=== PATIENT | male | born 1960 | race Caucasian/White ===

== ENCOUNTER 2021-05-01 11:36 | Inpatient (IN) ==
[2021-05-01] MEDS ORDERED: SODIUM CHLORIDE 0.9% 1000ML 1,000 ML IV ONE (12:00)
[2021-05-01] MEDS ORDERED: ALBUTEROL 0.083% NEBU SOLN 3 ML VIAL NEB STA (12:00)
[2021-05-01] MEDS ORDERED: methylPREDNISolone 125 MG/2 ML VIAL IV STA (12:00)
--- NOTE | 2021-05-01 12:04 | Emergency Department Note ---
Impression & Plan RSV (acute bronchiolitis due to respiratory syncytial virus), HUSSEIN (acute kidney injury), Hypoxia ED Provider Note NAME: DEBBIE ALEJANDRA AGE: 61 SEX: M : 1960 ARRIVES VIA: Ambulance INFORMANT: Patient ED PROVIDER(S): Darren Johnson DO CHIEF COMPLAINT: Cough and shortness of breath HPI: Patient is a 61-year-old who is a renal transplant recipient on tacrolimus and Eliquis who presents to the ER for cough and congestion which has been present for the past 2 weeks. He notes that the shortness of breath has been getting gradually worse. He denies any chest pain or belly pain. No nausea and vomiting. No dysuria, urgency, or frequency. He saw his PCP today was found to be hypoxic at 87% was referred over to the ER. He was brought in by EMS. ROS: See above HPI for pertinent positives & negatives. A total of 10 systems r eviewed and were otherwise negative. PAST MEDICAL HISTORY:See Below PAST SURGICAL HISTORY:See Below FAMILY HISTORY:See Below SOCIAL HISTORY:See Below HOME MEDICATIONS:See Below ALLERGIES:See Below VITALS:See Below PHYSICAL EXAMINATION: GENERAL: Sitting up in bed, alert, Chronically ill-appearing, disheveled,Persistent cough EYE EXAM: normal conjunctiva. OROPHARYNX: no exudate, no erythema, lips, buccal mucosa, and tongue normal and mucous membranes are moist NECK: supple, no nuchal rigidity, no adenopathy, non-tender LUNGS: Clear to auscultation. Normal chest wall mechanics HEART: no murmurs, S1 normal and S2 normal ABDOMEN: abdomen soft, non-tender, normo-active bowel sounds, no masses, no rebound or guarding. UPPER EXTREMITIES: upper extremities are grossly normal. LOWER EXTREMITIES: No pitting edema. NEURO EXAM: Normal sensorium, cranial nerves II-XII grossly intact, normal speech, no gross weakness of arms, no gross weakness of legs. MEDICAL DECISION MAKING: Patient is a 61-year-old male that presents the ER for upper respiratory symptoms with a known renal transplant. IV was established blood work was obtained. Labs show no significant leukocytosis or anemia. BMP with a creatinine of 2.8 up from a baseline of 1.5. LFTs bilirubin were unremarkable. Troponin was negative. RSV was positive likely cause of his hypoxia. Chest x- ray with mild infiltrates. Patient was given IV fluids. Patient was updated bedside. He was discussed with the hospitalist admitted for further work-up of his HUSSEIN in combination with his RSV likely causing the hypoxia on nasal cannula. Triage Nursing notes reviewed. Limited review of prior medical records performed Vital Signs: reviewed and remarkable for hypotension Differential diagnosis: Differential diagnoses includes but is not limited to pneumonia, bronchitis, COPD/Asthma exacerbation, pneumothorax, pulmonary embolism, congestive heart failure, acute coronary syndrome ER treatment provided: See below Diagnostics interpreted by me: ECG: A. fib rate of 75 Left axis No PVCs QTC 386 Cardiac Monitoring: An order was placed for continuous cardiac monitoring. The monitor shows a rate of 80 with sinus rhythm. Laboratory studies: As stated above and show below. Imaging studies: Chest x-ray with bilateral subtle infiltrates Consultation(s): Discussed the hospitalist for further evaluation Procedures: none Critical Care: I have personally spent 35 minutes of critical care time in the direct management of this patient. This includes bedside care, interpretation of diagnostic studies, and testing, discussion with consultants, patient, and family members, and other required patient management activities. This 35 minutes is in excess of all separately billable procedures. Past Med/Surg History Medical History Afib Cardiac defibrillator in place Surgical History History of appendectomy History of cholecystectomy Social History Smoking Status: Never smoker Preferred Language: Indonesian Feels Safe at Home: Yes Allergies Allergies Allergy/AdvReac Type Severity Reaction Status Date / Time Penicillins Allergy Intermediate Hives Verified 05/01/21 13:25 Home Meds Home Medications Medication Instructions Recorded Confirmed amlodipine 5 mg tablet (Norvasc) 5 mg PO QAM 12/15/20 05/01/21 apixaban 5 mg tablet (Eliquis) 5 mg PO BID 12/15/20 05/01/21 atorvastatin 10 mg tablet 10 mg PO HS 12/15/20 05/01/21 carvedilol 6.25 mg tablet 6.25 mg PO BID 12/15/20 05/01/21 clonidine 0.2 mg/24 hr weekly 0.2 mg TRANSDERMAL WK 12/15/20 05/01/21 transdermal patch duloxetine 60 mg capsule,delayed 60 mg PO QAM 12/15/20 05/01/21 release fluticasone furoate 100 1 inh INHALATION DAILY 12/15/20 05/01/21 mcg/actuation blister powder for inhalation (Arnuity Ellipta) furosemide 40 mg tablet 40 mg PO DAILY 12/15/20 05/01/21 hydroxyzine HCl 25 mg tablet 25 mg PO TID PRN 12/15/20 05/01/21 [id number]-[id number]-[id number] 2 cap PO BID 12/15/20 05/01/21 24,000-76,000-120,000 unit capsule,delayed rel (Creon) lorazepam 0.5 mg tablet 0.5 mg PO BID PRN 12/15/20 05/01/21 montelukast 10 mg tablet 10 mg PO HS 12/15/20 05/01/21 potassium chloride 20 mEq 20 meq PO BID 12/15/20 05/01/21 tablet,extended release(part/cryst) sacubitril 24 mg-valsartan 26 mg 1 tab PO BID 12/15/20 05/01/21 tablet (Entresto) tacrolimus 1 mg capsule, See Rx Instructions .ROUTE .COMPLEX 12/15/20 05/01/21 immediate-release terazosin 10 mg capsule 10 mg PO HS 12/15/20 05/01/21 pantoprazole 40 mg tablet,delayed 40 mg PO DAILY 05/01/21 05/01/21 release trazodone 50 mg tablet 50 mg PO DAILY 05/01/21 05/01/21 Results & Data (ED) Vital Signs Vital Signs - 24 hr 05/01/21 11:54 05/01/21 13:22 05/01/21 13:24 Temperature 36.5 C Temperature Source Temporal Artery Scan Pulse Rate 75 71 66 Pulse Rate [Apical] 68 Pulse Rate from SpO2 Sensor 68 Pulse Rhythm Irregular Pulse Rhythm [Apical] Irregular Pulse Strength [Apical] Normal Respiratory Rate 20 19 33 H Respiratory Effort / Characteristics Non-Labored Spontaneous Non-Labored Spontaneous Respiratory Depth Normal Normal Respiratory Pattern Regular Regular Blood Pressure 88/45 L Blood Pressure [Right Arm] 102/64 Blood Pressure Mean 59 Blood Pressure Mean [Right Arm] 76 Blood Pressure Position Sitting Blood Pressure Position [Right Arm] Semi-fowlers Pulse Oximetry 94 93 93 Oxygen Delivery Method Room Air Room Air Oxygen Flow Rate 2 Sepsis Recent Fever Within 48 Hours No Sepsis New/Unexplained Change in Mental Status N/A Sepsis Action Taken by Nursing No Action Required 05/01/21 13:30 Temperature Temperature Source Pulse Rate 83 Pulse Rate [Apical] Pulse Rate from SpO2 Sensor 81 Pulse Rhythm Pulse Rhythm [Apical] Pulse Strength [Apical] Respiratory Rate 20 Respiratory Effort / Characteristics Respiratory Depth Respiratory Pattern Blood Pressure 102/68 Blood Pressure [Right Arm] Blood Pressure Mean 79 Blood Pressure Mean [Right Arm] Blood Pressure Position Blood Pressure Position [Right Arm] Pulse Oximetry 98 Oxygen Delivery Method Oxygen Flow Rate Sepsis Recent Fever Within 48 Hours Sepsis New/Unexplained Change in Mental Status Sepsis Action Taken by Nursing Laboratory Data Result diagrams: 05/01/21 Unknown 05/01/21 Unknown Administered Medications Discontinued Medications Albuterol (Albuterol 0.083% Nebu Soln 3 Ml Vial) 2.5 mg NEB NOW STA Stop: 05/01/21 12:01 Last Admin: 05/01/21 12:10 Dose: 2.5 mg Documented by: [id number] Sodium Chloride (Nss 1000ml) 1,000 mls @ 999 mls/hr IV .Q1H1M ONE Stop: 05/01/21 13:00 Last Infusion: 05/01/21 17:08 Dose: 0 mls/hr Documented by: [id number] Admin: 05/01/21 14:11 Dose: 999 mls/hr Documented by: [id number] Methylprednisolone (Methylprednisolone 125 Mg/2 Ml Vial) 60 mg IV NOW STA Stop: 05/01/21 12:01 Last Admin: 05/01/21 12:10 Dose: 60 mg Documented by: [id number] Imaging Data Radiologist's Impression: Chest X-Ray 05/01/21 11:59 XR chest 1V portable CLINICAL HISTORY: Atypical chest pain. COMPARISON STUDY: Chest CT December 15, 2020. FINDINGS: Lung volumes are normal. Left subclavian pacer/AICD is in place. There is moderate cardiomegaly without evidence for pulmonary edema. There is no pneumothorax or pleural effusion. Old bilateral rib deformities are incidentally noted. There is mild nonspecific reticulonodular interstitial thickening. There is minimal right basilar opacity. IMPRESSION: 1. Minimal right basilar opacity and mild reticulonodular interstitial thickening. An infectious process cannot be excluded. 2. Cardiomegaly. No evidence for pulmonary edema. ACT 112: Negative or not required by law. Electronically signed by: Hussein Garvin M.D. 05/01/2021 12:33 PM Discharge Plan Visit Data Chief Complaint: Shortness of Breath/Dyspnea Stated Complaint: COUGH, CONGESTION, WEAKNESS, FITGUE ED Provider: Darren Johnson Discharge Problem: RSV (acute bronchiolitis due to respiratory syncytial virus), HUSSEIN (acute kidney injury), Hypoxia
[2021-05-01 12:28] LABS: Hematocrit (blood only) 41.4 % (42-52); Hemoglobin 13.8 g/dL (14.0-18.0); Immature Granulocytes # (auto) 0.03 K/uL (0.00-0.02); Immature Granulocytes % (auto) 0.3 %; Lymphocytes # (auto) 0.74 K/uL (1.2-3.4); Lymphocytes % (auto) 7.4 %; Mean Corpuscular Hemoglobin 30.1 pg (25-34); Mean Corpuscular Hgb Conc 33.3 g/dL (32-36); Mean Corpuscular Volume 90.2 fL (80-100); Monocytes # (auto) 0.61 K/uL (0.11-0.59); Monocytes % (auto) 6.1 %; Neutrophils # (auto) 8.61 K/uL (1.4-6.5); Neutrophils % (auto) 86.2 %; Platelet Count 164 K/uL (130-400); RDW Coefficient of Variation 14.2 % (11.5-14.5); RDW Standard Deviation 47.3 fL (36.4-46.3); Red Blood Count 4.59 M/uL (4.7-6.1); White Blood Count 9.99 K/uL (4.8-10.8)
--- NOTE | 2021-05-01 12:35 | XRay Report ---
XR chest 1V portable CLINICAL HISTORY: Atypical chest pain. COMPARISON STUDY: Chest CT December 15, 2020. FINDINGS: Lung volumes are normal. Left subclavian pacer/AICD is in place. There is moderate cardiome kathy without evidence for pulmonary edema. There is no pneumothorax or pleural effusion. Old bilatera l rib deformities are incidentally noted. There is mild nonspecific reticulonodular interstitial thic kening. There is minimal right basilar opacity. IMPRESSION: 1. Minimal right basilar opacity and mild reticulonodular interstitial thickening. An infectious proc ess cannot be excluded. 2. Cardiomegaly. No evidence for pulmonary edema. ACT 112: Negative or not required by law. Electronically signed by: Hussein Garvin M.D. 05/01/2021 12:33 PM
[2021-05-01 12:45] LABS: Alanine Aminotransferase 47 (12-78); Albumin Level 2.6 gm/dl (3.4-5.0); Aspartate Aminotransferase 35 U/L (15-37); BUN Creatinine Ratio 15.9 (10-20); Blood Urea Nitrogen 45 mg/dl (7-18); Calcium 9.9 mg/dl (8.5-10.1); Carbon Dioxide 22 mmol/L (21-32); Chloride 108 mmol/L (98-107); Est GFR (African American) 26.8 ml/min; Est GFR (Non-African American) 23.1 ml/min; Glucose 109 mg/dl (70-99); Lipase 59 U/L (73-393); Potassium 4.8 mmol/L (3.5-5.1); Sodium 137 mmol/L (136-145)
[2021-05-01 12:50] LABS: Albumin Globulin Ratio 0.7 (0.9-2); Alkaline Phosphatase 193 U/L (45-117); Bilirubin,Total 0.7 mg/dl (0.2-1); Globulin 3.7 gm/dl (2.5-4.0); Total Protein 6.3 gm/dl (6.4-8.2); Troponin I < 0.015 ng/ml (0-0.045)
[2021-05-01 13:14] LABS: Influenza A virus by PCR Negative (Neg); Influenza B virus by PCR Negative (Neg); SARS CoV2 RNA(COVID-19) InHosp NEGATIVE (Negative)
[2021-05-01 13:18] LABS: RSV by PCR Positive (Neg)
--- NOTE | 2021-05-01 14:04 | History & Physical Report ---
Date of Service May 01, 2021 Assessment & Plan (1) Acute asthma exacerbation: Plan: 60mg IV Solu-medrol given in the ER. Continue 40mg IV BID Duonebs Q4H Continue his usual maintenance inhaler Arnuity Ellipta or hospital formulary equivalent (2) RSV (acute bronchiolitis due to respiratory syncytial virus): Plan: Patient will be placed in the hospital under observation proceeding as follows: Provide the patient with nebulizers in Mucinex which will hopefully help him expel mucus and improve his respiratory status Supplemental oxygen will be provided and weaned as able We will place the patient on Solu-Medrol 40 mg IV every 12 hours as the patient has a concomitant history of asthma (3) Acute kidney injury: Plan: I suspect the patient's acute kidney injury is a combination of relative hypotension along with poor oral intake. We will proceed as follows concerning this condition: Due to his history of renal transplant we will request a nephrology consultation We will hold the patient's hypertensive medications with the exception of Coreg in hopes that this will improve his blood pressure We will hydrate him gently with IV fluids We will avoid any additional nephrotoxins We will repeat labs in the morning (4) History of renal transplant: Plan: We will request a nephrology consultation as noted previously We will maintain the patient on his home dose of tacrolimus We will follow serial labs as noted previously History of Present Illness Chief Complaint: Shortness of breath Primary Care Provider: Rene Masterson This is 61-year-old male who presented to [facility] emergency department secondary to 2.5 weeks of shortness of breath. Patient says he did not seek medical attention prior to today as he felt that he would improve but has not. He notes his shortness of breath is worse with activity such as walking up steps and inclines but he says he is not short of breath with routine conversation. He specifically denies any chest pain. He denies any abdominal pain. He denies any nausea or vomiting but notes intermittent diarrhea. He notes he is generally more fatigued and because of this he says he is sleeping more than usual. Secondary to his fatigue and increased sleeping his oral intake has decreased and he also notes a decreased appetite. He denies any fevers, shakes, chills. He denies any close contact with any patients infected with COVID-19. Patient does note that he has received 2 Covid vaccination shots as well as a Covid booster. He says he routinely does not wear a mask when he is out in public. He further adds a he has a history of a renal transplant performed in [place] in 2003. He does follow with the transplant team Dr. Zhang at [facility] in [facility]. He also follows with a link assembler Dr. Heredia in [facility]. Patient further adds that his kidney transplant was in 2003 as stated previously and he was taken off dialysis shortly thereafter and has not been on dialysis since. Today in the emergency department the patient had labs and imaging which I independently reviewed. A chest x-ray showed minimal right basilar opacity with some interstitial thickening. CBC revealed white blood cell count and platelet count were within normal range. His hemoglobin and hematocrit were 13.8 and 41.4 respectively. Chemistry profile showed sodium and potassium were both normal. His BUN and creatinine were both elevated at 45 and 2.8. Patient is unsure of what his baseline creatinine is but he was at [facility] in November of this year where his creatinine was noted to be 1.5. Patient has had testing done for influenza a and B which were both negative. In ad di he had a Covid test performed that was negative. He was tested for RSV which was noted to be positive. An EKG did show atrial fibrillation with a well-controlled heart rate in the 70s. There is no evidence of acute ischemia on the study. Since arrival to the emergency department the patient has been given intravenous Solu-Medrol and IV fluids. He does note with these modalities he feels somewhat improved. At the time of my interview the patient was resting comfortably in bed he was in no distress. Allergies Allergy/AdvReac Type Severity Reaction Status Date / Time Penicillins Allergy Intermediate Hives Verified 05/01/21 13:25 Home Medications Medication Instructions Recorded Confirmed Type amlodipine 5 mg tablet (Norvasc) 5 mg PO QAM 12/15/20 05/01/21 History apixaban 5 mg tablet (Eliquis) 5 mg PO BID 12/15/20 05/01/21 History atorvastatin 10 mg tablet 10 mg PO HS 12/15/20 05/01/21 History carvedilol 6.25 mg tablet 6.25 mg PO BID 12/15/20 05/01/21 History clonidine 0.2 mg/24 hr weekly 0.2 mg TRANSDERMAL WK 12/15/20 05/01/21 History transdermal patch duloxetine 60 mg capsule,delayed 60 mg PO QAM 12/15/20 05/01/21 History release fluticasone furoate 100 1 inh INHALATION DAILY 12/15/20 05/01/21 History mcg/actuation blister powder for inhalation (Arnuity Ellipta) furosemide 40 mg tablet 40 mg PO DAILY 12/15/20 05/01/21 History hydroxyzine HCl 25 mg tablet 25 mg PO TID PRN 12/15/20 05/01/21 History [id number]-zcysyuip-qyqlbwm 2 cap PO BID 12/15/20 05/01/21 History 24,000-76,000-120,000 unit capsule,delayed rel (Creon) lorazepam 0.5 mg tablet 0.5 mg PO BID PRN 12/15/20 05/01/21 History montelukast 10 mg tablet 10 mg PO HS 12/15/20 05/01/21 History potassium chloride 20 mEq 20 meq PO BID 12/15/20 05/01/21 History tablet,extended release(part/cryst) sacubitril 24 mg-valsartan 26 mg 1 tab PO BID 12/15/20 05/01/21 History tablet (Entresto) tacrolimus 1 mg capsule, See Rx Instructions .ROUTE .COMPLEX 12/15/20 05/01/21 History immediate-release terazosin 10 mg capsule 10 mg PO HS 12/15/20 05/01/21 History pantoprazole 40 mg tablet,delayed 40 mg PO DAILY 05/01/21 05/01/21 History release trazodone 50 mg tablet 50 mg PO DAILY 05/01/21 05/01/21 History Past Med/Surg History Medical History Afib Cardiac defibrillator in place Surgical History History of appendectomy History of cholecystectomy Social History Smoking Status: Never smoker Preferred Language: Lithuanian Feels Safe at Home: Yes Review of Systems Constitutional: + fatigue and + anorexia; no fever and no chills Eyes: no diplopia Ear, Nose, Mouth, Throat: no ear pain and no sore throat Respiratory: + dyspnea on exertion; no cough Cardiovascular: no chest pain Gastrointestinal: + diarrhea/loose stools; no abdominal pain, no nausea and no vomiting Genitourinary: no dysuria Musculoskeletal: no back pain Integumentary: no rash Neurologic: no localized weakness Physical Exam Constitutional: well developed and well nourished; no acute distress Eyes: no conjunctival abnormality ENMT: Ears: no hearing impairment Neck: trachea midline Respiratory: Patient was not using accessory muscles to aid in respiration. Patient did have coarse rhonchi noted bilaterally with an occasional expiratory wheeze. The rhonchi did appear to improve somewhat with forceful cough. Cardiovascular: Rate/Rhythm: + irregularly irregular Gastrointestinal (Abdomen): Abdomen is soft, nontender, nondistended. Palpation did not elicit pain. Musculoskeletal: No calf tenderness. Trace to 1+ lower extremity edema noted bilaterally in the lower extremities. Patient had evidence of a AV fistula in the left anterior forearm. There is no palpable thrill or audible thrill noted at his fistula site. Skin: no rashes, warm and dry Neurologic: moves all extremities Psychiatric: A+Ox3, euthymic affect Results & Data Results & Data ([facility]) Vital Signs (Past 12 Hours) Vital Signs Temp Pulse Pulse Resp BP BP Pulse Ox 05/01/21 13:22 71 68 19 102/64 93 05/01/21 11:54 36.5 C 75 20 88/45 L 94 Code Status & VTE Plan VTE Prophylaxis Plan VTE Prophylaxis will be ordered: Yes Supervising Physician Co-Signing Physician Notes I personally saw and examined the patient. I verified all suresh points and agree with Addison Alvarez PA-C with the following exceptions and/or additions: 61 year old renal transplant patient, sick for last 2 weeks with cold symptoms. Diagnosed with RSV in the ER. Suspect prolonged illness due to his asthma. Of note he stopped taking his medications on Thursday O/E No respiratory distress, Bibasal expiratory wheezing, abdomen SNT, no pedal edema, dry mucus membranes A/P Asthma exacerbation - duonebs, methylprednisone 40mg IV BID, continue routine maintenance inhalers RSV - droplet precautions VTE Prophylaxis - Eliquis PG Care Time/CCT Total # of Minutes Spent Total Time Spent with Patient: Total time spent is greater than 50% in coordination of care (as documented) at patient's floor/unit and/or counseling patient: Coding Level of Care Code INT OBSERVATION CARE 70M LVL 3 Diagnoses RSV (acute bronchiolitis due to respiratory syncytial virus) J21.0 Acute kidney injury N17.9 History of renal transplant Z94.0 Acute asthma exacerbation J45.901
[2021-05-01] MEDS ORDERED: LORazepam 0.5 MG TAB PO PRN (19:47)
[2021-05-01] MEDS ORDERED: SODIUM CHLORIDE 0.9% 1000ML 1,000 ML IV SCH (19:47)
[2021-05-01] MEDS ORDERED: carvediloL 6.25 MG TAB PO SCH (21:00)
[2021-05-01] MEDS: ALBUT/IPRATROP 3MG/0.5MG NEB 3 ML VIAL NEB SCH ×2 (21:11→23:00)
[2021-05-01] MEDS: methylPREDNISolone 40 MG in SYRINGE 0 ML IV SCH (21:20)
[2021-05-01] MEDS: TERAZOSIN HCL 5 MG CAP PO SCH (21:20)
[2021-05-01] MEDS: PANCREAZE (LIPASE 16,800U) CAP PO SCH (21:20)
[2021-05-01] MEDS: MONTELUKAST SODIUM 10 MG TABLET PO SCH (21:21)
[2021-05-01] MEDS: guaiFENesin 600 MG TABCR PO SCH (21:22)
[2021-05-01] MEDS: traZODone HCL 50 MG TAB PO SCH (21:22)
[2021-05-01] MEDS: ATORVASTATIN 10 MG TAB PO SCH (21:22)
[2021-05-01] MEDS: carvediloL 6.25 MG TAB PO SCH (21:22)
[2021-05-01] MEDS: APIXABAN 5 MG TABLET PO SCH (21:23)
[2021-05-02] MEDS: ALBUT/IPRATROP 3MG/0.5MG NEB 3 ML VIAL NEB SCH ×6 (03:22→22:38)
[2021-05-02 05:51] LABS: Hematocrit (blood only) 36.9 % (42-52); Hemoglobin 12.5 g/dL (14.0-18.0); Mean Corpuscular Hemoglobin 30.1 pg (25-34); Mean Corpuscular Hgb Conc 33.9 g/dL (32-36); Mean Corpuscular Volume 88.9 fL (80-100); Mean Platelet Volume 10.9 fL (7.4-10.4); Platelet Count 164 K/uL (130-400); RDW Coefficient of Variation 14.1 % (11.5-14.5); RDW Standard Deviation 46.2 fL (36.4-46.3); Red Blood Count 4.15 M/uL (4.7-6.1); White Blood Count 7.78 K/uL (4.8-10.8)
[2021-05-02 06:38] LABS: BUN Creatinine Ratio 19.1 (10-20); Calcium 9.1 mg/dl (8.5-10.1); Creatinine Clr Calc Pharmacy 37.4 ml/min; Est GFR (African American) 34.9 ml/min; Est GFR (Non-African American) 30.1 ml/min; Potassium 5.1 mmol/L (3.5-5.1)
[2021-05-02 06:44] LABS: Echinocytes 1+; Immature Granulocytes # (auto) 0.04 K/uL (0.00-0.02); Immature Granulocytes % (auto) 0.5 %; Lymphocytes # (auto) 0.45 K/uL (1.2-3.4); Lymphocytes % (auto) 5.8 %; Monocytes # (auto) 0.08 K/uL (0.11-0.59); Neutrophils # (auto) 7.21 K/uL (1.4-6.5); Neutrophils % (auto) 92.7 %
[2021-05-02] MEDS ORDERED: NORMOSOL-R 1,000 ML IV SCH (08:00)
[2021-05-02] MEDS: APIXABAN 5 MG TABLET PO SCH ×2 (08:02→20:58)
[2021-05-02] MEDS: DULoxetine HCL 60 MG CAP PO SCH (08:03)
[2021-05-02] MEDS: carvediloL 6.25 MG TAB PO SCH ×2 (08:03→20:56)
[2021-05-02] MEDS: PANCREAZE (LIPASE 16,800U) CAP PO SCH ×2 (08:04→20:55)
[2021-05-02] MEDS: guaiFENesin 600 MG TABCR PO SCH ×2 (08:04→20:57)
[2021-05-02] MEDS: PANTOprazole 40 MG TAB PO SCH (08:05)
[2021-05-02] MEDS: TACROLIMUS 1 MG CAP PO SCH ×2 (08:06→20:53)
[2021-05-02] MEDS ORDERED: ACETAMINOPHEN 325 MG TAB PO PRN (08:28)
[2021-05-02] MEDS ORDERED: ACETAMINOPHEN 325 MG TAB ONE (08:44)
[2021-05-02] MEDS ORDERED: FLUTICASONE FUROATE 100MCG 14 PUFFS/INHALER INH SCH (09:00)
[2021-05-02] MEDS ORDERED: SODIUM BICARBONATE 650 MG TAB PO SCH (09:00)
[2021-05-02] MEDS ORDERED: traZODone HCL 50 MG TAB PO SCH (09:00)
--- NOTE | 2021-05-02 10:30 | Hospitalist Progress Note ---
Date of Service May 02, 2021 Assessment & Plan (1) Acute asthma exacerbation: Plan: 60mg IV Solu-medrol given in the ER. Continue 40mg IV BID Duonebs Q4H Continue his usual maintenance inhaler Arnuity Ellipta or hospital formulary equivalent (2) RSV (acute bronchiolitis due to respiratory syncytial virus): Plan: Patient will be placed in the hospital under observation proceeding as follows: Provide the patient with nebulizers in Mucinex which will hopefully help him expel mucus and improve his respiratory status Supplemental oxygen will be provided and weaned as able We will place the patient on Solu-Medrol 40 mg IV every 12 hours as the patient has a concomitant history of asthma (3) Acute kidney injury: Plan: I suspect the patient's acute kidney injury is a combination of relative hypotension along with poor oral intake. We will proceed as follows concerning this condition: Due to his history of renal transplant we will request a nephrology consultation We will hold the patient's hypertensive medications with the exception of Coreg in hopes that this will improve his blood pressure We will hydrate him gently with IV fluids We will avoid any additional nephrotoxins We will repeat labs in the morning (4) History of renal transplant: Plan: We will request a nephrology consultation as noted previously We will maintain the patient on his home dose of tacrolimus We will follow serial labs as noted previously Admission and Anticipated Discharge Date Admission Date: May 01, 2021 Results & Data Results & Data ([facility]) Vital Signs (Past 12 Hours) Vital Signs Pulse Pulse Resp BP BP Pulse Ox 05/02/21 08:08 72 22 109/76 93 05/02/21 05:55 62 20 95 05/02/21 03:30 79 20 114/61 95 05/02/21 03:23 72 25 H 95 05/02/21 02:00 67 26 H 100/62 05/02/21 01:00 64 29 H 112/63 05/02/21 00:00 78 14 99/64 L 91 05/01/21 23:47 94 05/01/21 23:00 74 35 H 117/65 94 Laboratory Results Laboratory Results - last 24 hr 05/01/21 05/01/21 05/01/21 Unknown Unknown Unknown WBC 9.99 RBC 4.59 L Hgb 13.8 L Hct 41.4 L MCV 90.2 MCH 30.1 MCHC 33.3 RDW Std Deviation 47.3 H RDW Coeff of Poonam 14.2 Plt Count 164 MPV 11.0 H Immature Gran % (Auto) 0.3 Neut % (Auto) 86.2 Lymph % (Auto) 7.4 Giles % (Auto) 6.1 Eos % (Auto) 0.0 Baso % (Auto) 0.0 Neut # (Auto) 8.61 H Lymph # (Auto) 0.74 L [place] # (Auto) 0.61 H Eos # (Auto) 0.00 Baso # (Auto) 0.00 Immature Gran # (Auto) 0.03 H Echinocytes Sodium 137 Potassium 4.8 Chloride 108 H Carbon Dioxide 22 Anion Gap 7.0 BUN 45 H Creatinine 2.80 H Est Cr Clr Drug Dosing 30.0 Est GFR ( Amer) 26.8 Est GFR (Non-Af Amer) 23.1 BUN/Creatinine Ratio 15.9 Glucose 109 H Calcium 9.9 Total Bilirubin 0.7 AST 35 ALT 47 Alkaline Phosphatase 193 H D Troponin I < 0.015 Total Protein 6.3 L Albumin 2.6 L Globulin 3.7 Albumin/Globulin Ratio 0.7 L Lipase 59 L SARS-CoV-2 (PCR) NEGATIVE Influenza Type A (PCR) Negative Influenza Type B (PCR) Negative RSV (RT-PCR) Positive A* 05/02/21 05/02/21 05:27 05:27 WBC 7.78 RBC 4.15 L Hgb 12.5 L Hct 36.9 L MCV 88.9 MCH 30.1 MCHC 33.9 RDW Std Deviation 46.2 RDW Coeff of Poonam 14.1 Plt Count 164 MPV 10.9 H Immature Gran % (Auto) 0.5 Neut % (Auto) 92.7 Lymph % (Auto) 5.8 Giles % (Auto) 1.0 Eos % (Auto) 0.0 Baso % (Auto) 0.0 Neut # (Auto) 7.21 H Lymph # (Auto) 0.45 L Giles # (Auto) 0.08 L Eos # (Auto) 0.00 Baso # (Auto) 0.00 Immature Gran # (Auto) 0.04 H Echinocytes 1+ Sodium 137 Potassium 5.1 Chloride 110 H Carbon Dioxide 18 L Anion Gap 9.0 BUN 43 H Creatinine 2.25 H D Est Cr Clr Drug Dosing 37.4 Est GFR ( Amer) 34.9 Est GFR (Non-Af Amer) 30.1 BUN/Creatinine Ratio 19.1 Glucose 133 H Calcium 9.1 Total Bilirubin AST ALT Alkaline Phosphatase Troponin I Total Protein Albumin Globulin Albumin/Globulin Ratio Lipase SARS-CoV-2 (PCR) Influenza Type A (PCR) Influenza Type B (PCR) RSV (RT-PCR) Medications Administered Current Inpatient Medications Acetaminophen (Acetaminophen 325 Mg Tab) 650 mg PO Q4H PRN PRN Reason: schroeder/fever/pain Stop: 06/01/21 08:27 Albuterol (Albut/Ipratrop 3mg/0.5mg Neb 3 Ml Vial) 3 ml NEB Q4R KYREE Stop: 05/31/21 19:46 Last Admin: 05/02/21 05:55 Dose: 3 ml Documented by: Lipase/Protease/Amylase (Pancreaze (Lipase 16,800u) Cap) 3 cap PO BID KYREE Stop: 05/31/21 20:59 Last Admin: 05/02/21 08:04 Dose: 3 cap Documented by: Apixaban (Apixaban 5 Mg Tablet) 5 mg PO BID KYREE Stop: 05/31/21 20:59 Last Admin: 05/02/21 08:02 Dose: 5 mg Documented by: Atorvastatin Calcium (Atorvastatin 10 Mg Tab) 10 mg PO HS KYREE Stop: 05/31/21 20:59 Last Admin: 05/01/21 21:22 Dose: 10 mg Documented by: Budesonide (Budesonide 0.5 Mg/2 Ml Vial (Pulmicort)) 0.5 mg NEB BIDR KYREE Stop: 06/01/21 08:59 Carvedilol (Carvedilol 6.25 Mg Tab) 6.25 mg PO BID KYREE Stop: 05/31/21 20:59 Last Admin: 05/02/21 08:03 Dose: 6.25 mg Documented by: Duloxetine HCl (Duloxetine Hcl 60 Mg Cap) 60 mg PO QAM KYREE Stop: 06/01/21 08:59 Last Admin: 05/02/21 08:03 Dose: 60 mg Documented by: Formoterol Fumarate (Formoterol 20 Mcg/2 Ml Vial) 20 mcg NEB Q12R KYREE Stop: 06/01/21 08:59 Guaifenesin (Guaifenesin 600 Mg Tabcr) 1,200 mg PO Q12 [facility] Stop: 05/31/21 20:59 Last Admin: 12/09/21 08:04 Dose: 1,200 mg Documented by: Methylprednisolone 40 mg/ (Syringe) 0.64 mls @ 1.5 mls/min IV Q12H KYREE Stop: 05/31/21 21:59 Last Admin: 05/01/21 21:20 Dose: 1.5 mls/min Documented by: Parenteral Electrolytes (Normosol-R) 1,000 mls @ 100 mls/hr IV .Q10H KYREE Stop: 05/02/21 17:59 Last Admin: 05/02/21 08:49 Dose: 100 mls/hr Documented by: Lorazepam (Lorazepam 0.5 Mg Tab) 0.5 mg PO BID PRN PRN Reason: NEEDED Stop: 05/31/21 19:46 Montelukast Sodium (Montelukast Sodium 10 Mg Tablet) 10 mg PO [facility] Stop: 05/31/21 20:59 Last Admin: 05/01/21 21:21 Dose: 10 mg Documented by: Pantoprazole Sodium (Pantoprazole 40 Mg Tab) 40 mg PO DAILY KY[facility] Stop: 06/01/21 08:59 Last Admin: 05/02/21 08:05 Dose: 40 mg Documented by: Sodium Bicarbonate (Sodium Bicarbonate 650 Mg Tab) 650 mg PO BID [facility] Stop: 06/01/21 08:59 Tacrolimus (Tacrolimus 1 Mg Cap) 3 mg PO MoTh@0900,2100 [facility] Stop: 06/01/21 08:59 Last Admin: 05/02/21 08:06 Dose: 3 mg Documented by: Terazosin HCl (Terazosin Hcl 5 Mg Cap) 10 mg PO HS [facility] Stop: 05/31/21 20:59 Last Admin: 05/01/21 21:20 Dose: 10 mg Documented by: Trazodone HCl (Trazodone Hcl 50 Mg Tab) 50 mg PO HS [facility] Stop: 05/31/21 20:59 Last Admin: 05/01/21 21:22 Dose: 50 mg Documented by: PG Care Time/CCT Total # of Minutes Spent Total Time Spent with Patient: Total time spent is greater than 50% in coordination of care (as documented) at patient's floor/unit and/or counseling patient: Coding Diagnoses Acute asthma exacerbation J45.901 RSV (acute bronchiolitis due to respiratory syncytial virus) J21.0 Acute kidney injury N17.9 History of renal transplant Z94.0
[2021-05-02] MEDS: methylPREDNISolone 40 MG in SYRINGE 0 ML IV SCH ×2 (10:45→21:58)
[2021-05-02] MEDS: FORMOTEROL 20 MCG/2 ML VIAL NEB SCH ×2 (10:49→18:58)
[2021-05-02] MEDS: BUDESONIDE 0.5 MG/2 ML VIAL (PULMICORT) NEB SCH ×2 (10:49→18:59)
--- NOTE | 2021-05-02 12:21 | Nephrology Consultation ---
Date of Consultation May 02, 2021 Assessment & Plan (1) HUSSEIN (acute kidney injury): Non-oliguric. Electrolytes acceptable. Volume status reasonable. No indiction for [employer] at this time. Check UA/microscopy. US of the allograft with duplex has been requested. Clinical presentation suggestive of prerenal physiology from decreased PO intake and possible ATN. Entresto and diuretics held. IV NSS switched to normosol this AM. Will provided an additional 1 L today and repeat evaluation. Metabolic profile to be repeated this afternoon. (2) Kidney transplant recipient: Records from [facility] transplant requested. I have placed a call to the coordinator. Continue tacrolimus 3 mg q Thu + . AVF appears to be chronically thrombosed. (3) Hypertension: BP acceptable. Diuretic and Entresto held. Continue amlodipine and carvedilol per home Rx. (4) Cardiomyopathy: Records from Dr. Gonzalez requested. Not currently decompensated. Entresto held due to HUSSEIN. Afib rate controlled. History of Present Illness Reason for Consultation: HUSSEIN, kidney transplant Requesting Physician: Gaurav Irwin DO Attending Physician: Gaurav Irwin DO History of Present Illness Mr. Jairon Ann is a 61-year-old male with his is 61-year-old male with ESRD and a functioning kidney allograft. He underwent a donor transplant at [facility], [place] in 2003. He does not know the cause of his kidney failure but notes that it was rapidly progressive. He denies ever having a [place] kidney biopsy. Jairon was on hemodialysis via a left upper extremity AVF prior to undergoing donor transplant. His fieldwork coordinator is Jennyfer ([phone]). I attempted to contact Jennyfer and am waiting a return call. Jairon follows in the nephrology clinic with Dr. Allan Cuevas, [facility]. I was able to obtain and review records from Dr. Cuevas including a clinic note from January and blood work from January and March. Serum creatinine in January was 1.25 mg/dL. Creatinine on April 03 was 1.7 mg/dL. Metabolic profile has otherwise been normal. Urine studies from March did not demonstrate any proteinuria. Servando has never had any rejection. He is maintained on an unconventional regimen of tacrolimus 3 mg twice a week. He has a history of multiple colon polyps followed closely with yearly colonoscopy and a low risk profile for rejection. Servando follows in the cardiology clinic with Dr. Gonzalez. He has a documented history of atrial fibrillation as well as presumed cardiomyopathy for which he is maintained on Entresto and does have a defibrillator. He takes 40 mg of furosemide daily for fluid retention but denies any notable history of CHF. He follows with Dr. Calix regarding a history of seizure disorder. Mr. Ann was seen and evaluated in the ED inpatient this morning. He was resting comfortably in bed and talking to his on the phone when I entered the room. He states that he feels well and has noted significant improvement in his breathing. Mr. Ann presented to [facility] ER yesterday with progressive dyspnea and weakness. Symptoms present for approximately 2 weeks. His appetite has been poor and he feels that he has been dehydrated. Routine laboratory studies obtained for transplant 2 weeks ago, per his report demonstrated an elevated creatinine but I do not have these results for review. At that time, he notes that his fieldwork coordinator asked him to drink more fluids and repeat blood work this week. CXR demonstrates minimal right basilar opacity with some interstitial thickening. Creatinine elevated at 2.8 mg/dL on admission has improved to 2.5 mg/dL overnight with IV saline. The patient is non-oliguric. COVID testing and testing for influenza A and B were both negative. RSV testing was positive. An EKG did show atrial fibrillation with a well-controlled heart rate in the 70s. In addition to IVF, treatment has included IV steroids and breathing treatments. Allergies Allergy/AdvReac Type Severity Reaction Status Date / Time Penicillins Allergy Intermediate Hives Verified 05/01/21 13:25 Home Medications Medication Instructions Recorded Confirmed Type amlodipine 5 mg tablet (Norvasc) 5 mg PO QAM 12/15/20 05/01/21 History apixaban 5 mg tablet (Eliquis) 5 mg PO BID 12/15/20 05/01/21 History atorvastatin 10 mg tablet 10 mg PO HS 12/15/20 05/01/21 History carvedilol 6.25 mg tablet 6.25 mg PO BID 12/15/20 05/01/21 History clonidine 0.2 mg/24 hr weekly 0.2 mg TRANSDERMAL WK 12/15/20 05/01/21 History transdermal patch duloxetine 60 mg capsule,delayed 60 mg PO QAM 12/15/20 05/01/21 History release fluticasone furoate 100 1 inh INHALATION DAILY 12/15/20 05/01/21 History mcg/actuation blister powder for inhalation (Arnuity Ellipta) furosemide 40 mg tablet 40 mg PO DAILY 12/15/20 05/01/21 History hydroxyzine HCl 25 mg tablet 25 mg PO TID PRN 12/15/20 05/01/21 History zcworm-[id number] 2 cap PO BID 12/15/20 05/01/21 History 24,000-76,000-120,000 unit capsule,delayed rel (Creon) lorazepam 0.5 mg tablet 0.5 mg PO BID PRN 12/15/20 05/01/21 History montelukast 10 mg tablet 10 mg PO HS 12/15/20 05/01/21 History potassium chloride 20 mEq 20 meq PO BID 12/15/20 05/01/21 History tablet,extended release(part/cryst) sacubitril 24 mg-valsartan 26 mg 1 tab PO BID 12/15/20 05/01/21 History tablet (Entresto) tacrolimus 1 mg capsule, See Rx Instructions .ROUTE .COMPLEX 12/15/20 05/01/21 History immediate-release terazosin 10 mg capsule 10 mg PO HS 12/15/20 05/01/21 History pantoprazole 40 mg tablet,delayed 40 mg PO DAILY 05/01/21 05/01/21 History release trazodone 50 mg tablet 50 mg PO DAILY 05/01/21 05/01/21 History Patient History Medical History Afib Cardiac defibrillator in place Surgical History History of appendectomy History of cholecystectomy Social History Smoking Status: Never smoker Preferred Language: Rw[place] Feels Safe at Home: Yes Assistive Devices: Glasses Review of Systems Constitutional: + weight loss; no fever and no chills Eyes: no problem reported Ear, Nose, Mouth, Throat: + dry mouth; no dysphagia Respiratory: + cough, + dyspnea and + dyspnea on exertion Cardiovascular: no chest pain, no orthopnea, no palpitations, no lightheadedness, no syncope and no edema Gastrointestinal: + diarrhea/loose stools; no abdominal pain Genitourinary: no difficulty urinating, no decreased urination or no hematuria Musculoskeletal: no problem reported Integumentary: + dry skin; no problem reported Neurologic: no problem reported Psychiatric: no problem reported Endocrine: no problem reported Physical Exam Constitutional: well developed and + thin; no acute distress Eyes: + anicteric sclerae and + anisocoria; no conjunctival abnormality ENMT: Mouth: no oral mucosal abnormality and oral mucous membranes not dry Neck: normal visual inspection and trachea midline Respiratory: normal respiratory effort Auscultation: lungs clear to auscultation bilaterally Cardiovascular: Rate/Rhythm: regular rate Heart Sounds: normal S1 and normal S2 Extremities: no edema Gastrointestinal (Abdomen): Inspection/Auscultation: normal bowel sounds Percussion/Palpation: abdomen soft; abdomen nontender right lower quadrant allograft Musculoskeletal: Extremities: no cyanosis and no clubbing LUE BC AVF palpable cord Skin: normal turgor; no lesions Neurologic: Motor/Sensory: no tremor and no asterixis Psychiatric: Orientation: alert and oriented x 3 Results & Data ([facility]) Vital Signs (Past 12 Hours) Vital Signs Pulse Pulse Resp BP BP Pulse Ox 05/02/21 10:53 61 20 92 05/02/21 10:48 63 114/68 92 05/02/21 08:08 72 22 109/76 93 05/02/21 05:55 62 20 95 05/02/21 03:30 79 20 114/61 95 05/02/21 03:23 72 25 H 95 05/02/21 02:00 67 26 H 100/62 05/02/21 01:00 64 29 H 112/63 Laboratory Results Laboratory Results - last 24 hr 05/01/21 05/01/21 05/02/21 Unknown Unknown 05:27 WBC 7.78 RBC 4.15 L Hgb 12.5 L Hct 36.9 L MCV 88.9 MCH 30.1 MCHC 33.9 RDW Std Deviation 46.2 RDW Coeff of Poonam 14.1 Plt Count 164 MPV 10.9 H Immature Gran % (Auto) 0.5 Neut % (Auto) 92.7 Lymph % (Auto) 5.8 [place] % (Auto) 1.0 Eos % (Auto) 0.0 Baso % (Auto) 0.0 Neut # (Auto) 7.21 H Lymph # (Auto) 0.45 L [place] # (Auto) 0.08 L Eos # (Auto) 0.00 Baso # (Auto) 0.00 Immature Gran # (Auto) 0.04 H Echinocytes 1+ Sodium 137 Potassium 4.8 Chloride 108 H Carbon Dioxide 22 Anion Gap 7.0 BUN 45 H Creatinine 2.80 H Est Cr Clr Drug Dosing 30.0 Est GFR ( Amer) 26.8 Est GFR (Non-Af Amer) 23.1 BUN/Creatinine Ratio 15.9 Glucose 109 H Calcium 9.9 Total Bilirubin 0.7 AST 35 ALT 47 Alkaline Phosphatase 193 H D Troponin I < 0.015 Total Protein 6.3 L Albumin 2.6 L Globulin 3.7 Albumin/Globulin Ratio 0.7 L Lipase 59 L SARS-CoV-2 (PCR) NEGATIVE Influenza Type A (PCR) Negative Influenza Type B (PCR) Negative RSV (RT-PCR) Positive A* 05/02/21 05:27 WBC RBC Hgb Hct MCV MCH MCHC RDW Std Deviation RDW Coeff of Poonam Plt Count MPV Immature Gran % (Auto) Neut % (Auto) Lymph % (Auto) [place] % (Auto) Eos % (Auto) Baso % (Auto) Neut # (Auto) Lymph # (Auto) [place] # (Auto) Eos # (Auto) Baso # (Auto) Immature Gran # (Auto) Echinocytes Sodium 137 Potassium 5.1 Chloride 110 H Carbon Dioxide 18 L Anion Gap 9.0 BUN 43 H Creatinine 2.25 H D Est Cr Clr Drug Dosing 37.4 Est GFR ( Amer) 34.9 Est GFR (Non-Af Amer) 30.1 BUN/Creatinine Ratio 19.1 Glucose 133 H Calcium 9.1 Total Bilirubin AST ALT Alkaline Phosphatase Troponin I Total Protein Albumin Globulin Albumin/Globulin Ratio Lipase SARS-CoV-2 (PCR) Influenza Type A (PCR) Influenza Type B (PCR) RSV (RT-PCR) PG Care Time/CCT Total # of Minutes Spent Total Time Spent with Patient: Total time spent is greater than 50% in coordination of care (as documented) at patient's floor/unit and/or counseling patient: Coding Level of Care Code 34701 Inpt Consult Level 5 Diagnoses Kidney transplant recipient Z94.0 Hypertension I10 Cardiomyopathy I42.9 HUSSEIN (acute kidney injury) N17.9
--- NOTE | 2021-05-02 15:12 | Ultrasound Report ---
US renal transplant w dop HISTORY: 61 years-old Male HUSSEIN acute kidney injury COMPARISON: Acute abdomen and pelvis 12/15/2020 TECHNIQUE: Multiple real-time sonographic images of the kidneys and urinary bladder were obtained ass essing grayscale appearance, color and spectral flow FINDINGS: Markedly atrophic and echogenic bilateral [place] kidneys are suboptimally visualized by ultrasound. Right lower quadrant transplant kidney measures 11 cm in length and demonstrates no hydronephrosis or suspicious mass lesion. No shadowing renal calculi identified. Patent transplanted right renal vein. Triphasic waveforms are noted within the right renal artery with peak systolic velocities measuring up to 137 cm/s. Resistive index measures up to 0.87. There is transient diastolic reversal of flow. N o focal area of high-grade stenosis or occlusion identified within the renal artery. Unremarkable uri nary bladder. Right ureteral jet not identified. IMPRESSION: 1. Marked atrophy of the [place] renal kidneys redemonstrated. 2. Unremarkable appearance of the transplanted kidney within the abdominal right lower quadrant witho ut hydronephrosis. 3. High resistance waveforms within the transplanted right renal artery with transient diastolic reve rsal of flow. This is a nonspecific finding. No arterial or venous occlusion or high-grade stenosis i dentified. ACT 112: Negative or not required by law. The above report was generated using voice recognition software. It may contain grammatical, syntax o r spelling errors. Electronically signed by: Bladimir Mason M.D. 05/02/2021 3:10 PM
[2021-05-02 16:56] LABS: BUN Creatinine Ratio 20.4 (10-20); Calcium 9.6 mg/dl (8.5-10.1); Creatinine Clr Calc Pharmacy 42.6 ml/min; Est GFR (African American) 35.9 ml/min; Potassium 4.5 mmol/L (3.5-5.1)
[2021-05-02 17:53] LABS: Appearance Urine Clear (Clear); Bilirubin Urine Negative (Negative); Blood Urine Negative (Negative); Color Urine Yellow; Glucose Urine UA Negative (Negative); Ketones Urine Negative (Negative); Leukocyte Esterase Urine Negative (Negative); Nitrite Urine Negative (Negative); Protein Urine Negative (Negative); Specific Gravity Urine 1.017 (1.000-1.030); Urobilinogen Urine Negative (Negative)
[2021-05-02] MEDS: SODIUM BICARBONATE 650 MG TAB PO SCH ×2 (18:03→21:00)
[2021-05-02] MEDS: traZODone HCL 50 MG TAB PO SCH (20:52)
[2021-05-02] MEDS: ATORVASTATIN 10 MG TAB PO SCH (20:53)
[2021-05-02] MEDS: TERAZOSIN HCL 5 MG CAP PO SCH (20:57)
[2021-05-02] MEDS: MONTELUKAST SODIUM 10 MG TABLET PO SCH (20:58)
--- NOTE | 2021-05-02 21:15 | Electrocardiogram Report ---
Test Reason : Blood Pressure : / mmHG Vent. Rate : 075 BPM Atrial Rate : 090 BPM P-R Int : 000 ms QRS Dur : 102 ms QT Int : 346 ms P-R-T Axes : 000 -70 135 degrees QTc Int : 386 ms Atrial fibrillation Left axis deviation Low voltage QRS Poor R wave progression, consider anterior CO vs. lead placement vs. LVH Nonspecific T wave abnormality Abnormal ECG No previous ECGs available Confirmed by Bharathi Mclaughlin ([id number]) on 05/02/2021 9:14:41 PM Referred By: REFERRED SELF Confirmed By:Bharathi Mclaughlin
[2021-05-03] MEDS: ALBUT/IPRATROP 3MG/0.5MG NEB 3 ML VIAL NEB SCH ×6 (03:24→22:10)
[2021-05-03 04:59] LABS: Hematocrit (blood only) 36.2 % (42-52); Hemoglobin 12.3 g/dL (14.0-18.0); Mean Corpuscular Hemoglobin 29.4 pg (25-34); Mean Corpuscular Volume 86.6 fL (80-100); Mean Platelet Volume 10.5 fL (7.4-10.4); Platelet Count 172 K/uL (130-400); RDW Coefficient of Variation 13.8 % (11.5-14.5); RDW Standard Deviation 43.7 fL (36.4-46.3); Red Blood Count 4.18 M/uL (4.7-6.1); White Blood Count 9.39 K/uL (4.8-10.8)
[2021-05-03 05:28] LABS: Albumin Level 2.1 gm/dl (3.4-5.0); BUN Creatinine Ratio 21.2 (10-20); Calcium 9.5 mg/dl (8.5-10.1); Creatinine Clr Calc Pharmacy 40.2 ml/min; Est GFR (African American) 33.5 ml/min; Est GFR (Non-African American) 28.9 ml/min; Potassium 4.4 mmol/L (3.5-5.1)
[2021-05-03 05:55] LABS: Albumin Globulin Ratio 0.7 (0.9-2); Bilirubin,Total 0.7 mg/dl (0.2-1); Globulin 2.9 gm/dl (2.5-4.0); Magnesium 2.3 mg/dl (1.8-2.4)
[2021-05-03 06:33] LABS: Basophils # (auto) 0.01 K/uL (0-0.2); Basophils % (auto) 0.1 %; Echinocytes 1+; Immature Granulocytes # (auto) 0.07 K/uL (0.00-0.02); Immature Granulocytes % (auto) 0.7 %; Lymphocytes # (auto) 0.51 K/uL (1.2-3.4); Lymphocytes % (auto) 5.4 %; Monocytes # (auto) 0.21 K/uL (0.11-0.59); Monocytes % (auto) 2.2 %; Neutrophils # (auto) 8.59 K/uL (1.4-6.5); Neutrophils % (auto) 91.6 %
--- NOTE | 2021-05-03 07:13 | Hospitalist Progress Note ---
Date of Service May 02, 2021 Assessment & Plan (1) Acute asthma exacerbation: Plan: - seconday to RSV - continue with IV steroids - change inhalers to pulmicort/perforomist Q12h with scheduled duoneb treatments between - continue mucolytic agents - continue supplemental O2 to keep pulse ox >/=90% (2) RSV (acute bronchiolitis due to respiratory syncytial virus): Plan: - see above (3) Acute kidney injury: Plan: I suspect the patient's acute kidney injury is a combination of relative hypotension along with poor oral intake. We will proceed as follows concerning this condition: Due to his history of renal transplant, nephrology has been consulted-- appreciate recommendations his hypotension has resolved (may in part had been from Entresto in addition to his antihypertensive agents) continue to hydrate with IVF but watch closely for volume overload. No Echo in the computer but suspect poor EF since he is on Entresto. Update Echo We will avoid any additional nephrotoxins We will repeat labs in the morning (4) History of renal transplant: Plan: We will request a nephrology consultation as noted previously-- appreciate recommendations will maintain the patient on his home dose of tacrolimus We will follow serial labs as noted previously Plan: plan of care D/W Dr. Irwin Admission and Anticipated Discharge Date Admission Date: May 01, 2021 Subjective Patient seen on daily rounds today. Presented to the ED with cough and chest congestion x2 weeks. Has h/o Asthma. ED W/U consistent with RSV. Covid test neg. In addition, found to have hypotension (88/45) and HUSSEIN (cr. 2.25 with baseline at 1.5 7/21). CXR showing reticulonodular thickening concerning for infectious process. On Solumedrol. In addition- seen by Nephro (d/t the HUSSEIN in the setting of renal transplant in the past). HUSSEIN thought to b in the setting of hypotension and poor renal perfusion. Receiving Normosol. Review of Systems Review of Systems: All systems reviewed and are unremarkable except as noted in HPI and below Denies fevers, chills, headache, nasal congestion, sore throat, cough, chest pain, palpitations, orthopnea, PND, abdominal pain, nausea, vomiting, diarrhea, constipation, dysuria, hematuria, frequency, back pain, joint pain or swelling, easy bruising or bleeding, skin lesions or rashes. Physical Exam Physical Exam: General: Resting comfortably in his hospital bed. Does not appear ill or toxic NAD. HEENT: Head is AT/NC buccal mucosa is moist and pink Neck: No JVD. Negative hepatojugular reflex Cardiac: RRR with 1/6 RELL Lungs: Speaking full sentences on supplemental oxygen. No conversational dyspnea or accessory muscle use. End expiratory wheezes predominantly at the bases bilaterally but scattered throughout. Coarse rhonchi that mobilizes with coughing Abdomen: Normoactive X4. Soft and nontender in all quadrants. Extremities: No peripheral clubbing cyanosis or edema Neuro: A&O X4 cranial nerves II through XII are grossly intact no focal neuro deficits Skin: No obvious skin lesions or rashes Psych: Appropriate affect pleasant and cooperative Results & Data Results & Data ([facility]) Vital Signs (Past 12 Hours) Vital Signs Pulse Pulse Resp BP BP Pulse Ox 05/02/21 14:25 67 18 92 05/02/21 12:00 68 22 94 05/02/21 11:00 61 29 H 109/73 97 05/02/21 10:53 61 20 92 05/02/21 10:48 63 114/68 92 05/02/21 10:00 67 21 113/71 98 05/02/21 09:00 69 28 H 109/70 94 05/02/21 08:08 72 22 109/76 93 05/02/21 08:00 84 23 109/76 92 05/02/21 07:00 70 24 98/59 L 05/02/21 06:00 68 28 H 120/65 97 05/02/21 05:55 62 20 95 05/02/21 05:00 65 25 H 94 05/02/21 04:00 66 25 H PG Care Time/CCT Total # of Minutes Spent Total Time Spent with Patient: Total time spent is greater than 50% in coordination of care (as documented) at patient's floor/unit and/or counseling patient: Coding Level of Care Code 69846 Subseq Obs Care Lvl 2 Diagnoses Acute asthma exacerbation J45.901 RSV (acute bronchiolitis due to respiratory syncytial virus) J21.0 Acute kidney injury N17.9 History of renal transplant Z94.0
[2021-05-03] MEDS: BUDESONIDE 0.5 MG/2 ML VIAL (PULMICORT) NEB SCH ×2 (07:15→19:53)
[2021-05-03] MEDS: FORMOTEROL 20 MCG/2 ML VIAL NEB SCH ×2 (07:19→19:53)
--- NOTE | 2021-05-03 07:52 | XRay Report ---
XR chest 1V portable HISTORY: Shortness of breath. Congestive heart failure. COMPARISON: Chest 05/01/2021. FINDINGS: No pneumothorax. No pleural fusions. The cardiac silhouette remains mildly enlarged. There is a left-sided single lead pacemaker. Mild central pulmonary vascular congestion without overt edema . Hazy appearance to the left lung base, unchanged. This may be due to the overlying soft tissues. Ot herwise, no focal lung consolidations identified. Interstitial thickening at the lung bases persists. This may be chronic. IMPRESSION: 1. No change in the bibasilar interstitial thickening. This may be chronic. 2. Stable mild cardiomegaly. No evidence for pulmonary edema. ACT 112: Negative or not required by law. Electronically signed by: Reece Mejia M.D. 05/03/2021 7:50 AM
[2021-05-03] MEDS: carvediloL 6.25 MG TAB PO SCH ×2 (08:38→21:50)
[2021-05-03] MEDS: APIXABAN 5 MG TABLET PO SCH ×2 (09:22→21:49)
[2021-05-03] MEDS: guaiFENesin 600 MG TABCR PO SCH ×2 (09:23→21:50)
[2021-05-03] MEDS: DULoxetine HCL 60 MG CAP PO SCH (09:23)
[2021-05-03] MEDS: SODIUM BICARBONATE 650 MG TAB PO SCH ×3 (09:24→21:51)
[2021-05-03] MEDS: PANTOprazole 40 MG TAB PO SCH (09:24)
[2021-05-03] MEDS: PANCREAZE (LIPASE 16,800U) CAP PO SCH ×2 (09:24→21:49)
[2021-05-03] MEDS: FUROSEMIDE 40 MG/4 ML VIAL IV SCH ×2 (10:22→21:51)
--- NOTE | 2021-05-03 10:25 | Nephrology Progress Note ---
Date of Service May 03, 2021 Assessment & Plan (1) HUSSEIN (acute kidney injury): Plan: Non-oliguric. Electrolytes acceptable. Volume status reasonable. No indiction for BUSINESS ARCHITECT at this time. Baseline creatinine in January ~1.3 mg/dL. Creatinine was elevated at 1.7 in March. Cannot exclude a more subacute process within the kidney. Creatinine relatively stable at 2.3 mg/dL. Oral NaHOC3 provided for NAGMA. UA bland. Microscopy pending. US demonstrating unobstructed allograft and atrophic [place] kidneys. RI elevated consistent with some intrinsic HUSSEIN. Artery and vein patent. Initial clinical presentation suggestive of prerenal physiology from decreased PO intake and possible ATN. Entresto and diuretics held. This AM, Servando is demonstrating evidence of decompensated CHF. Furosemide provided to encouraged slightly negative fluid balance. Renal diet. Medications appropriate for kidney dysfunction. (2) Kidney transplant recipient: Plan: Records from [facility] transplant requested. I have placed a call to the coordinator. Continue tacrolimus 3 mg q e + Th. AVF thrombosed and not appropriate for BUSINESS ARCHITECT. (3) Hypertension: Plan: BP acceptable. Diuretic and Entresto held. Continue carvedilol per home Rx. Restart amlodipine PRN. (4) Cardiomyopathy: Plan: Records from Dr. Gonzalez requested. Not currently decompensated. Entresto held due to HUSSEIN. Afib rate controlled. Restart diuretics to encourage slightly negative fluid balance. Admission and Anticipated Discharge Date Admission Date: May 01, 2021 Subjective No acute events overnight. Slightly more dyspneic this AM. No fevers or chills. Non-oliguric. I discussed the plan of care with Mel Elias PA-C this AM. Review of Systems Review of Systems: All systems reviewed & are unremarkable except as noted in HPI & below Physical Exam Constitutional: well developed and + thin; no acute distress Eyes: + anicteric sclerae and + anisocoria; no conjunctival abnormality ENMT: Mouth: no oral mucosal abnormality and oral mucous membranes not dry Neck: normal visual inspection and trachea midline Respiratory: normal respiratory effort Auscultation: + rales Cardiovascular: Rate/Rhythm: regular rate Heart Sounds: normal S1 and normal S2 Vessels: + JVD Extremities: no edema Gastrointestinal (Abdomen): Inspection/Auscultation: normal bowel sounds Percussion/Palpation: abdomen soft; abdomen nontender Musculoskeletal: Extremities: no cyanosis and no clubbing Skin: normal turgor; no lesions Neurologic: Motor/Sensory: no tremor and no asterixis Psychiatric: Orientation: alert and oriented x 3 Results & Data ([facility]) Vital Signs (Past 12 Hours) Vital Signs Temp Pulse Resp BP Pulse Ox 05/03/21 10:17 58 L 20 97 05/03/21 08:21 36.4 C L 57 L 24 115/78 93 05/03/21 07:18 53 L 20 97 05/03/21 04:00 52 L 16 122/73 94 05/03/21 03:24 61 18 92 05/03/21 00:55 36.6 C 56 L 20 113/73 88 L 05/02/21 22:38 67 16 90 Laboratory Results Laboratory Results - last 24 hr 05/02/21 05/02/21 05/03/21 16:19 17:41 04:48 WBC 9.39 RBC 4.18 L Hgb 12.3 L Hct 36.2 L MCV 86.6 MCH 29.4 MCHC 34.0 RDW Std Deviation 43.7 RDW Coeff of Poon[place] 13.8 Plt Count 172 MPV 10.5 H Immature Gran % (Auto) 0.7 Neut % (Auto) 91.6 Lymph % (Auto) 5.4 Sullivan % (Auto) 2.2 Eos % (Auto) 0.0 Baso % (Auto) 0.1 Neut # (Auto) 8.59 H Lymph # (Auto) 0.51 L Sullivan # (Auto) 0.21 Eos # (Auto) 0.00 Baso # (Auto) 0.01 Immature Gran # (Auto) 0.07 H Echinocytes 1+ Sodium 135 L Potassium 4.5 Chloride 109 H Carbon Dioxide 16 L Anion Gap 10.0 BUN 45 H Creatinine 2.20 H Est Cr Clr Drug Dosing 42.6 Est GFR ( Amer) 35.9 Est GFR (Non-Af Amer) 31.0 BUN/Creatinine Ratio 20.4 H Glucose 185 H Calcium 9.6 Magnesium Total Bilirubin AST ALT Alkaline Phosphatase NT-Pro-B Natriuret Pep Total Protein Albumin Globulin Albumin/Globulin Ratio Procalcitonin Urine Color Yellow Urine Appearance Clear Urine pH 5.0 Ur Specific [place] 1.017 Urine Protein Negative Urine Glucose (UA) Negative Urine Ketones Negative Urine Blood Negative Urine Nitrite Negative Urine Bilirubin Negative Urine Urobilinogen Negative Ur Leukocyte Esterase Negative 05/03/21 05/03/21 05/03/21 04:48 07:22 07:22 WBC RBC Hgb Hct MCV MCH MCHC RDW Std Deviation RDW Coeff of [place] Plt Count MPV Immature Gran % (Auto) Neut % (Auto) Lymph % (Auto) Sullivan % (Auto) Eos % (Auto) Baso % (Auto) Neut # (Auto) Lymph # (Auto) Sullivan # (Auto) Eos # (Auto) Baso # (Auto) Immature Gran # (Auto) Echinocytes Sodium 134 L Potassium 4.4 Chloride 107 Carbon Dioxide 20 L Anion Gap 7.0 BUN 50 H Creatinine 2.33 H Est Cr Clr Drug Dosing 40.2 Est GFR ( Amer) 33.5 Est GFR (Non-Af Amer) 28.9 BUN/Creatinine Ratio 21.2 H Glucose 166 H Calcium 9.5 Magnesium 2.3 Total Bilirubin 0.7 AST 34 ALT 48 Alkaline Phosphatase 167 H NT-Pro-B Natriuret Pep 5830 H Total Protein 5.0 L D Albumin 2.1 L Globulin 2.9 Albumin/Globulin Ratio 0.7 L Procalcitonin 1.09 H Urine Color Urine Appearance Urine pH Ur Specific [place] Urine Protein Urine Glucose (UA) Urine Ketones Urine Blood Urine Nitrite Urine Bilirubin Urine Urobilinogen Ur Leukocyte Esterase PG Care Time/CCT Total # of Minutes Spent Total Time Spent with Patient: Total time spent is greater than 50% in coordination of care (as documented) at patient's floor/unit and/or counseling patient: Coding Level of Care Code 44810 Subseq Hosp Care Lvl 3 Diagnoses HUSSEIN (acute kidney injury) N17.9 Kidney transplant recipient Z94.0 Hypertension I10 Cardiomyopathy I42.9
[2021-05-03] MEDS: methylPREDNISolone 40 MG in SYRINGE 0 ML IV SCH ×2 (10:30→21:51)
--- NOTE | 2021-05-03 14:00 | XCELERA ---
[id number]
[2021-05-03 14:50] LABS: Calcium 9.9 mg/dl (8.5-10.1); Creatinine Clr Calc Pharmacy 37.2 ml/min; Est GFR (African American) 30.4 ml/min; Est GFR (Non-African American) 26.3 ml/min; Potassium 4.2 mmol/L (3.5-5.1)
--- NOTE | 2021-05-03 18:24 | Hospitalist Progress Note ---
Date of Service May 03, 2021 Assessment & Plan (1) Acute asthma exacerbation: Plan: - seconday to RSV - continue with IV steroids - continue pulmonary toilet with pulmicort/perforomist Q12h with scheduled duoneb treatments between - continue mucolytic agents - continue supplemental O2 to keep pulse ox >/=90% (2) CHF (congestive heart failure): Plan: Uncertain degree of underlying cardiac dysfunction but I suspect he has systolic CHF. There is no echocardiogram in the computer but he does have a defibrillator in place and is on Entresto so I suspect his EF is less than 30% consistent with LV dysfunction and systolic CHF He has been hydrated up until this point due to his hypotension and HUSSEIN He has crackles bilaterally and edema of the lower extremities and seems more volume overloaded I have ordered a chest x-ray that does not show significant volume overload His BNP is >[address] of the chest to help differentiate Did reach out to nephrology who agrees that diuresis makes sense at this time We will watch I's and O's closely We will update echocardiogram\ (3) RSV (acute bronchiolitis due to respiratory syncytial virus): Plan: - see above (4) Acute kidney injury: Plan: Initially thought to be due to hypotension but patient seems to be volume overloaded today I suspect there to be a component of cardiorenal syndrome Creatinine uptrending with IV hydration Did reach out to nephrology who has since evaluated the patient and agrees that the patient appears to be volume overloaded Will initiate diuresis and watch renal function closely Avoid other nephrotoxic agents (5) History of renal transplant: Plan: We will request a nephrology consultation as noted previously-- appreciate recommendations will maintain the patient on his home dose of tacrolimus We will follow serial labs as noted previously Plan: Plan of care discussed with Dr. Castro Admission and Anticipated Discharge Date Admission Date: May 03, 2021 Subjective Patient seen on daily rounds today. Vocalizes no significant complaints or concerns. Admits to feeling slightly short of breath when laying supine. Denies paroxysmal nocturnal dyspnea. Still has a cough and audible wheezes intermittently. Otherwise, denies fevers, chills, chest pain, palpitations, abdominal pain, nausea or vomiting. Review of Systems Review of Systems: All systems reviewed and are unremarkable except as noted in HPI and below Denies fevers, chills, headache, nasal congestion, sore throat, cough, chest pain, palpitations, orthopnea, PND, abdominal pain, nausea, vomiting, diarrhea, constipation, dysuria, hematuria, frequency, back pain, joint pain, easy bruising or bleeding, skin lesions or rashes. Physical Exam Physical Exam: General: Resting comfortably in his bedside chair. NAD. HEENT: Head is AT/NC buccal mucosa is moist and pink Neck: No JVD. Negative hepatojugular reflex Cardiac: RRR without M/G/R Lungs: speaking full sentences on supplemental O2. End expiratory wheezes throughout Abdomen: Normoactive X4. Soft and nontender in all quadrants. Extremities: Trace to +1 pitting edema in the bilateral lower extremities Neuro: A&O X4 cranial nerves II through XII are grossly intact no focal neuro deficits Skin: No obvious skin lesions or rashes Psych: Appropriate affect pleasant and cooperative Results & Data Results & Data ([facility]) Vital Signs (Past 12 Hours) Vital Signs Temp Pulse Resp BP Pulse Ox Pulse Ox Pulse Ox 05/03/21 17:12 58 L 20 115/79 94 05/03/21 15:16 71 20 94 05/03/21 14:57 92 05/03/21 14:03 98 91 05/03/21 12:58 90 18 92/57 L 92 05/03/21 11:53 82 18 101/62 92 05/03/21 11:03 36.5 C 73 20 101/60 95 05/03/21 10:17 58 L 20 97 05/03/21 08:21 36.4 C L 57 L 24 115/78 93 05/03/21 07:18 53 L 20 97 Laboratory Results 05/03/21 04:48 05/03/21 14:03 PG Care Time/CCT Total # of Minutes Spent Total Time Spent with Patient: Total time spent is greater than 50% in coordination of care (as documented) at patient's floor/unit and/or counseling patient: Coding Level of Care Code 35581 Subseq Hosp Care Lvl 3 Diagnoses Acute asthma exacerbation J45.901 RSV (acute bronchiolitis due to respiratory syncytial virus) J21.0 Acute kidney injury N17.9 History of renal transplant Z94.0 CHF (congestive heart failure) I50.9
[2021-05-03] MEDS: MONTELUKAST SODIUM 10 MG TABLET PO SCH (21:49)
[2021-05-03] MEDS: ATORVASTATIN 10 MG TAB PO SCH (21:49)
[2021-05-03] MEDS: TERAZOSIN HCL 5 MG CAP PO SCH (21:50)
[2021-05-03] MEDS: traZODone HCL 50 MG TAB PO SCH (21:51)
[2021-05-04] MEDS: ALBUT/IPRATROP 3MG/0.5MG NEB 3 ML VIAL NEB SCH ×5 (02:41→19:39)
[2021-05-04 07:48] LABS: Hematocrit (blood only) 39.6 % (42-52); Hemoglobin 13.2 g/dL (14.0-18.0); Mean Corpuscular Hemoglobin 29.4 pg (25-34); Mean Corpuscular Hgb Conc 33.3 g/dL (32-36); Mean Corpuscular Volume 88.2 fL (80-100); Mean Platelet Volume 11.3 fL (7.4-10.4); Platelet Count 192 K/uL (130-400); RDW Standard Deviation 45.5 fL (36.4-46.3); Red Blood Count 4.49 M/uL (4.7-6.1); White Blood Count 8.52 K/uL (4.8-10.8)
[2021-05-04] MEDS: FORMOTEROL 20 MCG/2 ML VIAL NEB SCH ×3 (07:49→19:25)
[2021-05-04] MEDS: BUDESONIDE 0.5 MG/2 ML VIAL (PULMICORT) NEB SCH ×2 (07:49→19:25)
[2021-05-04 08:31] LABS: BUN Creatinine Ratio 23.3 (10-20); Calcium 9.1 mg/dl (8.5-10.1); Creatinine Clr Calc Pharmacy 38.3 ml/min; Est GFR (African American) 31.5 ml/min; Est GFR (Non-African American) 27.2 ml/min; Magnesium 2.1 mg/dl (1.8-2.4); Potassium 4.4 mmol/L (3.5-5.1)
[2021-05-04] MEDS ORDERED: ALBUTEROL 0.083% NEBU SOLN 3 ML VIAL NEB PRN (09:07)
[2021-05-04] MEDS: APIXABAN 5 MG TABLET PO SCH ×2 (09:08→21:53)
[2021-05-04] MEDS: carvediloL 6.25 MG TAB PO SCH ×2 (09:08→21:55)
[2021-05-04] MEDS: guaiFENesin 600 MG TABCR PO SCH ×2 (09:09→21:56)
[2021-05-04] MEDS: DULoxetine HCL 60 MG CAP PO SCH (09:09)
[2021-05-04] MEDS: PANTOprazole 40 MG TAB PO SCH (09:10)
[2021-05-04] MEDS: PANCREAZE (LIPASE 16,800U) CAP PO SCH ×2 (09:13→21:56)
[2021-05-04] MEDS: SODIUM BICARBONATE 650 MG TAB PO SCH ×3 (09:13→21:58)
[2021-05-04] MEDS ORDERED: CEFEPIME 2,000 MG/20 ML VIAL ONE (09:49)
[2021-05-04] MEDS: CEFEPIME 2,000 MG in SYRINGE 0 ML IV SCH ×2 (09:52→22:31)
[2021-05-04] MEDS: AZITHROMYCIN 500 MG in DEXTROSE 5% 250 ML IV SCH (09:56)
[2021-05-04] MEDS: FUROSEMIDE 40 MG/4 ML VIAL IV SCH ×2 (10:37→22:35)
[2021-05-04] MEDS: methylPREDNISolone 40 MG in SYRINGE 0 ML IV SCH ×2 (10:40→18:48)
--- NOTE | 2021-05-04 11:24 | CT Scan Report ---
CT chest diagnostic wo con CLINICAL HISTORY: adventitious breath sounds-- ? mucous plugging TECHNIQUE: Multidetector row helical CT of the chest was performed. Coronal and sagittal reformations were obtained. Automated dose lowering techniques and/or adjustment according to patient size were u tilized for this exam. Comparison: None available at the time of this dictation. FINDINGS: Lungs and pleura: Multifocal ground glass/consolidative opacities are seen. Atelectasis is seen at th e bilateral lung bases. Heart and pericardium: There is cardiomegaly and a small pericardial effusion is seen, comparable to prior exam. Vessels: The pulmonary trunk is enlarged measuring 33 mm. Mediastinum and oc: Unremarkable. Chest wall and lower neck: Unremarkable. Abdomen: A hiatal hernia is seen. Patient is status post cholecystectomy. Incidentally noted, the kid neys are atrophic. Bones: Unremarkable. IMPRESSION: 1. Multifocal groundglass/consolidative opacities are compatible with infectious/processes. There is bilateral atelectasis at the lung bases. 2. Cardiomegaly and small pericardial effusion. These findings are unchanged from prior exam. 3. Pulmonary hypertension. ACT 112: Negative or not required by law. Electronically signed by: Gaurav Wong M.D. 05/04/2021 11:22 AM
--- NOTE | 2021-05-04 11:26 | Nephrology Progress Note ---
Date of Service May 04, 2021 Assessment & Plan (1) HUSSEIN (acute kidney injury): Plan: * Admitted w/ RSV pneumonia. HUSSEIN likely due to dehydration in the setting of ARB therapy * Cr stable at 2.45 this am (baseline 1.3). Patient remains non-oliguric. Electrolytes are acceptable. No indiction for QUILL REAMER at this time * Urinalysis was negative for protein or blood * Renal US 05/14: atrophy of [place] kidneys. RLQ transplant allograft 11cm, no hydronephrosis, stone or mass. Doppler negative for KAREN * Continue oral NaHCO3 for NAGMA * Patient is clinically euvolemic to volume expanded. Agree w/ continued gentle diuresis (Lasix 40 mg IV BID) (2) Kidney transplant recipient: Plan: * ESRD due to unknown cause. s/p DDRT 2003 at [facility]. Primary Transit Specialist is Dr. Cuevas * Continue tacrolimus 3 mg q e + Th. 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 Entresto held due to HUSSEIN * Continue carvedilol per home Rx * Restart amlodipine PRN (4) Cardiomyopathy: Plan: * Entresto held due to HUSSEIN * 05/03 Echocardiogram: LVEF 55-60%, borderline LVH, mild MR, mild TR * Single lead pacemaker in place Admission and Anticipated Discharge Date Admission Date: May 03, 2021 Subjective Mr. Augustin was evaluated in his hospital room this morning. He was being prepared for a chest CT. He denied fever and reported that his breathing was subjectively improved. Review of Systems Constitutional: no fever Eyes: no problem reported Ear, Nose, Mouth, Throat: + dry mouth; no dysphagia Respiratory: + cough and + dyspnea Cardiovascular: no chest pain Gastrointestinal: no abdominal pain Genitourinary: no difficulty urinating, no decreased urination or no hematuria Musculoskeletal: no problem reported Physical Exam Constitutional: + frail appearing Eyes: PERRL, conjunctivae normal, anicteric sclerae ENMT: external ear and nose normal, oropharynx normal Neck: trachea midline, no thyromegaly Respiratory: + labored breathing (mild) Cardiovascular: RRR, no murmur, no edema Gastrointestinal (Abdomen): normal bowel sounds, soft, nontender, no hepatosplenomegaly (renal allograft nontender to palpation) Skin: no rashes, warm and dry Neurologic: awake; not confused Results & Data ([facility]) Vital Signs (Past 12 Hours) Vital Signs Pulse Pulse Resp BP BP Pulse Ox 05/04/21 09:07 109/73 05/04/21 09:00 94 H 28 H 93 05/04/21 08:01 63 22 94 05/04/21 08:00 68 16 125/71 94 05/04/21 07:50 70 21 94 05/04/21 07:01 68 19 116/82 92 05/04/21 07:00 67 16 92 05/04/21 06:00 52 L 23 93 05/04/21 05:00 53 L 20 93 05/04/21 04:00 67 12 107/67 95 05/04/21 03:00 62 21 94 05/04/21 02:42 65 18 94 05/04/21 02:00 85 25 H 90 05/04/21 01:00 83 30 H 91 05/04/21 00:00 67 21 109/75 92 Laboratory Results Laboratory Tests 05/04/21 05/04/21 06:52 06:52 WBC 8.52 Hgb 13.2 L Hct 39.6 L Plt Count 192 Sodium 137 Potassium 4.4 Chloride 107 Carbon Dioxide 20 L BUN 57 H Creatinine 2.45 H Glucose 162 H PG Care Time/CCT Total # of Minutes Spent Total Time Spent with Patient: Total time spent is greater than 50% in coordination of care (as documented) at patient's floor/unit and/or counseling patient: Coding Level of Care Code 54540 Subseq Hosp Care Lvl 3 Diagnoses HUSSEIN (acute kidney injury) N17.9 Kidney transplant recipient Z94.0 Hypertension I10 Cardiomyopathy I42.9
[2021-05-04 12:50] LABS: Creatinine Urine Random 75.4 mg/dl; Urine Potassium 34.7 mmol/L
--- NOTE | 2021-05-04 15:06 | Hospitalist Progress Note ---
Date of Service May 04, 2021 Assessment & Plan (1) Acute asthma exacerbation: Plan: - presented initially with an exacerbation of asthma-- likely secondary to RSV (covid and flu negative) - treating with IV steroids - continue pulmonary toilet with pulmicort/perforomist Q12h with scheduled duoneb treatments between - continue mucolytic agents - continue supplemental O2 to keep pulse ox >/=90% - CT does show ground glass opacities throughout-- see below (2) Pneumonia: Plan: Stagnant response to therapies for which a procalcitonin ordered and did come back slightly positive at 1.09 CT without contrast shows groundglass opacities throughout He does not have a fever or leukocytosis but is immunocompromised and may not mount please Will add empiric antibiotics to cover for secondary bacterial infection (cefepime given immunocompromised state to cover for gram-positive and gram-nega tive including antipseudomonal coverage, and azithromycin for atypical coverage) Sputum culture ordered if patient able to expectorate Continue mucolytic agents, antitussives, nebulized treatments/pulmonary toilette as outlined above Blood cultures ordered (3) CHF (congestive heart failure): Plan: patient initially hydrated up given his hypotension and HUSSEIN he developed crackles bilaterally and edema of the lower extremities which seemed more consistent with volume overload His blood pressure has been relatively stable chest x-ray does not show significant volume overload His BNP is >5000 CT scan done showing pleural effusions bilaterally but no significant pulmonary edema Did reach out to nephrology who agrees that diuresis makes sense at this time (creatinine did bump to 2.5 last evening but seems to be downtrending slightly and is 2.45 today) Continue to monitor I's and O's closely (hoping for a -1 L fluid balance daily) Echocardiogram updated showing a much better EF than anticipated at 55% with borderline concentric LVH. No significant regional wall motion abnormalities (4) RSV (acute bronchiolitis due to respiratory syncytial virus): Plan: - see above (5) Acute kidney injury: Plan: Initially thought to be due to hypotension but patient seems slightly volume expanded ? component of cardiorenal syndrome Creatinine uptrended to 2.52 with IV hydration Did reach out to nephrology who has since evaluated the patient and agrees that the patient appears to be volume overloaded gentle IV diuresis initiated (typically takes lasix 40mg daily at home)-- on 40mg IV q12h. Creatinine 2.42 at present Avoid other nephrotoxic agents (6) History of renal transplant: Plan: nephrology on board-- appreciate recommendations continued on home dose of tacrolimus follow labs closely Plan: Plan of care discussed to be D/W attending provider Admission and Anticipated Discharge Date Admission Date: May 03, 2021 Subjective Patient seen on daily rounds today. Overall vocalizes improvement in his symptoms. Last night was the best he has slept in days. Cough seems to be loose and slightly productive at times. Denies fevers, chills, chest pain, shortness of breath at rest or significant dyspnea with exertion, abdominal pain, nausea or vomiting. Review of Systems Review of Systems: All systems reviewed and are unremarkable except as noted in HPI and below Denies fevers, chills, headache, nasal congestion, sore throat, cough, chest pain, shortness of breath, palpitations, orthopnea, PND, abdominal pain, nausea, vomiting, diarrhea, constipation, dysuria, hematuria, frequency, back pain, j oint pain or swelling, easy bruising or bleeding, skin lesions or rashes. Physical Exam Physical Exam: General: Resting comfortably in hospital bed. Appears chronically but not acutely ill. No acute distress HEENT: Head is AT/NC buccal mucosa is moist and pink Neck: No JVD. Negative hepatojugular reflex Cardiac: RRR without M/G/R Lungs: speaking full sentences on supplemental O2. Coarse scattered rhonchi that mobilizes with coughing. Still with mid to end expiratory wheezes scattered throughout Abdomen: Normoactive X4. Soft and nontender in all quadrants. Extremities: Trace to +1 pitting edema in the bilateral lower extremities Neuro: A&O X4 cranial nerves II through XII are grossly intact no focal neuro deficits Skin: No obvious skin lesions or rashes Psych: Appropriate affect pleasant and cooperative Results & Data Results & Data ([facility]) Vital Signs (Past 12 Hours) Vital Signs Pulse Pulse Resp BP BP Pulse Ox 05/04/21 12:47 69 16 93 05/04/21 12:00 79 15 93 05/04/21 11:38 94 05/04/21 11:00 76 18 103/63 95 05/04/21 10:00 82 18 94 05/04/21 09:07 109/73 05/04/21 09:00 94 H 28 H 93 05/04/21 08:01 63 22 94 05/04/21 08:00 68 16 125/71 94 05/04/21 07:50 70 21 94 05/04/21 07:01 68 19 116/82 92 05/04/21 07:00 67 16 92 05/04/21 06:00 52 L 23 93 05/04/21 05:00 53 L 20 93 05/04/21 04:00 67 12 107/67 95 05/04/21 03:00 62 21 94 Laboratory Results 05/04/21 06:52 05/04/21 06:52 PG Care Time/CCT Total # of Minutes Spent Total Time Spent with Patient: Total time spent is greater than 50% in coordination of care (as documented) at patient's floor/unit and/or counseling patient: Coding Level of Care Code 80837 Subseq Hosp Care Lvl 3 Diagnoses Acute asthma exacerbation J45.901 CHF (congestive heart failure) I50.9 RSV (acute bronchiolitis due to respiratory syncytial virus) J21.0 Acute kidney injury N17.9 History of renal transplant Z94.0 Pneumonia J18.9
[2021-05-04] MEDS: ATORVASTATIN 10 MG TAB PO SCH (21:54)
[2021-05-04] MEDS: MONTELUKAST SODIUM 10 MG TABLET PO SCH (21:57)
[2021-05-04] MEDS: traZODone HCL 50 MG TAB PO SCH (21:59)
[2021-05-04] MEDS: TERAZOSIN HCL 5 MG CAP PO SCH (21:59)
[2021-05-05] MEDS: ALBUT/IPRATROP 3MG/0.5MG NEB 3 ML VIAL NEB SCH ×4 (01:32→19:24)
[2021-05-05] MEDS: methylPREDNISolone 40 MG in SYRINGE 0 ML IV SCH ×3 (02:25→18:40)
[2021-05-05 05:53] LABS: Hematocrit (blood only) 37.8 % (42-52); Hemoglobin 12.8 g/dL (14.0-18.0); Mean Corpuscular Hemoglobin 29.2 pg (25-34); Mean Corpuscular Hgb Conc 33.9 g/dL (32-36); Mean Corpuscular Volume 86.1 fL (80-100); Mean Platelet Volume 10.4 fL (7.4-10.4); Platelet Count 202 K/uL (130-400); RDW Coefficient of Variation 13.7 % (11.5-14.5); RDW Standard Deviation 43.4 fL (36.4-46.3); Red Blood Count 4.39 M/uL (4.7-6.1); White Blood Count 8.07 K/uL (4.8-10.8)
[2021-05-05 06:22] LABS: BUN Creatinine Ratio 28.7 (10-20); Calcium 9.4 mg/dl (8.5-10.1); Creatinine Clr Calc Pharmacy 39.4 ml/min; Est GFR (African American) 32.3 ml/min; Est GFR (Non-African American) 27.9 ml/min; Potassium 3.9 mmol/L (3.5-5.1)
[2021-05-05] MEDS: BUDESONIDE 0.5 MG/2 ML VIAL (PULMICORT) NEB SCH ×2 (07:47→19:23)
[2021-05-05] MEDS: FORMOTEROL 20 MCG/2 ML VIAL NEB SCH ×2 (07:47→19:23)
[2021-05-05] MEDS: carvediloL 6.25 MG TAB PO SCH ×2 (08:01→21:26)
[2021-05-05] MEDS: DULoxetine HCL 60 MG CAP PO SCH (08:01)
[2021-05-05] MEDS: guaiFENesin 600 MG TABCR PO SCH ×2 (08:01→21:27)
[2021-05-05] MEDS: APIXABAN 5 MG TABLET PO SCH ×2 (08:01→21:22)
[2021-05-05] MEDS: PANCREAZE (LIPASE 16,800U) CAP PO SCH ×2 (08:02→21:27)
[2021-05-05] MEDS: SODIUM BICARBONATE 650 MG TAB PO SCH ×3 (08:02→21:26)
[2021-05-05] MEDS: PANTOprazole 40 MG TAB PO SCH (08:02)
--- NOTE | 2021-05-05 08:28 | XRay Report ---
XR chest 1V portable CLINICAL HISTORY: post diuresis TECHNIQUE: Single frontal radiograph of the chest was obtained. Comparison: Comparison is made to chest one view 05/03/2021 FINDINGS: No lines and tubes are seen. Cardiomegaly is noted. Left retrocardiac opacity is seen. No evidence of pleural effusion or pneumothorax. IMPRESSION: 1. No pulmonary edema is seen. 2. Left retrocardiac opacity may represent atelectasis, pneumonia, and/or aspiration. ACT 112: Negative or not required by law. Electronically signed by: Gaurav Wong M.D. 05/05/2021 8:27 AM
[2021-05-05] MEDS: AZITHROMYCIN 500 MG in DEXTROSE 5% 250 ML IV SCH (08:53)
--- NOTE | 2021-05-05 09:46 | Nephrology Progress Note ---
Date of Service May 05, 2021 Assessment & Plan (1) HUSSEIN (acute kidney injury): Plan: * Admitted w/ RSV pneumonia. HUSSEIN likely due to dehydration in the setting of ARB therapy * Cr mildly improved to 2.40 this am (baseline 1.3). Patient remains non- oliguric. Electrolytes are acceptable. No indiction for BAG PRESSER at this time * Urinalysis was negative for protein or blood * Renal US 05/14: atrophy of [place] kidneys. RLQ transplant allograft 11cm, no hydronephrosis, stone or mass. Doppler negative for KAREN * Continue oral NaHCO3 for NAGMA * Patient is clinically euvolemic to volume expanded. 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 s/p DDRT 2003 at [facility]. Primary Fund Accounting Manager is Dr. Cuevas * Continue tacrolimus 3 mg q Tue + Thurs. 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 Entresto held due to HUSSEIN * Continue carvedilol per home Rx * Restart amlodipine PRN (4) Cardiomyopathy: Plan: * Entresto held due to HUSSEIN * 05/03 Echocardiogram: LVEF 55-60%, borderline LVH, mild MR, mild TR * Single lead pacemaker in place Admission and Anticipated Discharge Date Admission Date: May 03, 2021 Subjective Mr. Augustin was evaluated in his hospital room this morning. He denied fever and reported that his breathing was subjectively improved. Review of Systems Constitutional: no fever Eyes: no problem reported Ear, Nose, Mouth, Throat: + dry mouth; no dysphagia Respiratory: + cough and + dyspnea Cardiovascular: no chest pain Gastrointestinal: no abdominal pain Genitourinary: no difficulty urinating, no decreased urination or no hematuria Neurologic: no problem reported Physical Exam Constitutional: + frail appearing Eyes: PERRL, conjunctivae normal, anicteric sclerae ENMT: external ear and nose normal, oropharynx normal Neck: trachea midline, no thyromegaly Respiratory: + labored breathing (mild) Auscultation: + rhonchi Cardiovascular: RRR, no murmur, no edema Gastrointestinal (Abdomen): normal bowel sounds, soft, nontender, no hepatosplenomegaly (renal allograft nontender to palpation) Skin: no rashes, warm and dry Neurologic: awake; not confused Results & Data ([facility]) Vital Signs (Past 12 Hours) Vital Signs Pulse Resp BP Pulse Ox 05/05/21 08:25 55 L 20 114/66 91 05/05/21 07:49 61 18 92 05/05/21 05:41 54 L 18 131/87 95 05/05/21 03:58 53 L 18 117/75 90 05/05/21 01:32 68 18 93 05/05/21 00:43 57 L 18 111/78 93 05/04/21 22:00 88 20 119/72 92 Laboratory Results Laboratory Tests 05/05/21 05/05/21 05:21 05:21 WBC 8.07 Hgb 12.8 L Hct 37.8 L Plt Count 202 Sodium 136 Potassium 3.9 Chloride 106 Carbon Dioxide 21 BUN 69 H Creatinine 2.40 H Glucose 167 H PG Care Time/CCT Total # of Minutes Spent Total Time Spent with Patient: Total time spent is greater than 50% in coordination of care (as documented) at patient's floor/unit and/or counseling patient: Coding Level of Care Code 79448 Subseq Hosp Care Lvl 3 Diagnoses HUSSEIN (acute kidney injury) N17.9 Kidney transplant recipient Z94.0 Hypertension I10 Cardiomyopathy I42.9
[2021-05-05] MEDS: FUROSEMIDE 40 MG/4 ML VIAL IV SCH (10:38)
--- NOTE | 2021-05-05 11:43 | Hospitalist Progress Note ---
Date of Service May 05, 2021 Assessment & Plan (1) Acute asthma exacerbation: Plan: - presented initially with an exacerbation of asthma-- likely all secondary to RSV (covid and flu negative). Now with presented s/s bacterial PNA as well - treating with IV steroids (will de-escalate/transition to PO as soon as able but still very bronchospastic) - continue pulmonary toilette with pulmicort/perforomist Q12h with scheduled duoneb treatments between - continue mucolytic agents - continue supplemental O2 to keep pulse ox >/=90% - CT does show ground glass opacities throughout-- see below (2) Pneumonia: Plan: Stagnant response to therapies for which a procalcitonin ordered and did come back slightly positive at 1.09 CT without contrast shows groundglass opacities throughout did not have a fever or leukocytosis but is immunocompromised and may not mount these now on empiric antibiotics to cover for 2/2 bacterial infection (cefepime given immunocompromised state to cover gram-positive and gram-negative including antipseudomonal coverage, and azithromycin for atypical coverage)- started 05/04 Sputum culture ordered if patient able to expectorate (which he now is) Continue mucolytic agents, antitussives, nebulized treatments/pulmonary toilette as outlined above (in addition to chest PT and flutter valve) Blood cultures --NGTD at this time (3) CHF (congestive heart failure): Plan: patient initially hydrated upfront given his hypotension and HUSSEIN he developed crackles bilaterally and edema of the lower extremities which seemed more consistent with volume overload His blood pressure has been relatively stable chest x-ray does not show significant volume overload His BNP is >5000 CT scan done showing pleural effusions bilaterally but no significant pulmonary edema Did reach out to nephrology who agreed that diuresis make sense at this time (creatinine did bump to 2.5) I&O's being monitorred and not quit -1L/24 hours but overall is net negative Clinically he appears euvolemic (does not have bibasilar crackles today and his edema has resolved) Urine lytes obtained and his fractional excretion of sodium is 0.7% consistent with prerenal At this point, I feel that his HUSSEIN is likely multifactorial. He is now on steroids and IV antibiotics which are all renally excreted and could be causing insult to injury but are necessary at this point Did reach out to Dr. Thurman today. He agrees that he appeared pretty euvolemic when seen this morning. We will transition his IV to p.o. Lasix and monitor him clinically. Appreciate recommendations from nephrology Echocardiogram updated showing a much better EF than anticipated at 55% with borderline concentric LVH. No significant regional wall motion abnormalities (4) RSV (acute bronchiolitis due to respiratory syncytial virus): Plan: - see above (5) Acute kidney injury: Plan: Seems multifactorial in nature thought to be due to hypotension and poor renal perfusion upfront With IV hydration, renal function worsened and he developed edema and crackles with increased oxygen supplementation needs ? component of cardiorenal syndrome Fractional excretion of sodium is 0.7% consistent with prerenal state Patient received IV Lasix on 05/03 and 05/04 (slight improvement in creatinine but no significant change) Patient is euvolemic today but despite that, his renal function remains rel atively stable/unchanged Steroids and antibiotics on board may be contributing to this Have discussed this in great detail with nephrology open sees Dr. Thurman) who agrees with transitioning IV back to his p.o. Lasix and watching clinically Avoid other nephrotoxic agents (6) History of renal transplant: Plan: nephrology on board-- appreciate recommendations continued on home dose of tacrolimus follow labs closely Plan: Plan of care discussed to be D/W attending provider- further orders as outlined Admission and Anticipated Discharge Date Admission Date: May 03, 2021 Subjective Patient seen on daily rounds today. Overall he reports that he continues to feel better. His oxygen supplementation needs have slowly improved. His fluid balance is still slightly less than desired. Renal function stable but not at b aseline. Patient currently denies fevers, chills, chest pain, shortness of breath, abdominal pain, nausea or vomiting Still coughing and reports that it is becoming very productive with singh-colored sputum Review of Systems Review of Systems: All systems reviewed and are unremarkable except as noted in HPI and below Denies fevers, chills, headache, nasal congestion, sore throat, cough, chest pain, shortness of breath, palpitations, orthopnea, PND, abdominal pain, nausea, vomiting, diarrhea, constipation, dysuria, hematuria, frequency, back pain, joint pain or swelling, easy bruising or bleeding, skin lesions or rashes. Physical Exam Physical Exam: General: Resting comfortably in his hospital bed. NAD. HEENT: Head is AT/NC buccal mucosa is moist and pink Neck: No JVD. Negative hepatojugular reflex Cardiac: RRR Lungs:speaking full sentences on supplemental O2 (1L at this time). Normal respiratory effort. Continued rhonchi scattered throughout that does mobilize and clear with coughing. End expiratory wheezes. No crackles Abdomen: Normoactive X4. Soft and nontender in all quadrants. Extremities: No edema of the lower extremities today Neuro: A&O X4 cranial nerves II through XII are grossly intact no focal neuro deficits Skin: No obvious skin lesions or rashes Psych: Appropriate affect pleasant and cooperative Results & Data Results & Data ([facility]) Vital Signs (Past 12 Hours) Vital Signs Pulse Pulse Resp BP BP Pulse Ox 05/05/21 10:00 79 23 102/49 L 95 05/05/21 09:00 98 H 24 88 L 05/05/21 08:25 55 L 20 114/66 91 05/05/21 08:00 58 L 29 H 114/66 89 L 05/05/21 07:49 61 18 92 05/05/21 07:00 56 L 24 92 05/05/21 06:00 54 L 23 140/79 94 05/05/21 05:41 54 L 18 131/87 95 05/05/21 05:00 54 L 23 104/71 88 L 05/05/21 04:00 52 L 23 126/75 93 05/05/21 03:58 53 L 18 117/75 90 05/05/21 03:00 65 19 92 05/05/21 02:00 62 23 91 05/05/21 01:32 68 18 93 05/05/21 01:00 60 26 H 95 05/05/21 00:43 57 L 18 111/78 93 05/05/21 00:00 62 20 91 Laboratory Results 05/05/21 05:21 05/05/21 05:21 PG Care Time/CCT Total # of Minutes Spent Total Time Spent with Patient: Total time spent is greater than 50% in coordination of care (as documented) at patient's floor/unit and/or counseling patient: Coding Level of Care Code 05346 Subseq Hosp Care Lvl 2 Diagnoses Acute asthma exacerbation J45.901 Pneumonia J18.9 CHF (congestive heart failure) I50.9 RSV (acute bronchiolitis due to respiratory syncytial virus) J21.0 Acute kidney injury N17.9 History of renal transplant Z94.0
[2021-05-05] MEDS: CEFEPIME 2,000 MG in SYRINGE 0 ML IV SCH ×2 (11:56→22:19)
[2021-05-05] MEDS: MONTELUKAST SODIUM 10 MG TABLET PO SCH (21:26)
[2021-05-05] MEDS: ATORVASTATIN 10 MG TAB PO SCH (21:26)
[2021-05-05] MEDS: traZODone HCL 50 MG TAB PO SCH (21:26)
[2021-05-05] MEDS: TERAZOSIN HCL 5 MG CAP PO SCH (21:26)
[2021-05-06] MEDS: ALBUT/IPRATROP 3MG/0.5MG NEB 3 ML VIAL NEB SCH ×4 (00:55→19:21)
[2021-05-06] MEDS: methylPREDNISolone 40 MG in SYRINGE 0 ML IV SCH ×2 (02:05→10:22)
[2021-05-06 06:16] LABS: Hematocrit (blood only) 37.8 % (42-52); Hemoglobin 12.8 g/dL (14.0-18.0); Immature Granulocytes # (auto) 0.08 K/uL (0.00-0.02); Immature Granulocytes % (auto) 0.9 %; Lymphocytes # (auto) 0.49 K/uL (1.2-3.4); Lymphocytes % (auto) 5.7 %; Mean Corpuscular Hgb Conc 33.9 g/dL (32-36); Mean Corpuscular Volume 85.7 fL (80-100); Mean Platelet Volume 10.8 fL (7.4-10.4); Monocytes # (auto) 0.19 K/uL (0.11-0.59); Monocytes % (auto) 2.2 %; Neutrophils # (auto) 7.81 K/uL (1.4-6.5); Neutrophils % (auto) 91.2 %; Platelet Count 194 K/uL (130-400); RDW Coefficient of Variation 13.7 % (11.5-14.5); RDW Standard Deviation 43.2 fL (36.4-46.3); Red Blood Count 4.41 M/uL (4.7-6.1); White Blood Count 8.57 K/uL (4.8-10.8)
[2021-05-06] MEDS: BUDESONIDE 0.5 MG/2 ML VIAL (PULMICORT) NEB SCH ×2 (06:19→19:21)
[2021-05-06] MEDS: FORMOTEROL 20 MCG/2 ML VIAL NEB SCH ×2 (06:19→19:24)
[2021-05-06 06:42] LABS: BUN Creatinine Ratio 29.7 (10-20); Calcium 9.5 mg/dl (8.5-10.1); Creatinine Clr Calc Pharmacy 37.6 ml/min; Est GFR (African American) 30.4 ml/min; Est GFR (Non-African American) 26.3 ml/min; Potassium 3.9 mmol/L (3.5-5.1)
[2021-05-06] MEDS: TACROLIMUS 1 MG CAP PO SCH ×2 (08:08→21:46)
[2021-05-06] MEDS: guaiFENesin 600 MG TABCR PO SCH ×2 (08:10→21:45)
[2021-05-06] MEDS: SODIUM BICARBONATE 650 MG TAB PO SCH (08:11)
[2021-05-06] MEDS: PANTOprazole 40 MG TAB PO SCH (08:12)
[2021-05-06] MEDS: FUROSEMIDE 40 MG TAB PO SCH (08:12)
[2021-05-06] MEDS: DULoxetine HCL 60 MG CAP PO SCH (08:12)
[2021-05-06] MEDS: AZITHROMYCIN 500 MG in DEXTROSE 5% 250 ML IV SCH (08:13)
[2021-05-06] MEDS: carvediloL 6.25 MG TAB PO SCH ×2 (08:13→21:47)
[2021-05-06] MEDS: PANCREAZE (LIPASE 16,800U) CAP PO SCH ×2 (08:13→21:45)
[2021-05-06] MEDS: APIXABAN 5 MG TABLET PO SCH ×2 (08:13→21:47)
--- NOTE | 2021-05-06 09:14 | Nephrology Progress Note ---
Date of Service May 06, 2021 Assessment & Plan (1) HUSSEIN (acute kidney injury): Plan: * Admitted w/ RSV pneumonia. HUSSEIN due to dehydration in the setting of ARB therapy * Cr stable at 2.5 (baseline 1.3). Electrolytes are acceptable. UO 530 cc last 24 hours * Urinalysis was negative for protein or blood * Renal US 05/14: atrophy of [place] kidneys. RLQ transplant allograft 11cm, no hydronephrosis, stone or mass. Doppler negative for KAREN * NAGMA corrected. Will stop NaHCO3 * Continue Furosemide 40 mg po qDay * Monitor PRP (2) Kidney transplant recipient: Plan: * ESRD due to unknown cause. s/p DDRT [address] [facility]. Primary Dray Driver is Dr. Cuevas * Continue tacrolimus 3 mg q e + Th. 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 Entresto held due to HUSSEIN * Continue carvedilol per home Rx * Restart amlodipine PRN (4) Cardiomyopathy: Plan: * Entresto held due to HUSSEIN * 05/03 Echocardiogram: LVEF 55-60%, borderline LVH, mild MR, mild TR * Single lead pacemaker in place Admission and Anticipated Discharge Date Admission Date: May 03, 2021 Subjective No fever overnight. Breathing continues to gradually improve. Review of Systems Constitutional: no fever Eyes: no problem reported Ear, Nose, Mouth, Throat: + dry mouth; no dysphagia Respiratory: + cough and + dyspnea Cardiovascular: no chest pain Gastrointestinal: no abdominal pain Genitourinary: no difficulty urinating, no decreased urination or no hematuria Musculoskeletal: no problem reported Integumentary: + dry skin; no problem reported Physical Exam Constitutional: + frail appearing Eyes: PERRL, conjunctivae normal, anicteric sclerae ENMT: external ear and nose normal, oropharynx normal Neck: trachea midline, no thyromegaly Respiratory: normal respiratory effort Auscultation: + rhonchi Cardiovascular: RRR, no murmur, no edema Gastrointestinal (Abdomen): normal bowel sounds, soft, nontender, no hepatosplenomegaly (renal allograft nontender to palpation) Skin: no rashes, warm and dry Neurologic: awake; not confused Results & Data ([facility]) Vital Signs (Past 12 Hours) Vital Signs Temp Pulse Resp BP Pulse Ox 05/06/21 06:25 36.8 C 52 L 18 122/68 94 05/06/21 06:20 69 18 95 05/06/21 03:22 53 L 14 124/74 92 05/06/21 02:07 87 L 05/06/21 01:27 95 05/06/21 00:55 55 L 18 93 05/06/21 00:34 60 22 128/67 92 Laboratory Results Laboratory Tests 05/06/21 05/06/21 06:07 06:07 WBC 8.57 Hgb 12.8 L Hct 37.8 L Plt Count 194 Sodium 135 L Potassium 3.9 Chloride 104 Carbon Dioxide 23 BUN 75 H Creatinine 2.52 H Glucose 163 H PG Care Time/CCT Total # of Minutes Spent Total Time Spent with Patient: Total time spent is greater than 50% in coordination of care (as documented) at patient's floor/unit and/or counseling patient: Coding Level of Care Code 18755 Subseq Hosp Care Lvl 3 Diagnoses HUSSEIN (acute kidney injury) N17.9 Kidney transplant recipient Z94.0 Hypertension I10 Cardiomyopathy I42.9
[2021-05-06] MEDS: CEFEPIME 2,000 MG in SYRINGE 0 ML IV SCH ×2 (10:21→21:51)
--- NOTE | 2021-05-06 17:25 | Hospitalist Progress Note ---
Date of Service May 06, 2021 Assessment & Plan (1) Acute asthma exacerbation: Plan: - presented initially with an exacerbation of asthma-- likely all secondary to RSV (covid and flu negative). Now with presented s/s bacterial PNA as well - treating with IV steroids. Plan to de-escalate and transition to PO Prednisone starting tomorrow AM (05/07) - continue pulmonary toilette with pulmicort/perforomist Q12h with scheduled duoneb treatments between - continue mucolytic agents - continue supplemental O2 to keep pulse ox >/=90%. Spoke w/ RN, he is to remove supplemental O2 and will monitor (most recent pulse ox 97% on 2L). - CT does show ground glass opacities throughout-- see below (2) Pneumonia: Plan: Stagnant response to therapies for which a procalcitonin ordered and did come back slightly positive at 1.09 CT without contrast shows groundglass opacities throughout did not have a fever or leukocytosis but is immunocompromised and may not mount these now on empiric antibiotics to cover for 2/2 bacterial infection (cefepime given immunocompromised state to cover gram-positive and gram-negative including antipseudomonal coverage, and azithromycin for atypical coverage)- started 05/04 Sputum culture ordered if patient able to expectorate (which he now is) Continue mucolytic agents, antitussives, nebulized treatments/pulmonary toilette as outlined above (in addition to chest PT and flutter valve) Blood cultures --NGTD at this time Has had over 48 hours of IV abx at this time -- clinically improving. Thinking that oral Levaquin would be good option to complete abx upon d/c due to antipseudomonal coverage and atypicals. (3) CHF (congestive heart failure): Plan: patient initially hydrated upfront given his hypotension and HUSSEIN he developed crackles bilaterally and edema of the lower extremities which seemed more consistent with volume overload His blood pressure has been relatively stable chest x-ray does not show significant volume overload His proBNP is >5000 CT scan done showing pleural effusions bilaterally but no significant pulmonary edema Did reach out to nephrology who agreed that diuresis make sense at this time (creatinine did bump to 2.5) I&O's being monitored and not quit -1L/24 hours but overall is net negative Clinically he appears euvolemic (does not have bibasilar crackles today and his edema has resolved) Urine lytes obtained and his fractional excretion of sodium is 0.7% consistent with prerenal At this point, I feel that his HUSSEIN is likely multifactorial. He is now on steroids and IV antibiotics which are all renally excreted and could be causing insult to injury but are necessary at this point Did reach out to Dr. Thurman today. He agrees that he appeared pretty euvolemic when seen this morning. We will transition his IV to p.o. Lasix and monitor him clinically. Appreciate recommendations from nephrology Echocardiogram updated showing a much better EF than anticipated at 55% with borderline concentric LVH. No significant regional wall motion abnormalities (4) RSV (acute bronchiolitis due to respiratory syncytial virus): Plan: - see above (5) Acute kidney injury: Plan: Seems multifactorial in nature thought to be due to hypotension and poor renal perfusion upfront With IV hydration, renal function worsened and he developed edema and crackles with increased oxygen supplementation needs ? component of cardiorenal syndrome Fractional excretion of sodium is 0.7% consistent with prerenal state Patient received IV Lasix on 05/03 and 05/04 (slight improvement in creatinine but no significant change) Patient is euvolemic today but despite that, his renal function remains relatively stable/unchanged Steroids and antibiotics on board may be contributing to this Have discussed this in great detail with nephrology open sees Dr. Thurman) who agrees with transitioning IV back to his p.o. Lasix and watching clinically Avoid other nephrotoxic agents (6) History of renal transplant: Plan: nephrology on board-- appreciate recommendations continued on home dose of tacrolimus follow labs closely Plan: Plan of care discussed to be D/W attending provider- further orders as outlined Follow up labs in AM, continue to trend renal function. Wean O2. Transition to oral steroids tomorrow. D/C planning. Admission and Anticipated Discharge Date Admission Date: May 03, 2021 Jaiden De La O was seen on rounds today. Hospitalized with acute exacerbation of asthma with interval development of pneumonia following RSV. Remains on Cefepime and Azithromycin (h/o kidney transplant and PCN allergy). Also with HUSSEIN, nephrology following. Pt reports breathing continues to improve. Denies fever, chills, chest pain, dyspnea, n/v/d, or abd pain. Continues to have productive cough. No other questions/concerns at this time other than that he is anxious to return home with his . Review of Systems Review of Systems: CONSTITUTIONAL: Denies weight loss/gain, fever and chills, fatigue, malaise, generalized weakness. HEENT: Denies changes in vision and hearing. RESPIRATORY: +cough. Denies SOB, wheezing. CV: Denies palpitations, CP, lower extremity edema, orthopnea, PND. GI: Denies abdominal pain, nausea, vomiting and diarrhea. : Denies dysuria and urinary frequency, urgency, hesitancy. MUSCULOSKELETAL: Denies myalgia and joint pain. SKIN: Denies rash and pruritus. NEUROLOGICAL: Denies headache, syncope, focal weakness, numbness, tingling. PSYCHIATRIC: Denies recent changes in mood. Denies anxiety and depression. Physical Exam Physical Exam: GENERAL: 61 yo Well-developed, well-nourished WM. NAD. LUNGS: Some end expiratory wheezes noted and rhonchi that clears w/ coughing. CARDIOVASCULAR: Regular rate and rhythm. No M/G/R. No JVD. ABDOMEN: Soft, non-tender and non-distended. No palpable masses. Bowel sounds normoactive x 4 quad. EXTREMITIES: No edema. Non-tender. Peripheral pulses +2/4. PSYCHIATRIC: Cooperative. Appropriate mood and affect. SKIN: Warm, dry, intact. No rashes or lesions. Results & Data Results & Data ([facility]) Vital Signs (Past 12 Hours) Vital Signs Temp Pulse Resp BP Pulse Ox 05/06/21 16:00 36.8 C 68 18 123/76 97 05/06/21 13:32 80 22 95 05/06/21 12:00 36.5 C 79 20 117/74 96 05/06/21 06:25 36.8 C 52 L 18 122/68 94 05/06/21 06:20 69 18 95 Laboratory Results 05/06/21 06:07 05/06/21 06:07 PG Care Time/CCT Total # of Minutes Spent Total Time Spent with Patient: Total time spent is greater than 50% in coordination of care (as documented) at patient's floor/unit and/or counseling patient: Coding Level of Care Code 64239 Subseq Hosp Care Lvl 2 Diagnoses Acute asthma exacerbation J45.901 Pneumonia J18.9 CHF (congestive heart failure) I50.9 RSV (acute bronchiolitis due to respiratory syncytial virus) J21.0 Acute kidney injury N17.9 History of renal transplant Z94.0
[2021-05-06] MEDS: MONTELUKAST SODIUM 10 MG TABLET PO SCH (21:44)
[2021-05-06] MEDS: ATORVASTATIN 10 MG TAB PO SCH (21:45)
[2021-05-06] MEDS: traZODone HCL 50 MG TAB PO SCH (21:47)
[2021-05-06] MEDS: TERAZOSIN HCL 5 MG CAP PO SCH (21:47)
[2021-05-07] MEDS: ALBUT/IPRATROP 3MG/0.5MG NEB 3 ML VIAL NEB SCH ×3 (00:45→13:13)
[2021-05-07 06:01] LABS: Hematocrit (blood only) 36.9 % (42-52); Hemoglobin 12.7 g/dL (14.0-18.0); Mean Corpuscular Hemoglobin 29.3 pg (25-34); Mean Corpuscular Hgb Conc 34.4 g/dL (32-36); Mean Platelet Volume 11.3 fL (7.4-10.4); Platelet Count 171 K/uL (130-400); RDW Coefficient of Variation 13.6 % (11.5-14.5); RDW Standard Deviation 42.5 fL (36.4-46.3); Red Blood Count 4.34 M/uL (4.7-6.1); White Blood Count 8.31 K/uL (4.8-10.8)
[2021-05-07 06:29] LABS: Calcium 9.4 mg/dl (8.5-10.1); Creatinine Clr Calc Pharmacy 37.6 ml/min; Est GFR (African American) 31.7 ml/min; Est GFR (Non-African American) 27.3 ml/min; Potassium 3.7 mmol/L (3.5-5.1)
[2021-05-07 06:35] LABS: Immature Granulocytes # (auto) 0.11 K/uL (0.00-0.02); Immature Granulocytes % (auto) 1.3 %; Lymphocytes # (auto) 0.62 K/uL (1.2-3.4); Lymphocytes % (auto) 7.5 %; Monocytes # (auto) 0.44 K/uL (0.11-0.59); Monocytes % (auto) 5.3 %; Neutrophils # (auto) 7.14 K/uL (1.4-6.5); Neutrophils % (auto) 85.9 %; RBC Morphology Unremarkable
[2021-05-07] MEDS: BUDESONIDE 0.5 MG/2 ML VIAL (PULMICORT) NEB SCH (07:15)
[2021-05-07] MEDS: FORMOTEROL 20 MCG/2 ML VIAL NEB SCH (07:16)
[2021-05-07] MEDS: APIXABAN 5 MG TABLET PO SCH (08:24)
[2021-05-07] MEDS: FUROSEMIDE 40 MG TAB PO SCH (08:25)
[2021-05-07] MEDS: carvediloL 6.25 MG TAB PO SCH (08:25)
[2021-05-07] MEDS: PANTOprazole 40 MG TAB PO SCH (08:25)
[2021-05-07] MEDS: DULoxetine HCL 60 MG CAP PO SCH (08:26)
[2021-05-07] MEDS: PANCREAZE (LIPASE 16,800U) CAP PO SCH (08:26)
[2021-05-07] MEDS: guaiFENesin 600 MG TABCR PO SCH (08:26)
[2021-05-07] MEDS: AZITHROMYCIN 500 MG in DEXTROSE 5% 250 ML IV SCH (08:32)
[2021-05-07] MEDS ORDERED: predniSONE 20 MG TAB PO SCH (09:00)
[2021-05-07] MEDS: CEFEPIME 2,000 MG in SYRINGE 0 ML IV SCH (10:40)
--- NOTE | 2021-05-07 11:45 | Nephrology Progress Note ---
Date of Service May 07, 2021 Assessment & Plan (1) HUSSEIN (acute kidney injury): Plan: * Admitted w/ RSV pneumonia. HUSSEIN due to dehydration in the setting of ARB therapy * Cr stable at 2.4 (baseline 1.3). Electrolytes are acceptable. I&O's matched overnight * Urinalysis was negative for protein or blood * Renal US 05/14: atrophy of [place] kidneys. RLQ transplant allograft 11cm, no hydronephrosis, stone or mass. Doppler negative for KAREN * Continue Furosemide 40 mg po qDay * Monitor PRP * If discharge is anticipated, please arrange follow up with patient's primary Chipper Feeder, Dr. Cuevas within 7 - 10 days (2) Kidney transplant recipient: Plan: * ESRD due to unknown cause. s/p DDRT [address] [facility]. Primary Chipper Feeder is Dr. Cuevas * Continue tacrolimus 3 mg q Tue + Th. 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 * Continue to hold Entresto. PCP/primary Chipper Feeder can resume when indicated as outpatient * Continue carvedilol per home Rx * Restart amlodipine PRN (4) Cardiomyopathy: Plan: * Entresto held due to HUSSEIN * 05/03 Echocardiogram: LVEF 55-60%, borderline LVH, mild MR, mild TR * Single lead pacemaker in place Admission and Anticipated Discharge Date Admission Date: May 03, 2021 Subjective Mr. Aguustin was evaluated in his hospital room this morning. He is breathing comfortably on room air. He denies fever, angina or uremic symptoms. He is anxious to return home. Review of Systems Constitutional: no fever Eyes: no problem reported Respiratory: no cough and no dyspnea Cardiovascular: no chest pain Gastrointestinal: no abdominal pain Genitourinary: no difficulty urinating, no decreased urination or no hematuria Musculoskeletal: no problem reported Integumentary: + dry skin Neurologic: no problem reported Physical Exam Constitutional: + frail appearing Eyes: PERRL, conjunctivae normal, anicteric sclerae ENMT: external ear and nose normal, oropharynx normal Neck: trachea midline, no thyromegaly Respiratory: normal respiratory effort Auscultation: + rales (at bases bilaterally) Cardiovascular: RRR, no murmur, no edema Gastrointestinal (Abdomen): normal bowel sounds, soft, nontender, no hepatosplenomegaly (renal allograft nontender to palpation) Skin: no rashes, warm and dry Neurologic: awake; not confused Results & Data ([facility]) Vital Signs (Past 12 Hours) Vital Signs Temp Pulse Pulse Resp BP Pulse Ox 05/07/21 11:26 72 15 94/67 L 05/07/21 10:47 96 05/07/21 08:02 54 L 05/07/21 07:31 36.4 C L 67 16 124/70 94 05/07/21 07:19 44 L 20 94 05/07/21 04:27 36.4 C L 63 18 102/64 93 05/07/21 00:46 62 20 92 05/06/21 23:52 36.4 C L 66 18 119/80 92 05/06/21 23:47 51 L Laboratory Results Laboratory Tests 05/07/21 05/07/21 05:36 05:36 WBC 8.31 Hgb 12.7 L Hct 36.9 L Plt Count 171 Sodium 136 Potassium 3.7 Chloride 104 Carbon Dioxide 23 BUN 83 H Creatinine 2.44 H Glucose 151 H Calcium 9.4 PG Care Time/CCT Total # of Minutes Spent Total Time Spent with Patient: Total time spent is greater than 50% in coordination of care (as documented) at patient's floor/unit and/or counseling patient: Coding Level of Care Code 37956 Subseq Hosp Care Lvl 3 Diagnoses HUSSEIN (acute kidney injury) N17.9 Kidney transplant recipient Z94.0 Hypertension I10 Cardiomyopathy I42.9
--- NOTE | 2021-05-07 13:58 | Discharge Summary ---
Date of Service May 07, 2021 Admission HPI Per Admitting Provider This is 61-year-old male who presented to [facility] emergency department secondary to 2.5 weeks of shortness of breath. Patient says he did not seek medical attention prior to today as he felt that he would improve but has not. He notes his shortness of breath is worse with activity such as wal car up steps and inclines but he says he is not short of breath with routine conversation. He specifically denies any chest pain. He denies any abdominal pain. He denies any nausea or vomiting but notes intermittent diarrhea. He notes he is generally more fatigued and because of this he says he is sleeping more than usual. Secondary to his fatigue and increased sleeping his oral intake has decreased and he also notes a decreased appetite. He denies any fevers, shakes, chills. He denies any close contact with any patients infected with COVID-19. Patient does note that he has received 2 Covid vaccination shots as well as a Covid booster. He says he routinely does not wear a mask when he is out in public. He further adds a he has a history of a renal transplant performed in [place] in 2003. He does follow with the transplant team Dr. Zhang at [facility] in [facility]. He also follows with a mission manager Dr. Heredia in [facility]. Patient further adds that his kidney transplant was in 2003 as stated previously and he was taken off dialysis shortly thereafter and has not been on dialysis since. Today in the emergency department the patient had labs and imaging which I independently reviewed. A chest x-ray showed minimal right basilar opacity with some interstitial thickening. CBC revealed white blood cell count and platelet count were within normal range. His hemoglobin and hematocrit were 13.8 and 41.4 respectively. Chemistry profile showed sodium and potassium were both normal. His BUN and creatinine were both elevated at 45 and 2.8. Patient is unsure of what his baseline creatinine is but he was at [facility] in November of this year where his creatinine was noted to be 1.5. Patient has had testing done for influenza a and B which were both negative. In addition he had a Covid test performed that was negative. He was tested for RSV which was noted to be positive. An EKG did show atrial fibrillation with a well- controlled heart rate in the 70s. There is no evidence of acute ischemia on the study. Since arrival to the emergency department the patient has been given intravenous Solu-Medrol and IV fluids. He does note with these modalities he feels somewhat improved. At the time of my interview the patient was resting comfortably in bed he was in no distress. Admission Exam Per Admitting Provider Constitutional: well developed and well nourished; no acute distress Eyes: no conjunctival abnormality ENMT: Ears: no hearing impairment Neck: trachea midline Respiratory: Patient was not using accessory muscles to aid in respiration. Patient did have coarse rhonchi noted bilaterally with an occasional expiratory wheeze. The rhonchi did appear to improve somewhat with forceful cough. Cardiovascular: Rate/Rhythm: + irregularly irregular Gastrointestinal (Abdomen): Abdomen is soft, nontender, nondistended. Palpation did not elicit pain. Musculoskeletal: No calf tenderness. Trace to 1+ lower extremity edema noted bilaterally in the lower extremities. Patient had evidence of a AV fistula in the left anterior forearm. There is no palpable thrill or audible thrill noted at his fistula site. Skin: no rashes, warm and dry Neurologic: moves all extremities Psychiatric: A+Ox3, euthymic affect Principal Diagnosis 1. RSV 2. Acute exacerbation of asthma 3. HUSSEIN on CKD 4. CHF 5. Multifactoral hypoxia -- resolved Discharge Exam GENERAL: 61 yo Well-developed, well-nourished WM. NAD. LUNGS: No conversational dyspnea. Bibasilar crackles. CARDIOVASCULAR: Regular rate and rhythm. No M/G/R. No JVD. ABDOMEN: Soft, non-tender and non-distended. No palpable masses. Bowel sounds normoactive x 4 quad. EXTREMITIES: No edema. Non-tender. Peripheral pulses +2/4. PSYCHIATRIC: Cooperative. Appropriate mood and affect. SKIN: Warm, dry, intact. No rashes or lesions. Discharge Data Allergies Allergy/AdvReac Type Severity Reaction Status Date / Time Penicillins Allergy Intermediate Hives Verified 05/01/21 13:25 Consultations Nephrology consulted due to HUSSEIN on CKD -- seen by Dr. Thurman, appreciate recommendations. Please see his consult note for further details. Procedures Performed None Ordered Studies Chest X-Ray 05/01/21 11:59 XR chest 1V portable CLINICAL HISTORY: Atypical chest pain. COMPARISON STUDY: Chest CT December 15, 2020. FINDINGS: Lung volumes are normal. Left subclavian pacer/AICD is in place. There is moderate cardiomegaly without evidence for pulmonary edema. There is no pneumothorax or pleural effusion. Old bilateral rib deformities are incidentally noted. There is mild nonspecific reticulonodular interstitial thickening. There is minimal right basilar opacity. IMPRESSION: 1. Minimal right basilar opacity and mild reticulonodular interstitial thickening. An infectious process cannot be excluded. 2. Cardiomegaly. No evidence for pulmonary edema. ACT 112: Negative or not required by law. Electronically signed by: Hussein Garvin M.D. 05/01/2021 12:33 PM Renal Ultrasound 05/02/21 12:45 US renal transplant w dop HISTORY: 61 years-old Male HUSSEIN acute kidney injury COMPARISON: Acute abdomen and pelvis 12/15/2020 TECHNIQUE: Multiple real-time sonographic images of the kidneys and urinary blad tania were obtained assessing grayscale appearance, color and spectral flow FINDINGS: Markedly atrophic and echogenic bilateral [place] kidneys are suboptimally visualized by ultrasound. Right lower quadrant transplant kidney measures 11 cm in length and demonstrates no hydronephrosis or suspicious mass lesion. No shadowing renal calculi identified. Patent transplanted right renal vein. Triphasic waveforms are noted within the right renal artery with peak systolic velocities measuring up to 137 cm/s. Resistive index measures up to 0.87. There is transient diastolic reversal of flow. No focal area of high-grade stenosis or occlusion identified within the renal artery. Unremarkable urinary bladder. Right ureteral jet not identified. IMPRESSION: 1. Marked atrophy of the [place] renal kidneys redemonstrated. 2. Unremarkable appearance of the transplanted kidney within the abdominal right lower quadrant without hydronephrosis. 3. High resistance waveforms within the transplanted right renal artery with transient diastolic reversal of flow. This is a nonspecific finding. No arterial or venous occlusion or high-grade stenosis identified. ACT 112: Negative or not required by law. The above report was generated using voice recognition software. It may contain grammatical, syntax or spelling errors. Electronically signed by: Bladimir Mason M.D. 05/02/2021 3:10 PM Chest X-Ray 05/03/21 07:14 XR chest 1V portable HISTORY: Shortness of breath. Congestive heart failure. COMPARISON: Chest 05/01/2021. FINDINGS: No pneumothorax. No pleural fusions. The cardiac silhouette remains mildly enlarged. There is a left-sided single lead pacemaker. Mild central pulmonary vascular congestion without overt edema. Hazy appearance to the left lung base, unchanged. This may be due to the overlying soft tissues. Otherwise, no focal lung consolidations identified. Interstitial thickening at the lung bases persists. This may be chronic. IMPRESSION: 1. No change in the bibasilar interstitial thickening. This may be chronic. 2. Stable mild cardiomegaly. No evidence for pulmonary edema. ACT 112: Negative or not required by law. Electronically signed by: Reece Mejia M.D. 05/03/2021 7:[address] 05/04/21 09:09 CT chest diagnostic wo con CLINICAL HISTORY: adventitious breath sounds-- ? mucous plugging TECHNIQUE: Multidetector row helical CT of the chest was performed. Coronal and sagittal reformations were obtained. Automated dose lowering techniques and/or adjustment according to patient size were utilized for this exam. Comparison: None available at the time of this dictation. FINDINGS: Lungs and pleura: Multifocal ground glass/consolidative opacities are seen. At electasis is seen at the bilateral lung bases. Heart and pericardium: There is cardiomegaly and a small pericardial effusion is seen, comparable to prior exam. Vessels: The pulmonary trunk is enlarged measuring 33 mm. Mediastinum and oc: Unremarkable. Chest wall and lower neck: Unremarkable. Abdomen: A hiatal hernia is seen. Patient is status post cholecystectomy. Incidentally noted, the kidneys are atrophic. Bones: Unremarkable. IMPRESSION: 1. Multifocal groundglass/consolidative opacities are compatible with infectious/processes. There is bilateral atelectasis at the lung bases. 2. Cardiomegaly and small pericardial effusion. These findings are unchanged from prior exam. 3. Pulmonary hypertension. ACT 112: Negative or not required by law. Electronically signed by: Gaurav Wong M.D. 05/04/2021 11:22 AM Chest X-Ray 05/05/21 07:00 XR chest 1V portable CLINICAL HISTORY: post diuresis TECHNIQUE: Single frontal radiograph of the chest was obtained. Comparison: Comparison is made to chest one view 05/03/2021 FINDINGS: No lines and tubes are seen. Cardiomegaly is noted. Left retrocardiac opacity is seen. No evidence of pleural effusion or pneumothorax. IMPRESSION: 1. No pulmonary edema is seen. 2. Left retrocardiac opacity may represent atelectasis, pneumonia, and/or aspiration. ACT 112: Negative or not required by law. Electronically signed by: Gaurav Wong M.D. 05/05/2021 8:27 AM 05/07/21 05:36 05/07/21 05:36 Hospital Course (1) Acute asthma exacerbation: - presented initially with an exacerbation of asthma-- likely all secondary to RSV (covid and flu negative). Now with presented s/s bacterial PNA as well - treated with IV steroids. Steroids de-escalated and started on Prednisone this morning. - continue pulmonary toilette with pulmicort/perforomist Q12h with scheduled duoneb treatments between - continue mucolytic agents - Placed on supplemental O2 which was weaned off on 05/06. Currently saturating 95% on room air. - CT does show ground glass opacities throughout-- see below (2) Pneumonia: Stagnant response to therapies for which a procalcitonin ordered and did come back slightly positive at 1.09 CT without contrast shows groundglass opacities throughout did not have a fever or leukocytosis but is immunocompromised and may not mount these now on empiric antibiotics to cover for 2/2 bacterial infection (cefepime given immunocompromised state to cover gram-positive and gram-negative including antipseudomonal coverage, and azithromycin for atypical coverage)- started 05/04 Sputum culture ordered if patient able to expectorate (which he now is) Continue mucolytic agents, antitussives, nebulized treatments/pulmonary toilette as outlined above (in addition to chest PT and flutter valve) Blood cultures --NGTD at this time Has had over 48 hours of IV abx at this time -- clinically improving. Will transition to oral Levaquin today for d/c due to antipseudomonal coverage and atypicals x 5 more days. It will be renally adjusted. (3) CHF (congestive heart failure): patient initially hydrated upfront given his hypotension and HUSSEIN he developed crackles bilaterally and edema of the lower extremities which seemed more consistent with volume overload His blood pressure has been relatively stable chest x-ray does not show significant volume overload His proBNP is >5000 CT scan done showing pleural effusions bilaterally but no significant pulmonary edema Did reach out to nephrology who agreed that diuresis make sense at this time (creatinine did bump to 2.5) Diuresed with IV Lasix 40mg q12h x 48 hours I&O's being monitored and not quit -1L/24 hours but overall is net negative Clinically he appears euvolemic (does not have bibasilar crackles today and his edema has resolved) Urine lytes obtained and his fractional excretion of sodium is 0.7% consistent with prerenal At this point, I feel that his HUSSEIN is likely multifactorial. He is now on steroids and IV antibiotics which are all renally excreted and could be causing insult to injury but are necessary at this point Pt transitioned to p.o. Lasix from IV and monitored. He Appreciate recommendations from nephrology Echocardiogram updated showing a much better EF than anticipated at 55% with borderline concentric LVH. No significant regional wall motion abnormalities (4) RSV (acute bronchiolitis due to respiratory syncytial virus): - see above (5) Acute kidney injury: Seems multifactorial in nature thought to be due to hypotension and poor renal perfusion upfront With IV hydration, renal function worsened and he developed edema and crackles with increased oxygen supplementation needs ? component of cardiorenal syndrome Fractional excretion of sodium is 0.7% consistent with prerenal state Patient received IV Lasix on 05/03 and 05/04 (slight improvement in creatinine but no significant change) Patient is euvolemic today but despite that, his renal function remains relatively stable/unchanged Steroids and antibiotics on board may be contributing to this Have discussed this in great detail with nephrology open sees Dr. Thurman) who agrees with transitioning IV back to his p.o. Lasix and watching clinically Avoid other nephrotoxic agents (6) History of renal transplant: nephrology on board-- appreciate recommendations continued on home dose of tacrolimus follow labs closely Ambulated with therapy, recommend home pt/ot. Case management to arrange. Pt underwent two-step, no need for home O2. Will transition to tapering course of Prednisone and completion of renally dosed Levaquin. Repeat labs to monitor renal function to be done on 05/13. Advise f/u with pcp with in 1 week and mission manager within 1-2 weeks. He is medically and hemodynamically stable for discharge home today. Total Time Total Time Spent Total Time Spent (In Minutes): >30 minutes Discharge Plan Discharge Items Patient Disposition: Home - Home Health Services Reason For Visit: COUGH, CONGESTION, WEAKNESS, FATIGUE Discharge Diagnosis: 1. RSV 2. Pneumonia 3. Asthma exacerbation Activity: Resume your previous activity Non-emergency contact: Primary Care Provider and Science Specialist Call non-emergency contact if: you have any medication questions Follow-up/Referrals: Rene Masterson [Primary Care Provider] - (PLEASE CALL YOUR PRIMARY CARE PROVIDER TO SCHEDULE A DISCHARGE FOLLOW-UP APPOINTMENT WITHIN 7-10 DAYS.) Diet: Dialysis Renal Ambulatory Orders: Basic Metabolic Panel (Routine) Timeframe: [id number] Location: Determined by Patient Ordered By: Yaa Corey Addtl Attending Provider Instructions: 1. Take all medications as directed. 2. Complete tapering course of steroids and antibiotics. 3. Continue daily Lasix. 4. Follow up with kidney doctor within 1 week. Labs to be drawn on Sunday 05/13 Pending Studies at Discharge: No Stand-Alone Forms: My [employer], Smoking Cessation Medications and DC Order Prescriptions: New prednisone 10 mg tablet 10 mg PO DAILY Qty: 30 RF: 0 levofloxacin 750 mg tablet 750 mg PO Q48H 5 Days Qty: 3 RF: 0 Continued furosemide 40 mg tablet 40 mg PO DAILY RF: 0 carvedilol 6.25 mg tablet 6.25 mg PO BID RF: 0 atorvastatin 10 mg tablet 10 mg PO HS RF: 0 lorazepam 0.5 mg tablet 0.5 mg PO BID PRN (Reason: NEEDED) RF: 0 montelukast 10 mg tablet 10 mg PO HS RF: 0 hydroxyzine HCl 25 mg tablet 25 mg PO TID PRN (Reason: NEEDED) RF: 0 tacrolimus 1 mg capsule See Rx Instructions .ROUTE .COMPLEX RF: 0 terazosin 10 mg capsule 10 mg PO HS RF: 0 duloxetine 60 mg capsule,delayed release(DR/EC) 60 mg PO QAM RF: 0 Creon 24,000-76,000 -120,000 unit capsule,delayed release(DR/EC) 2 cap PO BID RF: 0 Eliquis 5 mg tablet 5 mg PO BID RF: 0 Arnuity Ellipta 100 mcg/actuation blister with device 1 inh INHALATION DAILY RF: 0 trazodone 50 mg tablet 50 mg PO DAILY RF: 0 pantoprazole 40 mg tablet,delayed release (DR/EC) 40 mg PO DAILY RF: 0 Changed potassium chloride 20 mEq tablet,ER particles/crystals 20 meq PO DAILY Qty: 0 RF: 0 Discontinued clonidine 0.2 mg/24 hr patch weekly 0.2 mg transdermal WK RF: 0 amlodipine [Norvasc] 5 mg tablet 5 mg PO QAM RF: 0 Entresto 24-26 mg tablet 1 tab PO BID RF: 0 Discharge Orders: Discharge Order (Routine); Ordered 05/07/21 Ordered By: Yaa Corey Admission Data Admit Date/Time: 05/03/21 16:22 Attending Provider: Dc Quintero Admit Provider: Carlitos Steiner Primary Care Provider: Rene Masterson Other Providers: Sid Castro ; Carlitos Steiner ; Kamran Alvarenga [facility] Other Interventions: Discharge Summary Assessment (RN) Last Done: 05/07/21 14:11 Coding Level of Care Code D/C DAY MANAGEMENT >30 MINS Diagnoses Acute asthma exacerbation J45.901 Pneumonia J18.9 CHF (congestive heart failure) I50.9 RSV (acute bronchiolitis due to respiratory syncytial virus) J21.0 Acute kidney injury N17.9 History of renal transplant Z94.0 Home Health Attestation I certify that this patient is under my care and that I, or a physicians assistant fitness manager working with me, had a face to-face encounter that meets the [facility] cold-sr-rnuu encounter requirements with this patient. The encounter with the patient was in whole, or in part, for the following medical condition, which is the primary reason for home health care (list medical condition): Covid-19 I certify that, based on my findings, the following services are medically necessary home health services: My clinical findings support the need for the above services because: OT Assess ADL Status and Restore Function w ADLs PT Assessment for Endurance / Balance / Strength PT Eval for Safety and Mobility PT Eval for Safety, Gait Training, Assistive Devices PT Gait and Balance Training, Strengthening and Safety Skilled Nsg Assessment Further, I certify that my clinical findings support that this patient is homebound (i.e. absences from home require considerable and taxing effort and are for medical reasons or [facility] or infrequently or of short duration when for other reasons) because: Transportation Assistance/Unable to Leave Home Unassisted Certification for Home Health Services: Based on the above findings, I certify that this patient is confined to the home and needs intermittent half-way care, physical therapy and/or speech therapy or continues to need occupational therapy. The patient is under my care, and I have initiated the establishment of the plan of care. This patient will be followed by a physician who will periodically review the plan of care.
== END 2021-05-07 17:31 | disposition home health service (06) | DRG 202 ==
LOC: ED 11:36 → EDINP 11:36 → SUATTDRO 13:50 → EDINP 19:47 → SUATTDRO 05-03 16:22 → 2N 05-06 20:06
DX: Z20.822 Contact with and (suspected) exposure to COVID-19; I11.0 Hypertensive heart disease with heart failure; J45.901 Unspecified asthma with (acute) exacerbation; I42.9 Cardiomyopathy, unspecified; T86.19 Other complication of kidney transplant; J15.9 Unspecified bacterial pneumonia; Z79.51 Long term (current) use of inhaled steroids; Z95.810 Presence of automatic (implantable) cardiac defibrillator; N17.9 Acute kidney failure, unspecified; I50.20 Unspecified systolic (congestive) heart failure; Z79.01 Long term (current) use of anticoagulants; Z88.0 Allergy status to penicillin; E86.0 Dehydration; Z79.899 Other long term (current) drug therapy; I48.91 Unspecified atrial fibrillation; J21.0 Acute bronchiolitis due to respiratory syncytial virus

== ENCOUNTER 2021-06-03 16:20 | Inpatient (IN) ==
[2021-06-03] MEDS ORDERED: ALBUT/IPRATROP 3MG/0.5MG NEB 3 ML VIAL NEB STA (16:44)
[2021-06-03] MEDS ORDERED: CEFEPIME 2,000 MG/20 ML VIAL IV STA (16:45)
[2021-06-03 16:55] LABS: Hematocrit (blood only) 33.4 % (42-52); Hemoglobin 10.8 g/dL (14.0-18.0); Immature Granulocytes # (auto) 0.04 K/uL (0.00-0.02); Immature Granulocytes % (auto) 2.1 %; Lymphocytes # (auto) 0.27 K/uL (1.2-3.4); Lymphocytes % (auto) 14.4 %; Mean Corpuscular Hemoglobin 28.5 pg (25-34); Mean Corpuscular Hgb Conc 32.3 g/dL (32-36); Mean Corpuscular Volume 88.1 fL (80-100); Monocytes # (auto) 0.15 K/uL (0.11-0.59); Neutrophils # (auto) 1.42 K/uL (1.4-6.5); Neutrophils % (auto) 75.5 %; Platelet Count 147 K/uL (130-400); RDW Coefficient of Variation 15.6 % (11.5-14.5); RDW Standard Deviation 50.4 fL (36.4-46.3); Red Blood Count 3.79 M/uL (4.7-6.1); White Blood Count 1.88 K/uL (4.8-10.8)
[2021-06-03 17:05] LABS: INR 1.1 (0.9-1.1); Partial Thromboplastin Ratio 1.4; Partial Thromboplastin Time 35.6 Seconds (21.0-31.0)
--- NOTE | 2021-06-03 17:07 | XRay Report ---
XR chest 1V portable CLINICAL HISTORY: SOB. COMPARISON STUDY: 05/05/2021 TECHNIQUE: 1 view of the chest FINDINGS: Single frontal view of the chest demonstrates the heart to be enlarged with permanent cardiac pacer i n place. Compared to the previous examination, there are now interstitial and alveolar opacities pres ent bilaterally. The findings are most characteristic of a viral type pneumonitis. Covid 19 pneumonia should be excluded. There is no evidence for pleural effusion. There is no evidence for vascular con gestion. There is no acute osseous pathology. IMPRESSION: Interval development of patchy interstitial and alveolar opacities bilaterally characteri stic of a viral type pneumonitis and probable Covid 19 pneumonia. Impression ACT 112: Negative or not required by law. Electronically signed by: Bennett Lynn M.D. 06/03/2021 5:06 PM
--- NOTE | 2021-06-03 17:10 | Emergency Department Note ---
Impression & Plan Hypoxia, Pneumonia, SOB (shortness of breath), COVID-19 ED Provider Note NAME: DEBBIE ALEJANDRA AGE: 61 SEX: M : 1960 ARRIVES VIA: Ambulance INFORMANT: [Patient][nursing] ED PROVIDER(S): [Chetan Chiang MD] CHIEF COMPLAINT: Short of breath HISTORY OF PRESENT ILLNESS: The patient is a 61-year-old male who presents to the ED with 10 days of increasing shortness of breath. In the last few days, he has really noticed dyspnea. He is coughing. He has a burning across his chest when he coughs. He has noticed some edema to his legs. The patient is vaccinated against COVID-19 x3. He has had some recent COVID exposures though. There has been no fever. No vomiting or diarrhea. He was in the hospital recently for pneumonia. As per the nursing staff, the patient presents hypoxic. He was requiring facemask oxygen. Of note, the patient has a history of renal transplant. REVIEW OF SYSTEMS: See HPI for pertinent positives and negatives. A total of ten systems were reviewed and were otherwise negative. PMHx/PSHx: See Below SOCIAL HISTORY: See Below. PHYSICAL EXAM: GENERAL: Patient is in mild respiratory distress. HEENT: No acute trauma, normocephalic atraumatic, mucous membranes moist, no nasal congestion, no scleral icterus. NECK: No stridor, no adenopathy, no meningismus, trachea is midline. LUNGS: Scattered crackles throughout. Increased respiratory rate. No wheezing. Facemask oxygen in place. Mild respiratory distress noted. HEART: Mildly tachycardic, slightly irregular rhythm, no murmurs. ABDOMEN: Soft, nontender, bowel sounds positive, no hernias, no peritonitis. EXTREMITIES: No cyanosis, moderate bilateral pedal edema, full range of motion of all the joints without pain or difficulty, no signs for acute trauma. NEUROLOGIC: Oriented x 3, no acute motor or sensory deficits, no focal weakness. SKIN: No rash, no jaundice, no diaphoresis. Pale. DIFFERENTIAL DIAGNOSIS: Reactive airway disease, pneumonia, pneumothorax, COPD, CHF, COVID-19, influenza, renal failure, infection, cardiac ischemia, pulmonary embolism, bronchitis, musculoskeletal, gastrointestinal, as well as other pathologies. EMERGENCY DEPARTMENT COURSE/PROCEDURES: ECG: Indication was shortness of breath. The ECG shows what appears to be atrial fibrillation with a rate of 95. There is diffuse nonspecific ST change. There is some baseline artifact. No ST elevation, no PVCs. The QTC is 552. Continuous Cardiac Monitoring: An order was placed for continuous cardiac monitoring. The monitor shows a rate of 93 with atrial fibrillation. Critical Care Note: I have personally spent 54 minutes of critical care time in the direct management of this patient. This includes bedside care, interpretation of diagnostic studies, and testing, discussion with consultants, patient, and family members, and other required patient management activities. This 54 minutes is in excess of all separately billable procedures. MEDICAL DECISION MAKING: There is a lower white blood cell count, possibly consistent with a viral illness. Hemoglobin was low at 10.8. The patient carries a history of anemia but this value is low for him. There is a normal platelet count. No concerning coagulopathy. VBG shows a slightly low pH at 7.3. No CO2 retention. Renal panel testing shows an elevation to the creatinine but this elevation appears at baseline. Lactic acid level was slightly elevated, likely from hypoxia. Magnesium was a bit low at 1.6. BNP was elevated at over 8000 consistent with some fluid overload. ECG shows atrial fibrillation, no ischemic change. Cardiac enzyme testing x1 is not consistent with acute cardiac injury. Chest x- ray shows patchy bilateral infiltrates consistent with a viral pneumonia. Bio fire did show a positive COVID-19 finding. The patient presented hypoxic. He appeared pale. With his renal transplant history, he is immunocompromised. Patient received IV Lasix, 40 mg. This was given to help with diuresis. He received IV magnesium, IV cefepime and a DuoNeb. He was placed on BiPAP. The patient's oxygen level improved on BiPAP. He appeared more comfortable. The patient is in need of a hospital stay. He has COVID-pneumonia. This pneumonia has led to hypoxia and shortness of breath. I spoke with the patient, I talked with case management. The on-call hospitalist was consulted. Past Med/Surg History Medical History Afib Cardiac defibrillator in place Cardiomyopathy CHF (congestive heart failure) Hypertension Surgical History (Updated 06/03/21 @ 20:00 by Carlitos Steiner MD) History of appendectomy History of cholecystectomy Kidney transplant recipient Social History Smoking Status: Smoker, status unknown Second Hand Exposure: No; Hx Alcohol Use: No Hx Substance Use: No Preferred Language: Iranian Communication Ability: Effective Product Support Specialist Required: No Beliefs That Will Affect Care: None marital status: Current Living Situation: Spouse Current Living Situation Comment: home with Feels Safe at Home: Yes Assistive Devices: Walker Allergies Allergies Allergy/AdvReac Type Severity Reaction Status Date / Time Penicillins Allergy Intermediate Hives Verified 06/03/21 19:13 Home Meds Home Medications Medication Instructions Recorded Confirmed apixaban 5 mg tablet (Eliquis) 5 mg PO BID 12/15/20 06/03/21 atorvastatin 10 mg tablet 10 mg PO HS 12/15/20 06/03/21 carvedilol 6.25 mg tablet 6.25 mg PO BID 12/15/20 06/03/21 fluticasone furoate 100 1 inh INHALATION DAILY 12/15/20 06/03/21 mcg/actuation blister powder for inhalation (Arnuity Ellipta) furosemide 40 mg tablet 40 mg PO DAILY 12/15/20 06/03/21 hydroxyzine HCl 25 mg tablet 25 mg PO TID PRN 12/15/20 06/03/21 fesrgg-seyocfrz-foxogmh 2 cap PO BID 12/15/20 06/03/21 24,000-76,000-120,000 unit capsule,delayed rel (Creon) lorazepam 0.5 mg tablet 0.5 mg PO BID PRN 12/15/20 06/03/21 montelukast 10 mg tablet 10 mg PO HS 12/15/20 06/03/21 tacrolimus 1 mg capsule, 3 mg PO .BID/UD 12/15/20 06/03/21 immediate-release terazosin 10 mg capsule 10 mg PO HS 12/15/20 06/03/21 pantoprazole 40 mg tablet,delayed 40 mg PO DAILY 05/01/21 06/03/21 release trazodone 50 mg tablet 50 mg PO DAILY PRN 05/01/21 06/03/21 duloxetine 30 mg capsule,delayed 30 mg PO DAILY 06/03/21 06/03/21 release Previous Rx's Medication Instructions Recorded potassium chloride 20 mEq 20 meq PO DAILY #0 tab 05/07/21 tablet,extended release(part/cryst) Results & Data (ED) Vital Signs Vital Signs - 24 hr 06/03/21 16:51 06/03/21 16:53 06/03/21 16:56 Temperature 36.8 C Temperature Source Oral Pulse Rate 90 102 H Pulse Rate [Right Finger] 93 H Pulse Rhythm [Right Finger] Pulse Strength [Right Finger] Respiratory Rate 35 H 35 H 26 H Respiratory Effort / Characteristics Spontaneous Spontaneous Labored Short of Breath SOB on Exertion Tripoding Respiratory Depth Normal Respiratory Pattern Tachypnea Blood Pressure 122/49 L Blood Pressure [Left Arm] Blood Pressure Mean 73 Blood Pressure Mean [Left Arm] Blood Pressure Position [Left Arm] Pulse Oximetry 96 94 74 L Oxygen Delivery Method BiPAP Room Air Oxygen Flow Rate 0 Fraction of Inspired Oxygen 60 60 SaO2/FiO2 Ratio Sepsis Recent Fever Within 48 Hours Yes Sepsis New/Unexplained Change in Mental Status No Sepsis Action Taken by Nursing Physician Notified Pulse Oximetry Post Tiitration 95 06/03/21 17:42 06/03/21 18:34 06/03/21 19:00 Temperature Temperature Source Pulse Rate Pulse Rate [Right Finger] 78 75 Pulse Rhythm [Right Finger] Pulse Strength [Right Finger] Respiratory Rate 30 H 18 Respiratory Effort / Characteristics Non-Labored Respiratory Depth Normal Respiratory Pattern Regular Blood Pressure Blood Pressure [Left Arm] 131/84 122/81 Blood Pressure Mean Blood Pressure Mean [Left Arm] 99 94 Blood Pressure Position [Left Arm] Lying Pulse Oximetry 94 99 99 Oxygen Delivery Method BiPAP BiPAP CPAP Oxygen Flow Rate Fraction of Inspired Oxygen 60 SaO2/FiO2 Ratio 165 Sepsis Recent Fever Within 48 Hours Sepsis New/Unexplained Change in Mental Status Sepsis Action Taken by Nursing Pulse Oximetry Post Tiitration 06/03/21 19:43 06/03/21 21:00 Temperature Temperature Source Pulse Rate 81 Pulse Rate [Right Finger] 75 Pulse Rhythm [Right Finger] Regular Pulse Strength [Right Finger] Normal Respiratory Rate 24 18 Respiratory Effort / Characteristics Spontaneous Non-Labored Respiratory Depth Normal Respiratory Pattern Blood Pressure Blood Pressure [Left Arm] 117/66 Blood Pressure Mean Blood Pressure Mean [Left Arm] 83 Blood Pressure Position [Left Arm] Lying Pulse Oximetry 99 93 Oxygen Delivery Method CPAP Oxygen Flow Rate Fraction of Inspired Oxygen 60 60 SaO2/FiO2 Ratio 155 Sepsis Recent Fever Within 48 Hours Sepsis New/Unexplained Change in Mental Status Sepsis Action Taken by Nursing Pulse Oximetry Post Tiitration Home Medications Current Medication List: was personally reviewed by me Laboratory Data Attestation: I reviewed the patient's lab results. Result diagrams: 06/03/21 16:39 06/03/21 17:24 Lab Results 06/03/21 06/03/21 06/03/21 Range/Units 16:39 16:39 16:39 WBC 1.88 L (4.8-10.8) K/uL RBC 3.79 L (4.7-6.1) M/uL Hgb 10.8 L (14.0-18.0) g/dL Hct 33.4 L (42-52) % MCV 88.1 (80-100) fL MCH 28.5 (25-34) pg MCHC 32.3 (32-36) g/dL RDW Std Deviation 50.4 H (36.4-46.3) fL RDW Coeff of Poonam 15.6 H (11.5-14.5) % Plt Count 147 (130-400) K/uL MPV 12.0 H (7.4-10.4) fL Immature Gran % (Auto) 2.1 % Neut % (Auto) 75.5 % Lymph % (Auto) 14.4 % Meagher % (Auto) 8.0 % Eos % (Auto) 0.0 % Baso % (Auto) 0.0 % Neut # (Auto) 1.42 (1.4-6.5) K/uL Lymph # (Auto) 0.27 L (1.2-3.4) K/uL Meagher # (Auto) 0.15 (0.11-0.59) K/uL Eos # (Auto) 0.00 (0-0.5) K/uL Baso # (Auto) 0.00 (0-0.2) K/uL Immature Gran # (Auto) 0.04 H (0.00-0.02) K/uL PT 11.0 (9.0-12.0) Seconds INR 1.1 (0.9-1.1) APTT 35.6 H (21.0-31.0) Seconds PTT Ratio 1.4 VBG pH (7.36-7.41) VBG pCO2 (38-50) mmHg VBG pO2 mmHg VBG HCO3 mmol/L VBG O2 Saturation % VBG Base Excess mEq/L Barometric Pressure mm/Hg Sodium 141 (136-145) mmol/L Potassium (3.5-5.1) mmol/L Chloride 113 H (98-107) mmol/L Carbon Dioxide 21 (21-32) mmol/L Anion Gap 7.0 (3-11) BUN 27 H (7-18) mg/dl Creatinine 2.08 H (0.6-1.4) mg/dl Est Cr Clr Drug Dosing 44.8 ml/min Est GFR ( Amer) 38.4 ml/min Est GFR (Non-Af Amer) 33.1 ml/min BUN/Creatinine Ratio 12.9 (10-20) Glucose 120 H (70-99) mg/dl Lactate (0.4-2.0) mmol/L Calcium 8.7 (8.5-10.1) mg/dl Magnesium (1.8-2.4) mg/dl Total Bilirubin 0.8 (0.2-1) mg/dl AST (15-37) U/L ALT 42 (12-78) Alkaline Phosphatase 159 H (45-117) U/L Troponin I < 0.015 (0-0.045) ng/ml C-Reactive Protein (0-0.29) mg/dl NT-Pro-B Natriuret Pep 8822 H (0-900) pg/ml Total Protein 5.0 L (6.4-8.2) gm/dl Albumin 2.2 L (3.4-5.0) gm/dl Globulin 2.8 (2.5-4.0) gm/dl Albumin/Globulin Ratio 0.8 L (0.9-2) Procalcitonin (0-0.5) ng/ml Adenovirus (PCR) (NotDetected) B. pertussis DNA (PCR) (NotDetected) B.parapertussis DNA PCR (NotDetected) C. pneumoniae DNA (PCR) (NotDetected) Coronavirus OC43 (PCR) (NotDetected) Coronavirus HKU1 (PCR) (NotDetected) Coronavirus 229E (PCR) (NotDetected) SARS-CoV-2 (PCR) (NotDetected) Coronavirus NL63 (PCR) (NotDetected) Human Metapneumovir PCR (NotDetected) Influenza Type A (PCR) (NotDetected) Influenza Type B (PCR) (NotDetected) M. pneumoniae (PCR) (NotDetected) Parainfluenza 1 (PCR) (NotDetected) Parainfluenza 2 (PCR) (NotDetected) Parainfluenza 3 (PCR) (NotDetected) Parainfluenza 4 (PCR) (NotDetected) RSV (PCR) (NotDetected) Entero/Rhino (PCR) (NotDetected) 06/03/21 06/03/21 06/03/21 Range/Units 16:49 16:51 17:24 WBC (4.8-10.8) K/uL RBC (4.7-6.1) M/uL Hgb (14.0-18.0) g/dL Hct (42-52) % MCV (80-100) fL MCH (25-34) pg MCHC (32-36) g/dL RDW Std Deviation (36.4-46.3) fL RDW Coeff of Poonam (11.5-14.5) % Plt Count (130-400) K/uL MPV (7.4-10.4) fL Immature Gran % (Auto) % Neut % (Auto) % Lymph % (Auto) % Meagher % (Auto) % Eos % (Auto) % Baso % (Auto) % Neut # (Auto) (1.4-6.5) K/uL Lymph # (Auto) (1.2-3.4) K/uL Meagher # (Auto) (0.11-0.59) K/uL Eos # (Auto) (0-0.5) K/uL Baso # (Auto) (0-0.2) K/uL Immature Gran # (Auto) (0.00-0.02) K/uL PT (9.0-12.0) Seconds INR (0.9-1.1) APTT (21.0-31.0) Seconds PTT Ratio VBG pH (7.36-7.41) VBG pCO2 (38-50) mmHg VBG pO2 mmHg VBG HCO3 mmol/L VBG O2 Saturation % VBG Base Excess mEq/L Barometric Pressure mm/Hg Sodium (136-145) mmol/L Potassium 4.0 (3.5-5.1) mmol/L Chloride (98-107) mmol/L Carbon Dioxide (21-32) mmol/L Anion Gap (3-11) BUN (7-18) mg/dl Creatinine (0.6-1.4) mg/dl Est Cr Clr Drug Dosing ml/min Est GFR ( Amer) ml/min Est GFR (Non-Af Amer) ml/min BUN/Creatinine Ratio (10-20) Glucose (70-99) mg/dl Lactate 2.2 H* (0.4-2.0) mmol/L Calcium (8.5-10.1) mg/dl Magnesium 1.6 L (1.8-2.4) mg/dl Total Bilirubin (0.2-1) mg/dl AST 56 H (15-37) U/L ALT (12-78) Alkaline Phosphatase (45-117) U/L Troponin I (0-0.045) ng/ml C-Reactive Protein (0-0.29) mg/dl NT-Pro-B Natriuret Pep (0-900) pg/ml Total Protein (6.4-8.2) gm/dl Albumin (3.4-5.0) gm/dl Globulin (2.5-4.0) gm/dl Albumin/Globulin Ratio (0.9-2) Procalcitonin (0-0.5) ng/ml Adenovirus (PCR) Not Detected (NotDetected) B. pertussis DNA (PCR) Not Detected (NotDetected) B.parapertussis DNA PCR Not Detected (NotDetected) C. pneumoniae DNA (PCR) Not Detected (NotDetected) Coronavirus OC43 (PCR) Not Detected (NotDetected) Coronavirus HKU1 (PCR) Not Detected (NotDetected) Coronavirus 229E (PCR) Not Detected (NotDetected) SARS-CoV-2 (PCR) DETECTED A* (NotDetected) Coronavirus NL63 (PCR) Not Detected (NotDetected) Human Metapneumovir PCR Not Detected (NotDetected) Influenza Type A (PCR) Not Detected (NotDetected) Influenza Type B (PCR) Not Detected (NotDetected) M. pneumoniae (PCR) Not Detected (NotDetected) Parainfluenza 1 (PCR) Not Detected (NotDetected) Parainfluenza 2 (PCR) Not Detected (NotDetected) Parainfluenza 3 (PCR) Not Detected (NotDetected) Parainfluenza 4 (PCR) Not Detected (NotDetected) RSV (PCR) Not Detected (NotDetected) Entero/Rhino (PCR) Not Detected (NotDetected) 06/03/21 06/03/21 06/03/21 Range/Units 17:24 18:41 18:41 WBC (4.8-10.8) K/uL RBC (4.7-6.1) M/uL Hgb (14.0-18.0) g/dL Hct (42-52) % MCV (80-100) fL MCH (25-34) pg MCHC (32-36) g/dL RDW Std Deviation (36.4-46.3) fL RDW Coeff of Poonam (11.5-14.5) % Plt Count (130-400) K/uL MPV (7.4-10.4) fL Immature Gran % (Auto) % Neut % (Auto) % Lymph % (Auto) % Meagher % (Auto) % Eos % (Auto) % Baso % (Auto) % Neut # (Auto) (1.4-6.5) K/uL Lymph # (Auto) (1.2-3.4) K/uL Meagher # (Auto) (0.11-0.59) K/uL Eos # (Auto) (0-0.5) K/uL Baso # (Auto) (0-0.2) K/uL Immature Gran # (Auto) (0.00-0.02) K/uL PT (9.0-12.0) Seconds INR (0.9-1.1) APTT (21.0-31.0) Seconds PTT Ratio VBG pH 7.30 L (7.36-7.41) VBG pCO2 40 (38-50) mmHg VBG pO2 30 mmHg VBG HCO3 19 mmol/L VBG O2 Saturation < 60.0 % VBG Base Excess -6.6 mEq/L Barometric Pressure 736.5 mm/Hg Sodium (136-145) mmol/L Potassium (3.5-5.1) mmol/L Chloride (98-107) mmol/L Carbon Dioxide (21-32) mmol/L Anion Gap (3-11) BUN (7-18) mg/dl Creatinine (0.6-1.4) mg/dl Est Cr Clr Drug Dosing ml/min Est GFR ( Amer) ml/min Est GFR (Non-Af Amer) ml/min BUN/Creatinine Ratio (10-20) Glucose (70-99) mg/dl Lactate 1.8 (0.4-2.0) mmol/L Calcium (8.5-10.1) mg/dl Magnesium (1.8-2.4) mg/dl Total Bilirubin (0.2-1) mg/dl AST (15-37) U/L ALT (12-78) Alkaline Phosphatase (45-117) U/L Troponin I (0-0.045) ng/ml C-Reactive Protein 8.50 H (0-0.29) mg/dl NT-Pro-B Natriuret Pep (0-900) pg/ml Total Protein (6.4-8.2) gm/dl Albumin (3.4-5.0) gm/dl Globulin (2.5-4.0) gm/dl Albumin/Globulin Ratio (0.9-2) Procalcitonin (0-0.5) ng/ml Adenovirus (PCR) (NotDetected) B. pertussis DNA (PCR) (NotDetected) B.parapertussis DNA PCR (NotDetected) C. pneumoniae DNA (PCR) (NotDetected) Coronavirus OC43 (PCR) (NotDetected) Coronavirus HKU1 (PCR) (NotDetected) Coronavirus 229E (PCR) (NotDetected) SARS-CoV-2 (PCR) (NotDetected) Coronavirus NL63 (PCR) (NotDetected) Human Metapneumovir PCR (NotDetected) Influenza Type A (PCR) (NotDetected) Influenza Type B (PCR) (NotDetected) M. pneumoniae (PCR) (NotDetected) Parainfluenza 1 (PCR) (NotDetected) Parainfluenza 2 (PCR) (NotDetected) Parainfluenza 3 (PCR) (NotDetected) Parainfluenza 4 (PCR) (NotDetected) RSV (PCR) (NotDetected) Entero/Rhino (PCR) (NotDetected) 06/03/21 Range/Units 19:03 WBC (4.8-10.8) K/uL RBC (4.7-6.1) M/uL Hgb (14.0-18.0) g/dL Hct (42-52) % MCV (80-100) fL MCH (25-34) pg MCHC (32-36) g/dL RDW Std Deviation (36.4-46.3) fL RDW Coeff of Poonam (11.5-14.5) % Plt Count (130-400) K/uL MPV (7.4-10.4) fL Immature Gran % (Auto) % Neut % (Auto) % Lymph % (Auto) % Meagher % (Auto) % Eos % (Auto) % Baso % (Auto) % Neut # (Auto) (1.4-6.5) K/uL Lymph # (Auto) (1.2-3.4) K/uL Meagher # (Auto) (0.11-0.59) K/uL Eos # (Auto) (0-0.5) K/uL Baso # (Auto) (0-0.2) K/uL Immature Gran # (Auto) (0.00-0.02) K/uL PT (9.0-12.0) Seconds INR (0.9-1.1) APTT (21.0-31.0) Seconds PTT Ratio VBG pH (7.36-7.41) VBG pCO2 (38-50) mmHg VBG pO2 mmHg VBG HCO3 mmol/L VBG O2 Saturation % VBG Base Excess mEq/L Barometric Pressure mm/Hg Sodium (136-145) mmol/L Potassium (3.5-5.1) mmol/L Chloride (98-107) mmol/L Carbon Dioxide (21-32) mmol/L Anion Gap (3-11) BUN (7-18) mg/dl Creatinine (0.6-1.4) mg/dl Est Cr Clr Drug Dosing ml/min Est GFR ( Amer) ml/min Est GFR (Non-Af Amer) ml/min BUN/Creatinine Ratio (10-20) Glucose (70-99) mg/dl Lactate (0.4-2.0) mmol/L Calcium (8.5-10.1) mg/dl Magnesium (1.8-2.4) mg/dl Total Bilirubin (0.2-1) mg/dl AST (15-37) U/L ALT (12-78) Alkaline Phosphatase (45-117) U/L Troponin I (0-0.045) ng/ml C-Reactive Protein (0-0.29) mg/dl NT-Pro-B Natriuret Pep (0-900) pg/ml Total Protein (6.4-8.2) gm/dl Albumin (3.4-5.0) gm/dl Globulin (2.5-4.0) gm/dl Albumin/Globulin Ratio (0.9-2) Procalcitonin 0.45 (0-0.5) ng/ml Adenovirus (PCR) (NotDetected) B. pertussis DNA (PCR) (NotDetected) B.parapertussis DNA PCR (NotDetected) C. pneumoniae DNA (PCR) (NotDetected) Coronavirus OC43 (PCR) (NotDetected) Coronavirus HKU1 (PCR) (NotDetected) Coronavirus 229E (PCR) (NotDetected) SARS-CoV-2 (PCR) (NotDetected) Coronavirus NL63 (PCR) (NotDetected) Human Metapneumovir PCR (NotDetected) Influenza Type A (PCR) (NotDetected) Influenza Type B (PCR) (NotDetected) M. pneumoniae (PCR) (NotDetected) Parainfluenza 1 (PCR) (NotDetected) Parainfluenza 2 (PCR) (NotDetected) Parainfluenza 3 (PCR) (NotDetected) Parainfluenza 4 (PCR) (NotDetected) RSV (PCR) (NotDetected) Entero/Rhino (PCR) (NotDetected) Administered Medications Discontinued Medications Albuterol (Albut/Ipratrop 3mg/0.5mg Neb 3 Ml Vial) 3 ml NEB NOW STA; Protocol Stop: 06/03/21 16:45 Last Admin: 06/03/21 16:51 Dose: 3 ml Documented by: [id number] Furosemide (Furosemide 40 Mg/4 Ml Vial) 40 mg IV ONE ONE Stop: 06/03/21 17:37 Last Admin: 06/03/21 17:51 Dose: 40 mg Documented by: [id number] Cefepime HCl (Maxipime) 2,000 mg in 20 mls @ 5 mls/min IV NOW STA; Protocol Stop: 06/03/21 16:48 Last Admin: 06/03/21 17:08 Dose: 5 mls/min Documented by: [id number] Magnesium Sulfate/Dextrose (Magnesium Sulfate / D5w) 1 gm in 100 mls @ 100 mls/hr IV NOW STA Stop: 06/03/21 18:58 Last Infusion: 06/03/21 19:29 Dose: 0 mls/hr Documented by: [id number] Admin: 06/03/21 18:21 Dose: 100 mls/hr Documented by: [id number] Dexamethasone 6 mg/ Syringe 1.5 mls @ 1 mls/min IV ONE STA Stop: 06/03/21 19:54 Last Admin: 06/03/21 20:17 Dose: 1 mls/min Documented by: [id number] Imaging Data Radiologist's Impression: Chest X-Ray 06/03/21 16:45 XR chest 1V portable CLINICAL HISTORY: SOB. COMPARISON STUDY: 05/05/2021 TECHNIQUE: 1 view of the chest FINDINGS: Single frontal view of the chest demonstrates the heart to be enlarged with permanent cardiac pacer in place. Compared to the previous examination, there are now interstitial and alveolar opacities present bilaterally. The findings are most characteristic of a viral type pneumonitis. Covid 19 pneumonia should be excluded. There is no evidence for pleural effusion. There is no evidence for vascular congestion. There is no acute osseous pathology. IMPRESSION: Interval development of patchy interstitial and alveolar opacities bilaterally characteristic of a viral type pneumonitis and probable Covid 19 pneumonia. Impression ACT 112: Negative or not required by law. Electronically signed by: Bennett Lynn M.D. 06/03/2021 5:06 PM Discharge Plan Visit Data Chief Complaint: Shortness of Breath/Dyspnea Stated Complaint: Illness ED Provider: Chetan Chiang Discharge Problem: Hypoxia, Pneumonia, SOB (shortness of breath), COVID-19 Patient Disposition: Admitted As Inpatient Condition: Fair Forms Stand Alone Forms: My [facility] Prescriptions Prescriptions: No Action furosemide 40 mg tablet 40 mg PO DAILY RF: 0 carvedilol 6.25 mg tablet 6.25 mg PO BID RF: 0 atorvastatin 10 mg tablet 10 mg PO HS RF: 0 lorazepam 0.5 mg tablet 0.5 mg PO BID PRN (Reason: NEEDED) RF: 0 montelukast 10 mg tablet 10 mg PO HS RF: 0 hydroxyzine HCl 25 mg tablet 25 mg PO TID PRN (Reason: NEEDED) RF: 0 tacrolimus 1 mg capsule 3 mg PO .BID/UD RF: 0 terazosin 10 mg capsule 10 mg PO HS RF: 0 Creon 24,000-76,000 -120,000 unit capsule,delayed release(DR/EC) 2 cap PO BID RF: 0 Eliquis 5 mg tablet 5 mg PO BID RF: 0 Arnuity Ellipta 100 mcg/actuation blister with device 1 inh INHALATION DAILY RF: 0 trazodone 50 mg tablet 50 mg PO DAILY PRN (Reason: Insomnia) RF: 0 pantoprazole 40 mg tablet,delayed release (DR/EC) 40 mg PO DAILY RF: 0 potassium chloride 20 mEq tablet,ER particles/crystals 20 meq PO DAILY Qty: 0 RF: 0 duloxetine 30 mg capsule,delayed release(DR/EC) 30 mg PO DAILY RF: 0 Referrals Referrals: Rene Masterson [Primary Care Provider] -
[2021-06-03 17:16] LABS: Alanine Aminotransferase 42 (12-78); Albumin Level 2.2 gm/dl (3.4-5.0); BUN Creatinine Ratio 12.9 (10-20); Blood Urea Nitrogen 27 mg/dl (7-18); Calcium 8.7 mg/dl (8.5-10.1); Carbon Dioxide 21 mmol/L (21-32); Chloride 113 mmol/L (98-107); Creatinine Clr Calc Pharmacy 44.8 ml/min; Est GFR (African American) 38.4 ml/min; Est GFR (Non-African American) 33.1 ml/min; Glucose 120 mg/dl (70-99); Sodium 141 mmol/L (136-145)
[2021-06-03 17:19] LABS: Albumin Globulin Ratio 0.8 (0.9-2); Alkaline Phosphatase 159 U/L (45-117); Bilirubin,Total 0.8 mg/dl (0.2-1); Globulin 2.8 gm/dl (2.5-4.0); NT Pro B Type Natriuretic Pept 8822 pg/ml (0-900); Troponin I < 0.015 ng/ml (0-0.045)
[2021-06-03] MEDS ORDERED: FUROSEMIDE 40 MG/4 ML VIAL IV ONE (17:36)
[2021-06-03 17:56] LABS: Magnesium 1.6 mg/dl (1.8-2.4)
[2021-06-03] MEDS ORDERED: MAGNESIUM SULFATE / D5W 1 GM/100 ML BAG IV STA (17:59)
[2021-06-03 18:05] LABS: Adenovirus PCR Not Detected (NotDetected); Bordetella parapertussis PCR Not Detected (NotDetected); Bordetella pertussis PCR Not Detected (NotDetected); Chlamydia pneumoniae PCR Not Detected (NotDetected); Coronavirus 229E PCR Not Detected (NotDetected); Coronavirus HKU1 PCR Not Detected (NotDetected); Coronavirus NL63 PCR Not Detected (NotDetected); Coronavirus OC43PCR Not Detected (NotDetected); Human Metapneumovirus PCR Not Detected (NotDetected); Influenza A PCR Not Detected (NotDetected); Influenza B PCR Not Detected (NotDetected); Mycoplasma pneumoniae PCR Not Detected (NotDetected); Parainfluenza Virus 1 PCR Not Detected (NotDetected); Parainfluenza Virus 2 PCR Not Detected (NotDetected); Parainfluenza Virus 3 PCR Not Detected (NotDetected); Parainfluenza Virus 4 PCR Not Detected (NotDetected); Respiratory Syncytial VirusPCR Not Detected (NotDetected); Rhinovirus/Enterovirus PCR Not Detected (NotDetected)
[2021-06-03 18:07] LABS: Coronavirus CoV-2 (COVID19)PCR DETECTED (NotDetected)
[2021-06-03 19:03] LABS: Base Excess VBG -6.6 mEq/L; HCO3 VBG 19 mmol/L; PCO2 VBG 40 mmHg (38-50); PO2 VBG 30 mmHg
[2021-06-03 19:07] LABS: Oxygen Saturation VBG < 60.0 %
--- NOTE | 2021-06-03 19:22 | History & Physical Report ---
Date of Service June 03, 2021 Assessment & Plan (1) Pneumonia due to COVID-19 virus: Plan: Vaccinated and Boosted (last dose in February) First symptoms: May 24, 2021 Fist positive test: 06/03/2020 O2 requirement on admission: 15LPM O2 non-rebreather, O2 sats 71% on room air Dexamethasone 6mg IV started on admission 06/03 Remdesivir: admitted on day 10 of illness therefore treatment deferred Baricitinib/tocilizumab: given interaction with tacrolimus avoided on admission however not complete contraindication and recommend discussing with nephrology regarding recommendations if still meeting criteria tomorrow. (2) Acute respiratory failure with hypoxia: Plan: Recommend ongoing BiPAP HS and as needed during the day, High flow nasal cannula at other times to maintain O2 sats > 90%. Secondary to COVID-19 pneumonia as above Procalcitonin negative therefore antibiotics deferred on admission (3) Afib: Plan: Anticoagulation with Eliquis Rate controlled with carvedilol 6.25mg PO BID with hold parameters (4) Kidney transplant recipient: Plan: Continue his usual tacrolimus dosing Consult nephrology (5) Hypertension: Plan: Continue carvedilol with hold parameters (6) CHF (congestive heart failure): Plan: Chronic congestive heart failure. Likely to need more lasix in setting of COVID- 19 Lasix 40mg IV given in ER. Will aim to maintain a negative balance with switching his usual PO dose to IV. Low sodium diet Plan: VTE Prophylaxis - continue Eliquis Diet - low sodium Disposition - admit to PCU, COVID precautions Admission and Anticipated Discharge Date Admission Date: May 03, 2021 History of Present Illness Chief Complaint: Shortness of breath Primary Care Provider: Rene Masterson Jairon Ann is a 61 year old male with renal transplant and recent RSV pneumonia asthma exacerbation who presents to the ER with shortness of breath. He reports being unwell with shortness of breath for the last 10 days. Associated cough and mild diarrhea. He denies any fever, chills, loss of taste or smell, reduced appetite, nausea, abdominal or chest pain. In the ER he tested positive for SARS-COV-2 and CXR findings were consistent with such. He was hypoxic requiring non-rebreather 15LPM O2 to maintain sats > 90%, however given work of breathing was transitioned to BiPAP which he reports is helping considerably. He is currently requiring FiO2 60% on CPAP. He was given one dose of cefepime however subsequent procalcitonin was negative. He was referred to medicine for admission and ongoing management of COVID-19 pneumonia. Allergies Allergy/AdvReac Type Severity Reaction Status Date / Time Penicillins Allergy Intermediate Hives Verified 06/03/21 19:13 Home Medications Medication Instructions Recorded Confirmed Type apixaban 5 mg tablet (Eliquis) 5 mg PO BID 12/15/20 06/03/21 History atorvastatin 10 mg tablet 10 mg PO HS 12/15/20 06/03/21 History carvedilol 6.25 mg tablet 6.25 mg PO BID 12/15/20 06/03/21 History fluticasone furoate 100 1 inh INHALATION DAILY 12/15/20 06/03/21 History mcg/actuation blister powder for inhalation (Arnuity Ellipta) furosemide 40 mg tablet 40 mg PO DAILY 12/15/20 06/03/21 History hydroxyzine HCl 25 mg tablet 25 mg PO TID PRN 12/15/20 06/03/21 History hgaszi-pvqwwxnh-wwlodwj 2 cap PO BID 12/15/20 06/03/21 History 24,000-76,000-120,000 unit capsule,delayed rel (Creon) lorazepam 0.5 mg tablet 0.5 mg PO BID PRN 12/15/20 06/03/21 History montelukast 10 mg tablet 10 mg PO HS 12/15/20 06/03/21 History tacrolimus 1 mg capsule, 3 mg PO .BID/UD 12/15/20 06/03/21 History immediate-release terazosin 10 mg capsule 10 mg PO HS 12/15/20 06/03/21 History pantoprazole 40 mg tablet,delayed 40 mg PO DAILY 05/01/21 06/03/21 History release trazodone 50 mg tablet 50 mg PO DAILY PRN 05/01/21 06/03/21 History potassium chloride 20 mEq 20 meq PO DAILY #0 tab 05/07/21 06/03/21 Rx tablet,extended release(part/cryst) duloxetine 30 mg capsule,delayed 30 mg PO DAILY 06/03/21 06/03/21 History release Past Med/Surg History Medical History Afib Cardiac defibrillator in place Cardiomyopathy CHF (congestive heart failure) Hypertension Surgical History (Updated 06/03/21 @ 20:00 by Carlitos Steiner MD) History of appendectomy History of cholecystectomy Kidney transplant recipient Social History Smoking Status: Never smoker Second Hand Exposure: No; Do You Dip or Chew Tobacco: No; Tobacco Cessation Education Requested by Patient: No Hx Alcohol Use: No Hx Substance Use: No Preferred Language: Senegalese Communication Ability: Effective Digital Marketing Strategist Required: No Beliefs That Will Affect Care: None marital status: Current Living Situation: Spouse Current Living Situation Comment: home with Other Information That Helps Us Care for You: No Feels Safe at Home: Yes Safety Concerns: Feels Safe At This Time Assistive Devices: BiPap and Glasses Review of Systems Review of Systems: All systems reviewed & are unremarkable except as noted in HPI & below Physical Exam Constitutional: well developed, well nourished and + acute distress (respiratory) Eyes: + anicteric sclerae; normal pupil size Neck: trachea midline, no thyromegaly Respiratory: + respiratory distress, + labored breathing, + retractions and + uses accessory muscles Auscultation: + rhonchi (bilaterally) Cardiovascular: Rate/Rhythm: regular rate and + irregularly irregular Heart Sounds: no murmur Extremities: normal capillary refill; no calf tenderness and no pedal edema Gastrointestinal (Abdomen): Inspection/Auscultation: abdomen normal to inspection Percussion/Palpation: abdomen soft; abdomen nontender, no guarding and abdomen not rigid Musculoskeletal: no cyanosis or clubbing, extremities motor strength 5/5 Skin: no rashes, warm and dry Neurologic: moves all extremities and awake; not confused Psychiatric: A+Ox3, euthymic affect Results & Data Results & Data ([facility] [place]) Vital Signs (Past 12 Hours) Vital Signs Temp Pulse Pulse Resp BP BP Pulse Ox 06/03/21 18:34 99 06/03/21 17:42 78 30 H 131/84 94 06/03/21 16:56 36.8 C 102 H 26 H 122/49 L 74 L 06/03/21 16:53 93 H 35 H 94 06/03/21 16:51 90 35 H 96 Laboratory Results Abnormal lab results 06/03/21 06/03/21 06/03/21 Range/Units 16:39 16:39 16:39 WBC 1.88 L (4.8-10.8) K/uL RBC 3.79 L (4.7-6.1) M/uL Hgb 10.8 L (14.0-18.0) g/dL Hct 33.4 L (42-52) % RDW Std Deviation 50.4 H (36.4-46.3) fL RDW Coeff of Poonam 15.6 H (11.5-14.5) % MPV 12.0 H (7.4-10.4) fL Lymph # (Auto) 0.27 L (1.2-3.4) K/uL Immature Gran # (Auto) 0.04 H (0.00-0.02) K/uL APTT 35.6 H (21.0-31.0) Seconds VBG pH (7.36-7.41) Chloride 113 H (98-107) mmol/L BUN 27 H (7-18) mg/dl Creatinine 2.08 H (0.6-1.4) mg/dl Glucose 120 H (70-99) mg/dl Lactate (0.4-2.0) mmol/L Magnesium (1.8-2.4) mg/dl AST (15-37) U/L Alkaline Phosphatase 159 H (45-117) U/L NT-Pro-B Natriuret Pep 8822 H (0-900) pg/ml Total Protein 5.0 L (6.4-8.2) gm/dl Albumin 2.2 L (3.4-5.0) gm/dl Albumin/Globulin Ratio 0.8 L (0.9-2) SARS-CoV-2 (PCR) (NotDetected) 06/03/21 06/03/21 06/03/21 Range/Units 16:49 16:51 17:24 WBC (4.8-10.8) K/uL RBC (4.7-6.1) M/uL Hgb (14.0-18.0) g/dL Hct (42-52) % RDW Std Deviation (36.4-46.3) fL RDW Coeff of Poonam (11.5-14.5) % MPV (7.4-10.4) fL Lymph # (Auto) (1.2-3.4) K/uL Immature Gran # (Auto) (0.00-0.02) K/uL APTT (21.0-31.0) Seconds VBG pH (7.36-7.41) Chloride (98-107) mmol/L BUN (7-18) mg/dl Creatinine (0.6-1.4) mg/dl Glucose (70-99) mg/dl Lactate 2.2 H* (0.4-2.0) mmol/L Magnesium 1.6 L (1.8-2.4) mg/dl AST 56 H (15-37) U/L Alkaline Phosphatase (45-117) U/L NT-Pro-B Natriuret Pep (0-900) pg/ml Total Protein (6.4-8.2) gm/dl Albumin (3.4-5.0) gm/dl Albumin/Globulin Ratio (0.9-2) SARS-CoV-2 (PCR) DETECTED A* (NotDetected) 06/03/21 Range/Units 18:41 WBC (4.8-10.8) K/uL RBC (4.7-6.1) M/uL Hgb (14.0-18.0) g/dL Hct (42-52) % RDW Std Deviation (36.4-46.3) fL RDW Coeff of Poonam (11.5-14.5) % MPV (7.4-10.4) fL Lymph # (Auto) (1.2-3.4) K/uL Immature Gran # (Auto) (0.00-0.02) K/uL APTT (21.0-31.0) Seconds VBG pH 7.30 L (7.36-7.41) Chloride (98-107) mmol/L BUN (7-18) mg/dl Creatinine (0.6-1.4) mg/dl Glucose (70-99) mg/dl Lactate (0.4-2.0) mmol/L Magnesium (1.8-2.4) mg/dl AST (15-37) U/L Alkaline Phosphatase (45-117) U/L NT-Pro-B Natriuret Pep (0-900) pg/ml Total Protein (6.4-8.2) gm/dl Albumin (3.4-5.0) gm/dl Albumin/Globulin Ratio (0.9-2) SARS-CoV-2 (PCR) (NotDetected) Diagnostic Findings XR chest 1V portable CLINICAL HISTORY: SOB. COMPARISON STUDY: 05/05/2021 TECHNIQUE: 1 view of the chest FINDINGS: Single frontal view of the chest demonstrates the heart to be enlarged with permanent cardiac pacer in place. Compared to the previous examination, there are now interstitial and alveolar opacities present bilaterally. The findings are most characteristic of a viral type pneumonitis. Covid 19 pneumonia should be excluded. There is no evidence for pleural effusion. There is no evidence for vascular congestion. There is no acute osseous pathology. IMPRESSION: Interval development of patchy interstitial and alveolar opacities bilaterally characteristic of a viral type pneumonitis and probable Covid 19 pneumonia. Impression Medications Administered ER Medications Given: Albuterol 3ml NEB Cefepime 2000mg IV Furosemide 40mg IV Magnesium sulphate 1g IV ECG Indication: SOB/dyspnea Rate (beats per minute): 95 Rhythm: atrial fibrillation Findings: + prolonged QT (552ms) Comparison ECG Date: from (May 01, 2021) Change: the following changes noted Code Status & VTE Plan Code Status Full VTE Prophylaxis Plan VTE Prophylaxis will be ordered: Yes PG Care Time/CCT Total # of Minutes Spent Total Time Spent with Patient: Total time spent is greater than 50% in coordination of care (as documented) at patient's floor/unit and/or counseling patient: Coding Level of Care Code 88133 Initial Inpt Care Lvl 3 Diagnoses Pneumonia due to COVID-19 virus U07.1; J12.82 Afib I48.91 Kidney transplant recipient Z94.0 Hypertension I10 Acute respiratory failure with hypoxia J96.01 CHF (congestive heart failure) I50.9
[2021-06-03] MEDS ORDERED: dexAMETHasone 6 MG in SYRINGE 0 ML IV STA (19:53)
[2021-06-04] MEDS ORDERED: traZODone HCL 50 MG TAB PO PRN (00:50)
[2021-06-04] MEDS ORDERED: LORazepam 0.5 MG TAB PO PRN (00:50)
[2021-06-04] MEDS ORDERED: TACROLIMUS 1 MG CAP PO ONE (01:00)
[2021-06-04] MEDS: carvediloL 6.25 MG TAB PO SCH ×3 (02:02→21:06)
[2021-06-04] MEDS: APIXABAN 5 MG TABLET PO SCH ×3 (02:04→21:05)
[2021-06-04] MEDS: MONTELUKAST SODIUM 10 MG TABLET PO SCH ×2 (02:04→21:04)
[2021-06-04] MEDS: ATORVASTATIN 10 MG TAB PO SCH ×2 (02:04→21:04)
[2021-06-04] MEDS ORDERED: ALBUT/IPRATROP 3MG/0.5MG NEB 3 ML VIAL NEB SCH (07:00)
[2021-06-04 07:52] LABS: Hematocrit (blood only) 32.5 % (42-52); Hemoglobin 10.6 g/dL (14.0-18.0); Immature Granulocytes # (auto) 0.06 K/uL (0.00-0.02); Immature Granulocytes % (auto) 3.4 %; Lymphocytes # (auto) 0.29 K/uL (1.2-3.4); Lymphocytes % (auto) 16.4 %; Mean Corpuscular Hemoglobin 28.8 pg (25-34); Mean Corpuscular Hgb Conc 32.6 g/dL (32-36); Mean Corpuscular Volume 88.3 fL (80-100); Monocytes # (auto) 0.15 K/uL (0.11-0.59); Monocytes % (auto) 8.5 %; Neutrophils # (auto) 1.27 K/uL (1.4-6.5); Neutrophils % (auto) 71.7 %; Platelet Count 133 K/uL (130-400); RDW Coefficient of Variation 15.8 % (11.5-14.5); RDW Standard Deviation 51.4 fL (36.4-46.3); Red Blood Count 3.68 M/uL (4.7-6.1); White Blood Count 1.77 K/uL (4.8-10.8)
[2021-06-04] MEDS: FLUTICASONE FUROATE 100MCG 14 PUFFS/INHALER INH SCH (08:04)
[2021-06-04] MEDS: PANTOprazole 40 MG TAB PO SCH (08:06)
[2021-06-04] MEDS: POTASSIUM CHLORIDE CRTAB 20 MEQ TABCR PO SCH (08:06)
[2021-06-04] MEDS: PANCREAZE (LIPASE 10,500U) CAP PO SCH ×2 (08:06→21:04)
[2021-06-04] MEDS: DULoxetine HCL 30 MG CAP PO SCH (08:06)
[2021-06-04] MEDS: FUROSEMIDE 40 MG/4 ML VIAL IV SCH (08:06)
--- NOTE | 2021-06-04 08:06 | Electrocardiogram Report ---
Test Reason : Blood Pressure : / mmHG Vent. Rate : 095 BPM Atrial Rate : 101 BPM P-R Int : 000 ms QRS Dur : 094 ms QT Int : 440 ms P-R-T Axes : 000 -52 043 degrees QTc Int : 552 ms Atrial fibrillation Left axis deviation Low voltage QRS Poor R wave progression, consider anterior NE vs. lead placement vs. LVH Abnormal ECG When compared with ECG of 01-MAY-2021 12:30, No significant change Confirmed by Dave Joiner ([id number]) on 06/04/2021 8:06:19 AM Referred By: REFERRED SELF Confirmed By:Dave Joiner
[2021-06-04] MEDS: dexAMETHasone 6 MG in SYRINGE 0 ML IV SCH (08:07)
[2021-06-04 08:20] LABS: BUN Creatinine Ratio 15.8 (10-20); Calcium 8.4 mg/dl (8.5-10.1); Creatinine Clr Calc Pharmacy 41.6 ml/min; Est GFR (African American) 39.8 ml/min; Est GFR (Non-African American) 34.3 ml/min; Magnesium 1.9 mg/dl (1.8-2.4); Potassium 4.2 mmol/L (3.5-5.1)
--- NOTE | 2021-06-04 12:07 | Nephrology Consultation ---
Date of Consultation June 04, 2021 Assessment & Plan (1) HUSSEIN (acute kidney injury): (2) Kidney transplant recipient: (3) Hypertension: (4) Pneumonia due to COVID-19 virus: 61 y o male with h/o Renal Transplant with decent allograft function at baseline, cr around 1.3 to 1.5 with recent worsening. Recently had HUSSEIN during last hospitalization in Apr, creatinine was 2.5 on discharge. Admitted to the hospital on 06/03/21 with COVID pneumonia with more than 10 days history of fever, generalized weakness and shortness of breath. Renal function staying relatively stable with creatinine around 2-2.1, electrolyte acceptable. Received Dexamethasone. -- Next dose of tacrolimus 3 mg will be on then continue according to his home regimen of twice a week. -- continue and complete the dexamethasone course -- OK to continue on current dose of Lasix. Will follow Thank you for allowing me to participate in your patient's care. It was a pleasure to see Jairon. History of Present Illness Reason for Consultation: acute kidney injury, history of renal transplant. Attending Physician: Rene Paz History of Present Illness Mr. Jairon Ann is a 61-year-old male with ESRD s/p renal transplant admitted to the hospital with COVID pneumonia and HUSSEIN. Nephrology consult requested for further management. EMR records are reviewed in detail during patient's visit. Jairon presented to ER with yesterday with 10 days history feeling unwell, shortness of breath associated with mild cough and diarrhea. Did not have any fever, chills, loss of taste or smell, reduced appetite, nausea, abdominal or chest pain. In ER on 06/03/21 he tested positive for SARS-COV-2 ( he was vaccinated x 2 and booster in february ) and CXR and CT findings were consistent with viral pneumonia. He was hypoxic requiring non-rebreather 15LPM O2 to maintain sats > 90%. Received one dose of cefepime and started on Dexamethasone. Not a candidate for Remdesivir as symptoms started more than 10 days ago. Has ESRD s/p DDRT at [facility] in 2003. Unknown etiology for ESRD, never had a kidney biopsy but notes that it was rapidly progressive. He was on hemodialysis via a left upper extremity AVF prior to undergoing transplant. His neonatal icu coordinator is Jennyfer ([phone]), tried to call multiple times but could not reach. Posttransplant course was uncomplicated, no history of rejection. He is maintained on an unconventional regimen of tacrolimus 3 mg twice a week on Thursday and .He follows with Dr. Allan Cuevas, [facility]. L of graft function was pretty decent with baseline creatinine around 1.3 until January 2020 T1. Starting March creatinine has been slowly worsening and had HUSSEIN during hospitalization April, creatinine peaked to close to 3 which eventually improved to 2.5 on discharge. On admission yesterday creatinine was relatively stable at 2.1. UA Negative for proteinuria. He has a history of multiple colon polyps followed closely with yearly colonoscopy and a low risk profile for rejection. Has h/o atrial fibrillation and cardiomyopathy for which he is maintained on Entresto and does have a defibrillator. He takes 40 mg of furosemide daily for fluid retention but denies any notable history of CHF. He follows with Dr. Monisha moya regarding a history of seizure disorder. He seemed otherwise comfortable during the visit, denied any specific symptoms. Appetite has been decent. Urine output has been normal. Vital sign otherwise stable. Allergies Allergy/AdvReac Type Severity Reaction Status Date / Time Penicillins Allergy Intermediate Hives Verified 06/03/21 19:13 Home Medications Medication Instructions Recorded Confirmed Type apixaban 5 mg tablet (Eliquis) 5 mg PO BID 12/15/20 06/03/21 History atorvastatin 10 mg tablet 10 mg PO HS 12/15/20 06/03/21 History carvedilol 6.25 mg tablet 6.25 mg PO BID 12/15/20 06/03/21 History fluticasone furoate 100 1 inh INHALATION DAILY 12/15/20 06/03/21 History mcg/actuation blister powder for inhalation (Arnuity Ellipta) furosemide 40 mg tablet 40 mg PO DAILY 12/15/20 06/03/21 History hydroxyzine HCl 25 mg tablet 25 mg PO TID PRN 12/15/20 06/03/21 History mpfrqc-qhilssar-chpxezo 2 cap PO BID 12/15/20 06/03/21 History 24,000-76,000-120,000 unit capsule,delayed rel (Creon) lorazepam 0.5 mg tablet 0.5 mg PO BID PRN 12/15/20 06/03/21 History montelukast 10 mg tablet 10 mg PO HS 12/15/20 06/03/21 History tacrolimus 1 mg capsule, 3 mg PO .BID/UD 12/15/20 06/03/21 History immediate-release terazosin 10 mg capsule 10 mg PO HS 12/15/20 06/03/21 History pantoprazole 40 mg tablet,delayed 40 mg PO DAILY 05/01/21 06/03/21 History release trazodone 50 mg tablet 50 mg PO DAILY PRN 05/01/21 06/03/21 History potassium chloride 20 mEq 20 meq PO DAILY #0 tab 05/07/21 06/03/21 Rx tablet,extended release(part/cryst) duloxetine 30 mg capsule,delayed 30 mg PO DAILY 06/03/21 06/03/21 History release Patient History Medical History Afib Cardiac defibrillator in place Cardiomyopathy CHF (congestive heart failure) Hypertension Surgical History (Updated 06/03/21 @ 20:00 by Carlitos Steiner MD) History of appendectomy History of cholecystectomy Kidney transplant recipient Social History Smoking Status: Never smoker Second Hand Exposure: No; Do You Dip or Chew Tobacco: No; Tobacco Cessation Education Requested by Patient: No Hx Alcohol Use: No Hx Substance Use: No Preferred Language: German Communication Ability: Effective Fiberglass Product Tester Required: No Beliefs That Will Affect Care: None marital status: Current Living Situation: Spouse Current Living Situation Comment: home with Other Information That Helps Us Care for You: No Feels Safe at Home: Yes Safety Concerns: Feels Safe At This Time Assistive Devices: Oxygen - Continuous Review of Systems Review of Systems: Detailed ROS was otherwise unremarkable. Physical Exam Constitutional: WD/WN, vitals as above no acute distress Eyes: + anicteric sclerae ENMT: Ears: no hearing impairment Neck: normal visual inspection Respiratory: normal respiratory effort Auscultation: + crackles Cardiovascular: Rate/Rhythm: regular rate and regular rhythm Heart Sounds: normal S1 and normal S2 Extremities: no edema Gastrointestinal (Abdomen): Inspection/Auscultation: abdomen normal to inspection and normal bowel sounds Percussion/Palpation: abdomen soft; abdomen nontender Rt LQ allograft area with no tenderness. Musculoskeletal: Extremities: extremities normal to inspection Skin: normal turgor; no rashes Neurologic: no focal motor deficits and not confused Psychiatric: Orientation: alert and oriented x 3 Affect: euthymic affect Results & Data ([facility] [place]) Vital Signs (Past 12 Hours) Vital Signs Temp Pulse Pulse Resp BP BP Pulse Ox 06/04/21 11:40 36.7 C 54 L 20 120/80 94 06/04/21 10:49 44 L 06/04/21 08:19 65 18 97 06/04/21 08:17 65 18 97 06/04/21 07:47 36.4 C L 50 L 22 106/73 91 06/04/21 04:52 36.4 C L 53 L 24 118/71 96 06/04/21 02:25 42 L 16 94 06/04/21 01:10 84 L 06/04/21 00:36 36.7 C 53 L 16 139/80 91 06/04/21 00:15 37.1 C 57 L 22 128/77 96 06/04/21 00:10 65 26 H 96 PG Care Time/CCT Total # of Minutes Spent Total Time Spent with Patient: Total time spent is greater than 50% in coordination of care (as documented) at patient's floor/unit and/or counseling patient: Coding Level of Care Code 72103 Inpt Consult Level 5 Diagnoses HUSSEIN (acute kidney injury) N17.9 Kidney transplant recipient Z94.0 Hypertension I10 Pneumonia due to COVID-19 virus U07.1; J12.82
--- NOTE | 2021-06-04 20:25 | Hospitalist Progress Note ---
Date of Service June 04, 2021 Assessment & Plan (1) Pneumonia due to COVID-19 virus: Plan: Vaccinated and Boosted (last dose in February) First symptoms: May 24, 2021 Fist positive test: 06/03/2020 O2 requirement on admission: 15LPM O2 non-rebreather, O2 sats 71% on room air Dexamethasone 6mg IV started on admission 06/03 Remdesivir: admitted on day 10 of illness therefore treatment deferred Baricitinib/tocilizumab: given interaction with tacrolimus avoided on admission however not complete contraindication and recommend discussing with nephrology regarding recommendations if still meeting criteria tomorrow. Now on Lper min. will continue to monitor. Anticipate patient will improve as he is vaccinated. (2) Acute respiratory failure with hypoxia: Plan: Recommend ongoing BiPAP HS and as needed during the day, High flow nasal cannula at other times to maintain O2 sats > 90%. Secondary to COVID-19 pneumonia as above Procalcitonin negative therefore antibiotics deferred on admission (3) Afib: Plan: Anticoagulation with Eliquis Rate controlled with carvedilol 6.25mg PO BID with hold parameters (4) Kidney transplant recipient: Plan: Continue his usual tacrolimus dosing Consult nephrology (5) Hypertension: Plan: Continue carvedilol with hold parameters (6) CHF (congestive heart failure): Plan: Chronic congestive heart failure. Likely to need more lasix in setting of COVID- 19 Lasix 40mg IV given in ER. Will aim to maintain a negative balance with switching his usual PO dose to IV. Low sodium diet Plan: VTE Prophylaxis - continue Eliquis Diet - low sodium Disposition - admit to PCU, COVID precautions Admission and Anticipated Discharge Date Admission Date: June 03, 2021 Subjective Patient reports no new symptoms. Review of Systems Review of Systems: All systems reviewed & are unremarkable except as noted in HPI & below Physical Exam Physical Exam: \Constitutional: well developed, well nourished and in no acute distress. Eyes: + anicteric sclerae; normal pupil size Neck: trachea midline, no thyromegaly Respiratory: \ Auscultation: + rhonchi (bilaterally) Cardiovascular: Rate/Rhythm: regular rate and + irregularly irregular Heart Sounds: no murmur Extremities: normal capillary refill; no calf tenderness and no pedal edema Gastrointestinal (Abdomen): Inspection/Auscultation: abdomen normal to inspection Percussion/Palpation: abdomen soft; abdomen nontender, no guarding and abdomen not rigid Musculoskeletal: no cyanosis or clubbing, extremities motor strength 5/5 Skin: no rashes, warm and dry Neurologic: moves all extremities and awake; not confused Psychiatric: A+Ox3, euthymic affect Results & Data Results & Data ([facility]) Vital Signs (Past 12 Hours) Vital Signs Temp Pulse Pulse Resp BP Pulse Ox 06/04/21 20:02 36.6 C 42 L 22 124/78 95 06/04/21 15:39 36.7 C 56 L 20 118/76 90 06/04/21 15:26 92 06/04/21 15:20 86 L 06/04/21 15:04 52 L 18 97 06/04/21 14:11 18 98 06/04/21 12:16 52 L 18 95 06/04/21 11:40 36.7 C 54 L 20 120/80 94 06/04/21 10:49 44 L PG Care Time/CCT Total # of Minutes Spent Total Time Spent with Patient: Total time spent is greater than 50% in coordination of care (as documented) at patient's floor/unit and/or counseling patient: Coding Level of Care Code 24161 Subseq Hosp Care Lvl 2 Diagnoses Pneumonia due to COVID-19 virus U07.1; J12.82 Acute respiratory failure with hypoxia J96.01 Afib I48.91 Kidney transplant recipient Z94.0 Hypertension I10 CHF (congestive heart failure) I50.9
[2021-06-04] MEDS: BENZONATATE 100 MG CAPSULE PO PRN (21:03)
[2021-06-04] MEDS: ACETAMINOPHEN 325 MG TAB PO PRN (21:04)
[2021-06-04] MEDS: TERAZOSIN HCL 5 MG CAP PO SCH (21:05)
[2021-06-05 05:07] LABS: Appearance Urine Clear (Clear); Bacteria Urine Automated Negative (Negative); Bilirubin Urine Negative (Negative); Blood Urine Negative (Negative); Color Urine Yellow; Glucose Urine UA Negative (Negative); Ketones Urine Trace (Negative); Leukocyte Esterase Urine Negative (Negative); Nitrite Urine Negative (Negative); Protein Urine Trace (Negative); RBC Urine Automated 0-4 /hpf (0-4); Specific Gravity Urine 1.013 (1.000-1.030); Urobilinogen Urine Negative (Negative)
[2021-06-05 05:36] LABS: Cast Urine Automated >30 /lpf (0-5); Sperm Urine Present (None Prsent)
[2021-06-05 05:37] LABS: Calcium Oxalate Crystals Urine Present (None Prsent)
[2021-06-05] MEDS: FLUTICASONE FUROATE 100MCG 14 PUFFS/INHALER INH SCH (08:27)
[2021-06-05] MEDS: DULoxetine HCL 30 MG CAP PO SCH (08:28)
[2021-06-05] MEDS: PANCREAZE (LIPASE 10,500U) CAP PO SCH ×2 (08:28→20:47)
[2021-06-05] MEDS: dexAMETHasone 6 MG in SYRINGE 0 ML IV SCH (08:28)
[2021-06-05] MEDS: APIXABAN 5 MG TABLET PO SCH ×2 (08:28→20:47)
[2021-06-05] MEDS: carvediloL 6.25 MG TAB PO SCH ×2 (08:29→20:48)
[2021-06-05] MEDS: PANTOprazole 40 MG TAB PO SCH (08:29)
[2021-06-05] MEDS: FUROSEMIDE 40 MG/4 ML VIAL IV SCH (08:29)
[2021-06-05] MEDS: POTASSIUM CHLORIDE CRTAB 20 MEQ TABCR PO SCH (08:30)
--- NOTE | 2021-06-05 10:38 | Nephrology Progress Note ---
Date of Service June 05, 2021 Assessment & Plan (1) HUSSEIN (acute kidney injury): (2) Kidney transplant recipient: (3) Hypertension: (4) Pneumonia due to COVID-19 virus: Plan: 61 y o male with h/o Renal Transplant with decent allograft function at baseline, cr around 1.3 to 1.5 with recent worsening. Recently had HUSSEIN during last hospitalization in Dec, creatinine was 2.5 on discharge. Admitted to the hospital on 06/03/21 with COVID pneumonia with more than 10 days history of fever, generalized weakness and shortness of breath. Renal function staying relatively stable with creatinine around 2-2.1, electrolyte acceptable. Received Dexamethasone. Renal function staying relatively stable although no labs today. Blood pressure acceptable. Volume status acceptable. -- Next dose of tacrolimus 3 mg once will be on then continue according to his home regimen of twice a week. -- continue and complete the dexamethasone course Will follow Admission and Anticipated Discharge Date Admission Date: June 03, 2021 Jaiden De La O was seen and evaluated in his room this morning. Overall he feels well, denies any significant shortness of breath or chest pain, no fever or chills. He reports several episodes of dysuria yesterday which currently resolved. Urinalysis was negative for any evidence of UTI. Review of Systems Review of Systems: Detailed review of system was otherwise unremarkable except mentioned above. Physical Exam Constitutional: WD/WN, vitals as above no acute distress Eyes: + anicteric sclerae ENMT: Ears: no hearing impairment Respiratory: normal respiratory effort Auscultation: + crackles Cardiovascular: Rate/Rhythm: regular rate and regular rhythm Heart Sounds: normal S1 and normal S2 Extremities: no edema Skin: no rashes Neurologic: no focal motor deficits and not confused Psychiatric: Orientation: alert and oriented x 3 Affect: euthymic affect Results & Data ([facility]) Vital Signs (Past 12 Hours) Vital Signs Temp Pulse Resp BP Pulse Ox 06/05/21 07:14 36.5 C 43 L 16 131/75 92 06/05/21 06:38 93 06/05/21 05:56 90 06/05/21 04:46 36.6 C 54 L 18 121/66 91 06/04/21 23:38 36.4 C L 42 L 20 128/68 96 PG Care Time/CCT Total # of Minutes Spent Total Time Spent with Patient: Total time spent is greater than 50% in coordination of care (as documented) at patient's floor/unit and/or counseling patient: Coding Level of Care Code 11465 Subseq Hosp Care Lvl 3 Diagnoses HUSSEIN (acute kidney injury) N17.9 Kidney transplant recipient Z94.0 Hypertension I10 Pneumonia due to COVID-19 virus U07.1; J12.82
[2021-06-05] MEDS: ACETAMINOPHEN 325 MG TAB PO PRN (19:42)
[2021-06-05] MEDS: BENZONATATE 100 MG CAPSULE PO PRN (19:42)
--- NOTE | 2021-06-05 20:35 | Hospitalist Progress Note ---
Date of Service June 05, 2021 Assessment & Plan (1) Pneumonia due to COVID-19 virus: Plan: Vaccinated and Boosted (last dose in February) First symptoms: May 24, 2021 Fist positive test: 06/03/2020 O2 requirement on admission: 15LPM O2 non-rebreather, O2 sats 71% on room air Dexamethasone 6mg IV started on admission 06/03 Remdesivir: admitted on day 10 of illness therefore treatment deferred Baricitinib/tocilizumab: given interaction with tacrolimus avoided on admission however not complete contraindication and recommend discussing with nephrology regarding recommendations if still meeting criteria tomorrow. Now on 9 Lper min. will continue to monitor. recommend proning. (2) Acute respiratory failure with hypoxia: Plan: Recommend ongoing BiPAP HS and as needed during the day, High flow nasal cannula at other times to maintain O2 sats > 90%. Secondary to COVID-19 pneumonia as above Procalcitonin negative therefore antibiotics deferred on admission (3) Afib: Plan: Anticoagulation with Eliquis Rate controlled with carvedilol 6.25mg PO BID with hold parameters (4) Kidney transplant recipient: Plan: Continue his usual tacrolimus dosing Consult nephrology (5) Hypertension: Plan: Continue carvedilol with hold parameters (6) CHF (congestive heart failure): Plan: Chronic congestive heart failure. Likely to need more lasix in setting of COVID- 19 Lasix 40mg IV given in ER. Will aim to maintain a negative balance with switching his usual PO dose to IV. Low sodium diet Plan: VTE Prophylaxis - continue Eliquis Diet - low sodium Disposition - admit to PCU, COVID precautions Admission and Anticipated Discharge Date Admission Date: June 03, 2021 Subjective Patient is a 61 yo male who reports no new symptoms. Review of Systems Review of Systems: All systems reviewed & are unremarkable except as noted in HPI & below Physical Exam Physical Exam: The patient appeared critically ill but supported Vital signs as documented. Head exam is normocephalic atraumatic Neck is without jvd, trachea is midline Lungs are coarse bilaterally Cardiac exam, Rhythm is regular.. No murmurs, rubs or gallops. Abdominal exam reveals normal bowel sounds, soft non tender, no masses Extremities are nonedematous and both pedal pulses are present Results & Data Results & Data ([facility]) Vital Signs (Past 12 Hours) Vital Signs Temp Pulse Resp BP Pulse Ox 06/05/21 19:51 36.4 C L 06/05/21 19:22 75 20 146/81 H 90 06/05/21 15:34 36.6 C 42 L 18 127/79 94 06/05/21 11:17 36.5 C 49 L 18 125/79 90 PG Care Time/CCT Total # of Minutes Spent Total Time Spent with Patient: Total time spent is greater than 50% in coordination of care (as documented) at patient's floor/unit and/or counseling patient: Coding Level of Care Code 77331 Subseq Hosp Care Lvl 2 Diagnoses Pneumonia due to COVID-19 virus U07.1; J12.82 Acute respiratory failure with hypoxia J96.01 Afib I48.91 Kidney transplant recipient Z94.0 Hypertension I10 CHF (congestive heart failure) I50.9 Time Spent (min) 25
[2021-06-05] MEDS: TERAZOSIN HCL 5 MG CAP PO SCH (20:48)
[2021-06-05] MEDS: ATORVASTATIN 10 MG TAB PO SCH (20:48)
[2021-06-05] MEDS: MONTELUKAST SODIUM 10 MG TABLET PO SCH (20:48)
[2021-06-06 08:50] LABS: Hematocrit (blood only) 33.4 % (42-52); Hemoglobin 10.8 g/dL (14.0-18.0); Mean Corpuscular Hemoglobin 28.5 pg (25-34); Mean Corpuscular Hgb Conc 32.3 g/dL (32-36); Mean Corpuscular Volume 88.1 fL (80-100); Mean Platelet Volume 11.3 fL (7.4-10.4); Platelet Count 177 K/uL (130-400); RDW Coefficient of Variation 15.8 % (11.5-14.5); RDW Standard Deviation 51.3 fL (36.4-46.3); Red Blood Count 3.79 M/uL (4.7-6.1); White Blood Count 4.46 K/uL (4.8-10.8)
[2021-06-06] MEDS ORDERED: TACROLIMUS 1 MG CAP PO SCH (09:00)
[2021-06-06 09:35] LABS: Albumin Level 2.7 gm/dl (3.4-5.0); BUN Creatinine Ratio 21.4 (10-20); Calcium 8.5 mg/dl (8.5-10.1); Creatinine Clr Calc Pharmacy 34.6 ml/min; Est GFR (African American) 31.8 ml/min; Est GFR (Non-African American) 27.5 ml/min; Phosphorus 2.7 mg/dl (2.5-4.9); Potassium 4.1 mmol/L (3.5-5.1)
--- NOTE | 2021-06-06 09:38 | Nephrology Progress Note ---
Date of Service June 06, 2021 Assessment & Plan (1) HUSSEIN (acute kidney injury): (2) Kidney transplant recipient: (3) Hypertension: (4) Pneumonia due to COVID-19 virus: Plan: 61 y o male with h/o Renal Transplant with decent allograft function at baseline, cr around 1.3 to 1.5 with recent worsening. Recently had HUSSEIN during last hospitalization in Apr, creatinine was 2.5 on discharge. Admitted to the hospital on 06/03/21 with COVID pneumonia with more than 10 days history of fever, generalized weakness and shortness of breath. Renal function staying relatively stable with creatinine around 2-2.1, electrolyte acceptable. Received Dexamethasone. Renal function staying relatively stable although no labs today. Blood pressure acceptable. Volume status acceptable. -- continue on tacrolimus 3 mg once on Thursday and -- continue and complete the dexamethasone course, not a candidate for Monoclonal antibody and may be a candidate for PAIGE inhibitor, however there is concern for drug interaction with Tacrolimus due to increased immunosuppressive effect although in this particular case the risk is unclear as pt is on very low dose of tacrolimus. Also pt garcia snot meet the criteria at this time considering Day 3 of hospital stay and CPR <7.5 as well as high risk for DVT, PE. Tried to contact [facility] Transplant [phone] but could not reach. Will follow Admission and Anticipated Discharge Date Admission Date: June 03, 2021 Jaiden De La O was seen and evaluated in his room this morning. Overall he feels about the same, denies any significant shortness of breath or chest pain, however he has been requiring higher FiO2, no fever or chills. BP fair. Review of Systems Review of Systems: Detailed review of system was otherwise unremarkable except mentioned above. Physical Exam Constitutional: WD/WN, vitals as above no acute distress Eyes: + anicteric sclerae ENMT: Ears: no hearing impairment Respiratory: normal respiratory effort Auscultation: + crackles Cardiovascular: Rate/Rhythm: regular rate and regular rhythm Heart Sounds: normal S1 and normal S2 Extremities: no edema Skin: no rashes Neurologic: no focal motor deficits and not confused Psychiatric: Orientation: alert and oriented x 3 Affect: euthymic affect Results & Data ([facility]) Vital Signs (Past 12 Hours) Vital Signs Temp Pulse Pulse Resp BP Pulse Ox 06/06/21 08:29 36.6 C 74 23 127/78 95 01/13/22 07:37 81 18 94 06/06/21 06:38 92 06/06/21 03:10 36.7 C 62 18 111/61 90 06/06/21 00:12 90 06/05/21 22:20 59 L 06/05/21 22:05 36.8 C 64 22 122/78 95 PG Care Time/CCT Total # of Minutes Spent Total Time Spent with Patient: Total time spent is greater than 50% in coordination of care (as documented) at patient's floor/unit and/or counseling patient: Coding Level of Care Code 91437 Subseq Hosp Care Lvl 3 Diagnoses HUSSEIN (acute kidney injury) N17.9 Kidney transplant recipient Z94.0 Hypertension I10 Pneumonia due to COVID-19 virus U07.1; J12.82
[2021-06-06] MEDS: carvediloL 6.25 MG TAB PO SCH ×2 (10:08→20:51)
[2021-06-06] MEDS: PANTOprazole 40 MG TAB PO SCH (10:08)
[2021-06-06] MEDS: POTASSIUM CHLORIDE CRTAB 20 MEQ TABCR PO SCH (10:08)
[2021-06-06] MEDS: PANCREAZE (LIPASE 10,500U) CAP PO SCH ×2 (10:08→20:51)
[2021-06-06] MEDS: DULoxetine HCL 30 MG CAP PO SCH (10:08)
[2021-06-06] MEDS: TACROLIMUS 1 MG CAP PO SCH (10:09)
[2021-06-06] MEDS: FUROSEMIDE 40 MG/4 ML VIAL IV SCH (10:10)
[2021-06-06] MEDS: APIXABAN 5 MG TABLET PO SCH ×2 (10:10→20:51)
[2021-06-06] MEDS: FLUTICASONE FUROATE 100MCG 14 PUFFS/INHALER INH SCH (10:10)
[2021-06-06] MEDS: dexAMETHasone 6 MG in SYRINGE 0 ML IV SCH (10:14)
[2021-06-06 10:23] LABS: Albumin Level 2.7 gm/dl (3.4-5.0); Bilirubin Direct 0.3 mg/dl (0-0.2); Bilirubin,Total 0.8 mg/dl (0.2-1.0); Total Protein 4.6 gm/dl (6.0-8.3)
[2021-06-06] MEDS: ACETAMINOPHEN 325 MG TAB PO PRN (19:25)
--- NOTE | 2021-06-06 19:30 | Communication Note ---
Date of Service: June 06, 2021 Called by nursing staff at bedside for concerns of continued worsening shortness of breath in the setting of COVID-19 penumonia with worsening today. Having fluctuating oxygen requirements at this time with oxygen supplementation of HFNC 40LPM at 65% FiO2 in order to maintain oxygen saturations >90%. Labs reviewed from this morning indicating increased Cr to 2.43 this morning with a mildly elevated Procal and CRP. Ordered chest x-ray which demonstrating increased opacity of right lower and middle lobes with decreased opacity in right lower lobe. Upon my presentation to bedside, patient states that he has been feeling lousy all day and having to work harder than before to breath. He is visibly abdominal breathing with no audible wheezes. Lungs diminished on auscultation but no wheeze or rales. Discussed use of PRN neb to improve lung compliance. Receiving Lasix 40mg IV daily, with maintenance of a net negative volume of 1.4L since admission. After receiving a neb had slight improvement in his work of breathing. Given the concerns demonstrated on XR in the setting of increased respiratory effort will also give an additional 40mg IV Lasix. Will continue to monitor for improvement. Encouraged continued self-proning. Resident Activity Tracking Resident Involvement: Resident Care Provided Care Provided: Adult Hospital Medicine
[2021-06-06] MEDS: ALBUT/IPRATROP 3MG/0.5MG NEB 3 ML VIAL NEB PRN (19:52)
--- NOTE | 2021-06-06 20:09 | XRay Report ---
SINGLE VIEW CHEST CLINICAL HISTORY: Dyspnea. FINDINGS: 2 AP, portable, upright chest radiographs are compared to study dated 06/03/2021 and correla alix with chest CT dated 05/04/2021. The examination is degraded by portable technique and patient rot ation. A single lead cardiac AICD is unchanged in position and partially obscures the left mid ches t. The heart is markedly enlarged. Airspace opacities are again seen throughout both lungs. This has worsened as compared to 06/03/2021. Small pleural effusions are suspected. No pneumothorax is seen. T he skeletal structures are osteopenic. There are chronic/healed bilateral rib fractures. Cholecystect syed clips are noted in the right upper quadrant. IMPRESSION: 1. Marked cardiomegaly and AICD. 2. Diffuse bilateral airspace opacities have worsened as compared to 06/03/2021. This could represent multifocal pneumonia, ARDS, and/or pulmonary edema. Clinical correlation will be essential and radiog raphic follow-up to resolution is recommended. 3. Suspect small pleural effusions. ACT 112: Negative or not required by law. Electronically signed by: Chetan Chavez M.D. 06/06/2021 8:08 PM
[2021-06-06] MEDS ORDERED: FUROSEMIDE 40 MG/4 ML VIAL IV ONE (20:25)
[2021-06-06] MEDS: MONTELUKAST SODIUM 10 MG TABLET PO SCH (20:51)
[2021-06-06] MEDS: TERAZOSIN HCL 5 MG CAP PO SCH (20:51)
[2021-06-06] MEDS: ATORVASTATIN 10 MG TAB PO SCH (20:51)
--- NOTE | 2021-06-06 21:14 | Hospitalist Progress Note ---
Date of Service June 06, 2021 Assessment & Plan (1) Pneumonia due to COVID-19 virus: Plan: Vaccinated and Boosted (last dose in February) First symptoms: May 24, 2021 Fist positive test: 06/03/2020 O2 requirement on admission: 15LPM O2 non-rebreather, O2 sats 71% on room air Dexamethasone 6mg IV started on admission 06/03 Remdesivir: admitted on day 10 of illness therefore treatment deferred Baricitinib/tocilizumab: Does not meet criteria. Now on 40 liters high flow. This is concerning. will continue to monitor. recommend proning. CR-P is improving. updated his family. (2) Acute respiratory failure with hypoxia: Plan: Recommend ongoing BiPAP HS and as needed during the day, High flow nasal cannula at other times to maintain O2 sats > 90%. Secondary to COVID-19 pneumonia as above Procalcitonin negative therefore antibiotics deferred on admission (3) Afib: Plan: Anticoagulation with Eliquis Rate controlled with carvedilol 6.25mg PO BID with hold parameters (4) Kidney transplant recipient: Plan: Continue his usual tacrolimus dosing Consult nephrology (5) Hypertension: Plan: Continue carvedilol with hold parameters (6) CHF (congestive heart failure): Plan: Chronic congestive heart failure. Likely to need more lasix in setting of COVID- 19 Lasix 40mg IV given in ER. Will aim to maintain a negative balance with switching his usual PO dose to IV. Low sodium diet Plan: VTE Prophylaxis - continue Eliquis Diet - low sodium Disposition - admit to PCU, COVID precautions Admission and Anticipated Discharge Date Admission Date: June 03, 2021 Subjective Patient reports feeling slightly worse today in regards to his breathing. Review of Systems Review of Systems: All systems reviewed & are unremarkable except as noted in HPI & below Physical Exam Physical Exam: The patient appeared critically ill but supported Vital signs as documented. Head exam is normocephalic atraumatic Neck is without jvd, trachea is midline Lungs are coarse bilaterally Cardiac exam, Rhythm is regular.. No murmurs, rubs or gallops. Abdominal exam reveals normal bowel sounds, soft non tender, no masses Extremities are nonedematous and both pedal pulses are present Results & Data Results & Data ([facility]) Vital Signs (Past 12 Hours) Vital Signs Temp Pulse Resp BP Pulse Ox 06/06/21 20:50 67 107/74 06/06/21 19:53 66 26 H 91 06/06/21 19:15 36.8 C 68 34 H 121/74 90 06/06/21 15:26 36.6 C 73 22 117/73 94 06/06/21 14:57 67 25 H 93 06/06/21 11:40 36.7 C 78 22 116/73 93 06/06/21 11:17 19 PG Care Time/CCT Total # of Minutes Spent Total Time Spent with Patient: Total time spent is greater than 50% in coordination of care (as documented) at patient's floor/unit and/or counseling patient: Coding Level of Care Code 95362 Subseq Hosp Care Lvl 3 Diagnoses Pneumonia due to COVID-19 virus U07.1; J12.82 Acute respiratory failure with hypoxia J96.01 Afib I48.91 Kidney transplant recipient Z94.0 Hypertension I10 CHF (congestive heart failure) I50.9 Time Spent (min) 35
[2021-06-06] MEDS ORDERED: AZITHROMYCIN 500 MG in DEXTROSE 5% 250 ML IV ONE (21:45)
[2021-06-06] MEDS: cefTRIAXone SODIUM 2,000 MG in DEXTROSE 5% 50 ML IV SCH (22:18)
[2021-06-07] MEDS: ALBUT/IPRATROP 3MG/0.5MG NEB 3 ML VIAL NEB PRN (02:57)
[2021-06-07] MEDS ORDERED: FUROSEMIDE 40 MG/4 ML VIAL IV ONE ×2 (04:09→04:13)
--- NOTE | 2021-06-07 04:09 | Communication Note ---
Date of Service: June 07, 2021 Called by bedside nursing staff for concerns regarding continued increasing oxygen requirements. Upon my presentation to bedside patient had required up- titration of oxygen support to 55L/min HFNC now on 100% FiO2 with continued labored breathing and continued tachypnea. As there was improvement earlier this evening with the utilization of a neb treatment will trial this again with initiation of another 40mg IV Lasix. For ease of patient will have swain catheter placed at this time. Discussed with patient the continued worsening of his breathing. Will trial transition to BiPAP for continued oxygen support/supplementation at this time. With further discussions regarding his current worsening, patient indicated that he would not want to be placed on a ventilator or be intubated. Updated code status to reflect this change. Resident Activity Tracking Resident Involvement: Resident Care Provided Care Provided: Adult [facility]
[2021-06-07] MEDS ORDERED: MoRPHine SULFATE 2 MG/ML CARP IV STA (04:24)
[2021-06-07] MEDS ORDERED: MoRPHine SULFATE 2 MG/ML CARP ONE (04:28)
[2021-06-07 07:24] LABS: Hematocrit (blood only) 31.8 % (42-52); Hemoglobin 10.3 g/dL (14.0-18.0); Mean Corpuscular Hemoglobin 28.6 pg (25-34); Mean Corpuscular Hgb Conc 32.4 g/dL (32-36); Mean Corpuscular Volume 88.3 fL (80-100); Mean Platelet Volume 10.7 fL (7.4-10.4); Platelet Count 168 K/uL (130-400); RDW Coefficient of Variation 15.8 % (11.5-14.5); RDW Standard Deviation 51.3 fL (36.4-46.3); White Blood Count 5.09 K/uL (4.8-10.8)
[2021-06-07 07:44] LABS: ALC (manual) 0.18 K/uL (1.2-3.4); ANC (manual) 4.77 K/uL (1.4-6.5); Echinocytes 1+; Lymphocytes # (manual) 0.18 K/uL (1.2-3.4); Lymphocytes % (manual) 3.6 %; Metamyelocytes # (manual) 0.05 K/uL (0-0); Metamyelocytes % (manual) 0.9 %; Monocytes # (manual) 0.05 K/uL (0.11-0.59); Monocytes % (manual) 0.9 %; Myelocytes # (manual) 0.05 K/uL (0-0); Myelocytes % (manual) 0.9 %; Neutrophils # (manual) 4.77 K/uL (1.4-6.5); Neutrophils % (manual) 93.7 %
[2021-06-07 07:53] LABS: Albumin Level 2.5 gm/dl (3.4-5.0); BUN Creatinine Ratio 21.5 (10-20); Calcium 8.5 mg/dl (8.5-10.1); Creatinine Clr Calc Pharmacy 34.7 ml/min; Est GFR (Non-African American) 27.6 ml/min; Phosphorus 3.4 mg/dl (2.5-4.9)
[2021-06-07] MEDS: PANTOprazole 40 MG TAB PO SCH (08:44)
[2021-06-07] MEDS: PANCREAZE (LIPASE 10,500U) CAP PO SCH ×2 (08:44→19:58)
[2021-06-07] MEDS: POTASSIUM CHLORIDE CRTAB 20 MEQ TABCR PO SCH (08:44)
[2021-06-07] MEDS: APIXABAN 5 MG TABLET PO SCH ×2 (08:44→19:58)
[2021-06-07] MEDS: carvediloL 6.25 MG TAB PO SCH ×2 (08:44→19:57)
[2021-06-07] MEDS: DULoxetine HCL 30 MG CAP PO SCH (08:44)
[2021-06-07] MEDS: dexAMETHasone 6 MG in SYRINGE 0 ML IV SCH (08:45)
[2021-06-07] MEDS: FLUTICASONE FUROATE 100MCG 14 PUFFS/INHALER INH SCH (08:45)
--- NOTE | 2021-06-07 10:10 | Nephrology Progress Note ---
Date of Service June 07, 2021 Assessment & Plan (1) HUSSEIN (acute kidney injury): (2) Kidney transplant recipient: (3) Hypertension: (4) Pneumonia due to COVID-19 virus: Plan: 61 y o male with h/o Renal Transplant with decent allograft function at baseline, cr around 1.3 to 1.5 with recent worsening. Recently had HUSSEIN during last hospitalization in Apr, creatinine was 2.5 on discharge. Admitted to the hospital on 06/03/21 with COVID pneumonia with more than 10 days history of fever, generalized weakness and shortness of breath. Renal function staying relatively stable with creatinine around 2-2.1, electrolyte acceptable. Received Dexamethasone. Renal function has been worsening over last 2 days, creatinine around 2.4-2.5. Decent urine output with total net negative. Blood pressure stable. Respiratory status worsened, most likely secondary to worsening underlying COVID pneumonia, unlikely volume overload or pulmonary edema -- would avoid diuretics as there is no clear sign of volume overload, encourage increased p.o. intake, in fact IV fluid can be considered if blood pressure remains low or continues to be net negative. -- continue on tacrolimus 3 mg once on Thursday and -- continue and complete the dexamethasone course, not a candidate for Monoclonal antibody and may be a candidate for PAIGE inhibitor, however there is concern for drug interaction with Tacrolimus due to increased immunosuppressive effect although in this particular case the risk is unclear as pt is on very low dose of tacrolimus. Also pt does not meet the criteria at this time considering Day 3 of hospital stay and CPR <7.5 as well as high risk for DVT, PE. Tried to contact [facility] Transplant multiple times [phone] but could not reach. Will follow Admission and Anticipated Discharge Date Admission Date: June 03, 2021 Jaiden De La O was seen and evaluated in his room this morning. Overall he feels somewhat worse specially cough and SOB worsened. renal function slightly worsened, electrolyte acceptable. Blood pressure acceptable. Has decent urine output, overall net negative. Review of Systems Review of Systems: Detailed review of system was otherwise unremarkable except mentioned above. Physical Exam Constitutional: WD/WN, vitals as above no acute distress Eyes: + anicteric sclerae ENMT: Ears: no hearing impairment Respiratory: normal respiratory effort Auscultation: + crackles Cardiovascular: Rate/Rhythm: regular rate and regular rhythm Heart Sounds: normal S1 and normal S2 Extremities: no edema Skin: no rashes Neurologic: no focal motor deficits and not confused Psychiatric: Orientation: alert and oriented x 3 Affect: euthymic affect Results & Data ([facility]) Vital Signs (Past 12 Hours) Vital Signs Temp Pulse Pulse Resp BP Pulse Ox 06/07/21 08:31 62 24 95 06/07/21 07:23 36.8 C 63 30 H 117/78 98 06/07/21 04:48 31 H 137/79 96 06/07/21 04:31 38 H 137/76 96 06/07/21 04:18 115/71 06/07/21 04:15 38 H 95 06/07/21 04:11 63 33 H 93 06/07/21 03:49 34 H 90 06/07/21 03:45 32 H 88 L 06/07/21 03:25 30 H 90 06/07/21 03:17 36.1 C L 68 32 H 132/76 88 L 06/07/21 02:57 67 26 H 90 06/07/21 02:29 32 H 90 06/06/21 23:05 36.8 C 60 26 H 117/78 95 06/06/21 22:19 54 L PG Care Time/CCT Total # of Minutes Spent Total Time Spent with Patient: Total time spent is greater than 50% in coordination of care (as documented) at patient's floor/unit and/or counseling patient: Coding Level of Care Code 30570 Subseq Hosp Care Lvl 3 Diagnoses HUSSEIN (acute kidney injury) N17.9 Kidney transplant recipient Z94.0 Hypertension I10 Pneumonia due to COVID-19 virus U07.1; J12.82
[2021-06-07] MEDS ORDERED: dexAMETHasone 4 MG in SYRINGE 0 ML IV ONE (11:15)
[2021-06-07 11:44] LABS: Ferritin 1065.2 ng/ml (8-388)
--- NOTE | 2021-06-07 17:40 | Ultrasound Report ---
US venous doppler LE BI CLINICAL HISTORY: Lower chimney swelling. Covid. Hypoxia. COMPARISON: None available at the time of this dictation. TECHNIQUE: Bilateral lower extremity real-time compression venous ultrasound with Color Doppler imagi ng. Utilizing real-time ultrasonic imaging multiple real time high-resolution ultrasonic images with comp ression and noncompression maneuvers of the deep venous system in addition to color doppler imaging w ere performed from the common femoral vein through the proximal calf veins. FINDINGS: Currently there is normal compressibility of the deep venous system from the common femoral vein thro ugh the proximal calf veins. No current evidence of acute thrombosis is identified. Impression: No evidence of deep venous thrombus. ACT 112: Negative or not required by law. Electronically signed by: Bennett Lynn M.D. 06/07/2021 5:39 PM
[2021-06-07] MEDS: ATORVASTATIN 10 MG TAB PO SCH (19:57)
[2021-06-07] MEDS: TERAZOSIN HCL 5 MG CAP PO SCH (19:58)
[2021-06-07] MEDS: MONTELUKAST SODIUM 10 MG TABLET PO SCH (19:58)
[2021-06-07] MEDS ORDERED: AZITHROMYCIN 250 MG in DEXTROSE 5% 250 ML IV SCH (20:00)
--- NOTE | 2021-06-07 20:13 | Hospitalist Progress Note ---
Date of Service June 07, 2021 Assessment & Plan (1) Pneumonia due to COVID-19 virus: Plan: Vaccinated and Boosted (last dose in February) First symptoms: May 24, 2021 Fist positive test: 06/03/2020 O2 requirement on admission: 15LPM O2 non-rebreather, O2 sats 71% on room air Dexamethasone 6mg IV started on admission 06/03 Remdesivir: admitted on day 10 of illness therefore treatment deferred Baricitinib/tocilizumab: Does not meet criteria. Required BIPAP overnight. D/W clinical coordinator, can visit given how sick he is. Increased decadron to 6 mg IV BID. CRP is elevated. DUE to elevated procal, added antibiotics on 06/06 Now on 50 liters high flow. recommend proning. updated his family. (2) Acute respiratory failure with hypoxia: Plan: Recommend ongoing BiPAP HS and as needed during the day, High flow nasal cannula at other times to maintain O2 sats > 90%. Secondary to COVID-19 pneumonia as above Procalcitonin negative therefore antibiotics deferred on admission (3) Afib: Plan: Anticoagulation with Eliquis Rate controlled with carvedilol 6.25mg PO BID with hold parameters (4) Kidney transplant recipient: Plan: Continue his usual tacrolimus dosing Consult nephrology (5) Hypertension: Plan: Continue carvedilol with hold parameters (6) CHF (congestive heart failure): Plan: Chronic congestive heart failure. Likely to need more lasix in setting of COVID- 19 Lasix 40mg IV given in ER. Will aim to maintain a negative balance with switching his usual PO dose to IV. Low sodium diet Plan: VTE Prophylaxis - continue Eliquis Diet - low sodium Disposition - admit to PCU, COVID precautions Admission and Anticipated Discharge Date Admission Date: June 03, 2021 Subjective Patient is on BIPAP. Patient reports he wants to be a DNR/DNI. Updated , reports she can visit as he is extremely sick. Review of Systems Review of Systems: All systems reviewed & are unremarkable except as noted in HPI & below Physical Exam Physical Exam: The patient appeared critically ill but supported Vital signs as documented. Head exam is normocephalic atraumatic Neck is without jvd, trachea is midline Lungs are coarse bilaterally Cardiac exam, Rhythm is regular.. No murmurs, rubs or gallops. Abdominal exam reveals normal bowel sounds, soft non tender, no masses Extremities are nonedematous and both pedal pulses are present Results & Data Results & Data ([facility]) Vital Signs (Past 12 Hours) Vital Signs Temp Pulse Pulse Resp BP Pulse Ox 06/07/21 19:55 36.7 C 67 30 H 133/85 93 06/07/21 15:42 56 L 22 96 06/07/21 15:40 36.8 C 67 33 H 132/97 93 06/07/21 14:50 55 L 26 H 94 06/07/21 11:16 36.8 C 58 L 33 H 125/80 98 06/07/21 10:56 47 L 40 H 99 06/07/21 08:31 62 24 95 PG Care Time/CCT Total # of Minutes Spent Total Time Spent with Patient: Total time spent is greater than 50% in coordination of care (as documented) at patient's floor/unit and/or counseling patient: Coding Level of Care Code 65629 Subseq Hosp Care Lvl 3 Diagnoses Pneumonia due to COVID-19 virus U07.1; J12.82 Acute respiratory failure with hypoxia J96.01 Afib I48.91 Kidney transplant recipient Z94.0 Hypertension I10 CHF (congestive heart failure) I50.9 Time Spent (min) 35
[2021-06-07] MEDS ORDERED: dexAMETHasone 6 MG in SYRINGE 0 ML IV SCH (21:00)
[2021-06-07] MEDS: cefTRIAXone SODIUM 2,000 MG in DEXTROSE 5% 50 ML IV SCH (21:45)
[2021-06-08 06:40] LABS: Hemoglobin 10.4 g/dL (14.0-18.0); Mean Corpuscular Hemoglobin 28.7 pg (25-34); Mean Corpuscular Hgb Conc 32.5 g/dL (32-36); Mean Corpuscular Volume 88.4 fL (80-100); Mean Platelet Volume 11.3 fL (7.4-10.4); Platelet Count 204 K/uL (130-400); RDW Coefficient of Variation 15.7 % (11.5-14.5); RDW Standard Deviation 51.4 fL (36.4-46.3); Red Blood Count 3.62 M/uL (4.7-6.1); White Blood Count 5.46 K/uL (4.8-10.8)
[2021-06-08 07:13] LABS: Albumin Level 2.6 gm/dl (3.4-5.0); BUN Creatinine Ratio 23.5 (10-20); Calcium 8.9 mg/dl (8.5-10.1); Creatinine Clr Calc Pharmacy 33.5 ml/min; Est GFR (African American) 30.6 ml/min; Est GFR (Non-African American) 26.4 ml/min; Potassium 4.4 mmol/L (3.5-5.1)
[2021-06-08] MEDS: ACETAMINOPHEN 325 MG TAB PO PRN (08:41)
[2021-06-08] MEDS: FLUTICASONE FUROATE 100MCG 14 PUFFS/INHALER INH SCH (08:43)
[2021-06-08] MEDS: PANCREAZE (LIPASE 10,500U) CAP PO SCH ×2 (08:43→22:29)
[2021-06-08] MEDS: APIXABAN 5 MG TABLET PO SCH ×2 (08:43→22:22)
[2021-06-08] MEDS: DULoxetine HCL 30 MG CAP PO SCH (08:43)
[2021-06-08] MEDS: PANTOprazole 40 MG TAB PO SCH (08:44)
[2021-06-08] MEDS: POTASSIUM CHLORIDE CRTAB 20 MEQ TABCR PO SCH (08:44)
[2021-06-08] MEDS: carvediloL 6.25 MG TAB PO SCH ×2 (08:44→22:22)
[2021-06-08] MEDS ORDERED: dexAMETHasone 20 MG in DEXTROSE 5% 25 ML IV SCH (09:00)
[2021-06-08] MEDS ORDERED: dexAMETHasone 20 MG in SYRINGE 0 ML IV SCH (09:00)
--- NOTE | 2021-06-08 09:08 | Hospitalist Progress Note ---
Date of Service June 08, 2021 Assessment & Plan (1) Pneumonia due to COVID-19 virus: Plan: Vaccinated and Boosted (last dose in February) First symptoms: May 24, 2021 Fist positive test: 06/03/2020 O2 requirement on admission: 15LPM O2 non-rebreather, O2 sats 71% on room air initially on dexamethasone 6mg IV daily increase to 20mg IV daily today x 5 days then 10mg IV daily x 5 days 06/08/21: requiring 60L 100% FiO2 with oxymask and then he agreed to wear CPAP he told me in the morning that he wanted to change back to full code, I made ICU aware and moved to room 204 after long discussion with ICU, he elected for intubation 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, if he does not respond in 7 days then he would not want tracheostomy (2) Acute respiratory failure with hypoxia: Plan: progressed from High Flow to needing CPAP 8 and FiO2 100% working hard to breathe he elected to be intubated on 06/08/21 transferred to ICU status (3) Afib: Plan: Anticoagulation with Eliquis Rate controlled with carvedilol 6.25mg PO BID with hold parameters will need medications via OG tube (4) Kidney transplant recipient: Plan: Continue his usual tacrolimus dosing Consult nephrology, they are following Cr is 2.5 this morning, gave him Lasix 40mg IV for extra diuresis check BMP in morning (5) Hypertension: Plan: Continue carvedilol with hold parameters (6) CHF (congestive heart failure): Plan: gave lasix on 06/07/21 and 06/08/21, evaluate need for Lasix tomorrow Plan: VTE Prophylaxis - continue Eliquis Diet - low sodium Disposition - move to ICU status Admission and Anticipated Discharge Date Admission Date: June 03, 2021 Subjective patient is up to 60L and 100% this morning with oxy mask over top, he is 87-90%, not in distress but he is tachypneic he wore CPAP yesterday, he refused this morning discussed with him that he is getting worse, asked him about intubation since he is a DNI/DNR and did not want CPAP he now states that he wants intubated, does not want comfort measures he is nauseated will move to room with ventilator capabilities, give Lasix, check CXR, give Zofran reviewed his labs, Cr is 2.5 (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) CRP is 8 increased dexamethasone to 20mg IV this morning spoke with patient's Kady, she wants the patient intubated and agrees with his decision discussed the poor prognosis given history of renal transplant on immune suppression patient was moved to room 204, he was intubated in the afternoon by ICU, central line and A line placed his was updated by ICU Review of Systems Review of Systems: All systems reviewed & are unremarkable except as noted in Subjective Constitutional: + fatigue and + weakness; no fever Respiratory: + cough, + dyspnea and + dyspnea on exertion Cardiovascular: no chest pain Gastrointestinal: + nausea; no abdominal pain, no vomiting, no constipation and no diarrhea/loose stools Physical Exam Physical Exam: General: well developed, ill appearing, thin male, mild distress from difficulty breathing Neck: supple, trachea midline, normal thyroid Lungs: clear to auscultation bilaterally, tachypnea, pursed lip breathing, accessory muscle use, cannot speak in full sentences Heart: regular S1 and S2, no murmur, peripheral pulses normal, capillary refill normal, no edema Abdomen: soft, NT, ND, + BS, no hepatomegaly, normal to percussion Extremities: normal in appearance, no cyanosis, no petechiae, strength is 5/5 bilaterally Neuro: awake, cooperative, moves all extremities, no focal motor deficits, CN II-XII intact, sensation in extremities intact, normal speech Skin: warm, dry, no rash, normal turgor Psych: Awake, alert oriented x 3, euthymic affect Results & Data Results & Data ([facility] [place]) Vital Signs (Past 12 Hours) Vital Signs Temp Pulse Pulse Resp BP Pulse Ox 06/08/21 08:11 89 24 90 06/08/21 07:33 36.7 C 66 24 127/63 86 L 06/08/21 03:54 36.7 C 67 30 H 134/84 91 06/08/21 01:55 67 06/08/21 00:21 36.6 C 77 30 H 125/68 90 06/07/21 23:03 87 22 91 Laboratory Results Laboratory Results - last 24 hr 06/07/21 06/08/21 06/08/21 07:04 05:26 05:26 WBC 5.46 RBC 3.62 L Hgb 10.4 L Hct 32.0 L MCV 88.4 MCH 28.7 MCHC 32.5 RDW Std Deviation 51.4 H RDW Coeff of Poonam 15.7 H Plt Count 204 MPV 11.3 H Sodium 141 Potassium 4.4 Chloride 110 H Carbon Dioxide 22 Anion Gap 9 BUN 59 H Creatinine 2.51 H Est Cr Clr Drug Dosing 33.5 Est GFR ( Amer) 30.6 Est GFR (Non-Af Amer) 26.4 BUN/Creatinine Ratio 23.5 H Glucose 138 H Calcium 8.9 Phosphorus 3.0 Iron 12 L Transferrin 97 L Ferritin 1065.2 H C-Reactive Protein 8.09 H Albumin 2.6 L Procalcitonin 06/08/21 05:26 WBC RBC Hgb Hct MCV MCH MCHC RDW Std Deviation RDW Coeff of Poonam Plt Count MPV Sodium Potassium Chloride Carbon Dioxide Anion Gap BUN Creatinine Est Cr Clr Drug Dosing Est GFR ( Amer) Est GFR (Non-Af Amer) BUN/Creatinine Ratio Glucose Calcium Phosphorus Iron Transferrin Ferritin C-Reactive Protein Albumin Procalcitonin 0.37 Medications Administered Current Inpatient Medications Acetaminophen (Acetaminophen 325 Mg Tab) 650 mg PO Q4H PRN PRN Reason: Pain or Fever Stop: 07/04/21 00:49 Last Admin: 06/08/21 08:41 Dose: 650 mg Documented by: Albuterol (Albut/Ipratrop 3mg/0.5mg Neb 3 Ml Vial) 3 ml NEB Q4R PRN; Protocol PRN Reason: Shortness Of Breath Or Wheezing Stop: 07/04/21 09:53 Last Admin: 06/07/21 02:57 Dose: 3 ml Documented by: Lipase/Protease/Amylase (Pancreaze (Lipase 10,500u) Cap) 4 cap PO BID [facility] Stop: 07/04/21 08:59 Last Admin: 06/08/21 08:43 Dose: 4 cap Documented by: Apixaban (Apixaban 5 Mg Tablet) 5 mg PO BID [facility] Stop: 07/04/21 00:49 Last Admin: 06/08/21 08:43 Dose: 5 mg Documented by: Atorvastatin Calcium (Atorvastatin 10 Mg Tab) 10 mg PO [facility] Stop: 07/04/21 00:49 Last Admin: 06/07/21 19:57 Dose: 10 mg Documented by: Benzonatate (Benzonatate 100 Mg Capsule) 100 mg PO TID PRN PRN Reason: cough Stop: 07/04/21 13:59 Last Admin: 06/05/21 19:42 Dose: 100 mg Documented by: Carvedilol (Carvedilol 6.25 Mg Tab) 6.25 mg PO BID [facility] Stop: 07/04/21 00:49 Last Admin: 06/08/21 08:44 Dose: 6.25 mg Documented by: Duloxetine HCl (Duloxetine Hcl 30 Mg Cap) 30 mg PO DAILY [facility] Stop: 07/04/21 08:59 Last Admin: 06/08/21 08:43 Dose: 30 mg Documented by: Fluticasone Furoate (Fluticasone Furoate 100mcg 14 Puffs/Inhaler) 1 puffs INH DAILY [facility] Stop: 07/04/21 08:59 Last Admin: 06/08/21 08:43 Dose: 1 puffs Documented by: Ceftriaxone Sodium 2,000 mg/ (Dextrose) 70 mls @ 100 mls/hr IV Q24H [facility]; Protocol Stop: 06/13/21 21:59 Last Infusion: 06/07/21 22:51 Dose: Infused Documented by: Azithromycin 250 mg/ Dextrose 252.5 mls @ 125 mls/hr IV Q24H [facility] Stop: 06/14/21 19:59 Last Infusion: 06/07/21 21:44 Dose: Infused Documented by: Dexamethasone 20 mg/ Dextrose 30 mls @ 0.833 mls/min IV DAILY [facility] Stop: 06/17/21 08:59 Last Admin: 06/08/21 08:56 Dose: 0.8 mls/min Documented by: Lorazepam (Lorazepam 0.5 Mg Tab) 0.5 mg PO BID PRN PRN Reason: NEEDED Stop: 07/04/21 00:49 Montelukast Sodium (Montelukast Sodium 10 Mg Tablet) 10 mg PO HS [facility] Stop: 07/04/21 00:49 Last Admin: 06/07/21 19:58 Dose: 10 mg Documented by: Pantoprazole Sodium (Pantoprazole 40 Mg Tab) 40 mg PO DAILY [facility] Stop: 07/04/21 08:59 Last Admin: 06/08/21 08:44 Dose: 40 mg Documented by: Potassium Chloride (Potassium Chloride Crtab 20 Meq Tabcr) 20 meq PO DAILY [facility] Stop: 07/04/21 08:59 Last Admin: 06/08/21 08:44 Dose: 20 meq Documented by: Tacrolimus (Tacrolimus 1 Mg Cap) 3 mg PO MoTh@0900 [facility] Stop: 07/06/21 08:59 Last Admin: 06/06/21 10:09 Dose: 3 mg Documented by: Terazosin HCl (Terazosin Hcl 5 Mg Cap) 10 mg PO HS [facility] Stop: 07/04/21 20:59 Last Admin: 06/07/21 19:58 Dose: 10 mg Documented by: Trazodone HCl (Trazodone Hcl 50 Mg Tab) 50 mg PO DAILY PRN PRN Reason: Insomnia Stop: 07/04/21 00:49 PG Care Time/CCT Total # of Minutes Spent Total Time Spent: 62 Total Time Spent with Patient: Total time spent is greater than 50% in coordination of care (as documented) at patient's floor/unit and/or counseling patient: Prolonged Care Time Prolonged Care Time: Yes Total Prolonged Care Time: 32 numerous conversations with patient and with his discussed with ICU several times reviewed chart and labs spoke with Dr. Castro with nephrology Coding Level of Care Code 81218 Subseq Hosp Care Lvl 3 (25 - SIGNIFICANT, SEPARATELY IDENTIFIABLE ) Diagnoses Pneumonia due to COVID-19 virus U07.1; J12.82 Acute respiratory failure with hypoxia J96.01 Afib I48.91 Kidney transplant recipient Z94.0 Hypertension I10 CHF (congestive heart failure) I50.9 Additional Codes Prolonged Care Time - Prolonged Care Time: Yes ([id number])
[2021-06-08] MEDS ORDERED: FUROSEMIDE 40 MG/4 ML VIAL IV ONE (09:11)
[2021-06-08] MEDS ORDERED: ONDANSETRON INJ 2 MG/ML 2 ML VIAL IV STA (09:17)
--- NOTE | 2021-06-08 09:53 | XRay Report ---
XR chest 1V portable CLINICAL HISTORY: hypoxia, COVID COMPARISON STUDY: Chest radiograph June 06, 2021. FINDINGS: Left subclavian pacer/AICD is in place. Cardiomegaly is noted. There is no pneumothorax. Po ssible trace left pleural effusion. Bilateral airspace opacities have progressed, including dense lef t basilar consolidation. IMPRESSION: Increase in bilateral airspace opacities suggestive of multifocal pneumonia. ACT 112: Negative or not required by law. Electronically signed by: Hussein Garvin M.D. 06/08/2021 9:52 AM
--- NOTE | 2021-06-08 10:29 | Nephrology Progress Note ---
Date of Service June 08, 2021 Assessment & Plan (1) HUSSEIN (acute kidney injury): Plan: Chronic allograft dysfunction with superimposed ATN. Allograft function stable. Electrolytes normal. Non-oliguric. Volume status reasonable. Additional 40 mg IV furosemide provided this AM. Medications appropriate for kidney dysfunction. (2) Kidney transplant recipient: Plan: Remains on low dose twice weekly tacrolimus. No change to therapy at this time. Due to COVID pneumonia prognosis is unfortunately guarded. (3) Hypertension: (4) Pneumonia due to COVID-19 virus: Plan: Transferring to ICU for respiratory distress/failure. Remains on dexamethasone. Plan of care reviewed with primary team. Admission and Anticipated Discharge Date Admission Date: June 03, 2021 Subjective No acute events overnight. Servando denied any complaints this AM but remained notably tachypneic. He is not able to speak in full sentences. He provided quick 'yes/no' answers to questions and initially told me that he had not seen any other doctors this AM despite Dr. Irwin having just been in his room.Servando is agreeable to intubation at this time. I reviewed the plan of care with Dr. Irwin this AM. Review of Systems Review of Systems: All systems reviewed & are unremarkable except as noted in HPI & below Physical Exam Constitutional: well developed, + ill appearing and + thin Eyes: no scleral abnormality and no corneal abnormality ENMT: Ears: + hearing impairment Mouth: + dry oral mucous membranes Neck: normal visual inspection and trachea midline Respiratory: + uses accessory muscles and + tachypneic Auscultation: lungs clear to auscultation bilaterally Cardiovascular: Rate/Rhythm: regular rate Heart Sounds: normal S1 and normal S2 Extremities: no edema Musculoskeletal: Extremities: no cyanosis and no clubbing Skin: normal turgor; no lesions Neurologic: Motor/Sensory: no tremor and no asterixis Psychiatric: Orientation: alert and oriented x 3 Results & Data ([facility]) Vital Signs (Past 12 Hours) Vital Signs Temp Pulse Pulse Resp BP Pulse Ox 06/08/21 08:11 89 24 90 06/08/21 07:33 36.7 C 66 24 127/63 86 L 06/08/21 03:54 36.7 C 67 30 H 134/84 91 06/08/21 01:55 67 06/08/21 00:21 36.6 C 77 30 H 125/68 90 06/07/21 23:03 87 22 91 Laboratory Results Laboratory Results - last 24 hr 06/07/21 06/08/21 06/08/21 07:04 05:26 05:26 WBC 5.46 RBC 3.62 L Hgb 10.4 L Hct 32.0 L MCV 88.4 MCH 28.7 MCHC 32.5 RDW Std Deviation 51.4 H RDW Coeff of Poonam 15.7 H Plt Count 204 MPV 11.3 H Sodium 141 Potassium 4.4 Chloride 110 H Carbon Dioxide 22 Anion Gap 9 BUN 59 H Creatinine 2.51 H Est Cr Clr Drug Dosing 33.5 Est GFR ( Amer) 30.6 Est GFR (Non-Af Amer) 26.4 BUN/Creatinine Ratio 23.5 H Glucose 138 H Calcium 8.9 Phosphorus 3.0 Iron 12 L Transferrin 97 L Ferritin 1065.2 H C-Reactive Protein 8.09 H Albumin 2.6 L Procalcitonin 06/08/21 05:26 WBC RBC Hgb Hct MCV MCH MCHC RDW Std Deviation RDW Coeff of Poonam Plt Count MPV Sodium Potassium Chloride Carbon Dioxide Anion Gap BUN Creatinine Est Cr Clr Drug Dosing Est GFR ( Amer) Est GFR (Non-Af Amer) BUN/Creatinine Ratio Glucose Calcium Phosphorus Iron Transferrin Ferritin C-Reactive Protein Albumin Procalcitonin 0.37 PG Care Time/CCT Total # of Minutes Spent Total Time Spent with Patient: Total time spent is greater than 50% in coordination of care (as documented) at patient's floor/unit and/or counseling patient: Coding Level of Care Code 25666 Subseq Hosp Care Lvl 3 Diagnoses HUSSEIN (acute kidney injury) N17.9 Kidney transplant recipient Z94.0 Hypertension I10 Pneumonia due to COVID-19 virus U07.1; J12.82
--- NOTE | 2021-06-08 12:13 | Critical Care Consultation ---
Date of Consultation June 08, 2021 Assessment & Plan (1) Pneumonia due to COVID-19 virus: (2) Kidney transplant recipient: (3) Hypertension: (4) CHF (congestive heart failure): (5) Hypoxia: (6) History of renal transplant: He does carry high risk of not being able to be weaned from ventilator, his chest xray from today with worsening of his bilateral opacities. It is difficult to predict when to intubate these patients in that regard. Patient is likely progressing towards respiratory failure and intubation may be likely sooner rather than later. Will discuss the case with staff attending Dr. Guerrero as well as come back and see patient this afternoon. As he is recruitable and stable at this time continue above. We are available and follow for the need for intubation arises. Recommendations: As you have done already increase his steroid dosing- now at 20mg IV daily - He is not a candidate for other immunomodulation as he is on Tacrolimus - Continue his albuterol nebulizers - He shows that with positive pressure he is recruitable and is currently responding - He is not tachycardic or showing worsening of organ dysfunction, he remains on Eliquis for his Afib- so continue - Continue diuresis as you are doing and appreciate nephrology assistance - Intubation if he is unwilling/unable to wear his BiPAP or progressing sings of respiratory failure- This may be approaching as above. Supervising Physician Co-Signing Physician Notes Patient seen and examined. Discussed with hospitalist as well as with critical care HEIDI. Discussed with patient and bedside nurse. The patient is a 61-year-old immunosuppressed male due to kidney transplant who has COVID with progressive respiratory failure and increased work of breathing. I met with the patient at bedside and his via cell phone. I discussed with them that mechanical ventilation would not be therapeutic intervention for his COVID and I am concerned about his mortality. I advised them that there is a high probability that the patient would pass away due to COVID whether he was intubated or not. Mechanical ventilation and intubation are only designed to support the respiratory system in hopes of clinical improvement. As the patient has had clinical worsening and has multiple risk factors for poor outcome, I advised the patient and his that I was not sure that he would recover from the illness at this point time. They expressed understanding but wanted to try additional supportive measures. The patient clearly states that he does not want to be on machines for prolonged period of time and his reinforces this. He does not want tracheostomy or PEG tube. They would like to pursue short course of mechanical ventilation to see whether or not he makes any significant progress and if he remains vent dependent after a period of 7 days, they would pursue terminal extubation with transition to comfort care measures. Given that the patient is already immunosuppressed due to his kidney transplant, would avoid additional immune suppression as it is likely to result in complications and unlikely to offer him significant clinical benefit. There is no evidence of infection so antibiotics will be discontinued currently. We will check sputum culture.. Place orogastric tube. We will need to initiate nutritional support Overall prognosis is very guarded History of Present Illness Reason for Consultation: COVID 19 hypoxia with respiratory failure- evaluation for intubation Requesting Physician: Dr. Gaurav Irwin Attending Physician: Gaurav Irwin, DO History of Present Illness 61 YOM that is hospital day #16 admitted for COVID 19 following an infection of RSV prior. The patient does have history of renal transplant and is immunocompr omised- he is being treated with Decadron which was increased today as well as increasing diuretic therapy today. Patient was on BiPAP throughout his stay 05/01 and actually does quiet well on that from an oxygenation standpoint. The patient originally refused wearing this morning as he was tired, fatigued and wanted to eat. The patient code status on admission was DNR/DNI- today he discussed with his providers that he would want intubation if he required this. Pulmonary critical care was consulted for evaluation. He has sig hx of : Afib, AICD, HF, Renal transplant, Anxiety, ? Asthma Seen patient while he was on 100% FIO2 via HFNC with Oxymask over- with SPO2 82- 88%. He is fatigued appearing and tired. He is unable to prone, but does endorse that he has been lying on his side. Did discuss with the patient that intubating him and placing him on mechanical ventilation is an option and that he may be approaching that soon. We discussed that with his current illness and co-morbidities that he may not be able to be extubated or come off the ventilator. He would not want a Tracheostomy and he verbalizes that he does not want to be on the ventilator for "long time". He was unable to tell me what that time would be. We also discussed sedation while on the ventilator and that he would not be able to communicate with us or his . I recommended to the patient that he puts his BiPAP back on and get some reserve and discuss with his . Dr. Irwin did speak with the patient's and reviewed his current state with her. He was placed back on his BiPAP and his spo2 increased to 100% with RR 24. I will continue to follow the patient through the day. We will discuss further with the patient following his conversation with his . Patient is vaccinated and booster received he is now FULL CODE. Allergies Allergy/AdvReac Type Severity Reaction Status Date / Time Penicillins Allergy Intermediate Hives Verified 06/03/21 19:13 Home Medications Medication Instructions Recorded Confirmed Type apixaban 5 mg tablet (Eliquis) 5 mg PO BID 12/15/20 06/03/21 History atorvastatin 10 mg tablet 10 mg PO HS 12/15/20 06/03/21 History carvedilol 6.25 mg tablet 6.25 mg PO BID 12/15/20 06/03/21 History fluticasone furoate 100 1 inh INHALATION DAILY 12/15/20 06/03/21 History mcg/actuation blister powder for inhalation (Arnuity Ellipta) furosemide 40 mg tablet 40 mg PO DAILY 12/15/20 06/03/21 History hydroxyzine HCl 25 mg tablet 25 mg PO TID PRN 12/15/20 06/03/21 History mylzij-eunmufcd-gclskaa 2 cap PO BID 12/15/20 06/03/21 History 24,000-76,000-120,000 unit capsule,delayed rel (Creon) lorazepam 0.5 mg tablet 0.5 mg PO BID PRN 12/15/20 06/03/21 History montelukast 10 mg tablet 10 mg PO HS 12/15/20 06/03/21 History tacrolimus 1 mg capsule, 3 mg PO .BID/UD 12/15/20 06/03/21 History immediate-release terazosin 10 mg capsule 10 mg PO HS 12/15/20 06/03/21 History pantoprazole 40 mg tablet,delayed 40 mg PO DAILY 05/01/21 06/03/21 History release trazodone 50 mg tablet 50 mg PO DAILY PRN 05/01/21 06/03/21 History potassium chloride 20 mEq 20 meq PO DAILY #0 tab 05/07/21 06/03/21 Rx tablet,extended release(part/cryst) duloxetine 30 mg capsule,delayed 30 mg PO DAILY 06/03/21 06/03/21 History release Patient History Medical History Afib Cardiac defibrillator in place Cardiomyopathy CHF (congestive heart failure) Hypertension Surgical History History of appendectomy History of cholecystectomy Kidney transplant recipient Social History Smoking Status: Never smoker Second Hand Exposure: No; Do You Dip or Chew Tobacco: No; Tobacco Cessation Education Requested by Patient: No Hx Alcohol Use: No Hx Substance Use: No Preferred Language: Mozambican Communication Ability: Effective Health Program Director Required: No Beliefs That Will Affect Care: None marital status: Current Living Situation: Spouse Current Living Situation Comment: home with Other Information That Helps Us Care for You: No Feels Safe at Home: Yes Safety Concerns: Feels Safe At This Time Assistive Devices: Oxygen - Continuous Review of Systems Review of Systems: REVIEW OF SYSTEMS: Constitutional: (+) fatigueNo fever, sweats or chills Eyes: No diplopia, no worsening or blurred vision ENT: (+) difficulty hearing, no trouble swallowing Respiratory: (+) cough, sputum, dyspnea at rest or on exertion Cardiovascular: No chest pain, tightness or palpitations Abdomen: No pain, nausea, vomiting, diarrhea or constipation Musculoskeletal: No joint pain, calf pain, swelling Neurologic: No weakness, numbness/tingling, or balance problems Psychiatric: No anxiety or depression Skin: No rash or itch Physical Exam Physical Exam: PHYSICAL EXAM: General: awake, alert, tachypneic but calm Head: Normocephalic, atraumatic ENT: PERRL, EOMI, no pharyngeal exudate, mucous membranes dry Neuro: AAO x 3, speech clear and appropriate, strength intact bilaterally 5/5, sensation intact and equal all extremities and dermatomes, no pronator drift Chest: equal rise and fall of the chest, no accessory muscle use, scattered crackles throughout with decreased air movement in the bases Cardiac: irregular rate and rhythm, telemetry reviewed- afib rate controlled, skin warm dry, cap refill <3 seconds, peripheral pulses +2 no JVD, no murmur, trace GI: NABS x 4 quadrants, soft, nontender to palpation, no rebound, guarding or tenderness : Spontaneously voiding, no pain, no CVA tenderness, Extremities: Normal inspection, no peripheral edema or erythema, calfs nont aaron to palpation Psych: Normal mood and affect Skin: no rash or erythema Results & Data Results & Data ([facility]) Vital Signs (Past 12 Hours) Vital Signs Temp Pulse Pulse Resp BP Pulse Ox 06/08/21 11:16 36.7 C 70 24 116/76 100 06/08/21 11:04 66 44 H 96 06/08/21 08:11 89 24 90 06/08/21 07:33 36.7 C 66 24 127/63 86 L 06/08/21 03:54 36.7 C 67 30 H 134/84 91 06/08/21 01:55 67 06/08/21 00:21 36.6 C 77 30 H 125/68 90 Laboratory Results Abnormal Labs 06/03/21 06/03/21 06/03/21 16:39 16:39 16:39 WBC 1.88 L RBC 3.79 L Hgb 10.8 L Hct 33.4 L RDW Std Deviation 50.4 H RDW Coeff of Poonam 15.6 H MPV 12.0 H Neut # (Auto) Lymph # (Auto) 0.27 L Immature Gran # (Auto) 0.04 H Lymphocytes # (Manual) Total Abs Lymphocytes Monocytes # (Manual) Metamyelocytes # (Man) Myelocytes # (Manual) APTT 35.6 H VBG pH Chloride 113 H BUN 27 H Creatinine 2.08 H BUN/Creatinine Ratio Glucose 120 H Lactate Calcium Magnesium Iron Transferrin Ferritin Direct Bilirubin AST Alkaline Phosphatase 159 H C-Reactive Protein NT-Pro-B Natriuret Pep 8822 H Total Protein 5.0 L Albumin 2.2 L Albumin/Globulin Ratio 0.8 L Procalcitonin Urine Protein Urine Ketones U Hyaline Cast (Auto) U Epithel Cells (Auto) Calcium Oxalate Crystal Urine Sperm SARS-CoV-2 (PCR) 06/03/21 06/03/21 06/03/21 16:49 16:51 17:24 WBC RBC Hgb Hct RDW Std Deviation RDW Coeff of Poonam MPV Neut # (Auto) Lymph # (Auto) Immature Gran # (Auto) Lymphocytes # (Manual) Total Abs Lymphocytes Monocytes # (Manual) Metamyelocytes # (Man) Myelocytes # (Manual) APTT VBG pH Chloride BUN Creatinine BUN/Creatinine Ratio Glucose Lactate 2.2 H* Calcium Magnesium 1.6 L Iron Transferrin Ferritin Direct Bilirubin AST 56 H Alkaline Phosphatase C-Reactive Protein NT-Pro-B Natriuret Pep Total Protein Albumin Albumin/Globulin Ratio Procalcitonin Urine Protein Urine Ketones U Hyaline Cast (Auto) U Epithel Cells (Auto) Calcium Oxalate Crystal Urine Sperm SARS-CoV-2 (PCR) DETECTED A* 06/03/21 06/03/21 06/04/21 17:24 18:41 07:15 WBC 1.77 L RBC 3.68 L Hgb 10.6 L Hct 32.5 L RDW Std Deviation 51.4 H RDW Coeff of Poonam 15.8 H MPV 11.0 H Neut # (Auto) 1.27 L Lymph # (Auto) 0.29 L Immature Gran # (Auto) 0.06 H Lymphocytes # (Manual) Total Abs Lymphocytes Monocytes # (Manual) Metamyelocytes # (Man) Myelocytes # (Manual) APTT VBG pH 7.30 L Chloride BUN Creatinine BUN/Creatinine Ratio Glucose Lactate Calcium Magnesium Iron Transferrin Ferritin Direct Bilirubin AST Alkaline Phosphatase C-Reactive Protein 8.50 H NT-Pro-B Natriuret Pep Total Protein Albumin Albumin/Globulin Ratio Procalcitonin Urine Protein Urine Ketones U Hyaline Cast (Auto) U Epithel Cells (Auto) Calcium Oxalate Crystal Urine Sperm SARS-CoV-2 (PCR) 06/04/21 06/05/21 06/06/21 07:15 04:50 08:21 WBC RBC Hgb Hct RDW Std Deviation RDW Coeff of Poonam MPV Neut # (Auto) Lymph # (Auto) Immature Gran # (Auto) Lymphocytes # (Manual) Total Abs Lymphocytes Monocytes # (Manual) Metamyelocytes # (Man) Myelocytes # (Manual) APTT VBG pH Chloride 115 H 110 H BUN 32 H 52 H Creatinine 2.02 H 2.43 H BUN/Creatinine Ratio 21.4 H Glucose 143 H 128 H Lactate Calcium 8.4 L Magnesium Iron Transferrin Ferritin Direct Bilirubin AST Alkaline Phosphatase C-Reactive Protein 6.93 H NT-Pro-B Natriuret Pep Total Protein Albumin 2.7 L Albumin/Globulin Ratio Procalcitonin Urine Protein Trace H Urine Ketones Trace H U Hyaline Cast (Auto) >30 H U Epithel Cells (Auto) 10-20 H Calcium Oxalate Crystal Present A Urine Sperm Present A SARS-CoV-2 (PCR) 06/06/21 06/06/21 06/06/21 08:21 08:21 08:27 WBC 4.46 L RBC 3.79 L Hgb 10.8 L Hct 33.4 L RDW Std Deviation 51.3 H RDW Coeff of Poonam 15.8 H MPV 11.3 H Neut # (Auto) Lymph # (Auto) Immature Gran # (Auto) Lymphocytes # (Manual) Total Abs Lymphocytes Monocytes # (Manual) Metamyelocytes # (Man) Myelocytes # (Manual) APTT VBG pH Chloride BUN Creatinine BUN/Creatinine Ratio Glucose Lactate Calcium Magnesium Iron Transferrin Ferritin Direct Bilirubin 0.3 H AST 56 H Alkaline Phosphatase 139 H C-Reactive Protein NT-Pro-B Natriuret Pep Total Protein 4.6 L Albumin 2.7 L Albumin/Globulin Ratio Procalcitonin 0.54 H Urine Protein Urine Ketones U Hyaline Cast (Auto) U Epithel Cells (Auto) Calcium Oxalate Crystal Urine Sperm SARS-CoV-2 (PCR) 06/07/21 06/07/21 06/07/21 07:04 07:04 07:04 WBC RBC 3.60 L Hgb 10.3 L Hct 31.8 L RDW Std Deviation 51.3 H RDW Coeff of Poonam 15.8 H MPV 10.7 H Neut # (Auto) Lymph # (Auto) Immature Gran # (Auto) Lymphocytes # (Manual) 0.18 L Total Abs Lymphocytes 0.18 L Monocytes # (Manual) 0.05 L Metamyelocytes # (Man) 0.05 H Myelocytes # (Manual) 0.05 H APTT VBG pH Chloride 110 H BUN 52 H Creatinine 2.42 H BUN/Creatinine Ratio 21.5 H Glucose 124 H Lactate Calcium Magnesium Iron 12 L Transferrin 97 L Ferritin 1065.2 H Direct Bilirubin AST Alkaline Phosphatase C-Reactive Protein 8.46 H NT-Pro-B Natriuret Pep Total Protein Albumin 2.5 L Albumin/Globulin Ratio Procalcitonin Urine Protein Urine Ketones U Hyaline Cast (Auto) U Epithel Cells (Auto) Calcium Oxalate Crystal Urine Sperm SARS-CoV-2 (PCR) 06/08/21 06/08/21 05:26 05:26 WBC RBC 3.62 L Hgb 10.4 L Hct 32.0 L RDW Std Deviation 51.4 H RDW Coeff of Poonam 15.7 H MPV 11.3 H Neut # (Auto) Lymph # (Auto) Immature Gran # (Auto) Lymphocytes # (Manual) Total Abs Lymphocytes Monocytes # (Manual) Metamyelocytes # (Man) Myelocytes # (Manual) APTT VBG pH Chloride 110 H BUN 59 H Creatinine 2.51 H BUN/Creatinine Ratio 23.5 H Glucose 138 H Lactate Calcium Magnesium Iron Transferrin Ferritin Direct Bilirubin AST Alkaline Phosphatase C-Reactive Protein 8.09 H NT-Pro-B Natriuret Pep Total Protein Albumin 2.6 L Albumin/Globulin Ratio Procalcitonin Urine Protein Urine Ketones U Hyaline Cast (Auto) U Epithel Cells (Auto) Calcium Oxalate Crystal Urine Sperm SARS-CoV-2 (PCR) Diagnostic Findings Venous Doppler Study 06/07/21 11:15 US venous doppler LE BI CLINICAL HISTORY: Lower chimney swelling. Covid. Hypoxia. COMPARISON: None available at the time of this dictation. TECHNIQUE: Bilateral lower extremity real-time compression venous ultrasound with Color Doppler imaging. Utilizing real-time ultrasonic imaging multiple real time high-resolution ultrasonic images with compression and noncompression maneuvers of the deep venous system in addition to color doppler imaging were performed from the common femoral vein through the proximal calf veins. FINDINGS: Currently there is normal compressibility of the deep venous system from the common femoral vein through the proximal calf veins. No current evidence of acute thrombosis is identified. Impression: No evidence of deep venous thrombus. ACT 112: Negative or not required by law. Electronically signed by: Bennett Lynn M.D. 06/07/2021 5:39 PM Chest X-Ray 06/08/21 09:08 XR chest 1V portable CLINICAL HISTORY: hypoxia, COVID COMPARISON STUDY: Chest radiograph June 06, 2021. FINDINGS: Left subclavian pacer/AICD is in place. Cardiomegaly is noted. There is no pneumothorax. Possible trace left pleural effusion. Bilateral airspace opacities have progressed, including dense left basilar consolidation. IMPRESSION: Increase in bilateral airspace opacities suggestive of multifocal pneumonia. ACT 112: Negative or not required by law. Electronically signed by: Hussein Garvin M.D. 06/08/2021 9:52 AM Coding Level of Care Code 05142 Office/OBS Consult Lvl 3 Diagnoses Pneumonia due to COVID-19 virus U07.1; J12.82 Kidney transplant recipient Z94.0 Hypertension I10 CHF (congestive heart failure) I50.9 Hypoxia R09.02 History of renal transplant Z94.0
[2021-06-08] MEDS ORDERED: MIDAZOLAM HCL 1 MG/ML 2ML VIAL ONE (12:56)
[2021-06-08] MEDS ORDERED: fentaNYL citrate 100 MCG/2 ML VIAL ONE (12:57)
[2021-06-08] MEDS ORDERED: fentaNYL citrate 2,500 MCG/250 ML BAG IV ONE (12:57)
[2021-06-08] MEDS ORDERED: ETOMIDATE 2 MG/ML 20 ML VIAL IV ONE (12:57)
[2021-06-08] MEDS ORDERED: PROPOFOL IV EMULSION 10 MG/ML 100 ML VIAL IV ONE (12:57)
[2021-06-08] MEDS: fentaNYL citrate 2,500 MCG/250 ML BAG IV SCH (13:15)
[2021-06-08] MEDS: propofoL 1,000 MG/100 ML VIAL IV SCH ×3 (13:15→22:21)
--- NOTE | 2021-06-08 14:14 | XRay Report ---
XR chest 1V portable CLINICAL HISTORY: intubation/line placement COMPARISON STUDY: Chest CT May 04, 2021 chest radiograph June 08, 2021 at 9:22 AM. FINDINGS: Tip of endotracheal tube is within the proximal right mainstem bronchus. Tube should be wit hdrawn 3 cm. Tip of nasogastric tube is below the lower aspect of this image but at least within the body of the stomach. There is no pneumothorax following placement of a right internal jugular central line. Tip of catheter projects over the cavoatrial junction. Cardiomegaly is again noted. There is a small left pleural effusion, unchanged. Bilateral airspace opacities are again noted. IMPRESSION: 1. Tip of endotracheal tube within the proximal right mainstem bronchus. The tube should be withdrawn 3 cm. This finding will be called/faxed to the ordering provider at time of dictation. 2. No pneumothorax following placement of a right internal jugular central line. 3. Persistent bilateral airspace opacities suggestive of pneumonia. ACT 112: Negative or not required by law. Electronically signed by: Hussein Garvin M.D. 06/08/2021 2:13 PM
--- NOTE | 2021-06-08 14:41 | Procedure Note ---
Procedure Note Date of Service June 08, 2021 Note ARTERIAL LINE PROCEDURE NOTE: Procedure: Arterial Line Placement Provider: Dung Guerrero MD Indication: Monitoring on Pressors Anesthesia: None Verbal consent was obtained from the patient prior to intubation. Risks and benefits were discussed with him. He agreed to proceed. Due to severity of illness, written consent was not achievable. Was also discussed with patient's on the phone A time-out was completed verifying correct patient, procedure, site, positioning, and implant(s) or special equipment if applicable. Allens test was performed to ensure adequate perfusion. Patients rightwrist was prepped and draped in the usual sterile fashion. Initial attempts to place the line blindly were conducted x2. We were unable to thread the wire. Ultrasound guidance was used to aid needle placement. A 20g Arrow arterial line was introduced into the radialartery. Catheter was threaded, and the needle was removed with appropriate blood return. Good waveform was observed. The patient tolerated the procedure well. Blood Loss: Less than 5 mL Complications: None Coding CPT Codes Tubes, Drains, and Vasc Access - Tubes, Drains, and Vasc Access: [id number] Insertion Catheter, Artery ([id number]) [facility] [place] Codes (Charges) Tubes, Drains, and Vasc Access Procedure 1: Tubes, Drains, and Vasc Access: [id number] Insertion Catheter, Artery
--- NOTE | 2021-06-08 14:48 | Procedure Note ---
Procedure Note Date of Service June 08, 2021 Note INTUBATION PROCEDURE NOTE: Attending: Dr Guerrero A time-out was completed verifying correct patient, procedure, site, positioning. Patient was evaluated and required intubation for Hypoxic respiratory failure secondary to COVID 19 Sedative agent used: Etomidate, Versed, Fentanyl Paralysis agent used: None Verbal consent for intubation was given by the patient and to Dr. Guerrero consent. The patient was prepared in the appropriate fashion. Sedation was achieved utilizing, Fentanyl, Versed, Etomidate per Dr. Wilder orders. The patient was easily ventilated his current BiPAP mask. A 2.5 Upper Sor[place] endotracheal tube was placed under direct videolaryngoscopy x 1 attempt to 26 cm at the teet. The stylette was removed and balloon was inflated with 10mL of air. Appropriate Colorimetric change was appreciated. Bilateral breath sounds were heard without air sounds. The tube was directly visualized passing through the vocal cords, breath sounds with rise and fall of the chest, return volumes on the ventilator, placement confirmed. Dr. Guerrero was present for the entire procedure. Post Intubation Chest X-ray confirms placement into right mainstem- the ett was removed 2 cm. Patient tolerated the procedure well and there were no immediate complications. Coding CPT Codes Resuscitation - Resuscitation: 35168 Endotracheal Intubation, emergency ([id number]) [facility] [place] Procedure Codes (Charges) Indication for Procedure Indication for procedure: hypoxia Resuscitation Resuscitation: 14122 Endotracheal Intubation, emergency
--- NOTE | 2021-06-08 14:59 | Procedure Note ---
Procedure Note Date of Service June 08, 2021 Note INTERNAL JUGULAR CENTRAL LINE PROCEDURE NOTE: ULTRASOUND GUIDED PLACEMENT OF RIGHT IJ CENTRAL VENOUS CATHETER Procedure: Internal Jugular Central Line Placement Attending: Dr. GUERRA APC: Logan JOHNSTON ([facility] Indication: Central Drug Administration, Poor Venous Access, Multiple Lab Draws Necessary, etc. Anesthesia: [x]Lidocaine 1%- 5 ml x Consent was implied following intubation for hypoxia procedure, site, positioning, reviewed, right side chosen for access as patient has HD graft to left arm. Patients Right Neck was cleansed and draped in the typical sterile fashion using ChloraPrep. The Internal Jugular Vein and Carotid Artery were identified using ultrasound. The superficial tissue was anesthetized using 5 mL of 1% lidocaine without epinephrine under direct visualization with the ultrasound. After adequate anesthetization was achieved, the Internal Jugular vein was cannulated under direct ultrasound guidance using an introducer needle on a syringe. Good venous blood return was maintained prior to removal of syringe from introducer needle. Using Seldinger Technique, a guide wire was advanced through the introducer needle without resistance. The introducer needle was removed and visualization of the wire was confirmed to be in the correct vessel prior to dilation. A small incision was made in penetrating fashion at the guide wire insertion site utilizing an 11 blade scalpel. The dilator was advanced to the vessel without resistance. The dilator was exchanged for the triple lumen catheter which was advanced into the vessel without resistance. The guide wire was removed intact from the catheter without issue. Claves were placed on each catheter tip with confirmation of good blood flow from each lumen. Each port was easily flushed with sterile saline. The catheter was placed at 16 cm and sutured in place. BioPatch was applied to the catheter and a sterile Tegaderm dressing was applied over the catheter with careful attention to sterility. Patient tolerated procedure well. No immediate complications were met. Post procedure x-ray was completed, placement was appropriate and no pneumothorax was noted. Images obtained are saved for permanent record Procedural Ultrasound Guidance: YES Procedure Date: Artery AND Vein visualized: Yes Compressible Vein: Yes Guidewire or Short Catheter seen in vein prior to dilation: Yes Images not obtained are saved for permanent record. Coding
[2021-06-08] MEDS ORDERED: PROPOFOL BOLUS FROM BAG IV PRN (15:04)
[2021-06-08] MEDS ORDERED: STAT IV Infusion **Titration per Protocol STA (15:04)
[2021-06-08] MEDS ORDERED: MIDAZOLAM HCL 1 MG/ML 2ML VIAL IV PRN (15:04)
[2021-06-08] MEDS ORDERED: ICU PROTOCOL FOR HYPERGLYCEMIA PRN (15:14)
[2021-06-08] MEDS ORDERED: Nursing to Pharmacy Communication SCH (15:30)
[2021-06-08] MEDS: ICU ELECTROLYTE REPLACEMENT PROTOCOL SCH (18:24)
[2021-06-08] MEDS: TERAZOSIN HCL 5 MG CAP PO SCH (22:23)
[2021-06-09] MEDS: fentaNYL citrate 2,500 MCG/250 ML BAG IV SCH ×2 (01:54→15:39)
[2021-06-09] MEDS ORDERED: STAT IV Infusion **Titration per Protocol STA (02:48)
[2021-06-09] MEDS ORDERED: NOREPINEPHRINE/D5W 8 MG/508 ML IV ONE (02:52)
[2021-06-09] MEDS: NOREPINEPHRINE/D5W 8 MG/508 ML BAG IV SCH (03:15)
[2021-06-09 04:55] LABS: iSTAT Art Bld Gas pCO2 Correct 47 mmHg (35-46); iSTAT Art Bld Gas pH Corrected 7.307 (7.35-7.45); iSTAT Arterial Blood Gas HCO3 23 meg/L (19-24); iSTAT Arterial Blood Gas pCO2 47 mmHg (35-46); iSTAT Arterial Blood Gas pO2 55 mmHg (80-95); iSTAT Arterial Blood Gas pO2 C 54; iSTAT Carbon Dioxide 25 mmol/L (24-31); iSTAT FiO2 50 %; iSTAT Hematocrit 37 % (42-52); iSTAT Hemoglobin 12.6 g/dl (14.0-18.0); iSTAT Potassium 4.7 mmol/L (3.3-5.0); iSTAT Site Art Line; iSTAT Sodium 140 mmol/L (135-144)
[2021-06-09] MEDS: propofoL 1,000 MG/100 ML VIAL IV SCH ×4 (05:45→23:49)
[2021-06-09 07:01] LABS: Hematocrit (blood only) 32.5 % (42-52); Hemoglobin 10.4 g/dL (14.0-18.0); Mean Corpuscular Hemoglobin 28.6 pg (25-34); Mean Corpuscular Volume 89.3 fL (80-100); Platelet Count 198 K/uL (130-400); RDW Coefficient of Variation 15.7 % (11.5-14.5); RDW Standard Deviation 51.5 fL (36.4-46.3); Red Blood Count 3.64 M/uL (4.7-6.1); White Blood Count 5.54 K/uL (4.8-10.8)
[2021-06-09 07:22] LABS: Eosinophils # (auto) 0.01 K/uL (0-0.5); Eosinophils % (auto) 0.2 %; Immature Granulocytes # (auto) 0.14 K/uL (0.00-0.02); Immature Granulocytes % (auto) 2.5 %; Lymphocytes # (auto) 0.28 K/uL (1.2-3.4); Lymphocytes % (auto) 5.1 %; Monocytes # (auto) 0.32 K/uL (0.11-0.59); Monocytes % (auto) 5.8 %; Neutrophils # (auto) 4.79 K/uL (1.4-6.5); Neutrophils % (auto) 86.4 %; Ovalocytes 1+
[2021-06-09 07:27] LABS: BUN Creatinine Ratio 23.5 (10-20); Creatinine Clr Calc Pharmacy 30.3 ml/min; Est GFR (African American) 27.2 ml/min; Est GFR (Non-African American) 23.4 ml/min; Magnesium 1.9 mg/dl (1.7-2.4); Phosphorus 4.7 mg/dl (2.5-4.9); Potassium 4.8 mmol/L (3.5-5.1)
[2021-06-09] MEDS: ICU ELECTROLYTE REPLACEMENT PROTOCOL SCH ×2 (08:09→18:46)
[2021-06-09] MEDS ORDERED: FAMOTIDINE 20MG/5ML IV PUSH IV SCH (09:00)
[2021-06-09] MEDS: APIXABAN 5 MG TABLET PO SCH ×2 (09:04→21:49)
[2021-06-09] MEDS: dexAMETHasone 6 MG in SYRINGE 0 ML IV SCH (09:05)
[2021-06-09] MEDS: DULoxetine HCL 30 MG CAP PO SCH (09:05)
[2021-06-09] MEDS: carvediloL 6.25 MG TAB PO SCH (09:06)
[2021-06-09] MEDS: MAGNESIUM SULFATE / D5W 1 GM/100 ML BAG IV SCH ×2 (09:08→10:47)
--- NOTE | 2021-06-09 09:13 | XRay Report ---
XR chest 1V portable CLINICAL HISTORY: Follow-up airspace opacities.. COMPARISON STUDY: 06/08/2021 TECHNIQUE: 1 view of the chest FINDINGS: Single frontal view of the chest demonstrates the heart size to be enlarged with pacer again noted. C ompared to previous examination, there has been slight interval improvement of bilateral interstitial and alveolar opacities. However, there is increased density in the retrocardiac region which has inc reased. Findings are characteristic of atelectasis/collapse versus more localized pneumonia. There is also blunting of left costophrenic angle characteristic of a pleural effusion as well. There is no e vidence for vascular congestion. There is no acute osseous pathology. IMPRESSION: While there has been slight interval improvement of diffuse interstitial and alveolar opa cities, there is now increased alveolar opacity in retrocardiac region with small left pleural effusi on. The findings are characteristic of atelectasis/collapse versus more focal lobar pneumonia. ACT 112: Negative or not required by law. Electronically signed by: Bennett Lynn M.D. 06/09/2021 9:11 AM
[2021-06-09] MEDS: FAMOTIDINE 20 MG in SYRINGE 3 ML IV SCH (09:25)
[2021-06-09] MEDS: PANCREAZE (LIPASE 10,500U) CAP PO SCH ×2 (09:26→21:00)
--- NOTE | 2021-06-09 10:52 | Critical Care Progress Note ---
Date of Service June 09, 2021 Assessment & Plan (1) ARDS (adult respiratory distress syndrome): (2) COVID-19: (3) Pneumonia: (4) CHF (congestive heart failure): (5) Cardiomyopathy: (6) Kidney transplant recipient: (7) HUSSEIN (acute kidney injury): Plan: Impression: 61-year-old male kidney transplant recipient immunosuppressed with tacrolimus admitted to the hospital 06/03/2021 with COVID-pneumonia. He is fully vaccinated and boosted. He developed progressive respiratory insufficiency with increased work of breathing and he elected to be intubated 06/08/2021. Discussions were held with the patient and family prior to the procedure. He would not want tracheostomy but is agreeable to 7 days mechanical ventilation if he fails to improve at that point time, would proceed with terminal extubation. 24-hour events: See comments above Recommendations: 1. Neurologic: Currently sedated with fentanyl, propofol, and Versed. Continue sedation for now pending improvement in the patient's respiratory mechanics. He had no neurological deficits prior to being intubated. Continue home Cymbalta 2. Cardiovascular: The patient's required initiation of low-dose norepinephrine. This likely is secondary to underlying sedative medications. Continue to wean as tolerated. Patient is fully anticoagulated with Eliquis due to prior history of A. fib. He is in sinus currently. Given that the patient is currently on norepinephrine we will hold his Coreg for now 3. Pulmonary: ARDS secondary to COVID pneumonitis. Current vent settings assist-control: 22/380/10/0 0.5 with a plateau of 23. Last blood gas 7.3/47/55 with a P/F 110 with poor compliance. Tolerate permissive hypercapnia in an effort to try and avoid additional barotrauma/volume trauma. Defend PAO2 55. Continue dexamethasone at 6 mg a day. His oxygenation is adequate and do not think he needs to pursue proning or neuromuscular blockade currently. I am concerned about additional immunosuppression given his current dose of tacrolimus with higher doses. Respiratory culture has shown no growth to date. Chest x-ray looks better today and the rapid improvement may favor a component of hydrostatic pulmonary edema. Would recommend diuresis however given the patient's kidney issues will defer to nephrology. If the patient fails to improve after 7 days, extubation to comfort care as per previous discussion with patient and family 4. GI: We will consult nutrition for initiation of tube feedings. GI prophylaxis in place. Continue the patient's home pancreatic enzyme replacement 5. Renal: History of kidney transplant. Will defer management of the patient's immunosuppression to nephrology. Currently on tacrolimus. Electrolyte replacement per nephrology 6. ID: COVID-pneumonia. Continue dexamethasone 6 mg a day for total of 10days. I think the risk of significant infectious complications with higher doses of steroids or additional immune suppression would outweigh any potential benefit so we will hold off for now. WBC normal and no fevers. Cultures negative to date. Cont to follow. 7. Endocrine: Glycemic control per ICU protocol. 8. Heme-onc: Mild anemia. Likely secondary to underlying kidney disease. No evidence of acute blood loss. No indication for transfusion currently. DVT prophylaxis addressed with the patient's full anticoagulation from Eliquis. Patient is critically ill with multiorgan system dysfunction at this point time. There is significant possibility of clinical deterioration and/or . A total of 50 min CC time spent in evaluation and management of patient. discussed with bedside clay grinder and RT. Admission and Anticipated Discharge Date Admission Date: June 03, 2021 Subjective Intubated and sedated Review of Systems Review of Systems: Unobtainable due to endotracheal tube Physical Exam Constitutional: Intubated sedated on the mechanical ventilator Eyes: Pupils reactive bilaterally Neck: trachea midline, no thyromegaly Respiratory: Coarse breath sounds bilaterally. Few crackles. Cardiovascular: RRR, no murmur, no edema Gastrointestinal (Abdomen): normal bowel sounds, soft, nontender, no hepatosplenomegaly Musculoskeletal: Extremities: extremities normal to inspection Skin: no rashes, warm and dry Neurologic: Sedated Lymphatic: no cervical lymphadenopathy Results & Data Results & Data ([facility]) Vital Signs (Past 12 Hours) Vital Signs Temp Pulse Resp BP Pulse Ox 06/09/21 09:00 36.8 C 50 L 22 92/59 L 94 06/09/21 08:30 36.9 C 48 L 20 96/55 L 93 06/09/21 08:00 36.9 C 49 L 22 93/56 L 93 06/09/21 07:00 37.0 C 53 L 18 105/64 96 06/09/21 06:30 37.0 C 51 L 22 107/61 96 06/09/21 06:00 37.0 C 56 L 22 106/60 96 06/09/21 05:30 37.0 C 49 L 22 100/65 96 06/09/21 05:00 36.9 C 51 L 22 99/61 L 95 06/09/21 04:30 36.8 C 58 L 22 103/59 L 91 06/09/21 04:00 36.5 C 56 L 22 100/65 90 06/09/21 03:48 52 L 23 91 06/09/21 03:30 36.2 C L 54 L 22 109/64 88 L 06/09/21 03:10 36.0 C L 54 L 22 95/49 L 86 L 06/09/21 03:00 35.9 C L 64 22 165/98 H 91 06/09/21 02:57 35.9 C L 95 H 22 160/109 H 96 06/09/21 02:40 35.8 C L 43 L 22 94/52 L 89 L 06/09/21 02:37 35.7 C L 42 L 22 100/59 L 88 L 06/09/21 02:00 35.5 C L 42 L 22 108/54 L 91 06/09/21 01:01 35.5 C L 40 L 22 112/53 L 92 06/09/21 00:00 35.7 C L 52 L 22 113/50 L 91 06/08/21 23:00 35.8 C L 40 L 22 106/60 92 06/08/21 22:49 42 L 22 92 Critical Care Results & Data Vital Signs (Past 12 Hours) Vital Signs Temp Pulse Resp BP Pulse Ox 06/09/21 09:00 36.8 C 50 L 22 92/59 L 94 06/09/21 08:30 36.9 C 48 L 20 96/55 L 93 06/09/21 08:00 36.9 C 49 L 22 93/56 L 93 06/09/21 07:00 37.0 C 53 L 18 105/64 96 06/09/21 06:30 37.0 C 51 L 22 107/61 96 06/09/21 06:00 37.0 C 56 L 22 106/60 96 06/09/21 05:30 37.0 C 49 L 22 100/65 96 06/09/21 05:00 36.9 C 51 L 22 99/61 L 95 06/09/21 04:30 36.8 C 58 L 22 103/59 L 91 06/09/21 04:00 36.5 C 56 L 22 100/65 90 06/09/21 03:48 52 L 23 91 06/09/21 03:30 36.2 C L 54 L 22 109/64 88 L 06/09/21 03:10 36.0 C L 54 L 22 95/49 L 86 L 06/09/21 03:00 35.9 C L 64 22 165/98 H 91 06/09/21 02:57 35.9 C L 95 H 22 160/109 H 96 06/09/21 02:40 35.8 C L 43 L 22 94/52 L 89 L 06/09/21 02:37 35.7 C L 42 L 22 100/59 L 88 L 06/09/21 02:00 35.5 C L 42 L 22 108/54 L 91 06/09/21 01:01 35.5 C L 40 L 22 112/53 L 92 06/09/21 00:00 35.7 C L 52 L 22 113/50 L 91 06/08/21 23:00 35.8 C L 40 L 22 106/60 92 06/08/21 22:49 42 L 22 92 Lab & Micro Results (Past 24 Hours) RBC 3.64 M/uL (4.7-6.1) L 06/09/21 WBC 5.54 K/uL (4.8-10.8) 06/09/21 Hgb 10.4 g/dL (14.0-18.0) L 06/09/21 Hct 32.5 % (42-52) L 06/09/21 MCV 89.3 fL (80-100) 06/09/21 MCH 28.6 pg (25-34) 06/09/21 MCHC 32.0 g/dL (32-36) 06/09/21 RDW Standard Deviation 51.5 fL (36.4-46.3) H 06/09/21 RDW Coefficient of Variation 15.7 % (11.5-14.5) H 06/09/21 Plt Count 198 K/uL (130-400) 06/09/21 MPV 11.0 fL (7.4-10.4) H 06/09/21 Neutrophils (%) (Auto) 86.4 % 06/09/21 Lymphocytes (%) (Auto) 5.1 % 06/09/21 Monocytes # (Auto) 0.32 K/uL (0.11-0.59) 06/09/21 Eosinophils # (Auto) 0.01 K/uL (0-0.5) 06/09/21 Immature Granulocyte % (Auto) 2.5 % 06/09/21 Neutrophils # (Auto) 4.79 K/uL (1.4-6.5) 06/09/21 Lymphocytes # (Auto) 0.28 K/uL (1.2-3.4) L 06/09/21 Monocytes # (Auto) 0.32 K/uL (0.11-0.59) 06/09/21 Eosinophils # (Auto) 0.01 K/uL (0-0.5) 06/09/21 Basophils # (Auto) 0.00 K/uL (0-0.2) 06/09/21 Immature Granulocyte # (Auto) 0.14 K/uL (0.00-0.02) H 06/09/21 Ovalocytes 1+ 06/09/21 Na 142 mmol/L (136-145) 06/09/21 K 4.8 mmol/L (3.5-5.1) 06/09/21 Cl 111 mmol/L (98-107) H 06/09/21 CO2 24 mmol/L (21-32) 06/09/21 Anion Gap 7 (3-11) 06/09/21 BUN 65 mg/dl (6-23) H 06/09/21 Creatinine 2.77 mg/dl (0.6-1.4) H 06/09/21 Estimated GFR ( Amer) 27.2 ml/min 06/09/21 Estimated GFR (Non-Af Amer) 23.4 ml/min 06/09/21 BUN/Creatinine Ratio 23.5 (10-20) H 06/09/21 Glu 134 mg/dl (70-99) H 06/09/21 Ca 9.0 mg/dl (8.5-10.1) 06/09/21 Phosphorus Level 4.7 mg/dl (2.5-4.9) 06/09/21 Mg 1.9 mg/dl (1.7-2.4) 06/09/21 06:17 06/09/21 Calcium Level 9.0 mg/dl (8.5-10.1) 06/09/21 06:17 06/09/21 See Test NA 06/09/21 04:40 06/09/21 Microbiology 06/03/21 16:51 Aerobic Blood Culture - Final Blood No growth in Aerobic bottle after 5 days. Anaerobic Blood Culture - Final No growth in Anaerobic bottle after 5 days. 06/03/21 16:39 Aerobic Blood Culture - Final Blood No growth in Aerobic bottle after 5 days. Anaerobic Blood Culture - Final No growth in Anaerobic bottle after 5 days. 06/08/21 Unknown Gram Stain - Final Sputum,Vent Suction Diagnostic Findings (Past 24 Hours) Chest X-Ray 06/08/21 13:37 XR chest 1V portable CLINICAL HISTORY: intubation/line placement COMPARISON STUDY: Chest CT May 04, 2021 chest radiograph June 08, 2021 at 9:22 AM. FINDINGS: Tip of endotracheal tube is within the proximal right mainstem bronchus. Tube should be withdrawn 3 cm. Tip of nasogastric tube is below the lower aspect of this image but at least within the body of the stomach. There is no pneumothorax following placement of a right internal jugular central line. Tip of catheter projects over the cavoatrial junction. Cardiomegaly is again noted. There is a small left pleural effusion, unchanged. Bilateral airspace opacities are again noted. IMPRESSION: 1. Tip of endotracheal tube within the proximal right mainstem bronchus. The tube should be withdrawn 3 cm. This finding will be called/faxed to the ordering provider at time of dictation. 2. No pneumothorax following placement of a right internal jugular central line. 3. Persistent bilateral airspace opacities suggestive of pneumonia. ACT 112: Negative or not required by law. Electronically signed by: Hussein Garvin M.D. 06/08/2021 2:13 PM Chest X-Ray 06/09/21 06:00 XR chest 1V portable CLINICAL HISTORY: Follow-up airspace opacities.. COMPARISON STUDY: 06/08/2021 TECHNIQUE: 1 view of the chest FINDINGS: Single frontal view of the chest demonstrates the heart size to be enlarged with pacer again noted. Compared to previous examination, there has been slight interval improvement of bilateral interstitial and alveolar opacities. However, there is increased density in the retrocardiac region which has increased. Findings are characteristic of atelectasis/collapse versus more localized pneumonia. There is also blunting of left costophrenic angle characteristic of a pleural effusion as well. There is no evidence for vascular congestion. There is no acute osseous pathology. IMPRESSION: While there has been slight interval improvement of diffuse interstitial and alveolar opacities, there is now increased alveolar opacity in retrocardiac region with small left pleural effusion. The findings are characteristic of atelectasis/collapse versus more focal lobar pneumonia. ACT 112: Negative or not required by law. Electronically signed by: Bennett Lynn M.D. 06/09/2021 9:11 AM I & O Totals 24 Hours 06/08/21 06/09/21 06/10/21 06:59 06:59 06:59 Intake Total 472.5 / 472.5 704.225 / 704.225 Output Total 1000 / 1000 1150 / 1150 Balance -527.5 / -527.5 -445.775 / -445.775 Cumulative 06/03/21 16:13 thru 06/09/21 08:52 Intake Total 2496.725 Output Total 5130 Balance -2633.275 RT Ventilator Mngmt (Last Documented) Ventilator Ordered Settings Ventilator Support Mode Assist Control 06/09/21 08:00 Respiratory Rate 22 06/09/21 09:00 Ventilator Tidal Volume 380 06/09/21 08:00 Setting Minute Ventilation 817 06/09/21 03:48 Positive End Expiratory 10 06/09/21 08:00 Pressure Fraction of Inspired Oxygen 50 06/09/21 09:00 Machine Comment FiO2 increased by RN due to desat 06/09/21 03:48 to 84%. PEEP further increased by RT Ventilator - PT Measurements Respiratory Rate 22 Exhaled Tidal Volume 382 Minute Ventilation 817 Peak Inspiratory Airway 25 Pressure Plateau Pressure 23.5 Respiratory Cycle Inspiratory: 1:3.2 Expiratory Ratio Inspiratory Phase Time 0.65 End-Tidal CO2 31 Static Lung Compliance 28.30 Dynamic Lung Compliance 25.47 Normal Static Lung Compliance 47.00 Coding Level of Care Code Critical Care 1st 30-74 mins Diagnoses ARDS (adult respiratory distress syndrome) J80 COVID-19 U07.1 Pneumonia J18.9 Laterality: bilateral Lung location: unspecified part of lung Pneumonia type: due to unspecified organism CHF (congestive heart failure) I50.9 Cardiomyopathy I42.9 Kidney transplant recipient Z94.0 HUSSEIN (acute kidney injury) N17.9 Time Spent (min) 50 (1) Pneumonia Laterality: bilateral Lung location: unspecified part of lung Pneumonia type: due to unspecified organism Qualified Code(s): J18.9 - Pneumonia, unspecified organism
[2021-06-09] MEDS: PEPTAMEN INTENSE VHP 1.0 CAL 1,000 ML BAG OG SCH (12:44)
[2021-06-09] MEDS: TUBE FEEDING WATER FLUSH GT SCH ×4 (12:45→23:43)
--- NOTE | 2021-06-09 12:59 | Nephrology Progress Note ---
Date of Service June 09, 2021 Assessment & Plan (1) HUSSEIN (acute kidney injury): Plan: Chronic allograft dysfunction with superimposed ATN. Unfortunately progressive allograft dysfunction noted. Thankfully no emergent indication for dialysis. Electrolytes normal. Non-oliguric. Remains in a negative fluid balance without diuretics. Additional diuretics held today pending monitoring. Volume status reasonable. Medications appropriate for kidney dysfunction. Electrolytes acceptable. Noted that IV magnesium replacement is being provided. (2) Kidney transplant recipient: Plan: Remains on low dose twice weekly tacrolimus. No change to therapy at this time. Due to COVID pneumonia and VDRF prognosis is unfortunately guarded. (3) Hypertension: (4) Pneumonia due to COVID-19 virus: Plan: Goals of care reviewed. Plan of care reviewed with ICU team and Dr. Irwin. Admission and Anticipated Discharge Date Admission Date: June 03, 2021 Subjective Intubated and sedated. s/p Elective intubation yesterday. Goals of care reviewed. ICU team management reviewed. Plan of care discussed with ICU team and Dr. Irwin this morning. Review of Systems Review of Systems: Unobtainable due to endotracheal tube Physical Exam Constitutional: well developed, + ill appearing and + thin Eyes: no scleral abnormality and no corneal abnormality ENMT: ETT Neck: normal visual inspection and trachea midline Respiratory: symmetric chest movement Auscultation: lungs clear to auscul tation bilaterally Cardiovascular: Rate/Rhythm: regular rate Heart Sounds: normal S1 and normal S2 Extremities: no edema Musculoskeletal: Extremities: no cyanosis and no clubbing Skin: normal turgor; no lesions Neurologic: Motor/Sensory: no tremor and no asterixis Psychiatric: Orientation: alert and oriented x 3 Results & Data ([facility]) Vital Signs (Past 12 Hours) Vital Signs Temp Pulse Resp BP Pulse Ox 06/09/21 11:00 36.6 C 48 L 21 106/63 94 06/09/21 10:00 36.7 C 50 L 20 94/57 L 94 06/09/21 09:00 36.8 C 50 L 22 92/59 L 94 06/09/21 08:30 36.9 C 48 L 20 96/55 L 93 06/09/21 08:00 36.9 C 49 L 22 93/56 L 93 06/09/21 07:00 37.0 C 53 L 18 105/64 96 06/09/21 06:30 37.0 C 51 L 22 107/61 96 06/09/21 06:00 37.0 C 56 L 22 106/60 96 06/09/21 05:30 37.0 C 49 L 22 100/65 96 06/09/21 05:00 36.9 C 51 L 22 99/61 L 95 06/09/21 04:30 36.8 C 58 L 22 103/59 L 91 06/09/21 04:00 36.5 C 56 L 22 100/65 90 06/09/21 03:48 52 L 23 91 06/09/21 03:30 36.2 C L 54 L 22 109/64 88 L 06/09/21 03:10 36.0 C L 54 L 22 95/49 L 86 L 06/09/21 03:00 35.9 C L 64 22 165/98 H 91 06/09/21 02:57 35.9 C L 95 H 22 160/109 H 96 06/09/21 02:40 35.8 C L 43 L 22 94/52 L 89 L 06/09/21 02:37 35.7 C L 42 L 22 100/59 L 88 L 06/09/21 02:00 35.5 C L 42 L 22 108/54 L 91 06/09/21 01:01 35.5 C L 40 L 22 112/53 L 92 Laboratory Results Laboratory Results - last 24 hr 06/08/21 06/08/21 06/08/21 18:00 18:34 23:53 WBC RBC Hgb POC Hgb Hct POC Hct MCV MCH MCHC RDW Std Deviation RDW Coeff of P[place]am Plt Count MPV Immature Gran % (Auto) Neut % (Auto) Lymph % (Auto) [place] % (Auto) Eos % (Auto) Baso % (Auto) Neut # (Auto) Lymph # (Auto) [place] # (Auto) Eos # (Auto) Baso # (Auto) Immature Gran # (Auto) Ovalocytes Sample Site POC pH POC pCO2 POC pO2 POC HCO3 POC Total CO2 POC Base Excess ABG pH (Temp Correct) ABG pCO2 (Temp Corrct POC ABG pO2 at Pt Temp POC ABG O2 Sat See Test O2 Delivery Device POC O2 Rate POC FiO2 Tidal Volume PEEP POC Sodium Sodium POC Potassium Potassium Chloride Carbon Dioxide Anion Gap BUN Creatinine Est Cr Clr Drug Dosing Est GFR ( Amer) Est GFR (Non-Af Amer) BUN/Creatinine Ratio Glucose POC Glucose 141 H 141 H Calcium Phosphorus Magnesium Nasal Screen MRSA (PCR) Uninterpretable 06/09/21 06/09/21 06/09/21 04:40 06:03 06:17 WBC 5.54 RBC 3.64 L Hgb 10.4 L POC Hgb 12.6 L Hct 32.5 L POC Hct 37 L MCV 89.3 MCH 28.6 MCHC 32.0 RDW Std Deviation 51.5 H RDW Coeff of [place]am 15.7 H Plt Count 198 MPV 11.0 H Immature Gran % (Auto) 2.5 Neut % (Auto) 86.4 Lymph % (Auto) 5.1 [place] % (Auto) 5.8 Eos % (Auto) 0.2 Baso % (Auto) 0.0 Neut # (Auto) 4.79 Lymph # (Auto) 0.28 L [place] # (Auto) 0.32 Eos # (Auto) 0.01 Baso # (Auto) 0.00 Immature Gran # (Auto) 0.14 H Ovalocytes 1+ Sample Site Art Line POC pH 7.30 L POC pCO2 47 H POC pO2 55 L POC HCO3 23 POC Total CO2 25 POC Base Excess -3.0 ABG pH (Temp Correct) 7.307 L ABG pCO2 (Temp Corrct 47 H POC ABG pO2 at Pt Temp 54 POC ABG O2 Sat 85.0 L See Test NA O2 Delivery Device Ventilator POC O2 Rate 22 POC FiO2 50 Tidal Volume 380 PEEP 10 POC Sodium 140 Sodium POC Potassium 4.7 Potassium Chloride Carbon Dioxide Anion Gap BUN Creatinine Est Cr Clr Drug Dosing Est GFR ( Amer) Est GFR (Non-Af Amer) BUN/Creatinine Ratio Glucose POC Glucose 127 H Calcium Phosphorus Magnesium Nasal Screen MRSA (PCR) 06/09/21 06/09/21 06:17 11:55 WBC RBC Hgb POC Hgb Hct POC Hct MCV MCH MCHC RDW Std Deviation RDW Coeff of [place]am Plt Count MPV Immature Gran % (Auto) Neut % (Auto) Lymph % (Auto) [place] % (Auto) Eos % (Auto) Baso % (Auto) Neut # (Auto) Lymph # (Auto) [place] # (Auto) Eos # (Auto) Baso # (Auto) Immature Gran # (Auto) Ovalocytes Sample Site POC pH POC pCO2 POC pO2 POC HCO3 POC Total CO2 POC Base Excess ABG pH (Temp Correct) ABG pCO2 (Temp Corrct POC ABG pO2 at Pt Temp POC ABG O2 Sat See Test O2 Delivery Device POC O2 Rate POC FiO2 Tidal Volume PEEP POC Sodium Sodium 142 POC Potassium Potassium 4.8 Chloride 111 H Carbon Dioxide 24 Anion Gap 7 BUN 65 H Creatinine 2.77 H Est Cr Clr Drug Dosing 30.3 Est GFR ( Amer) 27.2 Est GFR (Non-Af Amer) 23.4 BUN/Creatinine Ratio 23.5 H Glucose 134 H POC Glucose 163 H Calcium 9.0 Phosphorus 4.7 D Magnesium 1.9 Nasal Screen MRSA (PCR) PG Care Time/CCT Total # of Minutes Spent Total Time Spent with Patient: Total time spent is greater than 50% in coordination of care (as documented) at patient's floor/unit and/or counseling patient: Coding Level of Care Code 75164 Subseq Hosp Care Lvl 3 Diagnoses HUSSEIN (acute kidney injury) N17.9 Kidney transplant recipient Z94.0 Hypertension I10 Pneumonia due to COVID-19 virus U07.1; J12.82
--- NOTE | 2021-06-09 14:55 | Hospitalist Progress Note ---
Date of Service June 09, 2021 Assessment & Plan (1) Pneumonia due to COVID-19 virus: Plan: Vaccinated and Boosted (last dose in February) First symptoms: May 24, 2021 Fist positive test: 06/03/2020 O2 requirement on admission: 15LPM O2 non-rebreather, O2 sats 71% on room air initially on dexamethasone 6mg IV daily 20mg IV daily x 5 days then 10mg IV daily x 5 days, started this on 06/08/21 06/08/21: requiring 60L 100% FiO2 with oxymask and then he agreed to wear CPAP required CPAP and then later in afternoon was intubated clear that he does not want terminal carman intubation/ventilation, goal is to be weaned off in 7 days (2) Acute respiratory failure with hypoxia: Plan: progressed from High Flow to needing CPAP 8 and FiO2 100% working hard to breathe he elected to be intubated on 06/08/21 transferred to ICU status PEEP 8 with FiO2 50% (3) Afib: Plan: Anticoagulation with Eliquis Rate controlled with carvedilol 6.25mg PO BID with hold parameters will need medications via OG tube (4) Kidney transplant recipient: Plan: Continue his usual tacrolimus dosing Consult nephrology, they are following Cr is 2.7 this morning, gave him Lasix 40mg IV on 06/07 and 06/08 check BMP in morning (5) Hypertension: Plan: hypotensive now, on Levophed (6) CHF (congestive heart failure): Plan: euvolemic Plan: VTE Prophylaxis - continue Eliquis Diet - low sodium Disposition - move to ICU status Admission and Anticipated Discharge Date Admission Date: June 03, 2021 Subjective patient sedated on ventilator he is on PEEP 8 with FiO2 50%, saturations stable requiring some Levophed for low BP Cr is 2.7 after Lasix yesterday, K Mag and Phos normal Review of Systems Review of Systems: Unobtainable due to endotracheal tube Physical Exam Physical Exam: General: well developed, ill appearing, thin male, mechanically ventilated Neck: supple, trachea midline, normal thyroid Lungs: on ventilator, lungs clear Heart: regular S1 and S2, no murmur, peripheral pulses normal, capillary refill normal, no edema Abdomen: soft, NT, ND, + BS, no hepatomegaly, normal to percussion Extremities: normal in appearance, no cyanosis, no petechiae, strength is 5/5 bilaterally Neuro: sedated, no focal motor deficits, CN II-XII intact Skin: warm, dry, no rash, normal turgor Psych: sedated Results & Data Results & Data ([facility]) Vital Signs (Past 12 Hours) Vital Signs Temp Pulse Resp BP Pulse Ox 06/09/21 13:00 36.6 C 47 L 22 98/61 L 96 06/09/21 12:00 36.5 C 48 L 22 103/63 95 06/09/21 11:30 36.5 C 48 L 20 104/65 94 06/09/21 11:00 36.6 C 48 L 21 106/63 94 06/09/21 10:00 36.7 C 50 L 20 94/57 L 94 06/09/21 09:00 36.8 C 50 L 22 92/59 L 94 06/09/21 08:30 36.9 C 48 L 20 96/55 L 93 06/09/21 08:00 36.9 C 49 L 22 93/56 L 93 06/09/21 07:00 37.0 C 53 L 18 105/64 96 06/09/21 06:30 37.0 C 51 L 22 107/61 96 06/09/21 06:00 37.0 C 56 L 22 106/60 96 06/09/21 05:30 37.0 C 49 L 22 100/65 96 06/09/21 05:00 36.9 C 51 L 22 99/61 L 95 06/09/21 04:30 36.8 C 58 L 22 103/59 L 91 06/09/21 04:00 36.5 C 56 L 22 100/65 90 06/09/21 03:48 52 L 23 91 06/09/21 03:30 36.2 C L 54 L 22 109/64 88 L 06/09/21 03:10 36.0 C L 54 L 22 95/49 L 86 L 06/09/21 03:00 35.9 C L 64 22 165/98 H 91 06/09/21 02:57 35.9 C L 95 H 22 160/109 H 96 Laboratory Results Laboratory Results - last 24 hr 06/08/21 06/08/21 06/08/21 18:00 18:34 23:53 WBC RBC Hgb POC Hgb Hct POC Hct MCV MCH MCHC RDW Std Deviation RDW Coeff of Poonam Plt Count MPV Immature Gran % (Auto) Neut % (Auto) Lymph % (Auto) [place] % (Auto) Eos % (Auto) Baso % (Auto) Neut # (Auto) Lymph # (Auto) [place] # (Auto) Eos # (Auto) Baso # (Auto) Immature Gran # (Auto) Ovalocytes Sample Site POC pH POC pCO2 POC pO2 POC HCO3 POC Total CO2 POC Base Excess ABG pH (Temp Correct) ABG pCO2 (Temp Corrct POC ABG pO2 at Pt Temp POC ABG O2 Sat See Test O2 Delivery Device POC O2 Rate POC FiO2 Tidal Volume PEEP POC Sodium Sodium POC Potassium Potassium Chloride Carbon Dioxide Anion Gap BUN Creatinine Est Cr Clr Drug Dosing Est GFR ( Amer) Est GFR (Non-Af Amer) BUN/Creatinine Ratio Glucose POC Glucose 141 H 141 H Calcium Phosphorus Magnesium Nasal Screen MRSA (PCR) Uninterpretable 06/09/21 06/09/21 06/09/21 04:40 06:03 06:17 WBC 5.54 RBC 3.64 L Hgb 10.4 L POC Hgb 12.6 L Hct 32.5 L POC Hct 37 L MCV 89.3 MCH 28.6 MCHC 32.0 RDW Std Deviation 51.5 H RDW Coeff of Poonam 15.7 H Plt Count 198 MPV 11.0 H Immature Gran % (Auto) 2.5 Neut % (Auto) 86.4 Lymph % (Auto) 5.1 [place] % (Auto) 5.8 Eos % (Auto) 0.2 Baso % (Auto) 0.0 Neut # (Auto) 4.79 Lymph # (Auto) 0.28 L [place] # (Auto) 0.32 Eos # (Auto) 0.01 Baso # (Auto) 0.00 Immature Gran # (Auto) 0.14 H Ovalocytes 1+ Sample Site Art Line POC pH 7.30 L POC pCO2 47 H POC pO2 55 L POC HCO3 23 POC Total CO2 25 POC Base Excess -3.0 ABG pH (Temp Correct) 7.307 L ABG pCO2 (Temp Corrct 47 H POC ABG pO2 at Pt Temp 54 POC ABG O2 Sat 85.0 L See Test NA O2 Delivery Device Ventilator POC O2 Rate 22 POC FiO2 50 Tidal Volume 380 PEEP 10 POC Sodium 140 Sodium POC Potassium 4.7 Potassium Chloride Carbon Dioxide Anion Gap BUN Creatinine Est Cr Clr Drug Dosing Est GFR ( Amer) Est GFR (Non-Af Amer) BUN/Creatinine Ratio Glucose POC Glucose 127 H Calcium Phosphorus Magnesium Nasal Screen MRSA (PCR) 06/09/21 06/09/21 06:17 11:55 WBC RBC Hgb POC Hgb Hct POC Hct MCV MCH MCHC RDW Std Deviation RDW Coeff of Poonam Plt Count MPV Immature Gran % (Auto) Neut % (Auto) Lymph % (Auto) [place] % (Auto) Eos % (Auto) Baso % (Auto) Neut # (Auto) Lymph # (Auto) [place] # (Auto) Eos # (Auto) Baso # (Auto) Immature Gran # (Auto) Ovalocytes Sample Site POC pH POC pCO2 POC pO2 POC HCO3 POC Total CO2 POC Base Excess ABG pH (Temp Correct) ABG pCO2 (Temp Corrct POC ABG pO2 at Pt Temp POC ABG O2 Sat See Test O2 Delivery Device POC O2 Rate POC FiO2 Tidal Volume PEEP POC Sodium Sodium 142 POC Potassium Potassium 4.8 Chloride 111 H Carbon Dioxide 24 Anion Gap 7 BUN 65 H Creatinine 2.77 H Est Cr Clr Drug Dosing 30.3 Est GFR ( Amer) 27.2 Est GFR (Non-Af Amer) 23.4 BUN/Creatinine Ratio 23.5 H Glucose 134 H POC Glucose 163 H Calcium 9.0 Phosphorus 4.7 D Magnesium 1.9 Nasal Screen MRSA (PCR) Medications Administered Current Inpatient Medications Acetaminophen (Acetaminophen 325 Mg Tab) 650 mg PO Q4H PRN PRN Reason: Pain or Fever Stop: 07/04/21 00:49 Last Admin: 06/08/21 08:41 Dose: 650 mg Documented by: Lipase/Protease/Amylase (Pancreaze (Lipase 10,500u) Cap) 4 cap PO BID KYREE Stop: 07/04/21 08:59 Last Admin: 06/09/21 09:26 Dose: Not Given Documented by: Apixaban (Apixaban 5 Mg Tablet) 5 mg PO BID KYREE Stop: 07/04/21 00:49 Last Admin: 06/09/21 09:04 Dose: 5 mg Documented by: Duloxetine HCl (Duloxetine Hcl 30 Mg Cap) 30 mg PO DAILY KYREE Stop: 07/04/21 08:59 Last Admin: 06/09/21 09:05 Dose: 30 mg Documented by: Fentanyl Citrate (Fentanyl Bolus From Bag) 50 mcg IV Q60M PRN PRN Reason: Pain or Agitation Stop: 06/22/21 15:03 Propofol (Diprivan) 1,000 mg in 100 mls @ 16.542 mls/hr IV .Q6H3M [facility]; Protocol Stop: 06/11/21 15:14 Last Admin: 06/09/21 10:47 Dose: 30 mcg/kg/min, 16.5 mls/hr Documented by: Fentanyl Citrate (Fentanyl Citrate) 2,500 mcg in 250 mls @ 20 mls/hr IV .[id number] [facility]; Protocol Stop: 06/22/21 15:14 Last Titration: 06/09/21 06:58 Dose: 200 mcg/hr, 20 mls/hr Documented by: Famotidine 20 mg/ Syringe 5 mls @ 2.5 mls/min IV DAILY [facility] Stop: 07/09/21 08:59 Last Admin: 06/09/21 09:25 Dose: 2.5 mls/min Documented by: Dexamethasone 6 mg/ Syringe 1.5 mls @ 1 mls/min IV DAILY [facility] Stop: 06/14/21 08:59 Last Admin: 06/09/21 09:05 Dose: 1 mls/min Documented by: Norepinephrine Bitartrate (Levophed/D5w) 8 mg in 508 mls @ 17.507 mls/hr IV .Q24H [facility]; Protocol Stop: 07/09/21 02:59 Last Titration: 06/09/21 06:58 Dose: 0.05 mcg/kg/min, 17.5 mls/hr Documented by: Midazolam HCl (Midazolam Hcl 1 Mg/Ml 2ml Vial) 2 mg IV Q2H PRN PRN Reason: RASS goal -3 Stop: 07/08/21 15:03 Miscellaneous (Icu Protocol For Hyperglycemia) 1 ea N/A PRN PRN; Protocol PRN Reason: Hyperglycemia Protocol Stop: 06/10/21 15:13 Miscellaneous (Icu Electrolyte Replacement Protocol) 1 ea N/A BID@,18 [facility]; Protocol Stop: 06/15/21 17:59 Last Admin: 06/09/21 08:09 Dose: 1 ea Documented by: Nutritional Formula (Peptamen Intense Vhp 1.0 Aaorn 1,000 Ml Bag) 1,000 ml OG CONT KYREE; Protocol Stop: 07/09/21 10:59 Last Admin: 06/09/21 12:44 Dose: 1,000 ml Documented by: Pantoprazole Sodium (Pantoprazole 40 Mg Tab) 40 mg PO DAILY [facility] Stop: 07/04/21 08:59 Last Admin: 06/08/21 08:44 Dose: 40 mg Documented by: Potassium Chloride (Potassium Chloride Crtab 20 Meq Tabcr) 20 meq PO DAILY [facility] Stop: 07/04/21 08:59 Last Admin: 06/08/21 08:44 Dose: 20 meq Documented by: Propofol (Propofol Bolus From Bag) 20 mg IV Q5M PRN PRN Reason: Sedation Stop: 06/11/21 15:03 Last Admin: 06/09/21 03:00 Dose: 20 mg Documented by: Sterile Water (Tube Feeding Water Flush) 30 ml GT Q4H [facility] Stop: 07/09/21 10:59 Last Admin: 06/09/21 12:45 Dose: 30 ml Documented by: Tacrolimus (Tacrolimus 1 Mg Cap) 3 mg PO MoTh@0900 [facility] Stop: 07/06/21 08:59 Last Admin: 06/06/21 10:09 Dose: 3 mg Documented by: Voriconazole (Voriconazole 200 Mg Tablet) 200 mg PO BID [facility] Stop: 06/16/21 20:59 PG Care Time/CCT Total # of Minutes Spent Total Time Spent with Patient: Total time spent is greater than 50% in coordination of care (as documented) at patient's floor/unit and/or counseling patient: Coding Level of Care Code 78944 Subseq Hosp Care Lvl 3 Diagnoses Pneumonia due to COVID-19 virus U07.1; J12.82 Acute respiratory failure with hypoxia J96.01 Afib I48.91 Kidney transplant recipient Z94.0 Hypertension I10 CHF (congestive heart failure) I50.9
[2021-06-09] MEDS: VORICONAZOLE 200 MG TABLET PO SCH (21:50)
[2021-06-10] MEDS: TUBE FEEDING WATER FLUSH GT SCH ×6 (04:15→23:41)
[2021-06-10] MEDS: NOREPINEPHRINE/D5W 8 MG/508 ML BAG IV SCH (04:15)
[2021-06-10] MEDS: fentaNYL citrate 2,500 MCG/250 ML BAG IV SCH ×2 (04:15→18:02)
[2021-06-10 04:42] LABS: iSTAT Art Bld Gas pCO2 Correct 42 mmHg (35-46); iSTAT Art Bld Gas pH Corrected 7.339 (7.35-7.45); iSTAT Arterial Blood Gas HCO3 22 meg/L (19-24); iSTAT Arterial Blood Gas pCO2 42 mmHg (35-46); iSTAT Arterial Blood Gas pH 7.34 (7.35-7.45); iSTAT Arterial Blood Gas pO2 55 mmHg (80-95); iSTAT Arterial Blood Gas pO2 C 55; iSTAT Carbon Dioxide 24 mmol/L (24-31); iSTAT FiO2 35 %; iSTAT Hematocrit 29 % (42-52); iSTAT Hemoglobin 9.9 g/dl (14.0-18.0); iSTAT Potassium 4.6 mmol/L (3.3-5.0); iSTAT Site Art Line; iSTAT Sodium 137 mmol/L (135-144)
[2021-06-10 05:46] LABS: Hematocrit (blood only) 33.2 % (42-52); Hemoglobin 10.7 g/dL (14.0-18.0); Mean Corpuscular Hemoglobin 28.6 pg (25-34); Mean Corpuscular Hgb Conc 32.2 g/dL (32-36); Mean Corpuscular Volume 88.8 fL (80-100); Mean Platelet Volume 11.2 fL (7.4-10.4); Platelet Count 210 K/uL (130-400); RDW Coefficient of Variation 15.6 % (11.5-14.5); RDW Standard Deviation 50.6 fL (36.4-46.3); Red Blood Count 3.74 M/uL (4.7-6.1); White Blood Count 6.32 K/uL (4.8-10.8)
[2021-06-10 06:05] LABS: BUN Creatinine Ratio 26.4 (10-20); Calcium 8.7 mg/dl (8.5-10.1); Creatinine Clr Calc Pharmacy 28.5 ml/min; Est GFR (African American) 25.2 ml/min; Est GFR (Non-African American) 21.7 ml/min; Magnesium 2.5 mg/dl (1.7-2.4); Phosphorus 4.7 mg/dl (2.5-4.9); Potassium 4.8 mmol/L (3.5-5.1)
[2021-06-10] MEDS: propofoL 1,000 MG/100 ML VIAL IV SCH ×7 (06:15→20:17)
[2021-06-10 06:17] LABS: Basophils # (auto) 0.01 K/uL (0-0.2); Basophils % (auto) 0.2 %; Eosinophils # (auto) 0.03 K/uL (0-0.5); Eosinophils % (auto) 0.5 %; Immature Granulocytes # (auto) 0.13 K/uL (0.00-0.02); Immature Granulocytes % (auto) 2.1 %; Lymphocytes # (auto) 0.31 K/uL (1.2-3.4); Lymphocytes % (auto) 4.9 %; Monocytes # (auto) 0.44 K/uL (0.11-0.59); Neutrophils % (auto) 85.3 %; Ovalocytes 1+
[2021-06-10] MEDS: ICU ELECTROLYTE REPLACEMENT PROTOCOL SCH ×2 (07:15→18:49)
--- NOTE | 2021-06-10 08:06 | XRay Report ---
XR chest 1V portable CLINICAL HISTORY: evaluate tubes and opacities TECHNIQUE: Single frontal radiograph of the chest was obtained. Comparison: Comparison is made to chest one view 06/09/2021 FINDINGS: Lines and tubes are stable. The cardiomediastinal silhouette is obscured. Prominence and cephalizatio n of the vasculature is seen. Bilateral lower lobe predominant airspace opacities are unchanged from prior exam. No evidence of pleural effusion or pneumothorax. IMPRESSION: Bilateral lower lung predominant airspace opacities which may represent atelectasis, pneumonia, and/o r aspiration. Mild pulmonary edema which appears improved from prior exam. ACT 112: Negative or not required by law. Electronically signed by: Gaurav Wong M.D. 06/10/2021 8:05 AM
[2021-06-10] MEDS: TACROLIMUS 1 MG CAP PO SCH (08:21)
[2021-06-10] MEDS: DULoxetine HCL 30 MG CAP PO SCH (08:21)
[2021-06-10] MEDS: APIXABAN 5 MG TABLET PO SCH ×2 (08:22→20:19)
[2021-06-10] MEDS: VORICONAZOLE 200 MG TABLET PO SCH ×2 (08:22→20:19)
[2021-06-10] MEDS: dexAMETHasone 6 MG in SYRINGE 0 ML IV SCH (08:33)
[2021-06-10] MEDS: FAMOTIDINE 20 MG in SYRINGE 3 ML IV SCH (08:33)
--- NOTE | 2021-06-10 09:54 | Critical Care Progress Note ---
Date of Service June 10, 2021 Assessment & Plan (1) ARDS (adult respiratory distress syndrome): (2) COVID-19: (3) Pneumonia: (4) CHF (congestive heart failure): (5) Cardiomyopathy: (6) Kidney transplant recipient: (7) HUSSEIN (acute kidney injury): Plan: Impression: 61-year-old male kidney transplant recipient immunosuppressed with tacrolimus admitted to the hospital 06/03/2021 with COVID-pneumonia. He is fully vaccinated and boosted. He developed progressive respiratory insufficiency with increased work of breathing and he elected to be intubated 06/08/2021. Discussions were held with the patient and family prior to the procedure. He would not want tracheostomy but is agreeable to 7 days mechanical ventilation if he fails to improve at that point time, would proceed with terminal extubation. Recommendations: 1. Neurologic: Currently sedated with fentanyl, propofol. Continue sedation for now pending improvement in the patient's respiratory mechanics. He had no neurological deficits prior to being intubated. Continue home Cymbalta 2. Cardiovascular: The patient's required initiation of low-dose norepinephrine. This likely is secondary to underlying sedative medications. Continue to wean as tolerated. Patient is fully anticoagulated with Eliquis due to prior history of A. fib. Given that the patient is currently on norepinephrine we will hold his Coreg for now 3. Pulmonary: ARDS secondary to COVID pneumonitis. Current vent settings assist-control: 22/380/5/0 0.4 with a plateau of 23. Tolerate permissive hypercapnia in an effort to try and avoid additional barotrauma/volume trauma. Continue dexamethasone at 6 mg, day 8/10. His oxygenation is adequate and do not think he needs to pursue proning or neuromuscular blockade currently. I am concerned about additional immunosuppression given his current dose of tacrolimus with higher doses. Respiratory culture has shown no growth to date. Following with nephrology. If the patient fails to improve after 7 days, extubation to comfort care as per previous discussion with patient and family 4. GI: Tube feedings increasing. Continue the patient's home pancreatic enzyme replacement 5. Renal: History of kidney transplant. Will defer management of the patient's immunosuppression to nephrology. Currently on tacrolimus. Electrolyte replacement per nephrology 6. ID: COVID-pneumonia. Continue dexamethasone 6 mg a day for total of 10days. I think the risk of significant infectious complications with higher doses of steroids or additional immune suppression would outweigh any potential benefit so we will hold off for now. WBC normal and no fevers. Cultures negative to date. Cont to follow. 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 Endocrine: Glycemic control per ICU protocol. 8. Heme-onc: Mild anemia. Likely secondary to underlying kidney disease. No evidence of acute blood loss. No indication for transfusion currently. DVT prophylaxis addressed with the patient's full anticoagulation from Eliquis. Patient is critically ill with multiorgan system dysfunction at this point time. There is significant possibility of clinical deterioration and/or . A total of 60 min CC time spent in evaluation and management of patient. Patient was discussed in multidisciplinary rounds Admission and Anticipated Discharge Date Admission Date: June 03, 2021 Subjective No overnight events, decreasing FiO2 requirements Review of Systems Review of Systems: Unobtainable due to endotracheal tube Physical Exam Physical Exam: General: Sedated. nontoxic. Skin: Warm, dry, Head: Atraumatic Ears, nose, mouth and throat: airway obscured by endotracheal tube Cardiovascular: Normal peripheral perfusion Respiratory: Ventilator settings reviewed Gastrointestinal: Non distended Musculoskeletal: No deformity Results & Data Results & Data ([facility]) Vital Signs (Past 12 Hours) Vital Signs Temp Pulse Resp BP Pulse Ox 06/10/21 09:00 36.8 C 65 94/52 L 93 06/10/21 08:00 36.7 C 56 L 100/59 L 92 06/10/21 07:18 48 L 23 92 06/10/21 07:00 36.7 C 51 L 118/63 90 06/10/21 04:00 128/50 L 06/10/21 03:42 48 L 22 90 06/10/21 02:00 36.9 C 47 L 22 114/60 91 06/10/21 01:30 36.9 C 48 L 22 109/60 91 06/10/21 01:00 37.0 C 47 L 22 109/65 91 06/10/21 00:30 37.0 C 51 L 22 114/61 92 06/10/21 00:00 37.0 C 45 L 22 107/56 L 92 06/09/21 23:30 37.1 C 41 L 22 105/59 L 93 06/09/21 23:00 37.1 C 51 L 22 112/66 93 06/09/21 22:30 37.1 C 51 L 23 105/60 93 06/09/21 22:00 37.1 C 51 L 22 108/64 93 Laboratory Results 06/10/21 06/10/21 06/10/21 Range/Units 05:30 05:30 04:26 WBC 6.32 (4.8-10.8) K/uL RBC 3.74 L (4.7-6.1) M/uL Hgb 10.7 L (14.0-18.0) g/dL POC Hgb 9.9 L (14.0-18.0) g/dl Hct 33.2 L (42-52) % POC Hct 29 L (42-52) % MCV 88.8 (80-100) fL MCH 28.6 (25-34) pg MCHC 32.2 (32-36) g/dL RDW Std Deviation 50.6 H (36.4-46.3) fL RDW Coeff of Poonam 15.6 H (11.5-14.5) % Plt Count 210 (130-400) K/uL MPV 11.2 H (7.4-10.4) fL Immature Gran % (Auto) 2.1 % Neut % (Auto) 85.3 % Lymph % (Auto) 4.9 % [place] % (Auto) 7.0 % Eos % (Auto) 0.5 % Baso % (Auto) 0.2 % Neut # (Auto) 5.40 (1.4-6.5) K/uL Lymph # (Auto) 0.31 L (1.2-3.4) K/uL [place] # (Auto) 0.44 (0.11-0.59) K/uL Eos # (Auto) 0.03 (0-0.5) K/uL Baso # (Auto) 0.01 (0-0.2) K/uL Immature Gran # (Auto) 0.13 H (0.00-0.02) K/uL Ovalocytes 1+ Sample Site Art Line POC pH 7.34 L (7.35-7.45) POC pCO2 42 (35-46) mmHg POC pO2 55 L (80-95) mmHg POC HCO3 22 (19-24) jill/L POC Total CO2 24 (24-31) mmol/L POC Base Excess -3.0 (-9-1.8) jill/L ABG pH (Temp Correct) 7.339 L (7.35-7.45) ABG pCO2 (Temp Corrct 42 (35-46) mmHg POC ABG pO2 at Pt Temp 55 POC ABG O2 Sat 86.0 L (90-95) % See Test NA O2 Delivery Device Ventilator POC O2 Rate 22 POC FiO2 35 % Tidal Volume 380 PEEP 5 POC Sodium 137 (135-144) mmol/L Sodium 138 (136-145) mmol/L POC Potassium 4.6 (3.3-5.0) mmol/L Potassium 4.8 (3.5-5.1) mmol/L Chloride 109 H (98-107) mmol/L Carbon Dioxide 22 (21-32) mmol/L Anion Gap 7 (3-11) BUN 78 H (6-23) mg/dl Creatinine 2.95 H (0.6-1.4) mg/dl Est Cr Clr Drug Dosing 28.5 ml/min Est GFR ( Amer) 25.2 ml/min Est GFR (Non-Af Amer) 21.7 ml/min BUN/Creatinine Ratio 26.4 H (10-20) Glucose 141 H (70-99(Fasting)) mg/dl POC Glucose (70-99) mg/dl Calcium 8.7 (8.5-10.1) mg/dl Phosphorus 4.7 (2.5-4.9) mg/dl Magnesium 2.5 H (1.7-2.4) mg/dl 06/09/21 06/09/21 06/09/21 Range/Units 23:57 17:47 11:55 WBC (4.8-10.8) K/uL RBC (4.7-6.1) M/uL Hgb (14.0-18.0) g/dL POC Hgb (14.0-18.0) g/dl Hct (42-52) % POC Hct (42-52) % MCV (80-100) fL MCH (25-34) pg MCHC (32-36) g/dL RDW Std Deviation (36.4-46.3) fL RDW Coeff of Poonam (11.5-14.5) % Plt Count (130-400) K/uL MPV (7.4-10.4) fL Immature Gran % (Auto) % Neut % (Auto) % Lymph % (Auto) % [place] % (Auto) % Eos % (Auto) % Baso % (Auto) % Neut # (Auto) (1.4-6.5) K/uL Lymph # (Auto) (1.2-3.4) K/uL [place] # (Auto) (0.11-0.59) K/uL Eos # (Auto) (0-0.5) K/uL Baso # (Auto) (0-0.2) K/uL Immature Gran # (Auto) (0.00-0.02) K/uL Ovalocytes Sample Site POC pH (7.35-7.45) POC pCO2 (35-46) mmHg POC pO2 (80-95) mmHg POC HCO3 (19-24) jill/L POC Total CO2 (24-31) mmol/L POC Base Excess (-9-1.8) jill/L ABG pH (Temp Correct) (7.35-7.45) ABG pCO2 (Temp Corrct (35-46) mmHg POC ABG pO2 at Pt Temp POC ABG O2 Sat (90-95) % See Test O2 Delivery Device POC O2 Rate POC FiO2 % Tidal Volume PEEP POC Sodium (135-144) mmol/L Sodium (136-145) mmol/L POC Potassium (3.3-5.0) mmol/L Potassium (3.5-5.1) mmol/L Chloride (98-107) mmol/L Carbon Dioxide (21-32) mmol/L Anion Gap (3-11) BUN (6-23) mg/dl Creatinine (0.6-1.4) mg/dl Est Cr Clr Drug Dosing ml/min Est GFR ( Amer) ml/min Est GFR (Non-Af Amer) ml/min BUN/Creatinine Ratio (10-20) Glucose (70-99(Fasting)) mg/dl POC Glucose 149 H 171 H 163 H (70-99) mg/dl Calcium (8.5-10.1) mg/dl Phosphorus (2.5-4.9) mg/dl Magnesium (1.7-2.4) mg/dl Coding Level of Care Code Critical Care 1st 30-74 mins Diagnoses ARDS (adult respiratory distress syndrome) J80 COVID-19 U07.1 Pneumonia J18.9 Laterality: bilateral Lung location: unspecified part of lung Pneumonia type: due to unspecified organism CHF (congestive heart failure) I50.9 Cardiomyopathy I42.9 Kidney transplant recipient Z94.0 HUSSEIN (acute kidney injury) N17.9 (1) Pneumonia Laterality: bilateral Lung location: unspecified part of lung Pneumonia type: due to unspecified organism Qualified Code(s): J18.9 - Pneumonia, unspecified organism
--- NOTE | 2021-06-10 10:46 | Nephrology Progress Note ---
Date of Service June 10, 2021 Assessment & Plan (1) HUSSEIN (acute kidney injury): Plan: Chronic allograft dysfunction with superimposed ATN. Creatinine continues to rise without evidence of renal recovery. Thankfully no emergent indication for dialysis. Electrolytes normal. Non-oliguric. I/O 1426/620 past 24 hours. Volume status reasonable. BP remains low. Additional diuretics held for now. Medications appropriate for kidney dysfunction. Will monitor tacro level on voriconazole but with twice weekly dosing there should not be any issues with toxicity. Electrolytes acceptable. Noted that IV magnesium replacement is being provided. (2) Kidney transplant recipient: Plan: Remains on low dose twice weekly tacrolimus. No change to therapy at this time. Will order level prior to dose. (3) Hypertension: (4) Pneumonia due to COVID-19 virus: Plan: Remains on Decadron. FIO2 35%, PEEP 5. Admission and Anticipated Discharge Date Admission Date: June 03, 2021 Subjective No acute events overnight. Remains sedated on ventilator. Review of Systems Review of Systems: Unobtainable due to endotracheal tube Physical Exam Constitutional: well developed, + ill appearing and + thin Eyes: no scleral abnormality and no corneal abnormality ENMT: ETT Neck: normal visual inspection and trachea midline Respiratory: symmetric chest movement Auscultation: lungs clear to auscultation bilaterally Cardiovascular: Rate/Rhythm: regular rate Heart Sounds: normal S1 and normal S2 Extremities: no edema Musculoskeletal: Extremities: no cyanosis and no clubbing Skin: normal turgor; no lesions Neurologic: Motor/Sensory: no tremor and no asterixis Results & Data ([facility]) Vital Signs (Past 12 Hours) Vital Signs Temp Pulse Resp BP Pulse Ox 06/10/21 10:08 56 L 23 92 06/10/21 09:00 36.8 C 65 94/52 L 93 06/10/21 08:00 36.7 C 56 L 100/59 L 92 06/10/21 07:18 48 L 23 92 06/10/21 07:00 36.7 C 51 L 118/63 90 06/10/21 04:00 128/50 L 06/10/21 03:42 48 L 22 90 06/10/21 02:00 36.9 C 47 L 22 114/60 91 06/10/21 01:30 36.9 C 48 L 22 109/60 91 06/10/21 01:00 37.0 C 47 L 22 109/65 91 06/10/21 00:30 37.0 C 51 L 22 114/61 92 06/10/21 00:00 37.0 C 45 L 22 107/56 L 92 06/09/21 23:30 37.1 C 41 L 22 105/59 L 93 06/09/21 23:00 37.1 C 51 L 22 112/66 93 Laboratory Results Laboratory Results - last 24 hr 06/09/21 06/09/21 06/09/21 11:55 17:47 23:57 WBC RBC Hgb POC Hgb Hct POC Hct MCV MCH MCHC RDW Std Deviation RDW Coeff of Poonam Plt Count MPV Immature Gran % (Auto) Neut % (Auto) Lymph % (Auto) [place] % (Auto) Eos % (Auto) Baso % (Auto) Neut # (Auto) Lymph # (Auto) [place] # (Auto) Eos # (Auto) Baso # (Auto) Immature Gran # (Auto) Ovalocytes Sample Site POC pH POC pCO2 POC pO2 POC HCO3 POC Total CO2 POC Base Excess ABG pH (Temp Correct) ABG pCO2 (Temp Corrct POC ABG pO2 at Pt Temp POC ABG O2 Sat See Test O2 Delivery Device POC O2 Rate POC FiO2 Tidal Volume PEEP POC Sodium Sodium POC Potassium Potassium Chloride Carbon Dioxide Anion Gap BUN Creatinine Est Cr Clr Drug Dosing Est GFR ( Amer) Est GFR (Non-Af Amer) BUN/Creatinine Ratio Glucose POC Glucose 163 H 171 H 149 H Calcium Phosphorus Magnesium 06/10/21 06/10/21 06/10/21 04:26 05:30 05:30 WBC 6.32 RBC 3.74 L Hgb 10.7 L POC Hgb 9.9 L Hct 33.2 L POC Hct 29 L MCV 88.8 MCH 28.6 MCHC 32.2 RDW Std Deviation 50.6 H RDW Coeff of Poonam 15.6 H Plt Count 210 MPV 11.2 H Immature Gran % (Auto) 2.1 Neut % (Auto) 85.3 Lymph % (Auto) 4.9 [place] % (Auto) 7.0 Eos % (Auto) 0.5 Baso % (Auto) 0.2 Neut # (Auto) 5.40 Lymph # (Auto) 0.31 L [place] # (Auto) 0.44 Eos # (Auto) 0.03 Baso # (Auto) 0.01 Immature Gran # (Auto) 0.13 H Ovalocytes 1+ Sample Site Art Line POC pH 7.34 L POC pCO2 42 POC pO2 55 L POC HCO3 22 POC Total CO2 24 POC Base Excess -3.0 ABG pH (Temp Correct) 7.339 L ABG pCO2 (Temp Corrct 42 POC ABG pO2 at Pt Temp 55 POC ABG O2 Sat 86.0 L See Test NA O2 Delivery Device Ventilator POC O2 Rate 22 POC FiO2 35 Tidal Volume 380 PEEP 5 POC Sodium 137 Sodium 138 POC Potassium 4.6 Potassium 4.8 Chloride 109 H Carbon Dioxide 22 Anion Gap 7 BUN 78 H Creatinine 2.95 H Est Cr Clr Drug Dosing 28.5 Est GFR ( Amer) 25.2 Est GFR (Non-Af Amer) 21.7 BUN/Creatinine Ratio 26.4 H Glucose 141 H POC Glucose Calcium 8.7 Phosphorus 4.7 Magnesium 2.5 H PG Care Time/CCT Total # of Minutes Spent Total Time Spent with Patient: Total time spent is greater than 50% in coordination of care (as documented) at patient's floor/unit and/or counseling patient: Coding Level of Care Code 07663 Subseq Hosp Care Lvl 3 Diagnoses HUSSEIN (acute kidney injury) N17.9 Kidney transplant recipient Z94.0 Hypertension I10 Pneumonia due to COVID-19 virus U07.1; J12.82
--- NOTE | 2021-06-10 11:18 | Hospitalist Progress Note ---
Date of Service June 10, 2021 Assessment & Plan (1) Pneumonia due to COVID-19 virus: Plan: Vaccinated and Boosted (last dose in February) First symptoms: May 24, 2021 Fist positive test: 06/03/2020 O2 requirement on admission: 15LPM O2 non-rebreather, O2 sats 71% on room air initially on dexamethasone 6mg IV daily 20mg IV daily x 5 days then 10mg IV daily x 5 days, started this on 06/08/21, day three of 20mg 06/08/21: requiring 60L 100% FiO2 with oxymask and then he agreed to wear CPAP required CPAP and then later in afternoon was intubated clear that he does not want salvage determiner intubation/ventilation (2) Acute respiratory failure with hypoxia: Plan: progressed from High Flow to needing CPAP 8 and FiO2 100% working hard to breathe he elected to be intubated on 06/08/21 transferred to ICU status propofol and fentanyl for sedation PEEP 5 with FiO2 40%, improved from yesterday low plateau and peak pressures (3) Afib: Plan: Anticoagulation with Eliquis Rate controlled with carvedilol 6.25mg PO BID with hold parameters will need medications via OG tube (4) Kidney transplant recipient: Plan: Continue his usual tacrolimus dosing Consult nephrology, they are following Cr is 2.9 this morning, gave him Lasix 40mg IV on 06/07 and 06/08 check BMP every morning (5) CHF (congestive heart failure): Plan: euvolemic Plan: VTE Prophylaxis - continue Eliquis Diet - tube feeds Disposition - ICU status Admission and Anticipated Discharge Date Admission Date: June 03, 2021 Subjective no major issues, he is sedated and ventilated PEEP down to 5, FiO2 is 40%, both improved from yesterday ICU managing, appreciate their help reviewed labs, Cr is 2.9 Review of Systems Review of Systems: Unobtainable due to cognitive status and Unobtainable due to endotracheal tube Physical Exam Physical Exam: General: well developed, ill appearing, thin male, mechanically ventilated Neck: supple, trachea midline, normal thyroid Lungs: on ventilator, lungs clear Heart: regular S1 and S2, no murmur, peripheral pulses normal, capillary refill normal, no edema Abdomen: soft, NT, ND, + BS, no hepatomegaly, normal to percussion Extremities: normal in appearance, no cyanosis, no petechiae, strength is 5/5 bilaterally Neuro: sedated, no focal motor deficits, CN II-XII intact Skin: warm, dry, no rash, normal turgor Psych: sedated Results & Data Results & Data ([facility]) Vital Signs (Past 12 Hours) Vital Signs Temp Pulse Resp BP Pulse Ox 06/10/21 10:08 56 L 23 92 06/10/21 09:00 36.8 C 65 94/52 L 93 06/10/21 08:00 36.7 C 56 L 100/59 L 92 06/10/21 07:18 48 L 23 92 06/10/21 07:00 36.7 C 51 L 118/63 90 06/10/21 04:00 128/50 L 06/10/21 03:42 48 L 22 90 06/10/21 02:00 36.9 C 47 L 22 114/60 91 06/10/21 01:30 36.9 C 48 L 22 109/60 91 06/10/21 01:00 37.0 C 47 L 22 109/65 91 06/10/21 00:30 37.0 C 51 L 22 114/61 92 06/10/21 00:00 37.0 C 45 L 22 107/56 L 92 06/09/21 23:30 37.1 C 41 L 22 105/59 L 93 Laboratory Results Laboratory Results - last 24 hr 06/09/21 06/09/21 06/09/21 11:55 17:47 23:57 WBC RBC Hgb POC Hgb Hct POC Hct MCV MCH MCHC RDW Std Deviation RDW Coeff of Poonam Plt Count MPV Immature Gran % (Auto) Neut % (Auto) Lymph % (Auto) [place] % (Auto) Eos % (Auto) Baso % (Auto) Neut # (Auto) Lymph # (Auto) [place] # (Auto) Eos # (Auto) Baso # (Auto) Immature Gran # (Auto) Ovalocytes Sample Site POC pH POC pCO2 POC pO2 POC HCO3 POC Total CO2 POC Base Excess ABG pH (Temp Correct) ABG pCO2 (Temp Corrct POC ABG pO2 at Pt Temp POC ABG O2 Sat See Test O2 Delivery Device POC O2 Rate POC FiO2 Tidal Volume PEEP POC Sodium Sodium POC Potassium Potassium Chloride Carbon Dioxide Anion Gap BUN Creatinine Est Cr Clr Drug Dosing Est GFR ( Amer) Est GFR (Non-Af Amer) BUN/Creatinine Ratio Glucose POC Glucose 163 H 171 H 149 H Calcium Phosphorus Magnesium 06/10/21 06/10/21 06/10/21 04:26 05:30 05:30 WBC 6.32 RBC 3.74 L Hgb 10.7 L POC Hgb 9.9 L Hct 33.2 L POC Hct 29 L MCV 88.8 MCH 28.6 MCHC 32.2 RDW Std Deviation 50.6 H RDW Coeff of Poonam 15.6 H Plt Count 210 MPV 11.2 H Immature Gran % (Auto) 2.1 Neut % (Auto) 85.3 Lymph % (Auto) 4.9 [place] % (Auto) 7.0 Eos % (Auto) 0.5 Baso % (Auto) 0.2 Neut # (Auto) 5.40 Lymph # (Auto) 0.31 L [place] # (Auto) 0.44 Eos # (Auto) 0.03 Baso # (Auto) 0.01 Immature Gran # (Auto) 0.13 H Ovalocytes 1+ Sample Site Art Line POC pH 7.34 L POC pCO2 42 POC pO2 55 L POC HCO3 22 POC Total CO2 24 POC Base Excess -3.0 ABG pH (Temp Correct) 7.339 L ABG pCO2 (Temp Corrct 42 POC ABG pO2 at Pt Temp 55 POC ABG O2 Sat 86.0 L See Test NA O2 Delivery Device Ventilator POC O2 Rate 22 POC FiO2 35 Tidal Volume 380 PEEP 5 POC Sodium 137 Sodium 138 POC Potassium 4.6 Potassium 4.8 Chloride 109 H Carbon Dioxide 22 Anion Gap 7 BUN 78 H Creatinine 2.95 H Est Cr Clr Drug Dosing 28.5 Est GFR ( Amer) 25.2 Est GFR (Non-Af Amer) 21.7 BUN/Creatinine Ratio 26.4 H Glucose 141 H POC Glucose Calcium 8.7 Phosphorus 4.7 Magnesium 2.5 H Medications Administered Current Inpatient Medications Acetaminophen (Acetaminophen 325 Mg Tab) 650 mg PO Q4H PRN PRN Reason: Pain or Fever Stop: 07/04/21 00:49 Last Admin: 06/08/21 08:41 Dose: 650 mg Documented by: Lipase/Protease/Amylase (Pancreaze (Lipase 10,500u) Cap) 4 cap PO BID [facility] Stop: 07/04/21 08:59 Last Admin: 06/09/21 21:00 Dose: Not Given Documented by: Apixaban (Apixaban 5 Mg Tablet) 5 mg PO BID [facility] Stop: 07/04/21 00:49 Last Admin: 06/10/21 08:22 Dose: 5 mg Documented by: Duloxetine HCl (Duloxetine Hcl 30 Mg Cap) 30 mg PO DAILY [facility] Stop: 07/04/21 08:59 Last Admin: 06/10/21 08:21 Dose: 30 mg Documented by: Fentanyl Citrate (Fentanyl Bolus From Bag) 50 mcg IV Q60M PRN PRN Reason: Pain or Agitation Stop: 06/22/21 15:03 Propofol (Diprivan) 1,000 mg in 100 mls @ 16.542 mls/hr IV .Q6H3M [facility]; Protocol Stop: 06/11/21 15:14 Last Admin: 06/10/21 06:15 Dose: 30 mcg/kg/min, 16.5 mls/hr Documented by: Fentanyl Citrate (Fentanyl Citrate) 2,500 mcg in 250 mls @ 20 mls/hr IV .[id number] [facility]; Protocol Stop: 06/22/21 15:14 Last Admin: 06/10/21 04:15 Dose: 200 mcg/hr, 20 mls/hr Documented by: Famotidine 20 mg/ Syringe 5 mls @ 2.5 mls/min IV DAILY [facility] Stop: 07/09/21 08:59 Last Admin: 06/10/21 08:33 Dose: 2.5 mls/min Documented by: Dexamethasone 6 mg/ Syringe 1.5 mls @ 1 mls/min IV DAILY [facility] Stop: 06/14/21 08:59 Last Admin: 06/10/21 08:33 Dose: 1 mls/min Documented by: Norepinephrine Bitartrate (Levophed/D5w) 8 mg in 508 mls @ 17.507 mls/hr IV .Q24H [facility]; Protocol Stop: 07/09/21 02:59 Last Admin: 06/10/21 04:15 Dose: 0.05 mcg/kg/min, 17.5 mls/hr Documented by: Midazolam HCl (Midazolam Hcl 1 Mg/Ml 2ml Vial) 2 mg IV Q2H PRN PRN Reason: RASS goal -3 Stop: 07/08/21 15:03 Miscellaneous (Icu Protocol For Hyperglycemia) 1 ea N/A PRN PRN; Protocol PRN Reason: Hyperglycemia Protocol Stop: 06/10/21 15:13 Miscellaneous (Icu Electrolyte Replacement Protocol) 1 ea N/A BID@18 [facility]; Protocol Stop: 06/15/21 17:59 Last Admin: 06/10/21 07:15 Dose: 1 ea Documented by: Nutritional Formula (Peptamen Intense Vhp 1.0 Aaron 1,000 Ml Bag) 1,000 ml OG CONT [facility]; Protocol Stop: 07/09/21 10:59 Last Admin: 06/09/21 12:44 Dose: 1,000 ml Documented by: Pantoprazole Sodium (Pantoprazole 40 Mg Tab) 40 mg PO DAILY [facility] Stop: 07/04/21 08:59 Last Admin: 06/08/21 08:44 Dose: 40 mg Documented by: Potassium Chloride (Potassium Chloride Crtab 20 Meq Tabcr) 20 meq PO DAILY [facility] Stop: 07/04/21 08:59 Last Admin: 06/08/21 08:44 Dose: 20 meq Documented by: Propofol (Propofol Bolus From Bag) 20 mg IV Q5M PRN PRN Reason: Sedation Stop: 06/11/21 15:03 Last Admin: 06/09/21 03:00 Dose: 20 mg Documented by: Sterile Water (Tube Feeding Water Flush) 30 ml GT Q4H [facility] Stop: 07/09/21 10:59 Last Admin: 06/10/21 04:15 Dose: 30 ml Documented by: Tacrolimus (Tacrolimus 1 Mg Cap) 3 mg PO MoTh@0900 [facility] Stop: 07/06/21 08:59 Last Admin: 06/10/21 08:21 Dose: 3 mg Documented by: Voriconazole (Voriconazole 200 Mg Tablet) 200 mg PO BID [facility]; Protocol Stop: 06/16/21 20:59 Last Admin: 06/10/21 08:22 Dose: 200 mg Documented by: PG Care Time/CCT Total # of Minutes Spent Total Time Spent with Patient: Total time spent is greater than 50% in coordination of care (as documented) at patient's floor/unit and/or counseling patient: Coding Level of Care Code 20740 Subseq Hosp Care Lvl 2 Diagnoses Pneumonia due to COVID-19 virus U07.1; J12.82 Acute respiratory failure with hypoxia J96.01 Afib I48.91 Kidney transplant recipient Z94.0 CHF (congestive heart failure) I50.9
[2021-06-10 11:36] LABS: C Reactive Protein 6.93 mg/dl (0-0.5)
[2021-06-10] MEDS: PANCREAZE (LIPASE 10,500U) CAP PO SCH ×2 (11:44→20:19)
[2021-06-10 12:08] LABS: C Reactive Protein 8.46 mg/dl (0-0.5)
[2021-06-10] MEDS: PEPTAMEN INTENSE VHP 1.0 CAL 1,000 ML BAG OG SCH (12:33)
[2021-06-10 12:35] LABS: C Reactive Protein 8.09 mg/dl (0-0.5)
[2021-06-11] MEDS: propofoL 1,000 MG/100 ML VIAL IV SCH ×4 (02:57→20:06)
[2021-06-11] MEDS: TUBE FEEDING WATER FLUSH GT SCH ×6 (02:57→22:15)
[2021-06-11 04:36] LABS: iSTAT Arterial Blood Gas HCO3 23 meg/L (19-24); iSTAT Arterial Blood Gas pCO2 45 mmHg (35-46); iSTAT Arterial Blood Gas pH 7.31 (7.35-7.45); iSTAT Arterial Blood Gas pO2 80 mmHg (80-95); iSTAT Carbon Dioxide 24 mmol/L (24-31); iSTAT FiO2 40 %; iSTAT Site Art Line
[2021-06-11 06:49] LABS: Hematocrit (blood only) 31.2 % (42-52); Hemoglobin 10.1 g/dL (14.0-18.0); Mean Corpuscular Hemoglobin 28.8 pg (25-34); Mean Corpuscular Hgb Conc 32.4 g/dL (32-36); Mean Corpuscular Volume 88.9 fL (80-100); Mean Platelet Volume 11.3 fL (7.4-10.4); Platelet Count 206 K/uL (130-400); RDW Coefficient of Variation 15.1 % (11.5-14.5); RDW Standard Deviation 49.4 fL (36.4-46.3); Red Blood Count 3.51 M/uL (4.7-6.1); White Blood Count 5.28 K/uL (4.8-10.8)
[2021-06-11 07:12] LABS: BUN Creatinine Ratio 29.8 (10-20); Calcium 8.7 mg/dl (8.5-10.1); Creatinine Clr Calc Pharmacy 29.5 ml/min; Est GFR (African American) 26.2 ml/min; Est GFR (Non-African American) 22.6 ml/min; Magnesium 2.5 mg/dl (1.7-2.4); Phosphorus 5.1 mg/dl (2.5-4.9); Potassium 5.2 mmol/L (3.5-5.1)
[2021-06-11 07:20] LABS: Immature Granulocytes # (auto) 0.19 K/uL (0.00-0.02); Immature Granulocytes % (auto) 3.6 %; Lymphocytes # (auto) 0.38 K/uL (1.2-3.4); Lymphocytes % (auto) 7.2 %; Monocytes # (auto) 0.26 K/uL (0.11-0.59); Monocytes % (auto) 4.9 %; Neutrophils # (auto) 4.45 K/uL (1.4-6.5); Neutrophils % (auto) 84.3 %
[2021-06-11] MEDS: ICU ELECTROLYTE REPLACEMENT PROTOCOL SCH ×2 (07:50→17:02)
[2021-06-11] MEDS: dexAMETHasone 6 MG in SYRINGE 0 ML IV SCH (08:30)
[2021-06-11] MEDS: APIXABAN 5 MG TABLET PO SCH ×2 (08:31→20:04)
[2021-06-11] MEDS: VORICONAZOLE 200 MG TABLET PO SCH ×2 (08:31→20:05)
[2021-06-11] MEDS: FAMOTIDINE 20 MG in SYRINGE 3 ML IV SCH (08:31)
[2021-06-11] MEDS: fentaNYL citrate 2,500 MCG/250 ML BAG IV SCH ×2 (08:45→22:15)
[2021-06-11] MEDS: PANCREAZE (LIPASE 10,500U) CAP PO SCH ×2 (08:46→20:04)
--- NOTE | 2021-06-11 09:05 | XRay Report ---
XR chest 1V portable CLINICAL HISTORY: evaluate tubes and opacities TECHNIQUE: Single frontal radiograph of the chest was obtained. Comparison: Comparison is made to chest one view 06/10/2021 FINDINGS: Lines and tubes are stable. In particular, the endotracheal tube is noted to be at the brittni. The ca rdiomediastinal silhouette is normal. Right lower lung and left retrocardiac opacity is unchanged fro m prior exam. Bilateral pleural effusions cannot be excluded. IMPRESSION: 1. Bilateral lower lung predominant airspace opacities are unchanged. 2. Endotracheal tube tip is at the brittni and can be withdrawn approximately 3 cm for improved posit ioning. ACT 112: Negative or not required by law. Electronically signed by: Gaurav Wong M.D. 06/11/2021 9:04 AM
--- NOTE | 2021-06-11 09:12 | Critical Care Progress Note ---
Date of Service June 11, 2021 Assessment & Plan (1) ARDS (adult respiratory distress syndrome): (2) COVID-19: (3) Pneumonia: (4) CHF (congestive heart failure): (5) Cardiomyopathy: (6) Kidney transplant recipient: (7) HUSSEIN (acute kidney injury): Plan: Impression: 61-year-old male kidney transplant recipient immunosuppressed with tacrolimus admitted to the hospital 06/03/2021 with COVID-pneumonia. He is fully vaccinated and boosted. He developed progressive respiratory insufficiency with increased work of breathing and he elected to be intubated 06/08/2021. Discussions were held with the patient and family prior to the procedure. He would not want tracheostomy but is agreeable to 7 days mechanical ventilation if he fails to improve at that point time, would proceed with terminal extubation. Recommendations: 1. Neurologic: Currently sedated with fentanyl, propofol. Continue home Cymbalta 2. Cardiovascular: The patient's required low-dose norepinephrine. This likely is secondary to underlying sedative medications. Continue to wean as tolerated. Patient is fully anticoagulated with Eliquis due to prior history of A. fib. Given that the patient is currently on norepinephrine we will hold his Coreg for now 3. Pulmonary: ARDS secondary to COVID pneumonitis. Current vent settings assist-control: 22/380/5/0 0.4 with a plateau of 23. Tolerate permissive hypercapnia in an effort to try and avoid additional barotrauma/volume trauma. Continue dexamethasone at 6 mg, day 9/10. His oxygenation is adequate and do not think he needs to pursue proning or neuromuscular blockade currently. I am concerned about additional immunosuppression given his current dose of tacrolimus with higher doses. 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 Following with nephrology. If the patient fails to improve after 7 days, extubation to comfort care as per previous discussion with patient and family Spontaneous breathing trial today 4. GI: Tube feedings increasing. Continue the patient's home pancreatic enzyme replacement 5. Renal: History of kidney transplant. Will defer management of the patient's immunosuppression to nephrology. Currently on tacrolimus. Electrolyte replacement per nephrology 6. ID: COVID-pneumonia. Continue dexamethasone 6 mg a day for total of 10 days. I think the risk of significant infectious complications with higher doses of steroids or additional immune suppression would outweigh any potential benefit so we will hold off for now. WBC normal and no fevers. Cultures negative to date. Cont to follow. Aspergillus pneumonia: Voriconazole day 3 7. Endocrine: Glycemic control per ICU protocol. 8. Heme-onc: Mild anemia. Likely secondary to underlying kidney disease. No evidence of acute blood loss. No indication for transfusion currently. DVT prophylaxis addressed with the patient's full anticoagulation from Eliquis. Patient is critically ill with multiorgan system dysfunction at this point time. There is significant possibility of clinical deterioration and/or . A total of 45 min CC time spent in evaluation and management of patient. Patient was discussed in multidisciplinary rounds Admission and Anticipated Discharge Date Admission Date: June 03, 2021 Subjective No overnight events Review of Systems Review of Systems: Unobtainable due to endotracheal tube Physical Exam Physical Exam: General: Sedated. nontoxic. Skin: Warm, dry, Head: Atraumatic Ears, nose, mouth and throat: airway obscured by endotracheal tube Cardiovascular: Normal peripheral perfusion Respiratory: Ventilator settings reviewed Gastrointestinal: Non distended Musculoskeletal: No deformity Results & Data Results & Data ([facility]) Vital Signs (Past 12 Hours) Vital Signs Temp Pulse Resp BP Pulse Ox 06/11/21 08:30 36.7 C 45 L 14 115/70 92 06/11/21 08:00 36.8 C 51 L 0 L 110/72 91 06/11/21 07:41 47 L 22 91 06/11/21 07:30 36.8 C 53 L 9 L 105/62 93 06/11/21 07:00 36.8 C 50 L 23 109/63 95 06/11/21 06:30 36.9 C 49 L 22 107/61 94 06/11/21 06:00 36.9 C 50 L 13 104/60 94 06/11/21 05:30 36.9 C 56 L 22 108/58 L 93 06/11/21 05:00 36.9 C 55 L 18 108/59 L 92 06/11/21 04:30 37.0 C 51 L 22 126/75 92 06/11/21 04:08 48 L 22 95 06/11/21 04:00 37.0 C 49 L 21 125/68 94 06/11/21 03:30 37.0 C 51 L 25 H 136/72 94 06/11/21 03:00 37.0 C 52 L 22 122/77 94 06/11/21 02:30 37.0 C 49 L 22 128/67 94 06/11/21 02:00 37.0 C 43 L 22 129/74 94 06/11/21 01:30 37.0 C 50 L 22 128/72 94 06/11/21 01:00 37.1 C 48 L 22 124/69 94 06/11/21 00:30 37.1 C 50 L 20 133/76 94 06/11/21 00:01 56 L 06/11/21 00:00 37.1 C 52 L 29 H 125/78 93 06/10/21 23:30 37.1 C 50 L 18 128/73 94 06/10/21 23:18 51 L 23 94 06/10/21 23:00 37.1 C 51 L 21 121/77 94 Laboratory Results 06/11/21 06/11/21 06/11/21 Range/Units 05:57 05:57 04:14 WBC 5.28 (4.8-10.8) K/uL RBC 3.51 L (4.7-6.1) M/uL Hgb 10.1 L (14.0-18.0) g/dL Hct 31.2 L (42-52) % MCV 88.9 (80-100) fL MCH 28.8 (25-34) pg MCHC 32.4 (32-36) g/dL RDW Std Deviation 49.4 H (36.4-46.3) fL RDW Coeff of Poonam 15.1 H (11.5-14.5) % Plt Count 206 (130-400) K/uL MPV 11.3 H (7.4-10.4) fL Immature Gran % (Auto) 3.6 % Neut % (Auto) 84.3 % Lymph % (Auto) 7.2 % [place] % (Auto) 4.9 % Eos % (Auto) 0.0 % Baso % (Auto) 0.0 % Neut # (Auto) 4.45 (1.4-6.5) K/uL Lymph # (Auto) 0.38 L (1.2-3.4) K/uL [place] # (Auto) 0.26 (0.11-0.59) K/uL Eos # (Auto) 0.00 (0-0.5) K/uL Baso # (Auto) 0.00 (0-0.2) K/uL Immature Gran # (Auto) 0.19 H (0.00-0.02) K/uL Sample Site Art Line POC pH 7.31 L (7.35-7.45) POC pCO2 45 (35-46) mmHg POC pO2 80 (80-95) mmHg POC HCO3 23 (19-24) jill/L POC Total CO2 24 (24-31) mmol/L POC Base Excess -4.0 (-9-1.8) jill/L POC ABG O2 Sat 95.0 (90-95) % See Test NA O2 Delivery Device Ventilator POC O2 Rate 22 POC FiO2 40 % Tidal Volume 380 PEEP 5 Sodium 136 (136-145) mmol/L Potassium 5.2 H (3.5-5.1) mmol/L Chloride 108 H (98-107) mmol/L Carbon Dioxide 23 (21-32) mmol/L Anion Gap 5 (3-11) BUN 85 H (6-23) mg/dl Creatinine 2.85 H (0.6-1.4) mg/dl Est Cr Clr Drug Dosing 29.5 ml/min Est GFR ( Amer) 26.2 ml/min Est GFR (Non-Af Amer) 22.6 ml/min BUN/Creatinine Ratio 29.8 H (10-20) Glucose 131 H (70-99(Fasting)) mg/dl POC Glucose (70-99) mg/dl Calcium 8.7 (8.5-10.1) mg/dl Phosphorus 5.1 H (2.5-4.9) mg/dl Magnesium 2.5 H (1.7-2.4) mg/dl C-Reactive Protein (0-0.5) mg/dl 06/11/21 06/10/21 06/08/21 Range/Units 00:41 11:57 05:26 WBC (4.8-10.8) K/uL RBC (4.7-6.1) M/uL Hgb (14.0-18.0) g/dL Hct (42-52) % MCV (80-100) fL MCH (25-34) pg MCHC (32-36) g/dL RDW Std Deviation (36.4-46.3) fL RDW Coeff of Poonam (11.5-14.5) % Plt Count (130-400) K/uL MPV (7.4-10.4) fL Immature Gran % (Auto) % Neut % (Auto) % Lymph % (Auto) % [place] % (Auto) % Eos % (Auto) % Baso % (Auto) % Neut # (Auto) (1.4-6.5) K/uL Lymph # (Auto) (1.2-3.4) K/uL [place] # (Auto) (0.11-0.59) K/uL Eos # (Auto) (0-0.5) K/uL Baso # (Auto) (0-0.2) K/uL Immature Gran # (Auto) (0.00-0.02) K/uL Sample Site POC pH (7.35-7.45) POC pCO2 (35-46) mmHg POC pO2 (80-95) mmHg POC HCO3 (19-24) jill/L POC Total CO2 (24-31) mmol/L POC Base Excess (-9-1.8) jill/L POC ABG O2 Sat (90-95) % See Test O2 Delivery Device POC O2 Rate POC FiO2 % Tidal Volume PEEP Sodium (136-145) mmol/L Potassium (3.5-5.1) mmol/L Chloride (98-107) mmol/L Carbon Dioxide (21-32) mmol/L Anion Gap (3-11) BUN (6-23) mg/dl Creatinine (0.6-1.4) mg/dl Est Cr Clr Drug Dosing ml/min Est GFR ( Amer) ml/min Est GFR (Non-Af Amer) ml/min BUN/Creatinine Ratio (10-20) Glucose (70-99(Fasting)) mg/dl POC Glucose 138 H 142 H (70-99) mg/dl Calcium (8.5-10.1) mg/dl Phosphorus (2.5-4.9) mg/dl Magnesium (1.7-2.4) mg/dl C-Reactive Protein 8.09 H (0-0.5) mg/dl 06/07/21 06/06/21 Range/Units 07:04 08:21 WBC (4.8-10.8) K/uL RBC (4.7-6.1) M/uL Hgb (14.0-18.0) g/dL Hct (42-52) % MCV (80-100) fL MCH (25-34) pg MCHC (32-36) g/dL RDW Std Deviation (36.4-46.3) fL RDW Coeff of Poonam (11.5-14.5) % Plt Count (130-400) K/uL MPV (7.4-10.4) fL Immature Gran % (Auto) % Neut % (Auto) % Lymph % (Auto) % [place] % (Auto) % Eos % (Auto) % Baso % (Auto) % Neut # (Auto) (1.4-6.5) K/uL Lymph # (Auto) (1.2-3.4) K/uL [place] # (Auto) (0.11-0.59) K/uL Eos # (Auto) (0-0.5) K/uL Baso # (Auto) (0-0.2) K/uL Immature Gran # (Auto) (0.00-0.02) K/uL Sample Site POC pH (7.35-7.45) POC pCO2 (35-46) mmHg POC pO2 (80-95) mmHg POC HCO3 (19-24) jill/L POC Total CO2 (24-31) mmol/L POC Base Excess (-9-1.8) jill/L POC ABG O2 Sat (90-95) % See Test O2 Delivery Device POC O2 Rate POC FiO2 % Tidal Volume PEEP Sodium (136-145) mmol/L Potassium (3.5-5.1) mmol/L Chloride (98-107) mmol/L Carbon Dioxide (21-32) mmol/L Anion Gap (3-11) BUN (6-23) mg/dl Creatinine (0.6-1.4) mg/dl Est Cr Clr Drug Dosing ml/min Est GFR ( Amer) ml/min Est GFR (Non-Af Amer) ml/min BUN/Creatinine Ratio (10-20) Glucose (70-99(Fasting)) mg/dl POC Glucose (70-99) mg/dl Calcium (8.5-10.1) mg/dl Phosphorus (2.5-4.9) mg/dl Magnesium (1.7-2.4) mg/dl C-Reactive Protein 8.46 H 6.93 H (0-0.5) mg/dl Coding Level of Care Code Critical Care 1st 30-74 mins Diagnoses ARDS (adult respiratory distress syndrome) J80 COVID-19 U07.1 Pneumonia J18.9 Laterality: bilateral Lung location: unspecified part of lung Pneumonia type: due to unspecified organism CHF (congestive heart failure) I50.9 Cardiomyopathy I42.9 Kidney transplant recipient Z94.0 HUSSEIN (acute kidney injury) N17.9 (1) Pneumonia Laterality: bilateral Lung location: unspecified part of lung Pneumonia t ype: due to unspecified organism Qualified Code(s): J18.9 - Pneumonia, unspecified organism
--- NOTE | 2021-06-11 09:40 | Hospitalist Progress Note ---
Date of Service June 11, 2021 Assessment & Plan (1) Pneumonia due to COVID-19 virus: Plan: Vaccinated and Boosted (last dose in February) First symptoms: May 24, 2021 Fist positive test: 06/03/2020 O2 requirement on admission: 15LPM O2 non-rebreather, O2 sats 71% on room air continue dexamethasone 6mg IV daily 06/08/21: requiring 60L 100% FiO2 with oxymask and then he agreed to wear CPAP required CPAP and then later in afternoon was intubated clear that he does not want senior living intubation/ventilation doing fairly well on ventilator, PEEP 5 and 30%, he is supine (2) Acute respiratory failure with hypoxia: Plan: progressed from High Flow to needing CPAP 8 and FiO2 100% working hard to breathe he elected to be intubated on 06/08/21 transferred to ICU status propofol and fentanyl for sedation 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: continue Voriconazole PEEP 5 with FiO2 30%, improved again from yesterday low plateau and peak pressures timing of SBT per ICU (3) Afib: Plan: Anticoagulation with Eliquis (4) Kidney transplant recipient: Plan: Continue his usual tacrolimus dosing Consult nephrology, they are following Cr is 2.8 this morning, gave him Lasix 40mg IV on 06/07 and 06/08 K up slightly at 5.2 check BMP every morning (5) CHF (congestive heart failure): Plan: euvolemic Plan: VTE Prophylaxis - continue Eliquis Diet - tube feeds Disposition - ICU status Admission and Anticipated Discharge Date Admission Date: June 03, 2021 Subjective improved ventilatory settings, down to PEEP 5 and FiO2 30% reviewed labs, Cr is 2.8 and K is 5.2 ICU managing ventilator and nephrology is on board for renal failure Review of Systems Review of Systems: Unobtainable due to cognitive status and Unobtainable due to endotracheal tube Physical Exam Physical Exam: General: well developed, ill appearing, thin male, mechanically ventilated Neck: supple, trachea midline, normal thyroid Lungs: on ventilator, lungs clear Heart: regular S1 and S2, no murmur, peripheral pulses normal, capillary refill normal, no edema Abdomen: soft, NT, ND, + BS, no hepatomegaly, normal to percussion Extremities: normal in appearance, no cyanosis, no petechiae, strength is 5/5 bilaterally Neuro: sedated, no focal motor deficits, CN II-XII intact Skin: warm, dry, no rash, normal turgor Psych: sedated Results & Data Results & Data ([facility]) Vital Signs (Past 12 Hours) Vital Signs Temp Pulse Resp BP Pulse Ox 06/11/21 08:30 36.7 C 45 L 14 115/70 92 06/11/21 08:00 36.8 C 51 L 0 L 110/72 91 06/11/21 07:41 47 L 22 91 06/11/21 07:30 36.8 C 53 L 9 L 105/62 93 06/11/21 07:00 36.8 C 50 L 23 109/63 95 06/11/21 06:30 36.9 C 49 L 22 107/61 94 06/11/21 06:00 36.9 C 50 L 13 104/60 94 06/11/21 05:30 36.9 C 56 L 22 108/58 L 93 06/11/21 05:00 36.9 C 55 L 18 108/59 L 92 06/11/21 04:30 37.0 C 51 L 22 126/75 92 06/11/21 04:08 48 L 22 95 06/11/21 04:00 37.0 C 49 L 21 125/68 94 06/11/21 03:30 37.0 C 51 L 25 H 136/72 94 06/11/21 03:00 37.0 C 52 L 22 122/77 94 06/11/21 02:30 37.0 C 49 L 22 128/67 94 06/11/21 02:00 37.0 C 43 L 22 129/74 94 06/11/21 01:30 37.0 C 50 L 22 128/72 94 06/11/21 01:00 37.1 C 48 L 22 124/69 94 06/11/21 00:30 37.1 C 50 L 20 133/76 94 06/11/21 00:01 56 L 06/11/21 00:00 37.1 C 52 L 29 H 125/78 93 06/10/21 23:30 37.1 C 50 L 18 128/73 94 06/10/21 23:18 51 L 23 94 06/10/21 23:00 37.1 C 51 L 21 121/77 94 Laboratory Results Laboratory Results - last 24 hr 01/06/07/21 06/08/21 08:21 07:04 05:26 WBC RBC Hgb Hct MCV MCH MCHC RDW Std Deviation RDW Coeff of [place] Plt Count MPV Immature Gran % (Auto) Neut % (Auto) Lymph % (Auto) [place] % (Auto) Eos % (Auto) Baso % (Auto) Neut # (Auto) Lymph # (Auto) [place] # (Auto) Eos # (Auto) Baso # (Auto) Immature Gran # (Auto) Sample Site POC pH POC pCO2 POC pO2 POC HCO3 POC Total CO2 POC Base Excess POC ABG O2 Sat See Test O2 Delivery Device POC O2 Rate POC FiO2 Tidal Volume PEEP Sodium Potassium Chloride Carbon Dioxide Anion Gap BUN Creatinine Est Cr Clr Drug Dosing Est GFR ( Amer) Est GFR (Non-Af Amer) BUN/Creatinine Ratio Glucose POC Glucose Calcium Phosphorus Magnesium C-Reactive Protein 6.93 H 8.46 H 8.09 H 06/10/21 06/11/21 06/11/21 11:57 00:41 04:14 WBC RBC Hgb Hct MCV MCH MCHC RDW Std Deviation RDW Coeff of [place] Plt Count MPV Immature Gran % (Auto) Neut % (Auto) Lymph % (Auto) [place] % (Auto) Eos % (Auto) Baso % (Auto) Neut # (Auto) Lymph # (Auto) [place] # (Auto) Eos # (Auto) Baso # (Auto) Immature Gran # (Auto) Sample Site Art Line POC pH 7.31 L POC pCO2 45 POC pO2 80 POC HCO3 23 POC Total CO2 24 POC Base Excess -4.0 POC ABG O2 Sat 95.0 See Test NA O2 Delivery Device Ventilator POC O2 Rate 22 POC FiO2 40 Tidal Volume 380 PEEP 5 Sodium Potassium Chloride Carbon Dioxide Anion Gap BUN Creatinine Est Cr Clr Drug Dosing Est GFR ( Amer) Est GFR (Non-Af Amer) BUN/Creatinine Ratio Glucose POC Glucose 142 H 138 H Calcium Phosphorus Magnesium C-Reactive Protein 06/11/21 06/11/21 05:57 05:57 WBC 5.28 RBC 3.51 L Hgb 10.1 L Hct 31.2 L MCV 88.9 MCH 28.8 MCHC 32.4 RDW Std Deviation 49.4 H RDW Coeff of [place]am 15.1 H Plt Count 206 MPV 11.3 H Immature Gran % (Auto) 3.6 Neut % (Auto) 84.3 Lymph % (Auto) 7.2 [place] % (Auto) 4.9 Eos % (Auto) 0.0 Baso % (Auto) 0.0 Neut # (Auto) 4.45 Lymph # (Auto) 0.38 L [place] # (Auto) 0.26 Eos # (Auto) 0.00 Baso # (Auto) 0.00 Immature Gran # (Auto) 0.19 H Sample Site POC pH POC pCO2 POC pO2 POC HCO3 POC Total CO2 POC Base Excess POC ABG O2 Sat See Test O2 Delivery Device POC O2 Rate POC FiO2 Tidal Volume PEEP Sodium 136 Potassium 5.2 H Chloride 108 H Carbon Dioxide 23 Anion Gap 5 BUN 85 H Creatinine 2.85 H Est Cr Clr Drug Dosing 29.5 Est GFR ( Amer) 26.2 Est GFR (Non-Af Amer) 22.6 BUN/Creatinine Ratio 29.8 H Glucose 131 H POC Glucose Calcium 8.7 Phosphorus 5.1 H Magnesium 2.5 H C-Reactive Protein Medications Administered Current Inpatient Medications Acetaminophen (Acetaminophen 325 Mg Tab) 650 mg PO Q4H PRN PRN Reason: Pain or Fever Stop: 07/04/21 00:49 Last Admin: 06/08/21 08:41 Dose: 650 mg Documented by: Lipase/Protease/Amylase (Pancreaze (Lipase 10,500u) Cap) 4 cap PO BID [facility] Stop: 07/04/21 08:59 Last Admin: 06/11/21 08:46 Dose: Not Given Documented by: Apixaban (Apixaban 5 Mg Tablet) 5 mg PO BID [facility] Stop: 07/04/21 00:49 Last Admin: 06/11/21 08:31 Dose: 5 mg Documented by: Duloxetine HCl (Duloxetine Hcl 30 Mg Cap) 30 mg PO DAILY [facility] Stop: 07/04/21 08:59 Last Admin: 06/10/21 08:21 Dose: 30 mg Documented by: Fentanyl Citrate (Fentanyl Bolus From Bag) 50 mcg IV Q60M PRN PRN Reason: Pain or Agitation Stop: 06/22/21 15:03 Propofol (Diprivan) 1,000 mg in 100 mls @ 13.785 mls/hr IV .Q7H16M [facility]; Protocol Stop: 06/11/21 15:14 Last Admin: 06/11/21 08:45 Dose: 25 mcg/kg/min, 13.8 mls/hr Documented by: Fentanyl Citrate (Fentanyl Citrate) 2,500 mcg in 250 mls @ 20 mls/hr IV .[id number] [facility]; Protocol Stop: 06/22/21 15:14 Last Admin: 06/11/21 08:45 Dose: 200 mcg/hr, 20 mls/hr Documented by: Famotidine 20 mg/ Syringe 5 mls @ 2.5 mls/min IV DAILY [facility] Stop: 07/09/21 08:59 Last Admin: 06/11/21 08:31 Dose: 2.5 mls/min Documented by: Dexamethasone 6 mg/ Syringe 1.5 mls @ 1 mls/min IV DAILY [facility] Stop: 06/14/21 08:59 Last Admin: 06/11/21 08:30 Dose: 1 mls/min Documented by: Norepinephrine Bitartrate (Levophed/D5w) 8 mg in 508 mls @ 0 mls/hr IV .Q0M [facility]; Protocol Stop: 07/09/21 02:59 Last Titration: 06/11/21 08:46 Dose: 0 mcg/kg/min, 0 mls/hr Documented by: Midazolam HCl (Midazolam Hcl 1 Mg/Ml 2ml Vial) 2 mg IV Q2H PRN PRN Reason: RASS goal -3 Stop: 07/08/21 15:03 Miscellaneous (Icu Electrolyte Replacement Protocol) 1 ea N/A BID@18 [facility]; Protocol Stop: 06/15/21 17:59 Last Admin: 06/11/21 07:50 Dose: Not Given Documented by: Nutritional Formula (Peptamen Intense Vhp 1.0 Aaron 1,000 Ml Bag) 1,000 ml OG CONT [facility]; Protocol Stop: 07/09/21 10:59 Last Admin: 06/10/21 12:33 Dose: 1,000 ml Documented by: Pantoprazole Sodium (Pantoprazole 40 Mg Tab) 40 mg PO DAILY [facility] Stop: 07/04/21 08:59 Last Admin: 06/08/21 08:44 Dose: 40 mg Documented by: Potassium Chloride (Potassium Chloride Crtab 20 Meq Tabcr) 20 meq PO DAILY [facility] Stop: 07/04/21 08:59 Last Admin: 06/08/21 08:44 Dose: 20 meq Documented by: Propofol (Propofol Bolus From Bag) 20 mg IV Q5M PRN PRN Reason: Sedation Stop: 06/11/21 15:03 Last Admin: 06/09/21 03:00 Dose: 20 mg Documented by: Sterile Water (Tube Feeding Water Flush) 30 ml GT Q4H [facility] Stop: 07/09/21 10:59 Last Admin: 06/11/21 07:34 Dose: 30 ml Documented by: Tacrolimus (Tacrolimus 1 Mg Cap) 3 mg PO MoTh@0900 [facility] Stop: 07/06/21 08:59 Last Admin: 06/10/21 08:21 Dose: 3 mg Documented by: Voriconazole (Voriconazole 200 Mg Tablet) 200 mg PO BID [facility]; Protocol Stop: 06/16/21 20:59 Last Admin: 06/11/21 08:31 Dose: 200 mg Documented by: PG Care Time/CCT Total # of Minutes Spent Total Time Spent with Patient: Total time spent is greater than 50% in coordination of care (as documented) at patient's floor/unit and/or counseling patient: Coding Level of Care Code 98602 Subseq Hosp Care Lvl 2 Diagnoses Pneumonia due to COVID-19 virus U07.1; J12.82 Acute respiratory failure with hypoxia J96.01 Afib I48.91 Kidney transplant recipient Z94.0 CHF (congestive heart failure) I50.9
[2021-06-11] MEDS ORDERED: MINERAL OIL 30 ML UDC PO ONE (09:46)
--- NOTE | 2021-06-11 10:19 | Nephrology Progress Note ---
Date of Service June 11, 2021 Assessment & Plan (1) HUSSEIN (acute kidney injury): Plan: Chronic allograft dysfunction with superimposed ATN. Creatinine starting to plateau. Thankfully no emergent indication for dialysis. Non-oliguric. Due to slight hyperkalemia, TF to be adjusted. Remains in a positive fluid balance. Volume status reasonable. BP acceptable. Additional diuretics held for now. Medications appropriate for kidney dysfunction. Will monitor tacro level on voriconazole but with twice weekly dosing there should not be any issues with toxicity. Electrolytes acceptable. (2) Kidney transplant recipient: Plan: Remains on low dose twice weekly tacrolimus. No change to therapy at this time. Will order level prior to dose. (3) Hypertension: (4) Pneumonia due to COVID-19 virus: Plan: Remains on Decadron. Remains on MV. Admission and Anticipated Discharge Date Admission Date: June 03, 2021 Subjective No acute events overnight. Remains sedated on ventilator support. BP acceptable. Tolerating TF. Remains in positive fluid balance. Non-oliguric. Review of Systems Review of Systems: Unobtainable due to endotracheal tube Physical Exam Constitutional: well developed and + thin Eyes: no scleral abnormality and no corneal abnormality ENMT: ett Neck: normal visual inspection and trachea midline Respiratory: symmetric chest movement Auscultation: lungs clear to auscultation bilaterally Cardiovascular: Rate/Rhythm: regular rate Heart Sounds: normal S1 and normal S2 Extremities: no edema Musculoskeletal: Extremities: no cyanosis and no clubbing Skin: normal turgor; no lesions Neurologic: Motor/Sensory: no tremor and no asterixis Results & Data ([facility]) Vital Signs (Past 12 Hours) Vital Signs Temp Pulse Resp BP Pulse Ox 06/11/21 08:30 36.7 C 45 L 14 115/70 92 06/11/21 08:00 36.8 C 51 L 0 L 110/72 91 06/11/21 07:41 47 L 22 91 06/11/21 07:30 36.8 C 53 L 9 L 105/62 93 06/11/21 07:00 36.8 C 50 L 23 109/63 95 06/11/21 06:30 36.9 C 49 L 22 107/61 94 06/11/21 06:00 36.9 C 50 L 13 104/60 94 06/11/21 05:30 36.9 C 56 L 22 108/58 L 93 06/11/21 05:00 36.9 C 55 L 18 108/59 L 92 06/11/21 04:30 37.0 C 51 L 22 126/75 92 06/11/21 04:08 48 L 22 95 06/11/21 04:00 37.0 C 49 L 21 125/68 94 06/11/21 03:30 37.0 C 51 L 25 H 136/72 94 06/11/21 03:00 37.0 C 52 L 22 122/77 94 06/11/21 02:30 37.0 C 49 L 22 128/67 94 06/11/21 02:00 37.0 C 43 L 22 129/74 94 06/11/21 01:30 37.0 C 50 L 22 128/72 94 06/11/21 01:00 37.1 C 48 L 22 124/69 94 06/11/21 00:30 37.1 C 50 L 20 133/76 94 06/11/21 00:01 56 L 06/11/21 00:00 37.1 C 52 L 29 H 125/78 93 06/10/21 23:30 37.1 C 50 L 18 128/73 94 06/10/21 23:18 51 L 23 94 06/10/21 23:00 37.1 C 51 L 21 121/77 94 Laboratory Results Laboratory Results - last 24 hr 06/06/21 06/07/21 06/08/21 08:21 07:04 05:26 WBC RBC Hgb Hct MCV MCH MCHC RDW Std Deviation RDW Coeff of [place] Plt Count MPV Immature Gran % (Auto) Neut % (Auto) Lymph % (Auto) [place] % (Auto) Eos % (Auto) Baso % (Auto) Neut # (Auto) Lymph # (Auto) [place] # (Auto) Eos # (Auto) Baso # (Auto) Immature Gran # (Auto) Sample Site POC pH POC pCO2 POC pO2 POC HCO3 POC Total CO2 POC Base Excess POC ABG O2 Sat See Test O2 Delivery Device POC O2 Rate POC FiO2 Tidal Volume PEEP Sodium Potassium Chloride Carbon Dioxide Anion Gap BUN Creatinine Est Cr Clr Drug Dosing Est GFR ( Amer) Est GFR (Non-Af Amer) BUN/Creatinine Ratio Glucose POC Glucose Calcium Phosphorus Magnesium C-Reactive Protein 6.93 H 8.46 H 8.09 H 06/10/21 06/11/21 06/11/21 11:57 00:41 04:14 WBC RBC Hgb Hct MCV MCH MCHC RDW Std Deviation RDW Coeff of [place] Plt Count MPV Immature Gran % (Auto) Neut % (Auto) Lymph % (Auto) [place] % (Auto) Eos % (Auto) Baso % (Auto) Neut # (Auto) Lymph # (Auto) [place] # (Auto) Eos # (Auto) Baso # (Auto) Immature Gran # (Auto) Sample Site Art Line POC pH 7.31 L POC pCO2 45 POC pO2 80 POC HCO3 23 POC Total CO2 24 POC Base Excess -4.0 POC ABG O2 Sat 95.0 See Test NA O2 Delivery Device Ventilator POC O2 Rate 22 POC FiO2 40 Tidal Volume 380 PEEP 5 Sodium Potassium Chloride Carbon Dioxide Anion Gap BUN Creatinine Est Cr Clr Drug Dosing Est GFR ( Amer) Est GFR (Non-Af Amer) BUN/Creatinine Ratio Glucose POC Glucose 142 H 138 H Calcium Phosphorus Magnesium C-Reactive Protein 06/11/21 06/11/21 05:57 05:57 WBC 5.28 RBC 3.51 L Hgb 10.1 L Hct 31.2 L MCV 88.9 MCH 28.8 MCHC 32.4 RDW Std Deviation 49.4 H RDW Coeff of [place]am 15.1 H Plt Count 206 MPV 11.3 H Immature Gran % (Auto) 3.6 Neut % (Auto) 84.3 Lymph % (Auto) 7.2 [place] % (Auto) 4.9 Eos % (Auto) 0.0 Baso % (Auto) 0.0 Neut # (Auto) 4.45 Lymph # (Auto) 0.38 L [place] # (Auto) 0.26 Eos # (Auto) 0.00 Baso # (Auto) 0.00 Immature Gran # (Auto) 0.19 H Sample Site POC pH POC pCO2 POC pO2 POC HCO3 POC Total CO2 POC Base Excess POC ABG O2 Sat See Test O2 Delivery Device POC O2 Rate POC FiO2 Tidal Volume PEEP Sodium 136 Potassium 5.2 H Chloride 108 H Carbon Dioxide 23 Anion Gap 5 BUN 85 H Creatinine 2.85 H Est Cr Clr Drug Dosing 29.5 Est GFR ( Amer) 26.2 Est GFR (Non-Af Amer) 22.6 BUN/Creatinine Ratio 29.8 H Glucose 131 H POC Glucose Calcium 8.7 Phosphorus 5.1 H Magnesium 2.5 H C-Reactive Protein PG Care Time/CCT Total # of Minutes Spent Total Time Spent with Patient: Total time spent is greater than 50% in coordination of care (as documented) at patient's floor/unit and/or counseling patient: Coding Level of Care Code 84869 Subseq Hosp Care Lvl 3 Diagnoses HUSSEIN (acute kidney injury) N17.9 Kidney transplant recipient Z94.0 Hypertension I10 Pneumonia due to COVID-19 virus U07.1; J12.82
[2021-06-11] MEDS: NOVASOURCE RENAL 2.0 CAL 1000ML BAG OG SCH (12:09)
[2021-06-11] MEDS: NOREPINEPHRINE/D5W 8 MG/508 ML BAG IV SCH (20:05)
[2021-06-11 20:38] LABS: Gastric Occult Blood Positive (Negative); pH Gastric Fluid 2
[2021-06-11] MEDS: SUCRALFATE 1 GM/10 ML UDC PO SCH (22:15)
[2021-06-11] MEDS ORDERED: PANTOprazole 40 MG in SYRINGE 0 ML IV ONE (22:45)
[2021-06-12] MEDS: propofoL 1,000 MG/100 ML VIAL IV SCH ×3 (00:10→15:49)
[2021-06-12 04:49] LABS: iSTAT Arterial Blood Gas HCO3 23 meg/L (19-24); iSTAT Arterial Blood Gas pCO2 46 mmHg (35-46); iSTAT Arterial Blood Gas pH 7.31 (7.35-7.45); iSTAT Arterial Blood Gas pO2 60 mmHg (80-95); iSTAT Carbon Dioxide 25 mmol/L (24-31); iSTAT FiO2 35 %; iSTAT Site Art Line
[2021-06-12] MEDS: TUBE FEEDING WATER FLUSH GT SCH ×5 (05:00→17:28)
[2021-06-12 06:11] LABS: Hematocrit (blood only) 31.2 % (42-52); Hemoglobin 10.2 g/dL (14.0-18.0); Mean Corpuscular Hemoglobin 29.1 pg (25-34); Mean Corpuscular Hgb Conc 32.7 g/dL (32-36); Mean Corpuscular Volume 89.1 fL (80-100); Mean Platelet Volume 11.2 fL (7.4-10.4); Platelet Count 202 K/uL (130-400); RDW Standard Deviation 49.4 fL (36.4-46.3); White Blood Count 6.33 K/uL (4.8-10.8)
[2021-06-12 06:33] LABS: INR 1.1 (0.9-1.1); Partial Thromboplastin Ratio 0.9; Partial Thromboplastin Time 24.6 Seconds (21.0-31.0); Prothrombin Time 11.4 Seconds (9.0-12.0)
[2021-06-12 06:42] LABS: BUN Creatinine Ratio 37.6 (10-20); Creatinine Clr Calc Pharmacy 37.2 ml/min; Est GFR (African American) 34.7 ml/min; Magnesium 2.4 mg/dl (1.7-2.4); Phosphorus 4.8 mg/dl (2.5-4.9); Potassium 5.1 mmol/L (3.5-5.1)
[2021-06-12 06:50] LABS: Basophils # (auto) 0.01 K/uL (0-0.2); Basophils % (auto) 0.2 %; Immature Granulocytes # (auto) 0.21 K/uL (0.00-0.02); Immature Granulocytes % (auto) 3.3 %; Lymphocytes # (auto) 0.62 K/uL (1.2-3.4); Lymphocytes % (auto) 9.8 %; Monocytes # (auto) 0.02 K/uL (0.11-0.59); Monocytes % (auto) 0.3 %; Neutrophils # (auto) 5.47 K/uL (1.4-6.5); Neutrophils % (auto) 86.4 %; Ovalocytes 1+
[2021-06-12] MEDS: ICU ELECTROLYTE REPLACEMENT PROTOCOL SCH ×2 (07:24→17:27)
[2021-06-12] MEDS: PANTOprazole 40 MG in SYRINGE 0 ML IV SCH (08:05)
[2021-06-12] MEDS: dexAMETHasone 6 MG in SYRINGE 0 ML IV SCH (08:05)
[2021-06-12] MEDS: PANCREAZE (LIPASE 10,500U) CAP PO SCH (08:06)
[2021-06-12] MEDS: SUCRALFATE 1 GM/10 ML UDC PO SCH (08:06)
[2021-06-12] MEDS: VORICONAZOLE 200 MG TABLET PO SCH (08:06)
--- NOTE | 2021-06-12 09:28 | XRay Report ---
SINGLE VIEW CHEST CLINICAL HISTORY: Respiratory failure. FINDINGS: 2 AP, portable, upright chest radiographs are compared to study dated 06/11/2021 and correla alix with chest CT dated 05/04/2021. The examination is degraded by portable technique and patient rot ation. An endotracheal tube, an enteric tube, and a right internal jugular central venous catheter ar e unchanged in position. A single lead cardiac AICD is unchanged in position and partially obscures t he left mid chest. The heart is enlarged. Airspace opacities are again seen throughout both lungs. Th is has not appreciably changed as compared to yesterday. Question trace pleural effusions. No pneumot horax is identified. The skeletal structures are osteopenic. There are chronic/healed bilateral rib f ractures. Cholecystectomy clips are noted in the right upper quadrant. IMPRESSION: 1. Stable lines and tubes. 2. Cardiomegaly and AICD. 3. Diffuse bilateral airspace opacities have not appreciably changed as compared to yesterday. ACT 112: Negative or not required by law. Electronically signed by: Chetan Chavez M.D. 06/12/2021 9:27 AM
[2021-06-12] MEDS ORDERED: SUCRALFATE 1 GM/10 ML UDC PO SCH (09:30)
--- NOTE | 2021-06-12 09:45 | Hospitalist Progress Note ---
Date of Service June 12, 2021 Assessment & Plan (1) Pneumonia due to COVID-19 virus: Plan: Vaccinated and Boosted (last dose in February) First symptoms: May 24, 2021 Fist positive test: 06/03/2020 O2 requirement on admission: 15LPM O2 non-rebreather, O2 sats 71% on room air continue dexamethasone 6mg IV daily, day 9 of treatment 06/08/21: requiring 60L 100% FiO2 with oxymask and then he agreed to wear CPAP required CPAP and then later in afternoon was intubated clear that he does not want detention intubation/ventilation doing fairly well on ventilator, PEEP 5 and 40%, he is supine plan for another SBT this morning, Dr. 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, will need several weeks of radha tment PEEP 5 with FiO2 40%, stable low plateau and peak pressures plan for another SBT this morning (3) GI bleed: Plan: pink tinged residual via OG tube occult positive tube feeds on hold, Protonix IV Hb is 10 and BP stable, no melena noted (4) Afib: Plan: Anticoagulation with Eliquis (5) Kidney transplant recipient: Plan: Continue his usual tacrolimus dosing Consult nephrology, they are following Cr is down to 2.2 this morning, adequate UO via swain K down to 5.1 check BMP every morning nephrology following (6) CHF (congestive heart failure): Plan: euvolemic Plan: VTE Prophylaxis - continue Eliquis Diet - tube feeds Disposition - ICU status Admission and Anticipated Discharge Date Admission Date: June 03, 2021 Subjective patient did okay with SBT yesterday, but towards the end he was barely breathing above set rate placed back on ventilatory support last night PEEP remains 5 with FiO2 of 40% had some pink tinged residual on tube feeds, occult positive, tube feeds on hold with Protonix IV given reviewed labs, Cr down to 2.2, WB 6k, Hb 10.2, plts 202, K 5.1 plan to lighten sedation again this morning, see how he does with SBT Review of Systems Review of Systems: Unobtainable due to cognitive status and Unobtainable due to endotracheal tube Physical Exam Physical Exam: General: well developed, ill appearing, thin male, mechanically ventilated Neck: supple, trachea midline, normal thyroid Lungs: on ventilator, lungs clear Heart: regular S1 and S2, no murmur, peripheral pulses normal, capillary refill normal, no edema Abdomen: soft, NT, ND, + BS, no hepatomegaly, normal to percussion Extremities: normal in appearance, no cyanosis, no petechiae, strength is 5/5 bilaterally Neuro: sedated, no focal motor deficits, CN II-XII intact Skin: warm, dry, no rash, normal turgor Psych: sedated Results & Data Results & Data ([facility]) Vital Signs (Past 12 Hours) Vital Signs Temp Pulse Resp BP Pulse Ox 06/12/21 08:30 36.7 C 71 9 L 116/54 L 91 06/12/21 08:01 36.6 C 98 H 21 104/86 88 L 06/12/21 08:00 36.6 C 98 H 23 88 L 06/12/21 07:33 87 31 H 91 06/12/21 07:30 36.6 C 78 19 135/83 93 06/12/21 07:00 36.6 C 57 L 22 113/71 94 06/12/21 06:45 36.6 C 54 L 16 94 06/12/21 04:30 36.6 C 66 18 122/71 88 L 06/12/21 04:00 36.6 C 52 L 9 L 123/74 92 06/12/21 03:58 60 22 91 06/12/21 03:30 36.6 C 55 L 13 111/74 91 06/12/21 03:00 36.5 C 57 L 8 L 122/73 88 L 06/12/21 02:30 36.6 C 58 L 7 L 117/76 92 06/12/21 02:00 36.6 C 57 L 7 L 126/82 92 06/12/21 01:30 36.6 C 55 L 3 L 121/80 91 06/12/21 01:00 36.6 C 60 12 116/75 91 06/12/21 00:30 36.6 C 62 6 L 119/67 92 06/12/21 00:00 36.6 C 60 5 L 117/79 90 06/11/21 23:30 36.6 C 55 L 6 L 122/72 91 06/11/21 23:00 36.6 C 55 L 6 L 124/72 92 06/11/21 22:30 36.6 C 59 L 6 L 116/70 91 06/11/21 22:18 63 22 90 06/11/21 22:00 36.6 C 58 L 7 L 118/71 90 Laboratory Results Laboratory Results - last 24 hr 06/11/21 06/11/21 06/12/21 13:05 20:29 04:33 WBC RBC Hgb Hct MCV MCH MCHC RDW Std Deviation RDW Coeff of Poonam Plt Count MPV Immature Gran % (Auto) Neut % (Auto) Lymph % (Auto) Wilkinson % (Auto) Eos % (Auto) Baso % (Auto) Neut # (Auto) Lymph # (Auto) Wilkinson # (Auto) Eos # (Auto) Baso # (Auto) Immature Gran # (Auto) Ovalocytes PT INR APTT PTT Ratio Sample Site Art Line POC pH 7.31 L POC pCO2 46 POC pO2 60 L POC HCO3 23 POC Total CO2 25 POC Base Excess -3.0 POC ABG O2 Sat 88.0 L See Test NA O2 Delivery Device Ventilator POC O2 Rate 22 POC FiO2 35 Tidal Volume 380 PEEP 5 Sodium Potassium Chloride Carbon Dioxide Anion Gap BUN Creatinine Est Cr Clr Drug Dosing Est GFR ( Amer) Est GFR (Non-Af Amer) BUN/Creatinine Ratio Glucose POC Glucose 133 H Calcium Phosphorus Magnesium Triglycerides Gastric Fluid pH 2 Gastric Occult Blood Positive A 06/12/21 06/12/21 06/12/21 05:55 05:55 05:55 WBC 6.33 RBC 3.50 L Hgb 10.2 L Hct 31.2 L MCV 89.1 MCH 29.1 MCHC 32.7 RDW Std Deviation 49.4 H RDW Coeff of Poonam 15.0 H Plt Count 202 MPV 11.2 H Immature Gran % (Auto) 3.3 Neut % (Auto) 86.4 Lymph % (Auto) 9.8 Wilkinson % (Auto) 0.3 Eos % (Auto) 0.0 Baso % (Auto) 0.2 Neut # (Auto) 5.47 Lymph # (Auto) 0.62 L Wilkinson # (Auto) 0.02 L Eos # (Auto) 0.00 Baso # (Auto) 0.01 Immature Gran # (Auto) 0.21 H Ovalocytes 1+ PT 11.4 INR 1.1 APTT 24.6 PTT Ratio 0.9 Sample Site POC pH POC pCO2 POC pO2 POC HCO3 POC Total CO2 POC Base Excess POC ABG O2 Sat See Test O2 Delivery Device POC O2 Rate POC FiO2 Tidal Volume PEEP Sodium 138 Potassium 5.1 Chloride 111 H Carbon Dioxide 23 Anion Gap 4 BUN 85 H Creatinine 2.26 H D Est Cr Clr Drug Dosing 37.2 Est GFR ( Amer) 34.7 Est GFR (Non-Af Amer) 30.0 BUN/Creatinine Ratio 37.6 H Glucose 115 H POC Glucose Calcium 9.0 Phosphorus 4.8 Magnesium 2.4 Triglycerides 174 H Gastric Fluid pH Gastric Occult Blood Medications Administered Current Inpatient Medications Acetaminophen (Acetaminophen 325 Mg Tab) 650 mg PO Q4H PRN PRN Reason: Pain or Fever Stop: 07/04/21 00:49 Last Admin: 06/08/21 08:41 Dose: 650 mg Documented by: Lipase/Protease/Amylase (Pancreaze (Lipase 10,500u) Cap) 4 cap PO BID [facility] Stop: 07/04/21 08:59 Last Admin: 06/12/21 08:06 Dose: Not Given Documented by: Apixaban (Apixaban 5 Mg Tablet) 5 mg PO BID [facility] Stop: 07/04/21 00:49 Last Admin: 06/11/21 20:04 Dose: 5 mg Documented by: Duloxetine HCl (Duloxetine Hcl 30 Mg Cap) 30 mg PO DAILY [facility] Stop: 07/04/21 08:59 Last Admin: 06/10/21 08:21 Dose: 30 mg Documented by: Enteral Nutritional Formula (Novasource Renal 2.0 Aaron 1000ml Bag) 1,000 ml OG UD [facility]; Protocol Stop: 07/11/21 10:44 Last Admin: 06/11/21 12:09 Dose: 1,000 ml Documented by: Fentanyl Citrate (Fentanyl Bolus From Bag) 50 mcg IV Q60M PRN PRN Reason: Pain or Agitation Stop: 06/22/21 15:03 Propofol (Diprivan) 1,000 mg in 100 mls @ 13.785 mls/hr IV .Q7H16M [facility]; Protocol Stop: 06/14/21 15:14 Last Titration: 06/12/21 06:01 Dose: 25 mcg/kg/min, 13.8 mls/hr Documented by: Fentanyl Citrate (Fentanyl Citrate) 2,500 mcg in 250 mls @ 20 mls/hr IV . [id number] [facility]; Protocol Stop: 06/22/21 15:14 Last Admin: 06/11/21 22:15 Dose: 175 mcg/hr, 17.5 mls/hr Documented by: Dexamethasone 6 mg/ Syringe 1.5 mls @ 1 mls/min IV DAILY [facility] Stop: 06/14/21 08:59 Last Admin: 06/12/21 08:05 Dose: 1 mls/min Documented by: Norepinephrine Bitartrate (Levophed/D5w) 8 mg in 508 mls @ 0 mls/hr IV .Q0M [facility]; Protocol Stop: 07/09/21 02:59 Last Admin: 06/11/21 20:05 Dose: Not Given Documented by: Pantoprazole Sodium 40 mg/ (Syringe) 10 mls @ 5 mls/min IV BID [facility] Stop: 07/12/21 08:59 Last Admin: 06/12/21 08:05 Dose: 5 mls/min Documented by: Midazolam HCl (Midazolam Hcl 1 Mg/Ml 2ml Vial) 2 mg IV Q2H PRN PRN Reason: RASS goal -3 Stop: 07/08/21 15:03 Miscellaneous (Icu Electrolyte Replacement Protocol) 1 ea N/A BID@,18 [facility]; Protocol Stop: 06/15/21 17:59 Last Admin: 06/12/21 07:24 Dose: 1 ea Documented by: Pantoprazole Sodium (Pantoprazole 40 Mg Tab) 40 mg PO DAILY [facility] Stop: 07/04/21 08:59 Last Admin: 06/08/21 08:44 Dose: 40 mg Documented by: Potassium Chloride (Potassium Chloride Crtab 20 Meq Tabcr) 20 meq PO DAILY [facility] Stop: 07/04/21 08:59 Last Admin: 06/08/21 08:44 Dose: 20 meq Documented by: Sterile Water (Tube Feeding Water Flush) 30 ml GT Q4H [facility] Stop: 07/09/21 10:59 Last Admin: 06/12/21 07:19 Dose: 30 ml Documented by: Sucralfate (Sucralfate 1 Gm/10 Ml Udc) 1 gm PO QID@0730,1300,1700,2100 [facility] Stop: 07/12/21 09:29 Last Admin: 06/12/21 09:36 Dose: 1 gm Documented by: Tacrolimus (Tacrolimus 1 Mg Cap) 3 mg PO MoTh@0900 [facility] Stop: 07/06/21 08:59 Last Admin: 06/10/21 08:21 Dose: 3 mg Documented by: Voriconazole (Voriconazole 200 Mg Tablet) 200 mg PO BID [facility]; Protocol Stop: 07/21/21 20:59 Last Admin: 06/12/21 08:06 Dose: 200 mg Documented by: PG Care Time/CCT Total # of Minutes Spent Total Time Spent with Patient: Total time spent is greater than 50% in coordination of care (as documented) at patient's floor/unit and/or counseling patient: Coding Level of Care Code 17568 Subseq Hosp Care Lvl 3 Diagnoses Pneumonia due to COVID-19 virus U07.1; J12.82 Acute respiratory failure with hypoxia J96.01 Afib I48.91 Kidney transplant recipient Z94.0 CHF (congestive heart failure) I50.9 GI bleed K92.2
--- NOTE | 2021-06-12 10:19 | Critical Care Progress Note ---
Date of Service June 12, 2021 Assessment & Plan (1) ARDS (adult respiratory distress syndrome): (2) COVID-19: (3) Pneumonia: (4) CHF (congestive heart failure): (5) Cardiomyopathy: (6) Kidney transplant recipient: (7) HUSSEIN (acute kidney injury): Plan: Impression: 61-year-old male kidney transplant recipient immunosuppressed with tacrolimus admitted to the hospital 06/03/2021 with COVID-pneumonia. He is fully vaccinated and boosted. He developed progressive respiratory insufficiency with increased work of breathing and he elected to be intubated 06/08/2021. Discussions were held with the patient and family prior to the procedure. He would not want tracheostomy but is agreeable to 7 days mechanical ventilation if he fails to improve at that point time, would proceed with terminal extubation. Recommendations: 1. Neurologic: Currently sedated with fentanyl, propofol. Continue home Cymbalta 2. Cardiovascular: The patient's low-dose norepinephrine has been discontinued not required. Patient is fully anticoagulated with Eliquis due to prior history of A. fib. Given that the patient is currently on norepinephrine we will hold his Coreg for now 3. Pulmonary: ARDS secondary to COVID pneumonitis. Current vent settings assist-control: 22/380/5/0 0.4 with a plateau of 23. Tolerate permissive hypercapnia in an effort to try and avoid additional barotrauma/volume trauma. Continue dexamethasone at 6 mg, day 9/10. His oxygenation is adequate and do not think he needs to pursue proning or neuromuscular blockade currently. I am concerned about additional immunosuppression given his current dose of tacrolimus with higher doses. 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 Following with nephrology. If the patient fails to improve after 7 days, extubation to comfort care as per previous discussion with patient and family passing spontaneous breathing trial today, will give trial of extubation when patient more awake 4. GI: Tube feedings increasing. Continue the patient's home pancreatic enzyme replacement. Constipation: 30 mL lactulose 30 mils mineral oil today 5. Renal: History of kidney transplant. Will defer management of the patient's immunosuppression to nephrology. Currently on tacrolimus. Electrolyte replacement per nephrology. Magnesium 2.4 which will be good for prolonged QTC given multiple drug drug interactions 6. ID: COVID-pneumonia. Continue dexamethasone 6 mg a day for total of 10 days. I think the risk of significant infectious complications with higher doses of steroids or additional immune suppression would outweigh any potential benefit so we will hold off for now. WBC normal and no fevers. Cultures negative to date. Cont to follow. Aspergillus pneumonia: Voriconazole day 3 7. Endocrine: Glycemic control per ICU protocol. 8. Heme-onc: Mild anemia. Likely secondary to underlying kidney disease. No evidence of acute blood loss. No indication for transfusion currently. DVT prophylaxis addressed with the patient's full anticoagulation from Eliquis. Understanding that voriconazole will interact with Eliquis however we will continue regular dosing of Eliquis as the patient is in chronic A. fib continue Eliquis despite gastric cult being positive he is being appropriately treated with antiacid blockers Patient is critically ill with multiorgan system dysfunction at this point time. There is significant possibility of clinical deterioration and/or . A total of 55 min CC time spent in evaluation and management of patient. Patient was discussed in multidisciplinary rounds Admission and Anticipated Discharge Date Admission Date: June 03, 2021 Subjective Currently tolerating spontaneous breathing trial Review of Systems Review of Systems: Unobtainable due to endotracheal tube Physical Exam Physical Exam: General: Sedated. nontoxic. Skin: Warm, dry, Head: Atraumatic Ears, nose, mouth and throat: airway obscured by endotracheal tube Cardiovascular: Normal peripheral perfusion Respiratory: Ventilator settings reviewed Gastrointestinal: Non distended Musculoskeletal: No deformity Results & Data Results & Data ([facility]) Vital Signs (Past 12 Hours) Vital Signs Temp Pulse Resp BP Pulse Ox 06/12/21 08:30 36.7 C 71 9 L 116/54 L 91 06/12/21 08:01 36.6 C 98 H 21 104/86 88 L 06/12/21 08:00 36.6 C 98 H 23 88 L 06/12/21 07:33 87 31 H 91 06/12/21 07:30 36.6 C 78 19 135/83 93 06/12/21 07:00 36.6 C 57 L 22 113/71 94 06/12/21 06:45 36.6 C 54 L 16 94 06/12/21 04:30 36.6 C 66 18 122/71 88 L 06/12/21 04:00 36.6 C 52 L 9 L 123/74 92 06/12/21 03:58 60 22 91 06/12/21 03:30 36.6 C 55 L 13 111/74 91 06/12/21 03:00 36.5 C 57 L 8 L 122/73 88 L 06/12/21 02:30 36.6 C 58 L 7 L 117/76 92 06/12/21 02:00 36.6 C 57 L 7 L 126/82 92 06/12/21 01:30 36.6 C 55 L 3 L 121/80 91 06/12/21 01:00 36.6 C 60 12 116/75 91 06/12/21 00:30 36.6 C 62 6 L 119/67 92 06/12/21 00:00 36.6 C 60 5 L 117/79 90 06/11/21 23:30 36.6 C 55 L 6 L 122/72 91 06/11/21 23:00 36.6 C 55 L 6 L 124/72 92 06/11/21 22:30 36.6 C 59 L 6 L 116/70 91 06/11/21 22:18 63 22 90 Critical Care Results & Data Vital Signs (Past 12 Hours) Vital Signs Temp Pulse Resp BP Pulse Ox 06/12/21 10:07 64 10 L 06/12/21 08:30 36.7 C 71 9 L 116/54 L 91 06/12/21 08:01 36.6 C 98 H 21 104/86 88 L 06/12/21 08:00 36.6 C 98 H 23 88 L 06/12/21 07:33 87 31 H 91 06/12/21 07:30 36.6 C 78 19 135/83 93 06/12/21 07:00 36.6 C 57 L 22 113/71 94 06/12/21 06:45 36.6 C 54 L 16 94 06/12/21 04:30 36.6 C 66 18 122/71 88 L 06/12/21 04:00 36.6 C 52 L 9 L 123/74 92 06/12/21 03:58 60 22 91 06/12/21 03:30 36.6 C 55 L 13 111/74 91 06/12/21 03:00 36.5 C 57 L 8 L 122/73 88 L 06/12/21 02:30 36.6 C 58 L 7 L 117/76 92 06/12/21 02:00 36.6 C 57 L 7 L 126/82 92 06/12/21 01:30 36.6 C 55 L 3 L 121/80 91 06/12/21 01:00 36.6 C 60 12 116/75 91 06/12/21 00:30 36.6 C 62 6 L 119/67 92 06/12/21 00:00 36.6 C 60 5 L 117/79 90 06/11/21 23:30 36.6 C 55 L 6 L 122/72 91 06/11/21 23:00 36.6 C 55 L 6 L 124/72 92 06/11/21 22:30 36.6 C 59 L 6 L 116/70 91 06/11/21 22:18 63 22 90 Lab & Micro Results (Past 24 Hours) RBC 3.50 M/uL (4.7-6.1) L 06/12/21 WBC 6.33 K/uL (4.8-10.8) 06/12/21 Hgb 10.2 g/dL (14.0-18.0) L 06/12/21 Hct 31.2 % (42-52) L 06/12/21 MCV 89.1 fL (80-100) 06/12/21 MCH 29.1 pg (25-34) 06/12/21 MCHC 32.7 g/dL (32-36) 06/12/21 RDW Standard Deviation 49.4 fL (36.4-46.3) H 06/12/21 RDW Coefficient of Variation 15.0 % (11.5-14.5) H 06/12/21 Plt Count 202 K/uL (130-400) 06/12/21 MPV 11.2 fL (7.4-10.4) H 06/12/21 Neutrophils (%) (Auto) 86.4 % 06/12/21 Lymphocytes (%) (Auto) 9.8 % 06/12/21 Monocytes # (Auto) 0.02 K/uL (0.11-0.59) L 06/12/21 Eosinophils # (Auto) 0.00 K/uL (0-0.5) 06/12/21 Immature Granulocyte % (Auto) 3.3 % 06/12/21 Neutrophils # (Auto) 5.47 K/uL (1.4-6.5) 06/12/21 Lymphocytes # (Auto) 0.62 K/uL (1.2-3.4) L 06/12/21 Monocytes # (Auto) 0.02 K/uL (0.11-0.59) L 06/12/21 Eosinophils # (Auto) 0.00 K/uL (0-0.5) 06/12/21 Basophils # (Auto) 0.01 K/uL (0-0.2) 06/12/21 Immature Granulocyte # (Auto) 0.21 K/uL (0.00-0.02) H 06/12/21 Ovalocytes 1+ 06/12/21 Na 138 mmol/L (136-145) 06/12/21 K 5.1 mmol/L (3.5-5.1) 06/12/21 Cl 111 mmol/L (98-107) H 06/12/21 CO2 23 mmol/L (21-32) 06/12/21 Anion Gap 4 (3-11) 06/12/21 BUN 85 mg/dl (6-23) H 06/12/21 Creatinine 2.26 mg/dl (0.6-1.4) H 06/12/21 Estimated GFR ( Amer) 34.7 ml/min 06/12/21 Estimated GFR (Non-Af Amer) 30.0 ml/min 06/12/21 BUN/Creatinine Ratio 37.6 (10-20) H 06/12/21 Glu 115 mg/dl (70-99(Fasting)) H 06/12/21 Ca 9.0 mg/dl (8.5-10.1) 06/12/21 Phosphorus Level 4.8 mg/dl (2.5-4.9) 06/12/21 Mg 2.4 mg/dl (1.7-2.4) 06/12/21 05:55 06/12/21 Calcium Level 9.0 mg/dl (8.5-10.1) 06/12/21 05:55 06/12/21 Prothromb Time International Ratio 1.1 (0.9-1.1) 06/12/21 05:55 06/12/21 See Test NA 06/12/21 04:33 06/12/21 Microbiology 06/08/21 Unknown Gram Stain - Final Sputum,Vent Suction Sputum Culture - Final Aspergillus fumigatus Diagnostic Findings (Past 24 Hours) Chest X-Ray 06/12/21 07:00 SINGLE VIEW CHEST CLINICAL HISTORY: Respiratory failure. FINDINGS: 2 AP, portable, upright chest radiographs are compared to study dated 06/11/2021 and correlated with chest CT dated 05/04/2021. The examination is degraded by portable technique and patient rotation. An endotracheal tube, an enteric tube, and a right internal jugular central venous catheter are unchanged in position. A single lead cardiac AICD is unchanged in position and partially obscures the left mid chest. The heart is enlarged. Airspace opacities are again seen throughout both lungs. This has not appreciably changed as compared to yesterday. Question trace pleural effusions. No pneumothorax is identified. The skeletal structures are osteopenic. There are chronic/healed bilateral rib fract ures. Cholecystectomy clips are noted in the right upper quadrant. IMPRESSION: 1. Stable lines and tubes. 2. Cardiomegaly and AICD. 3. Diffuse bilateral airspace opacities have not appreciably changed as compared to yesterday. ACT 112: Negative or not required by law. Electronically signed by: Chetan Chavez M.D. 06/12/2021 9:27 AM I & O Totals 24 Hours 06/11/21 06/12/21 06/13/21 06:59 06:59 06:59 Intake Total 1634.354 / 1634.354 810.303 / 810.303 256.705 / 256.705 Output Total 825 / 825 1325 / 1325 200 / 200 Balance 809.354 / 809.354 -514.697 / -514.697 56.705 / 56.705 Cumulative 06/03/21 16:13 thru 06/12/21 10:12 Intake Total 6624.838 Output Total 8100 Balance -1475.162 RT Ventilator Mngmt (Last Documented) Ventilator Ordered Settings Ventilator Support Mode CPAP 06/12/21 10:07 Respiratory Rate 10 06/12/21 10:07 Ventilator Tidal Volume 380 06/12/21 08:00 Setting Minute Ventilation 7.3 06/12/21 10:07 Ventilator Positive Pressure 10 06/12/21 10:07 Support Setting Positive End Expiratory 5 06/12/21 10:07 Pressure Fraction of Inspired Oxygen 40 06/12/21 10:07 Machine Comment Pt placed pt on SBT at this time 06/12/21 10:[address] Viramontes. Ventilator - PT Measurements Respiratory Rate 10 Exhaled Tidal Volume 794 Minute Ventilation 7.3 Peak Inspiratory Airway 18 Pressure Plateau Pressure 24.3 Respiratory Cycle Inspiratory: 1:3.2 Expiratory Ratio Inspiratory Phase Time 0.65 End-Tidal CO2 37 Static Lung Compliance 20.52 Dynamic Lung Compliance 61.08 Normal Static Lung Compliance 49.00 Coding Level of Care Code Critical Care 1st 30-74 mins Diagnoses ARDS (adult respiratory distress syndrome) J80 COVID-19 U07.1 Pneumonia J18.9 Laterality: bilateral Lung location: unspecified part of lung Pneumonia type: due to unspecified organism CHF (congestive heart failure) I50.9 Cardiomyopathy I42.9 Kidney transplant recipient Z94.0 HUSSEIN (acute kidney injury) N17.9 (1) Pneumonia Laterality: bilateral Lung location: unspecified part of lung Pneumonia type: due to unspecified organism Qualified Code(s): J18.9 - Pneumonia, unspecified organism
[2021-06-12] MEDS ORDERED: LACTULOSE SYRUP 20 GM/30 ML UDC PO STA (10:34)
[2021-06-12] MEDS ORDERED: MINERAL OIL 30 ML UDC PO STA (10:34)
--- NOTE | 2021-06-12 10:40 | Nephrology Progress Note ---
Date of Service June 12, 2021 Assessment & Plan (1) HUSSEIN (acute kidney injury): Plan: Chronic allograft dysfunction with superimposed ATN. Creatinine starting to improve. Electrolytes acceptable. Volume status reasonable. BP acceptable. Medications appropriate for kidney dysfunction. Electrolytes acceptable. (2) Kidney transplant recipient: Plan: Remains on low dose twice weekly tacrolimus. Repeat trough tomorrow AM to monitor on voriconazole. (3) Hypertension: (4) Pneumonia due to COVID-19 virus: Plan: Remains on Decadron. Vent weaning per ICU team. Plan of care discussed with Dr. Irwin this morning. Admission and Anticipated Discharge Date Admission Date: June 03, 2021 Subjective No acute events overnight. Repeat SBT today. Remains on MV. BP acceptable. Review of Systems Review of Systems: Unobtainable due to endotracheal tube Physical Exam Constitutional: well developed, + ill appearing and + thin Eyes: no scleral abnormality and no corneal abnormality ENMT: Ears: + hearing impairment Mouth: + dry oral mucous membranes Neck: normal visual inspection and trachea midline Respiratory: symmetric chest movement Auscultation: lungs clear to auscultation bilaterally Cardiovascular: Rate/Rhythm: regular rate Heart Sounds: normal S1 and normal S2 Extremities: no edema Musculoskeletal: Extremities: no cyanosis and no clubbing Skin: normal turgor; no lesions Neurologic: Motor/Sensory: no tremor and no asterixis Psychiatric: Orientation: alert and oriented x 3 Results & Data ([facility]) Vital Signs (Past 12 Hours) Vital Signs Temp Pulse Resp BP Pulse Ox 06/12/21 08:30 36.7 C 71 9 L 116/54 L 91 06/12/21 08:01 36.6 C 98 H 21 104/86 88 L 06/12/21 08:00 36.6 C 98 H 23 88 L 06/12/21 07:33 87 31 H 91 06/12/21 07:30 36.6 C 78 19 135/83 93 06/12/21 07:00 36.6 C 57 L 22 113/71 94 06/12/21 06:45 36.6 C 54 L 16 94 06/12/21 04:30 36.6 C 66 18 122/71 88 L 06/12/21 04:00 36.6 C 52 L 9 L 123/74 92 06/12/21 03:58 60 22 91 06/12/21 03:30 36.6 C 55 L 13 111/74 91 06/12/21 03:00 36.5 C 57 L 8 L 122/73 88 L 06/12/21 02:30 36.6 C 58 L 7 L 117/76 92 06/12/21 02:00 36.6 C 57 L 7 L 126/82 92 06/12/21 01:30 36.6 C 55 L 3 L 121/80 91 06/12/21 01:00 36.6 C 60 12 116/75 91 06/12/21 00:30 36.6 C 62 6 L 119/67 92 06/12/21 00:00 36.6 C 60 5 L 117/79 90 06/11/21 23:30 36.6 C 55 L 6 L 122/72 91 06/11/21 23:00 36.6 C 55 L 6 L 124/72 92 06/11/21 22:30 36.6 C 59 L 6 L 116/70 91 06/11/21 22:18 63 22 90 06/11/21 22:00 36.6 C 58 L 7 L 118/71 90 Laboratory Results Laboratory Results - last 24 hr 06/11/21 06/11/21 06/12/21 13:05 20:29 04:33 WBC RBC Hgb Hct MCV MCH MCHC RDW Std Deviation RDW Coeff of Poonam Plt Count MPV Immature Gran % (Auto) Neut % (Auto) Lymph % (Auto) [place] % (Auto) Eos % (Auto) Baso % (Auto) Neut # (Auto) Lymph # (Auto) [place] # (Auto) Eos # (Auto) Baso # (Auto) Immature Gran # (Auto) Ovalocytes PT INR APTT PTT Ratio Sample Site Art Line POC pH 7.31 L POC pCO2 46 POC pO2 60 L POC HCO3 23 POC Total CO2 25 POC Base Excess -3.0 POC ABG O2 Sat 88.0 L See Test NA O2 Delivery Device Ventilator POC O2 Rate 22 POC FiO2 35 Tidal Volume 380 PEEP 5 Sodium Potassium Chloride Carbon Dioxide Anion Gap BUN Creatinine Est Cr Clr Drug Dosing Est GFR ( Amer) Est GFR (Non-Af Amer) BUN/Creatinine Ratio Glucose POC Glucose 133 H Calcium Phosphorus Magnesium Triglycerides Gastric Fluid pH 2 Gastric Occult Blood Positive A 06/12/21 06/12/21 06/12/21 05:55 05:55 05:55 WBC 6.33 RBC 3.50 L Hgb 10.2 L Hct 31.2 L MCV 89.1 MCH 29.1 MCHC 32.7 RDW Std Deviation 49.4 H RDW Coeff of Poonam 15.0 H Plt Count 202 MPV 11.2 H Immature Gran % (Auto) 3.3 Neut % (Auto) 86.4 Lymph % (Auto) 9.8 [place] % (Auto) 0.3 Eos % (Auto) 0.0 Baso % (Auto) 0.2 Neut # (Auto) 5.47 Lymph # (Auto) 0.62 L [place] # (Auto) 0.02 L Eos # (Auto) 0.00 Baso # (Auto) 0.01 Immature Gran # (Auto) 0.21 H Ovalocytes 1+ PT 11.4 INR 1.1 APTT 24.6 PTT Ratio 0.9 Sample Site POC pH POC pCO2 POC pO2 POC HCO3 POC Total CO2 POC Base Excess POC ABG O2 Sat See Test O2 Delivery Device POC O2 Rate POC FiO2 Tidal Volume PEEP Sodium 138 Potassium 5.1 Chloride 111 H Carbon Dioxide 23 Anion Gap 4 BUN 85 H Creatinine 2.26 H D Est Cr Clr Drug Dosing 37.2 Est GFR ( Amer) 34.7 Est GFR (Non-Af Amer) 30.0 BUN/Creatinine Ratio 37.6 H Glucose 115 H POC Glucose Calcium 9.0 Phosphorus 4.8 Magnesium 2.4 Triglycerides 174 H Gastric Fluid pH Gastric Occult Blood PG Care Time/CCT Total # of Minutes Spent Total Time Spent with Patient: Total time spent is greater than 50% in coordination of care (as documented) at patient's floor/unit and/or counseling patient: Coding Level of Care Code 97615 Subseq Hosp Care Lvl 3 Diagnoses HUSSEIN (acute kidney injury) N17.9 Kidney transplant recipient Z94.0 Hypertension I10 Pneumonia due to COVID-19 virus U07.1; J12.82
[2021-06-12] MEDS: fentaNYL citrate 2,500 MCG/250 ML BAG IV SCH (15:48)
[2021-06-12 16:15] LABS: iSTAT Arterial Blood Gas HCO3 22 meg/L (19-24); iSTAT Arterial Blood Gas pCO2 38 mmHg (35-46); iSTAT Arterial Blood Gas pH 7.37 (7.35-7.45); iSTAT Arterial Blood Gas pO2 78 mmHg (80-95); iSTAT Carbon Dioxide 23 mmol/L (24-31); iSTAT FiO2 55 %; iSTAT Site Art Line
[2021-06-12] MEDS ORDERED: STAT IV Infusion **Titration per Protocol STA (19:10)
[2021-06-12] MEDS: DEXMEDETOMIDINE HCL 200 MCG in SODIUM CHLORIDE 0.9% 48 ML IV SCH (20:11)
--- NOTE | 2021-06-12 21:27 | Electrocardiogram Report ---
Test Reason : Blood Pressure : / mmHG Vent. Rate : 106 BPM Atrial Rate : 144 BPM P-R Int : 000 ms QRS Dur : 100 ms QT Int : 326 ms P-R-T Axes : 000 -82 137 degrees QTc Int : 433 ms Atrial fibrillation with rapid ventricular response Left axis deviation Low voltage QRS Poor R wave progression, consider anterior NV vs. lead placement vs. LVH T wave abnormality, consider lateral ischemia Abnormal ECG When compared with ECG of 03-JUN-2021 16:30, T wave inversion now evident in Lateral leads Confirmed by Bharathi Mclaughlin ([id number]) on 06/12/2021 9:27:39 PM Referred By: REFERRED SELF Confirmed By:Bharathi Mclaughlin
--- NOTE | 2021-06-12 21:42 | XRay Report ---
XR KUB/Abdomen 1 view CLINICAL HISTORY: coresafe placement. COMPARISON STUDY: No previous studies for comparison. TECHNIQUE: Single view of the abdomen. FINDINGS: Feeding tube has been placed within the left lower lobe bronchus. The bowel gas pattern is within normal limits without evidence for dilatation or obstruction. There i s no evidence for organomegaly or gross intra-abdominal mass. No abnormal calcifications are seen geovany ng the course of the urinary tracts bilaterally. No acute osseous pathology. IMPRESSION: 1.Feeding tube within the left lower lobe bronchus. Critical result was sent to be a [employer] connect ACT 112: Negative or not required by law. Electronically signed by: Bennett Lynn M.D. 06/12/2021 9:41 PM
[2021-06-13] MEDS: APIXABAN 5 MG TABLET PO SCH ×3 (00:45→20:18)
[2021-06-13] MEDS: PANTOprazole 40 MG in SYRINGE 0 ML IV SCH ×3 (00:46→20:18)
[2021-06-13] MEDS: VORICONAZOLE 200 MG TABLET PO SCH ×3 (00:46→20:18)
[2021-06-13] MEDS: PANCREAZE (LIPASE 10,500U) CAP PO SCH ×2 (00:47→08:20)
[2021-06-13] MEDS: TUBE FEEDING WATER FLUSH GT SCH ×7 (00:47→23:37)
[2021-06-13] MEDS: DEXMEDETOMIDINE HCL 200 MCG in SODIUM CHLORIDE 0.9% 48 ML IV SCH ×5 (00:53→23:36)
[2021-06-13 06:08] LABS: Hematocrit (blood only) 35.3 % (42-52); Hemoglobin 11.5 g/dL (14.0-18.0); Mean Corpuscular Hemoglobin 28.5 pg (25-34); Mean Corpuscular Hgb Conc 32.6 g/dL (32-36); Mean Corpuscular Volume 87.4 fL (80-100); Mean Platelet Volume 11.7 fL (7.4-10.4); Platelet Count 213 K/uL (130-400); RDW Coefficient of Variation 14.9 % (11.5-14.5); RDW Standard Deviation 47.6 fL (36.4-46.3); Red Blood Count 4.04 M/uL (4.7-6.1); White Blood Count 9.69 K/uL (4.8-10.8)
[2021-06-13 06:45] LABS: Basophils # (auto) 0.01 K/uL (0-0.2); Basophils % (auto) 0.1 %; Immature Granulocytes # (auto) 0.55 K/uL (0.00-0.02); Immature Granulocytes % (auto) 5.7 %; Lymphocytes % (auto) 7.2 %; Monocytes % (auto) 2.1 %; Neutrophils # (auto) 8.23 K/uL (1.4-6.5); Neutrophils % (auto) 84.9 %; Ovalocytes 1+
[2021-06-13 07:10] LABS: Anion Gap 6 (3-11); Blood Urea Nitrogen 80 mg/dl (6-23); Calcium 9.5 mg/dl (8.5-10.1); Carbon Dioxide 24 mmol/L (21-32); Chloride 114 mmol/L (98-107); Est GFR (African American) 40.3 ml/min; Est GFR (Non-African American) 34.7 ml/min; Glucose 114 mg/dl (70-99(Fasting)); Magnesium 2.3 mg/dl (1.7-2.4); Phosphorus 3.6 mg/dl (2.5-4.9); Sodium 144 mmol/L (136-145)
[2021-06-13] MEDS: propofoL 1,000 MG/100 ML VIAL IV SCH (07:12)
[2021-06-13] MEDS: ICU ELECTROLYTE REPLACEMENT PROTOCOL SCH (07:13)
[2021-06-13] MEDS: dexAMETHasone 6 MG in SYRINGE 0 ML IV SCH (08:20)
[2021-06-13] MEDS: TACROLIMUS 1 MG CAP PO SCH (08:21)
--- NOTE | 2021-06-13 08:23 | XRay Report ---
XR chest 1V portable HISTORY: Respiratory failure. Shortness of breath. COMPARISON: Chest 06/12/2021. FINDINGS: A nasogastric tube terminates in the body the stomach. This remains unchanged in position. The endotracheal tube and right jugular catheter have been removed. There is a left-sided single lead pacemaker/defibrillator. Surgical clips again noted within the right upper quadrant. Near diffuse pa tchy airspace opacities in the small left pleural effusion persist. No pneumothorax. The heart remain s mildly enlarged. IMPRESSION: 1. No significant change in the bilateral airspace opacities and small left pleural effusion. This li pedro represents a viral pneumonia. 2. Nasogastric tube terminates in the body the stomach. 3. The endotracheal tube and right jugular catheter have been removed in the interval. ACT 112: Negative or not required by law. Electronically signed by: Reece Mejia M.D. 06/13/2021 8:22 AM
--- NOTE | 2021-06-13 08:30 | XRay Report ---
KUB CLINICAL HISTORY: ng placement COMPARISON STUDY: KUB June 12, 2021 at 8:52 PM. FINDINGS: The tip of the nasogastric tube is within the body of the stomach. Left subclavian pacer/AI CD is in place. Visualized bowel gas pattern is normal. Small left pleural effusion is noted. Bilater al airspace opacities within the lungs are partially imaged. IMPRESSION: Tip of nasogastric tube within the body of the stomach. ACT 112: Negative or not required by law. Electronically signed by: Hussein Garvin M.D. 06/13/2021 8:29 AM
[2021-06-13] MEDS ORDERED: MINERAL OIL 30 ML UDC PO ONE (08:39)
[2021-06-13] MEDS ORDERED: LACTULOSE SYRUP 30 GM/45 ML UDP PO ONE (08:45)
--- NOTE | 2021-06-13 08:48 | Critical Care Progress Note ---
Date of Service June 13, 2021 Assessment & Plan (1) ARDS (adult respiratory distress syndrome): (2) COVID-19: (3) Pneumonia: (4) CHF (congestive heart failure): (5) Cardiomyopathy: (6) Kidney transplant recipient: (7) HUSSEIN (acute kidney injury): Plan: Impression: 61-year-old male kidney transplant recipient immunosuppressed with tacrolimus admitted to the hospital 06/03/2021 with COVID-pneumonia. He is fully vaccinated and boosted. He developed progressive respiratory insufficiency with increased work of breathing and he elected to be intubated 06/08/2021. Discussions were held with the patient and family prior to the procedure. He would not want tracheostomy but is agreeable to 7 days mechanical ventilation if he fails to improve at that point time, would proceed with terminal extubation. Further confirmation with family after extubation would not want reintubated and would proceed with comfort measures if he fails from a respiratory standpoint Recommendations: 1. Neurologic: Currently sedated with fentanyl, propofol. Continue home Cymbalta Acute encephalopathy: Likely multifactorial -Continue Precedex to facilitate noninvasive mechanical ventilation 2. Cardiovascular: Patient is fully anticoagulated with Eliquis due to prior history of A. fib. Hypotension: Resolved Hypertension: Restart home Coreg -Reviewed EKG QTC 433 3. Pulmonary: ARDS secondary to COVID pneumonitis. Continue dexamethasone at 6 mg, day 03/03. I am concerned about additional immunosuppression given his current dose of tacrolimus with higher doses. 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 Following with nephrology. -Patient still very critical requiring high flow nasal cannula is formally DNR/DNI at this point 4. GI: Tube feedings near goal. Continue the patient's home pancreatic enzyme replacement. -Constipation: 30 mL lactulose 30 mils mineral oil 06/13 -Senna daily 5. Renal: History of kidney transplant. Will defer management of the patient's immunosuppression to nephrology. Currently on tacrolimus. Electrolyte replacement per nephrology. 6. ID: COVID-pneumonia. Continue dexamethasone 6 mg a day for total of 10 days. I think the risk of significant infectious complications with higher doses of steroids or additional immune suppression would outweigh any potential benefit so we will hold off for now. WBC normal and no fevers. Cultures negative to date. Cont to follow. Aspergillus pneumonia: Voriconazole day 4 7. Endocrine: Glycemic control per ICU protocol. 8. Heme-onc: Mild anemia. Likely secondary to underlying kidney disease. No evidence of acute blood loss. No indication for transfusion currently. DVT prophylaxis: Eliquis. -Understanding that voriconazole will interact with Eliquis however we will continue regular dosing of Eliquis as the patient is in chronic A. fib -Continue Eliquis despite gastric cult being positive he is being appropriately treated with antiacid blockers Patient is critically ill with multiorgan system dysfunction at this point time. There is significant possibility of clinical deterioration and/or . A total of 50 min CC time spent in evaluation and management of patient. Patient was discussed in multidisciplinary rounds Admission and Anticipated Discharge Date Admission Date: June 03, 2021 Subjective Still requiring significant supplemental oxygen via high flow. Not following commands requiring restraints as he is discontinuing the life-sustaining measures. Review of Systems Review of Systems: Unobtainable due to reduced consciousness Physical Exam Physical Exam: General: Following simple commands however not very redirectable nontoxic. Skin: Warm, dry, Head: Atraumatic Ears, nose, mouth and throat: Patent Cardiovascular: Normal peripheral perfusion, mild tachycardia Respiratory: No accessory muscle use, mild tachypnea Gastrointestinal: Non distended Musculoskeletal: No deformity Results & Data Results & Data ([facility]) Vital Signs (Past 12 Hours) Vital Signs Temp Pulse Pulse Resp BP Pulse Ox 06/13/21 07:30 103 H 26 H 91 06/13/21 06:30 37.4 C 91 H 27 H 141/99 H 92 06/13/21 06:00 37.4 C 96 H 22 150/85 H 93 06/13/21 05:30 37.4 C 90 18 153/93 H 92 06/13/21 05:00 37.5 C 84 20 148/94 H 95 06/13/21 04:30 37.5 C 88 21 142/87 H 94 06/13/21 04:01 37.5 C 102 H 15 138/102 H 96 06/13/21 04:00 37.5 C 94 H 27 H 94 06/13/21 03:30 37.5 C 80 26 H 133/105 H 93 06/13/21 03:20 84 24 94 06/13/21 03:00 37.4 C 93 H 33 H 152/93 H 93 01/20/22 02:30 37.4 C 90 25 H 150/102 H 95 06/13/21 02:00 37.4 C 86 18 142/94 H 94 06/13/21 01:30 37.4 C 91 H 27 H 151/91 H 94 06/13/21 01:00 37.4 C 89 29 H 149/100 H 96 06/13/21 00:30 37.4 C 96 H 26 H 144/92 H 94 06/13/21 00:00 37.4 C 88 18 142/93 H 92 06/12/21 23:30 37.5 C 97 H 30 H 150/99 H 93 06/12/21 23:26 86 25 H 96 06/12/21 23:00 37.4 C 89 24 138/92 95 06/12/21 22:30 37.4 C 100 H 25 H 135/93 96 06/12/21 22:00 37.5 C 91 H 23 139/100 98 06/12/21 21:31 37.5 C 94 H 28 H 145/107 H 98 06/12/21 21:00 37.4 C 106 H 32 H 144/89 H 97 Critical Care Results & Data Vital Signs (Past 12 Hours) Vital Signs Temp Pulse Pulse Resp BP Pulse Ox 06/13/21 08:30 139/80 06/13/21 08:00 150/95 H 06/13/21 07:30 103 H 26 H 140/98 91 06/13/21 07:00 37.4 C 102 H 25 H 143/94 H 94 06/13/21 06:30 37.4 C 91 H 27 H 141/99 H 92 06/13/21 06:00 37.4 C 96 H 22 150/85 H 93 06/13/21 05:30 37.4 C 90 18 153/93 H 92 06/13/21 05:00 37.5 C 84 20 148/94 H 95 06/13/21 04:30 37.5 C 88 21 142/87 H 94 06/13/21 04:01 37.5 C 102 H 15 138/102 H 96 06/13/21 04:00 37.5 C 94 H 27 H 94 06/13/21 03:30 37.5 C 80 26 H 133/105 H 93 06/13/21 03:20 84 24 94 06/13/21 03:00 37.4 C 93 H 33 H 152/93 H 93 06/13/21 02:30 37.4 C 90 25 H 150/102 H 95 06/13/21 02:00 37.4 C 86 18 142/94 H 94 06/13/21 01:30 37.4 C 91 H 27 H 151/91 H 94 06/13/21 01:00 37.4 C 89 29 H 149/100 H 96 06/13/21 00:30 37.4 C 96 H 26 H 144/92 H 94 06/13/21 00:00 37.4 C 88 18 142/93 H 92 06/12/21 23:30 37.5 C 97 H 30 H 150/99 H 93 06/12/21 23:26 86 25 H 96 06/12/21 23:00 37.4 C 89 24 138/92 95 06/12/21 22:30 37.4 C 100 H 25 H 135/93 96 06/12/21 22:00 37.5 C 91 H 23 139/100 98 06/12/21 21:31 37.5 C 94 H 28 H 145/107 H 98 06/12/21 21:00 37.4 C 106 H 32 H 144/89 H 97 Lab & Micro Results (Past 24 Hours) RBC 4.04 M/uL (4.7-6.1) L 06/13/21 WBC 9.69 K/uL (4.8-10.8) 06/13/21 Hgb 11.5 g/dL (14.0-18.0) L 06/13/21 Hct 35.3 % (42-52) L 06/13/21 MCV 87.4 fL (80-100) 06/13/21 MCH 28.5 pg (25-34) 06/13/21 MCHC 32.6 g/dL (32-36) 06/13/21 RDW Standard Deviation 47.6 fL (36.4-46.3) H 06/13/21 RDW Coefficient of Variation 14.9 % (11.5-14.5) H 06/13/21 Plt Count 213 K/uL (130-400) 06/13/21 MPV 11.7 fL (7.4-10.4) H 06/13/21 Neutrophils (%) (Auto) 84.9 % 06/13/21 Lymphocytes (%) (Auto) 7.2 % 06/13/21 Monocytes # (Auto) 0.20 K/uL (0.11-0.59) 06/13/21 Eosinophils # (Auto) 0.00 K/uL (0-0.5) 06/13/21 Immature Granulocyte % (Auto) 5.7 % 06/13/21 Neutrophils # (Auto) 8.23 K/uL (1.4-6.5) H 06/13/21 Lymphocytes # (Auto) 0.70 K/uL (1.2-3.4) L 06/13/21 Monocytes # (Auto) 0.20 K/uL (0.11-0.59) 06/13/21 Eosinophils # (Auto) 0.00 K/uL (0-0.5) 06/13/21 Basophils # (Auto) 0.01 K/uL (0-0.2) 06/13/21 Immature Granulocyte # (Auto) 0.55 K/uL (0.00-0.02) H 06/13/21 Ovalocytes 1+ 06/13/21 Na 144 mmol/L (136-145) 06/13/21 K 4.5 mmol/L (3.5-5.1) 06/13/21 Cl 114 mmol/L (98-107) H 06/13/21 CO2 24 mmol/L (21-32) 06/13/21 Anion Gap 6 (3-11) 06/13/21 BUN 80 mg/dl (6-23) H 06/13/21 Creatinine 2.00 mg/dl (0.6-1.4) H 06/13/21 Estimated GFR ( Amer) 40.3 ml/min 06/13/21 Estimated GFR (Non-Af Amer) 34.7 ml/min 06/13/21 BUN/Creatinine Ratio 40.0 (10-20) H 06/13/21 Glu 114 mg/dl (70-99(Fasting)) H 06/13/21 Ca 9.5 mg/dl (8.5-10.1) 06/13/21 Phosphorus Level 3.6 mg/dl (2.5-4.9) 06/13/21 Mg 2.3 mg/dl (1.7-2.4) 06/13/21 05:42 06/13/21 Calcium Level 9.5 mg/dl (8.5-10.1) 06/13/21 05:42 06/13/21 See Test NA 06/12/21 15:57 06/12/21 Diagnostic Findings (Past 24 Hours) Chest X-Ray 06/12/21 07:00 SINGLE VIEW CHEST CLINICAL HISTORY: Respiratory failure. FINDINGS: 2 AP, portable, upright chest radiographs are compared to study dated 06/11/2021 and correlated with chest CT dated 05/04/2021. The examination is degraded by portable technique and patient rotation. An endotracheal tube, an enteric tube, and a right internal jugular central venous catheter are unchanged in position. A single lead cardiac AICD is unchanged in position and partially obscures the left mid chest. The heart is enlarged. Airspace opacities are again seen throughout both lungs. This has not appreciably changed as compared to yesterday. Question trace pleural effusions. No pneumothorax is identified. The skeletal structures are osteopenic. There are chronic/healed bilateral rib fractures. Cholecystectomy clips are noted in the right upper quadrant. IMPRESSION: 1. Stable lines and tubes. 2. Cardiomegaly and AICD. 3. Diffuse bilateral airspace opacities have not appreciably changed as compared to yesterday. ACT 112: Negative or not required by law. Electronically signed by: Chetan Chavez M.D. 06/12/2021 9:27 AM KUB X-Ray 06/12/21 21:01 XR KUB/Abdomen 1 view CLINICAL HISTORY: coresafe placement. COMPARISON STUDY: No previous studies for comparison. TECHNIQUE: Single view of the abdomen. FINDINGS: Feeding tube has been placed within the left lower lobe bronchus. The bowel gas pattern is within normal limits without evidence for dilatation or obstruction. There is no evidence for organomegaly or gross intra-abdominal mass. No abnormal calcifications are seen along the course of the urinary tracts bilaterally. No acute osseous pathology. IMPRESSION: 1.Feeding tube within the left lower lobe bronchus. Critical result was sent to be a [employer] connect ACT 112: Negative or not required by law. Electronically signed by: Bennett Lynn M.D. 06/12/2021 9:41 PM KUB X-Ray 06/12/21 22:17 KUB CLINICAL HISTORY: ng placement COMPARISON STUDY: KUB June 12, 2021 at 8:52 PM. FINDINGS: The tip of the nasogastric tube is within the body of the stomach. Left subclavian pacer/AICD is in place. Visualized bowel gas pattern is normal. Small left pleural effusion is noted. Bilateral airspace opacities within the lungs are partially imaged. IMPRESSION: Tip of nasogastric tube within the body of the stomach. ACT 112: Negative or not required by law. Electronically signed by: Hussein Garvin M.D. 06/13/2021 8:29 AM Chest X-Ray 06/13/21 07:00 XR chest 1V portable HISTORY: Respiratory failure. Shortness of breath. COMPARISON: Chest 06/12/2021. FINDINGS: A nasogastric tube terminates in the body the stomach. This remains unchanged in position. The endotracheal tube and right jugular catheter have been removed. There is a left-sided single lead pacemaker/defibrillator. Surgical clips again noted within the right upper quadrant. Near diffuse patchy airspace opacities in the small left pleural effusion persist. No pneumothorax. The heart remains mildly enlarged. IMPRESSION: 1. No significant change in the bilateral airspace opacities and small left p leural effusion. This likely represents a viral pneumonia. 2. Nasogastric tube terminates in the body the stomach. 3. The endotracheal tube and right jugular catheter have been removed in the interval. ACT 112: Negative or not required by law. Electronically signed by: Reece Mejia M.D. 06/13/2021 8:22 AM I & O Totals 24 Hours 06/12/21 06/13/21 06/14/21 06:59 06:59 06:59 Intake Total 810.303 / 810.303 635.538 / 635.538 0 / 0 Output Total 1325 / 1325 1675 / 1675 Balance -514.697 / -514.697 -1039.462 / -1039.462 0 / 0 Cumulative 06/03/21 16:13 thru 06/13/21 07:19 Intake Total 7003.671 Output Total 3376 Balance -2571.329 RT Ventilator Mngmt (Last Documented) Ventilator Ordered Settings Ventilator Support Mode CPAP 06/12/21 10:07 Respiratory Rate 26 06/13/21 07:30 Ventilator Tidal Volume 380 06/12/21 08:00 Setting Minute Ventilation 7.3 06/12/21 10:07 Ventilator Positive Pressure 10 06/12/21 10:07 Support Setting Positive End Expiratory 5 06/12/21 10:07 Pressure Fraction of Inspired Oxygen 70 06/13/21 07:30 Machine Comment Pt placed pt on SBT at this time 06/12/21 10:[address] Viramontes. Ventilator - PT Measurements Respiratory Rate 26 Exhaled Tidal Volume 794 Minute Ventilation 7.3 Peak Inspiratory Airway 18 Pressure Plateau Pressure 24.3 Respiratory Cycle Inspiratory: 1:3.2 Expiratory Ratio Inspiratory Phase Time 0.65 End-Tidal CO2 37 Static Lung Compliance 20.52 Dynamic Lung Compliance 61.08 Normal Static Lung Compliance 49.00 Coding Level of Care Code Critical Care 1st 30-74 mins Diagnoses ARDS (adult respiratory distress syndrome) J80 COVID-19 U07.1 Pneumonia J18.9 Laterality: bilateral Lung location: unspecified part of lung Pneumonia type: due to unspecified organism CHF (congestive heart failure) I50.9 Cardiomyopathy I42.9 Kidney transplant recipient Z94.0 HUSSEIN (acute kidney injury) N17.9 (1) Pneumonia Laterality: bilateral Lung location: unspecified part of lung Pneumonia type: due to unspecified organism Qualified Code(s): J18.9 - Pneumonia, unspecified organism
--- NOTE | 2021-06-13 09:25 | Hospitalist Progress Note ---
Date of Service June 13, 2021 Assessment & Plan (1) Pneumonia due to COVID-19 virus: Plan: Vaccinated and Boosted (last dose in February) First symptoms: May 24, 2021 Fist positive test: 06/03/2020 O2 requirement on admission: 15LPM O2 non-rebreather, O2 sats 71% on room air continue dexamethasone 6mg IV daily, day 10 of treatment 06/08/21: requiring 60L 100% FiO2 with oxymask and then he agreed to wear CPAP required CPAP and then later in afternoon was intubated clear that he does not want fpc intubation/ventilation extubated on 06/12, he is stable on 45L 70% today, needing Precedex to stay calm as he was pulling at lines last night labs are stable, vitals stable try to improve oxygen requirements (2) Acute respiratory failure with hypoxia: Plan: progressed from High Flow to needing CPAP 8 and FiO2 100% he elected to be intubated on 06/08/21 transferred to ICU status extubated 06/12, stable on 45L 70% today, on Precedex to stay calm 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: continue Voriconazole, will need several weeks of treatment (3) GI bleed: Plan: pink tinged residual via OG tube on 06/11 in evening occult positive tube feeds on hold, Protonix IV Hb actually going up to 11.5, no signs of active bleeding (4) Afib: Plan: Anticoagulation with Eliquis (5) Kidney transplant recipient: Plan: Continue his usual tacrolimus dosing Consult nephrology, they are following Cr is down to 2.0 this morning, adequate UO via swain K down to 4.5 check BMP every morning nephrology following (6) CHF (congestive heart failure): Plan: euvolemic Plan: VTE Prophylaxis - continue Eliquis Diet - tube feeds Disposition - ICU status but he is extubated, needs Precedex Admission and Anticipated Discharge Date Admission Date: June 03, 2021 Subjective patient extubated yesterday, was extremely agitated, pulling at lines and thrashing around now on Precedex, he is calm, stable on high flow 45L and 70% reviewed labs, Cr is down to 2.0, WBC and Hb stable, K is 4.[address] Viramontes discussed with Dr. Castro, he is pleased with renal function patient's eyes are open, calm, will occasionally nod his head to questions Review of Systems Review of Systems: Unobtainable due to cognitive status Physical Exam Physical Exam: General: well developed, ill appearing, thin male, sedated on high flow Neck: supple, trachea midline, normal thyroid Lungs: CTA bilaterally, slightly tachypneic but no distress, no accessory muscle use Heart: regular S1 and S2, no murmur, peripheral pulses normal, capillary refill normal, no edema Abdomen: soft, NT, ND, + BS, no hepatomegaly, normal to percussion Extremities: normal in appearance, no cyanosis, no petechiae, strength is 5/5 bilaterally Neuro: eyes open, calm, strength is 5/5 as he needs restraints when he gets agitated, no focal motor deficits, CN II-XII intact Skin: warm, dry, no rash, normal turgor Psych: eyes open, calm on Precedex Results & Data Results & Data ([facility]) Vital Signs (Past 12 Hours) Vital Signs Temp Pulse Pulse Resp BP Pulse Ox 06/13/21 08:56 104 H 06/13/21 08:30 139/80 06/13/21 08:00 150/95 H 06/13/21 07:30 103 H 26 H 140/98 91 06/13/21 07:00 37.4 C 102 H 25 H 143/94 H 94 06/13/21 06:30 37.4 C 91 H 27 H 141/99 H 92 06/13/21 06:00 37.4 C 96 H 22 150/85 H 93 06/13/21 05:30 37.4 C 90 18 153/93 H 92 06/13/21 05:00 37.5 C 84 20 148/94 H 95 06/13/21 04:30 37.5 C 88 21 142/87 H 94 06/13/21 04:01 37.5 C 102 H 15 138/102 H 96 06/13/21 04:00 37.5 C 94 H 27 H 94 06/13/21 03:30 37.5 C 80 26 H 133/105 H 93 06/13/21 03:20 84 24 94 06/13/21 03:00 37.4 C 93 H 33 H 152/93 H 93 06/13/21 02:30 37.4 C 90 25 H 150/102 H 95 06/13/21 02:00 37.4 C 86 18 142/94 H 94 06/13/21 01:30 37.4 C 91 H 27 H 151/91 H 94 06/13/21 01:00 37.4 C 89 29 H 149/100 H 96 06/13/21 00:30 37.4 C 96 H 26 H 144/92 H 94 06/13/21 00:00 37.4 C 88 18 142/93 H 92 06/12/21 23:30 37.5 C 97 H 30 H 150/99 H 93 06/12/21 23:26 86 25 H 96 06/12/21 23:00 37.4 C 89 24 138/92 95 06/12/21 22:30 37.4 C 100 H 25 H 135/93 96 06/12/21 22:00 37.5 C 91 H 23 139/100 98 06/12/21 21:31 37.5 C 94 H 28 H 145/107 H 98 Laboratory Results Laboratory Results - last 24 hr 06/12/21 06/12/21 06/13/21 11:40 15:57 05:42 WBC 9.69 RBC 4.04 L Hgb 11.5 L Hct 35.3 L MCV 87.4 MCH 28.5 MCHC 32.6 RDW Std Deviation 47.6 H RDW Coeff of Poonam 14.9 H Plt Count 213 MPV 11.7 H Immature Gran % (Auto) 5.7 Neut % (Auto) 84.9 Lymph % (Auto) 7.2 [place] % (Auto) 2.1 Eos % (Auto) 0.0 Baso % (Auto) 0.1 Neut # (Auto) 8.23 H Lymph # (Auto) 0.70 L [place] # (Auto) 0.20 Eos # (Auto) 0.00 Baso # (Auto) 0.01 Immature Gran # (Auto) 0.55 H Ovalocytes 1+ Sample Site Art Line POC pH 7.37 POC pCO2 38 POC pO2 78 L POC HCO3 22 POC Total CO2 23 L POC Base Excess -4.0 POC ABG O2 Sat 95.0 See Test NA O2 Delivery Device Hi [place] Can POC FiO2 55 Sodium Potassium Chloride Carbon Dioxide Anion Gap BUN Creatinine Est Cr Clr Drug Dosing Est GFR ( Amer) Est GFR (Non-Af Amer) BUN/Creatinine Ratio Glucose POC Glucose 124 H Calcium Phosphorus Magnesium Tacrolimus 06/13/21 06/13/21 06/13/21 05:42 05:42 08:13 WBC RBC Hgb Hct MCV MCH MCHC RDW Std Deviation RDW Coeff of [place] Plt Count MPV Immature Gran % (Auto) Neut % (Auto) Lymph % (Auto) [place] % (Auto) Eos % (Auto) Baso % (Auto) Neut # (Auto) Lymph # (Auto) [place] # (Auto) Eos # (Auto) Baso # (Auto) Immature Gran # (Auto) Ovalocytes Sample Site POC pH POC pCO2 POC pO2 POC HCO3 POC Total CO2 POC Base Excess POC ABG O2 Sat See Test O2 Delivery Device POC FiO2 Sodium 144 Potassium TNP 4.5 Chloride 114 H Carbon Dioxide 24 Anion Gap 6 BUN 80 H Creatinine 2.00 H Est Cr Clr Drug Dosing 42.0 Est GFR ( Amer) 40.3 Est GFR (Non-Af Amer) 34.7 BUN/Creatinine Ratio 40.0 H Glucose 114 H POC Glucose Calcium 9.5 Phosphorus 3.6 D Magnesium 2.3 Tacrolimus Pending Medications Administered Current Inpatient Medications Acetaminophen (Acetaminophen 325 Mg Tab) 650 mg PO Q4H PRN PRN Reason: Pain or Fever Stop: 07/04/21 00:49 Last Admin: 06/08/21 08:41 Dose: 650 mg Documented by: Lipase/Protease/Amylase (Pancreaze (Lipase 10,500u) Cap) 4 cap PO BID [facility] Stop: 07/04/21 08:59 Last Admin: 06/13/21 08:20 Dose: 4 cap Documented by: Apixaban (Apixaban 5 Mg Tablet) 5 mg PO BID [facility] Stop: 07/04/21 00:49 Last Admin: 06/13/21 08:21 Dose: 5 mg Documented by: Carvedilol (Carvedilol 6.25 Mg Tab) 6.25 mg PO BID [facility] Stop: 07/13/21 08:59 Duloxetine HCl (Duloxetine Hcl 30 Mg Cap) 30 mg PO DAILY [facility] Stop: 07/04/21 08:59 Last Admin: 06/10/21 08:21 Dose: 30 mg Documented by: Enteral Nutritional Formula (Novasource Renal 2.0 Aaron 1000ml Bag) 1,000 ml OG UD [facility]; Protocol Stop: 07/11/21 10:44 Last Admin: 06/11/21 12:09 Dose: 1,000 ml Documented by: Fentanyl Citrate (Fentanyl Bolus From Bag) 50 mcg IV Q60M PRN PRN Reason: Pain or Agitation Stop: 06/22/21 15:03 Propofol (Diprivan) 1,000 mg in 100 mls @ 0 mls/hr IV .Q0M [facility]; Protocol Stop: 06/14/21 15:14 Last Admin: 06/13/21 07:12 Dose: Not Given Documented by: Fentanyl Citrate (Fentanyl Citrate) 2,500 mcg in 250 mls @ 0 mls/hr IV .Q0M [facility]; Protocol Stop: 06/22/21 15:14 Last Admin: 06/12/21 15:48 Dose: Not Given Documented by: Dexamethasone 6 mg/ Syringe 1.5 mls @ 1 mls/min IV DAILY [facility] Stop: 06/14/21 08:59 Last Admin: 06/13/21 08:20 Dose: 1 mls/min Documented by: Pantoprazole Sodium 40 mg/ (Syringe) 10 mls @ 5 mls/min IV BID [facility] Stop: 07/12/21 08:59 Last Admin: 06/13/21 08:20 Dose: 5 mls/min Documented by: Dexmedetomidine HCl 200 mcg/ (Sodium Chloride) 50 mls @ 9.19 mls/hr IV .Q5H27M [facility]; Protocol Stop: 06/16/21 19:14 Last Admin: 06/13/21 05:54 Dose: 0.4 mcg/kg/hr, 9.2 mls/hr Documented by: Midazolam HCl (Midazolam Hcl 1 Mg/Ml 2ml Vial) 2 mg IV Q2H PRN PRN Reason: RASS goal -3 Stop: 07/08/21 15:03 Pantoprazole Sodium (Pantoprazole 40 Mg Tab) 40 mg PO DAILY [facility] Stop: 07/04/21 08:59 Last Admin: 06/08/21 08:44 Dose: 40 mg Documented by: Senna/Docusate Sodium (Docusate Sodium/Senna 50/8.6mg Tab) 1 tab PO QAM [facility] Stop: 07/13/21 08:59 Sterile Water (Tube Feeding Water Flush) 30 ml GT Q4H [facility] Stop: 07/09/21 10:59 Last Admin: 06/13/21 07:14 Dose: 30 ml Documented by: Tacrolimus (Tacrolimus 1 Mg Cap) 3 mg PO MoTh@0900 [facility] Stop: 07/06/21 08:59 Last Admin: 06/13/21 08:21 Dose: 3 mg Documented by: Voriconazole (Voriconazole 200 Mg Tablet) 200 mg PO BID [facility]; Protocol Stop: 07/21/21 20:59 Last Admin: 06/13/21 08:21 Dose: 200 mg Documented by: PG Care Time/CCT Total # of Minutes Spent Total Time Spent with Patient: Total time spent is greater than 50% in coordination of care (as documented) at patient's floor/unit and/or counseling patient: Coding Level of Care Code 64606 Subseq Hosp Care Lvl 3 Diagnoses Pneumonia due to COVID-19 virus U07.1; J12.82 Acute respiratory failure with hypoxia J96.01 GI bleed K92.2 Afib I48.91 Kidney transplant recipient Z94.0 CHF (congestive heart failure) I50.9
--- NOTE | 2021-06-13 09:55 | Nephrology Progress Note ---
Date of Service June 13, 2021 Assessment & Plan (1) HUSSEIN (acute kidney injury): Plan: Chronic allograft dysfunction with superimposed ATN. Creatinine improving. Electrolytes acceptable. Volume status euvolemic. BP acceptable. Medications appropriate for kidney dysfunction. Electrolytes acceptable. (2) Kidney transplant recipient: Plan: Remains on low dose twice weekly tacrolimus. Repeat trough sent this AM to monitor on voriconazole. (3) Hypertension: (4) Pneumonia due to COVID-19 virus: Plan: Plan of care discussed with Dr. Irwin this morning. Admission and Anticipated Discharge Date Admission Date: June 03, 2021 Subjective Extubated. Resting comfortably on Precedex with HFNC. NPO. No fevers or chills. Patient was seen and evaluated with Dr. Irwin this morning. Review of Systems Review of Systems: All systems reviewed & are unremarkable except as noted in HPI & below Physical Exam Constitutional: well developed, + ill appearing and + thin Eyes: no scleral abnormality and no corneal abnormality ENMT: Mouth: + dry oral mucous membranes Neck: normal visual inspection and trachea midline Respiratory: + tachypneic and symmetric chest movement Auscultation: lungs clear to auscultation bilaterally Cardiovascular: Rate/Rhythm: + tachycardic Heart Sounds: normal S1 and normal S2 Extremities: no edema Musculoskeletal: Extremities: no cyanosis and no clubbing Skin: normal turgor; no lesions Neurologic: Motor/Sensory: no tremor and no asterixis Psychiatric: Orientation: alert Eye Contact: + fair eye contact Genitourinary: [place] draining yellow urine Results & Data ([facility]) Vital Signs (Past 12 Hours) Vital Signs Temp Pulse Pulse Resp BP Pulse Ox 06/13/21 08:56 104 H 06/13/21 08:30 139/80 06/13/21 08:00 150/95 H 06/13/21 07:30 103 H 26 H 140/98 91 06/13/21 07:00 37.4 C 102 H 25 H 143/94 H 94 06/13/21 06:30 37.4 C 91 H 27 H 141/99 H 92 06/13/21 06:00 37.4 C 96 H 22 150/85 H 93 06/13/21 05:30 37.4 C 90 18 153/93 H 92 06/13/21 05:00 37.5 C 84 20 148/94 H 95 06/13/21 04:30 37.5 C 88 21 142/87 H 94 06/13/21 04:01 37.5 C 102 H 15 138/102 H 96 06/13/21 04:00 37.5 C 94 H 27 H 94 06/13/21 03:30 37.5 C 80 26 H 133/105 H 93 06/13/21 03:20 84 24 94 06/13/21 03:00 37.4 C 93 H 33 H 152/93 H 93 06/13/21 02:30 37.4 C 90 25 H 150/102 H 95 06/13/21 02:00 37.4 C 86 18 142/94 H 94 06/13/21 01:30 37.4 C 91 H 27 H 151/91 H 94 06/13/21 01:00 37.4 C 89 29 H 149/100 H 96 06/13/21 00:30 37.4 C 96 H 26 H 144/92 H 94 06/13/21 00:00 37.4 C 88 18 142/93 H 92 06/12/21 23:30 37.5 C 97 H 30 H 150/99 H 93 06/12/21 23:26 86 25 H 96 06/12/21 23:00 37.4 C 89 24 138/92 95 06/12/21 22:30 37.4 C 100 H 25 H 135/93 96 06/12/21 22:00 37.5 C 91 H 23 139/100 98 PG Care Time/CCT Total # of Minutes Spent Total Time Spent with Patient: Total time spent is greater than 50% in coordination of care (as documented) at patient's floor/unit and/or counseling patient: Coding Level of Care Code 42192 Subseq Hosp Care Lvl 3 Diagnoses HUSSEIN (acute kidney injury) N17.9 Kidney transplant recipient Z94.0 Hypertension I10 Pneumonia due to COVID-19 virus U07.1; J12.82
[2021-06-13] MEDS: DOCUSATE SODIUM/SENNA 50/8.6MG TAB PO SCH (11:09)
[2021-06-13] MEDS: carvediloL 6.25 MG TAB PO SCH ×2 (11:09→20:18)
[2021-06-13] MEDS: NOVASOURCE RENAL 2.0 CAL 1000ML BAG OG SCH (11:56)
[2021-06-13] MEDS: NORMOSOL-R 1,000 ML IV SCH (19:28)
[2021-06-14] MEDS: DEXMEDETOMIDINE HCL 400 MCG in 0.9 % SODIUM CHLORIDE 96 ML IV SCH ×3 (04:15→18:46)
[2021-06-14] MEDS: TUBE FEEDING WATER FLUSH GT SCH ×6 (04:39→22:21)
[2021-06-14] MEDS: DEXMEDETOMIDINE HCL 200 MCG in SODIUM CHLORIDE 0.9% 48 ML IV SCH (04:41)
[2021-06-14 06:06] LABS: Basophils # (auto) 0.01 K/uL (0-0.2); Basophils % (auto) 0.1 %; Hematocrit (blood only) 34.7 % (42-52); Hemoglobin 11.2 g/dL (14.0-18.0); Immature Granulocytes # (auto) 0.24 K/uL (0.00-0.02); Immature Granulocytes % (auto) 2.9 %; Lymphocytes # (auto) 0.67 K/uL (1.2-3.4); Lymphocytes % (auto) 8.2 %; Mean Corpuscular Hemoglobin 28.5 pg (25-34); Mean Corpuscular Hgb Conc 32.3 g/dL (32-36); Mean Corpuscular Volume 88.3 fL (80-100); Mean Platelet Volume 11.5 fL (7.4-10.4); Monocytes # (auto) 0.22 K/uL (0.11-0.59); Monocytes % (auto) 2.7 %; Neutrophils # (auto) 7.01 K/uL (1.4-6.5); Neutrophils % (auto) 86.1 %; Platelet Count 188 K/uL (130-400); RDW Coefficient of Variation 14.9 % (11.5-14.5); RDW Standard Deviation 48.3 fL (36.4-46.3); Red Blood Count 3.93 M/uL (4.7-6.1); White Blood Count 8.15 K/uL (4.8-10.8)
[2021-06-14 06:35] LABS: BUN Creatinine Ratio 42.9 (10-20); Calcium 9.5 mg/dl (8.5-10.1); Est GFR (African American) 42.6 ml/min; Est GFR (Non-African American) 36.7 ml/min; Magnesium 2.3 mg/dl (1.7-2.4); Phosphorus 4.2 mg/dl (2.5-4.9); Potassium 4.4 mmol/L (3.5-5.1)
--- NOTE | 2021-06-14 08:13 | XRay Report ---
XR chest 1V portable HISTORY: Pneumonia. Shortness of breath. Follow-up. COMPARISON: Chest 06/13/2021. FINDINGS: No pneumothorax. There is a left-sided pacemaker/defibrillator. The heart remains enlarged. Multifocal bilateral airspace opacities and diffuse interstitial thickening are again noted. Suspect a small left pleural effusion. The nasogastric tube is been removed. IMPRESSION: No change in the bilateral airspace opacities and small left pleural effusion. ACT 112: Negative or not required by law. Electronically signed by: Reece Mejia M.D. 06/14/2021 8:11 AM
--- NOTE | 2021-06-14 09:46 | Nephrology Progress Note ---
Date of Service June 14, 2021 Assessment & Plan (1) HUSSEIN (acute kidney injury): Plan: Chronic allograft dysfunction with superimposed ATN. Creatinine continues improving. Electrolytes acceptable. Noted increasing free water deficit. Will monitor. Additional IV water to be provided as needed. Volume status euvolemic. BP acceptable. Medications appropriate for kidney dysfunction. (2) Kidney transplant recipient: Plan: Remains on low dose twice weekly tacrolimus. Repeat trough sent yesterday AM to monitor while on voriconazole. (3) Hypertension: (4) Pneumonia due to COVID-19 virus: Plan: Remains on dexamethasone day #10. Voriconazole added for culture +aspergillus. Admission and Anticipated Discharge Date Admission Date: June 03, 2021 Subjective Remains on Precedex infusion. Notably weak. Limited conversation. Simple 'yes/no' answers. Servando did endorse thirst. He remains NPO. Normosol infusing at 80. NGT removed. No fevers or chills. Review of Systems Review of Systems: All systems reviewed & are unremarkable except as noted in HPI & below Limited due to mental status Physical Exam Constitutional: + ill appearing, + thin, + frail appearing and + lethargic Eyes: no scleral abnormality and no corneal abnormality ENMT: Ears: + hearing impairment Mouth: + dry oral mucous membranes Neck: normal visual inspection and trachea midline Respiratory: + tachypneic and symmetric chest movement Auscultation: lungs clear to auscultation bilaterally Cardiovascular: Rate/Rhythm: + tachycardic Heart Sounds: normal S1 and normal S2 Extremities: no edema Musculoskeletal: Extremities: no cyanosis and no clubbing Skin: normal turgor; no lesions Neurologic: Motor/Sensory: no tremor and no asterixis Psychiatric: Orientation: alert Eye Contact: + fair eye contact Results & Data ([facility]) Vital Signs (Past 12 Hours) Vital Signs Temp Pulse Pulse Resp BP Pulse Ox 06/14/21 07:50 58 L 20 94 06/14/21 04:46 91 H 19 90 06/14/21 04:00 36.6 C 40 L 16 155/85 H 91 06/14/21 00:01 70 26 H 91 06/13/21 23:00 78 18 142/96 H 90 Laboratory Results Laboratory Results - last 24 hr 06/14/21 06/14/21 05:38 05:38 WBC 8.15 RBC 3.93 L Hgb 11.2 L Hct 34.7 L MCV 88.3 MCH 28.5 MCHC 32.3 RDW Std Deviation 48.3 H RDW Coeff of [place]am 14.9 H Plt Count 188 MPV 11.5 H Immature Gran % (Auto) 2.9 Neut % (Auto) 86.1 Lymph % (Auto) 8.2 [place] % (Auto) 2.7 Eos % (Auto) 0.0 Baso % (Auto) 0.1 Neut # (Auto) 7.01 H Lymph # (Auto) 0.67 L [place] # (Auto) 0.22 Eos # (Auto) 0.00 Baso # (Auto) 0.01 Immature Gran # (Auto) 0.24 H Sodium 149 H Potassium 4.4 Chloride 118 H Carbon Dioxide 23 Anion Gap 8 BUN 82 H Creatinine 1.91 H Est Cr Clr Drug Dosing 44.0 Est GFR ( Amer) 42.6 Est GFR (Non-Af Amer) 36.7 BUN/Creatinine Ratio 42.9 H Glucose 162 H Calcium 9.5 Phosphorus 4.2 Magnesium 2.3 PG Care Time/CCT Total # of Minutes Spent Total Time Spent with Patient: Total time spent is greater than 50% in coordination of care (as documented) at patient's floor/unit and/or counseling patient: Coding Level of Care Code 82446 Subseq Hosp Care Lvl 3 Diagnoses HUSSEIN (acute kidney injury) N17.9 Kidney transplant recipient Z94.0 Hypertension I10 Pneumonia due to COVID-19 virus U07.1; J12.82
[2021-06-14] MEDS: NORMOSOL-R 1,000 ML IV SCH (09:56)
--- NOTE | 2021-06-14 10:13 | Critical Care Progress Note ---
Date of Service June 14, 2021 Assessment & Plan (1) ARDS (adult respiratory distress syndrome): (2) COVID-19: (3) Pneumonia: (4) CHF (congestive heart failure): (5) Cardiomyopathy: (6) Kidney transplant recipient: (7) HUSSEIN (acute kidney injury): Plan: Impression: 61-year-old male kidney transplant recipient immunosuppressed with tacrolimus admitted to the hospital 06/03/2021 with COVID-pneumonia. He is fully vaccinated and boosted. He developed progressive respiratory insufficiency with increased work of breathing and he elected to be intubated 06/08/2021. Discussions were held with the patient and family prior to the procedure. He would not want tracheostomy but is agreeable to 7 days mechanical ventilation if he fails to improve at that point time, would proceed with terminal extubation. Further confirmation with family after extubation would not want reintubated and would proceed with comfort measures if he fails from a respiratory standpoint Recommendations: 1. Neurologic: Currently sedated with fentanyl, propofol. Continue home Cymbalta Acute encephalopathy: Likely multifactorial -Continue Precedex to facilitate noninvasive mechanical ventilation 2. Cardiovascular: Patient is fully anticoagulated with Eliquis due to prior history of A. fib. Hypotension: Resolved Hypertension: Restart home Coreg -Reviewed EKG QTC 433 3. Pulmonary: ARDS secondary to COVID pneumonitis. Continue dexamethasone at 6 mg, day 03/03. I am concerned about additional immunosuppression given his current dose of tacrolimus with higher doses. 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 Following with nephrology. -Patient still very critical requiring high flow nasal cannula is formally DNR/DNI at this point 4. GI: Tube feedings near goal. Hold patient's home pancreatic enzyme replacement. -Senna daily 5. Renal: History of kidney transplant. Will defer management of the patient's immunosuppression to nephrology. Currently on tacrolimus. Electrolyte replacement per nephrology. 6. ID: COVID-pneumonia. Continue dexamethasone 6 mg a day for total of 10 days. I think the risk of significant infectious complications with higher doses of steroids or additional immune suppression would outweigh any potential benefit so we will hold off for now. WBC normal and no fevers. Cultures negative to date. Cont to follow. Aspergillus pneumonia: Voriconazole day 6 7. Endocrine: Glycemic control per ICU protocol. 8. Heme-onc: Mild anemia. Likely secondary to underlying kidney disease. No evidence of acute blood loss. No indication for transfusion currently. DVT prophylaxis: Eliquis. -Understanding that voriconazole will interact with Eliquis however we will continue regular dosing of Eliquis as the patient is in chronic A. fib -Continue Eliquis despite gastric cult being positive he is being appropriately treated with antiacid blockers I updated the patient's on patient discontinuing feeding tubes, no significant improvement in pulmonary status, she is unvaccinated however would like to see the patient I think this is appropriate as it will help delineate the next best course of action as his improvement seems to be stalled and I do not foresee him significantly improving from a pulmonary/pulmonary reserve standpoint. He could possibly benefit from permanent feeding access which we will discuss after further discussion with staff regarding bedside visit since this would be talking about goals of care as well as possible comfort care. Patient is critically ill with multiorgan system dysfunction at this point time. There is significant possibility of clinical deterioration and/or . A total of 50 min CC time spent in evaluation and management of patient. Patient was discussed in multidisciplinary rounds Admission and Anticipated Discharge Date Admission Date: June 03, 2021 Subjective Remains on Precedex infusion. Notably weak. Limited conversation. Simple 'yes/no' answers. Servando did endorse thirst. He remains NPO. Normosol infusing at 80. NGT removed. No fevers or chills. Physical Exam Physical Exam: General: Following simple commands however not very redirectable nontoxic. Skin: Warm, dry, Head: Atraumatic Ears, nose, mouth and throat: Patent Cardiovascular: Normal peripheral perfusion, mild tachycardia Respiratory: No accessory muscle use, mild tachypnea Gastrointestinal: Non distended Musculoskeletal: No deformity Results & Data Results & Data ([facility]) Vital Signs (Past 12 Hours) Vital Signs Temp Pulse Pulse Pulse Resp BP Pulse Ox 06/14/21 08:00 89 06/14/21 07:50 58 L 20 94 06/14/21 04:46 91 H 19 90 06/14/21 04:00 36.6 C 40 L 16 155/85 H 91 06/14/21 00:01 70 26 H 91 06/13/21 23:00 78 18 142/96 H 90 Critical Care Results & Data Vital Signs (Past 12 Hours) Vital Signs Temp Pulse Pulse Pulse Resp BP Pulse Ox 06/14/21 08:00 89 06/14/21 07:50 58 L 20 94 06/14/21 04:46 91 H 19 90 06/14/21 04:00 36.6 C 40 L 16 155/85 H 91 06/14/21 00:01 70 26 H 91 06/13/21 23:00 78 18 142/96 H 90 Lab & Micro Results (Past 24 Hours) RBC 3.93 M/uL (4.7-6.1) L 06/14/21 WBC 8.15 K/uL (4.8-10.8) 06/14/21 Hgb 11.2 g/dL (14.0-18.0) L 06/14/21 Hct 34.7 % (42-52) L 06/14/21 MCV 88.3 fL (80-100) 06/14/21 MCH 28.5 pg (25-34) 06/14/21 MCHC 32.3 g/dL (32-36) 06/14/21 RDW Standard Deviation 48.3 fL (36.4-46.3) H 06/14/21 RDW Coefficient of Variation 14.9 % (11.5-14.5) H 06/14/21 Plt Count 188 K/uL (130-400) 06/14/21 MPV 11.5 fL (7.4-10.4) H 06/14/21 Neutrophils (%) (Auto) 86.1 % 06/14/21 Lymphocytes (%) (Auto) 8.2 % 06/14/21 Monocytes # (Auto) 0.22 K/uL (0.11-0.59) 06/14/21 Eosinophils # (Auto) 0.00 K/uL (0-0.5) 06/14/21 Immature Granulocyte % (Auto) 2.9 % 06/14/21 Neutrophils # (Auto) 7.01 K/uL (1.4-6.5) H 06/14/21 Lymphocytes # (Auto) 0.67 K/uL (1.2-3.4) L 06/14/21 Monocytes # (Auto) 0.22 K/uL (0.11-0.59) 06/14/21 Eosinophils # (Auto) 0.00 K/uL (0-0.5) 06/14/21 Basophils # (Auto) 0.01 K/uL (0-0.2) 06/14/21 Immature Granulocyte # (Auto) 0.24 K/uL (0.00-0.02) H 06/14/21 Na 150 mmol/L (136-145) H 06/14/21 K 4.1 mmol/L (3.5-5.1) 06/14/21 Cl 118 mmol/L (98-107) H 06/14/21 CO2 25 mmol/L (21-32) 06/14/21 Anion Gap 7 (3-11) 06/14/21 BUN 86 mg/dl (6-23) H 06/14/21 Creatinine 1.88 mg/dl (0.6-1.4) H 06/14/21 Estimated GFR ( Amer) 43.4 ml/min 06/14/21 Estimated GFR (Non-Af Amer) 37.4 ml/min 06/14/21 BUN/Creatinine Ratio 45.7 (10-20) H 06/14/21 Glu 140 mg/dl (70-99(Fasting)) H 06/14/21 Ca 9.5 mg/dl (8.5-10.1) 06/14/21 Phosphorus Level 4.2 mg/dl (2.5-4.9) 06/14/21 Mg 2.3 mg/dl (1.7-2.4) 06/14/21 05:38 06/14/21 Calcium Level 9.5 mg/dl (8.5-10.1) 06/14/21 14:49 06/14/21 Diagnostic Findings (Past 24 Hours) Chest X-Ray 06/14/21 07:00 XR chest 1V portable HISTORY: Pneumonia. Shortness of breath. Follow-up. COMPARISON: Chest 06/13/2021. FINDINGS: No pneumothorax. There is a left-sided pacemaker/defibrillator. The heart remains enlarged. Multifocal bilateral airspace opacities and diffuse interstitial thickening are again noted. Suspect a small left pleural effusion. The nasogastric tube is been removed. IMPRESSION: No change in the bilateral airspace opacities and small left pleural effusion. ACT 112: Negative or not required by law. Electronically signed by: Reece Mejia M.D. 06/14/2021 8:11 AM I & O Totals 24 Hours 06/13/21 06/14/21 06/15/21 06:59 06:59 06:59 Intake Total 635.538 / 635.538 353.321 / 035.732 7654.679 / 1046.679 Output Total 1675 / 1675 1745 / 1745 Balance -1039.462 / -1039.462 -1391.679 / -9116.254 8775.679 / 1046.679 Cumulative 06/03/21 16:13 thru 06/14/21 09:48 Intake Total 8403.671 Output Total 33821 Balance -2916.329 RT Ventilator Mngmt (Last Documented) Ventilator Ordered Settings Ventilator Support Mode CPAP 06/12/21 10:07 Respiratory Rate 20 06/14/21 07:50 Ventilator Tidal Volume 380 06/12/21 08:00 Setting Minute Ventilation 7.3 06/12/21 10:07 Ventilator Positive Pressure 10 06/12/21 10:07 Support Setting Positive End Expiratory 5 06/12/21 10:07 Pressure Fraction of Inspired Oxygen 85 06/14/21 07:50 Machine Comment Pt placed pt on SBT at this time 06/12/21 10:[address] Viramontes. Ventilator - PT Measurements Respiratory Rate 20 Exhaled Tidal Volume 794 Minute Ventilation 7.3 Peak Inspiratory Airway 18 Pressure Plateau Pressure 24.3 Respiratory Cycle Inspiratory: 1:3.2 Expiratory Ratio Inspiratory Phase Time 0.65 End-Tidal CO2 37 Static Lung Compliance 20.52 Dynamic Lung Compliance 61.08 Normal Static Lung Compliance 49.00 Coding Level of Care Code Critical Care 1st 30-74 mins Diagnoses ARDS (adult respiratory distress syndrome) J80 COVID-19 U07.1 Pneumonia J18.9 Laterality: bilateral Lung location: unspecified part of lung Pneumonia type: due to unspecified organism CHF (congestive heart failure) I50.9 Cardiomyopathy I42.9 Kidney transplant recipient Z94.0 HUSSEIN (acute kidney injury) N17.9 (1) Pneumonia Laterality: bilateral Lung location: unspecified part of lung Pneumonia type: due to unspecified organism Qualified Code(s): J18.9 - Pneumonia, unspec ified organism
--- NOTE | 2021-06-14 10:53 | Hospitalist Progress Note ---
Date of Service June 14, 2021 Assessment & Plan (1) Pneumonia due to COVID-19 virus: Plan: Vaccinated and Boosted (last dose in February) First symptoms: May 24, 2021 Fist positive test: 06/03/2020 O2 requirement on admission: 15LPM O2 non-rebreather, O2 sats 71% on room air dexamethasone 6mg IV daily, got 10 days of treatment risk of higher dose of steroids or other immunosuppressant too great for secondary infection already on Tacrolimus for renal transplant he has Aspergillus which we are treating 06/08/21: requiring 60L 100% FiO2 with oxymask and then he agreed to wear CPAP required CPAP and then later in afternoon was intubated extubated on 06/12, he is stable on 50L 85% today, needing Precedex to stay calm as he was pulling at lines labs are stable, vitals stable try to improve oxygen requirements he failed his swallow study, will need core safe for medications, feedings clear that he does not want 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/ventilation if he would decompensate again he is a DNR/DNI and would transition to comfort measures (2) Acute respiratory failure with hypoxia: Plan: progressed from High Flow to needing CPAP 8 and FiO2 100% he elected to be intubated on 06/08/21 transferred to ICU status extubated 06/12, stable on 50L 85% today, on Precedex to stay calm 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: continue Voriconazole, will need 6-12 weeks he is DNR/DNI if he would get worse, make comfort (3) Encephalopathy: Plan: multifactorial, he gets really agitated, pulling at tubes and lines he needs Precedex at this time increases his morbidity and mortality (4) Afib: Plan: Anticoagulation with Eliquis (5) Kidney transplant recipient: Plan: Continue his usual tacrolimus dosing Consult nephrology, they are following Cr is down to 1.9 this morning, adequate UO via swian K down to 4.4 check BMP every morning nephrology following (6) CHF (congestive heart failure): Plan: euvolemic Plan: VTE Prophylaxis - continue Eliquis Diet - tube feeds Disposition - ICU status but he is extubated, needs Precedex guarded prognosis, encephalopathy is making care difficult if he decompensates then he would not want intubated and would be comfort care Admission and Anticipated Discharge Date Admission Date: June 03, 2021 Subjective patient remains on Precedex to help him remain calm and cooperative he is on 50L and 85% with saturations > 90% reviewed labs, Cr down to 1.9, Na is 149, WBC and Hb stable discussed with Dr. Viramontes and Dr. Castro, appreciate their input Review of Systems Review of Systems: Unobtainable due to cognitive status Physical Exam Physical Exam: General: well developed, ill appearing, thin male, sedated on high flow Neck: supple, trachea midline, normal thyroid Lungs: CTA bilaterally, slightly tachypneic but no distress, no accessory muscle use Heart: regular S1 and S2, no murmur, peripheral pulses normal, capillary refill normal, no edema Abdomen: soft, NT, ND, + BS, no hepatomegaly, normal to percussion Extremities: normal in appearance, no cyanosis, no petechiae, strength is 5/5 bilaterally Neuro: eyes open, calm, strength is 5/5 as he needs restraints when he gets agitated, no focal motor deficits, CN II-XII intact Skin: warm, dry, no rash, normal turgor Psych: eyes open, calm on Precedex Results & Data Results & Data ([facility]) Vital Signs (Past 12 Hours) Vital Signs Temp Pulse Pulse Pulse Resp BP Pulse Ox 06/14/21 08:00 89 06/14/21 07:50 58 L 20 94 06/14/21 04:46 91 H 19 90 06/14/21 04:00 36.6 C 40 L 16 155/85 H 91 06/14/21 00:01 70 26 H 91 06/13/21 23:00 78 18 142/96 H 90 Laboratory Results Laboratory Results - last 24 hr 06/14/21 06/14/21 05:38 05:38 WBC 8.15 RBC 3.93 L Hgb 11.2 L Hct 34.7 L MCV 88.3 MCH 28.5 MCHC 32.3 RDW Std Deviation 48.3 H RDW Coeff of Poonam 14.9 H Plt Count 188 MPV 11.5 H Immature Gran % (Auto) 2.9 Neut % (Auto) 86.1 Lymph % (Auto) 8.2 Keith % (Auto) 2.7 Eos % (Auto) 0.0 Baso % (Auto) 0.1 Neut # (Auto) 7.01 H Lymph # (Auto) 0.67 L Keith # (Auto) 0.22 Eos # (Auto) 0.00 Baso # (Auto) 0.01 Immature Gran # (Auto) 0.24 H Sodium 149 H Potassium 4.4 Chloride 118 H Carbon Dioxide 23 Anion Gap 8 BUN 82 H Creatinine 1.91 H Est Cr Clr Drug Dosing 44.0 Est GFR ( Amer) 42.6 Est GFR (Non-Af Amer) 36.7 BUN/Creatinine Ratio 42.9 H Glucose 162 H Calcium 9.5 Phosphorus 4.2 Magnesium 2.3 Medications Administered Current Inpatient Medications Acetaminophen (Acetaminophen 325 Mg Tab) 650 mg PO Q4H PRN PRN Reason: Pain or Fever Stop: 07/04/21 00:49 Last Admin: 06/08/21 08:41 Dose: 650 mg Documented by: Lipase/Protease/Amylase (Pancreaze (Lipase 10,500u) Cap) 4 cap PO BID [facility] Stop: 07/04/21 08:59 Last Admin: 06/13/21 08:20 Dose: 4 cap Documented by: Apixaban (Apixaban 5 Mg Tablet) 5 mg PO BID [facility] Stop: 07/04/21 00:49 Last Admin: 06/13/21 20:18 Dose: Not Given Documented by: Carvedilol (Carvedilol 6.25 Mg Tab) 6.25 mg PO BID [facility] Stop: 07/13/21 08:59 Last Admin: 06/13/21 20:18 Dose: Not Given Documented by: Duloxetine HCl (Duloxetine Hcl 30 Mg Cap) 30 mg PO DAILY [facility] Stop: 07/04/21 08:59 Last Admin: 06/10/21 08:21 Dose: 30 mg Documented by: Enteral Nutritional Formula (Novasource Renal 2.0 Aaron 1000ml Bag) 1,000 ml OG UD [facility]; Protocol Stop: 07/11/21 10:44 Last Admin: 06/13/21 11:56 Dose: 1,000 ml Documented by: Pantoprazole Sodium 40 mg/ (Syringe) 10 mls @ 5 mls/min IV BID [facility] Stop: 07/12/21 08:59 Last Admin: 06/13/21 20:18 Dose: 5 mls/min Documented by: Parenteral Electrolytes (Normosol-R) 1,000 mls @ 80 mls/hr IV .[id number] [facility] Stop: 07/13/21 19:14 Last Admin: 06/14/21 09:56 Dose: 80 mls/hr Documented by: Dexmedetomidine HCl 400 mcg/ (Sodium Chloride) 100 mls @ 9.19 mls/hr IV .[id number] [facility]; Protocol Stop: 06/18/21 02:29 Last Admin: 06/14/21 09:56 Dose: 0.4 mcg/kg/hr, 9.2 mls/hr Documented by: Pantoprazole Sodium (Pantoprazole 40 Mg Tab) 40 mg PO DAILY [facility] Stop: 07/04/21 08:59 Last Admin: 06/08/21 08:44 Dose: 40 mg Documented by: Senna/Docusate Sodium (Docusate Sodium/Senna 50/8.6mg Tab) 1 tab PO QAM [facility] Stop: 07/13/21 08:59 Last Admin: 06/13/21 11:09 Dose: 1 tab Documented by: Sterile Water (Tube Feeding Water Flush) 30 ml GT Q4H [facility] Stop: 07/09/21 10:59 Last Admin: 06/14/21 08:03 Dose: Not Given Documented by: Tacrolimus (Tacrolimus 1 Mg Cap) 3 mg PO MoTh@0900 [facility] Stop: 07/06/21 08:59 Last Admin: 06/13/21 08:21 Dose: 3 mg Documented by: Voriconazole (Voriconazole 200 Mg Tablet) 200 mg PO BID [facility]; Protocol Stop: 07/21/21 20:59 Last Admin: 06/13/21 20:18 Dose: Not Given Documented by: PG Care Time/CCT Total # of Minutes Spent Total Time Spent with Patient: Total time spent is greater than 50% in coordination of care (as documented) at patient's floor/unit and/or counseling patient: Coding Level of Care Code 48306 Subseq Hosp Care Lvl 3 Diagnoses Pneumonia due to COVID-19 virus U07.1; J12.82 Acute respiratory failure with hypoxia J96.01 Afib I48.91 Kidney transplant recipient Z94.0 CHF (congestive heart failure) I50.9 Encephalopathy G93.40
--- NOTE | 2021-06-14 12:25 | XRay Report ---
XR KUB/Abdomen 1 view CLINICAL HISTORY: NG tube placement. COMPARISON STUDY: 06/12/2021 TECHNIQUE: Single view of the abdomen. FINDINGS: The bowel gas pattern is within normal limits without evidence for dilatation or obstruction. The tip of the feeding tube is just past the GE junction within the gastric fundus. It should be further adv anced. There is no evidence for organomegaly or gross intra-abdominal mass. No abnormal calcification s are seen along the course of the urinary tracts bilaterally. No acute osseous pathology. IMPRESSION: 1.Tip of the feeding tube just past the GE junction and into the gastric fundus. It should be further advanced. ACT 112: Negative or not required by law. Electronically signed by: Bennett Lynn M.D. 06/14/2021 12:24 PM
[2021-06-14] MEDS: PANTOprazole 40 MG in SYRINGE 0 ML IV SCH ×2 (12:58→22:24)
[2021-06-14] MEDS: APIXABAN 5 MG TABLET PO SCH ×2 (12:58→22:20)
[2021-06-14] MEDS: VORICONAZOLE 200 MG TABLET PO SCH ×2 (12:58→22:20)
[2021-06-14] MEDS: carvediloL 6.25 MG TAB PO SCH ×2 (12:58→22:20)
[2021-06-14] MEDS: DOCUSATE SODIUM/SENNA 50/8.6MG TAB PO SCH (12:58)
[2021-06-14 15:30] LABS: BUN Creatinine Ratio 45.7 (10-20); Calcium 9.5 mg/dl (8.5-10.1); Creatinine Clr Calc Pharmacy 44.7 ml/min; Est GFR (African American) 43.4 ml/min; Est GFR (Non-African American) 37.4 ml/min; Potassium 4.1 mmol/L (3.5-5.1)
[2021-06-14] MEDS: D5W AND 1/2NSS 1,000 ML IV SCH (17:32)
[2021-06-15] MEDS: D5W AND 1/2NSS 1,000 ML IV SCH ×3 (00:45→14:44)
[2021-06-15] MEDS: TUBE FEEDING WATER FLUSH GT SCH ×4 (03:23→15:17)
[2021-06-15] MEDS: DEXMEDETOMIDINE HCL 400 MCG in 0.9 % SODIUM CHLORIDE 96 ML IV SCH ×3 (04:56→12:50)
[2021-06-15] MEDS ORDERED: MoRPHine SULFATE 2 MG/ML CARP IV STA ×3 (05:22→14:48)
[2021-06-15 07:02] LABS: Hematocrit (blood only) 31.9 % (42-52); Hemoglobin 10.4 g/dL (14.0-18.0); Mean Corpuscular Hemoglobin 28.4 pg (25-34); Mean Corpuscular Hgb Conc 32.6 g/dL (32-36); Mean Corpuscular Volume 87.2 fL (80-100); Mean Platelet Volume 13.1 fL (7.4-10.4); Platelet Count 156 K/uL (130-400); RDW Coefficient of Variation 15.1 % (11.5-14.5); RDW Standard Deviation 47.8 fL (36.4-46.3); Red Blood Count 3.66 M/uL (4.7-6.1); White Blood Count 12.93 K/uL (4.8-10.8)
[2021-06-15] MEDS ORDERED: MoRPHine SULFATE 2 MG/ML CARP ONE (07:33)
[2021-06-15 07:37] LABS: Albumin Level 2.5 gm/dl (3.4-5.0); BUN Creatinine Ratio 45.2 (10-20); Calcium 9.2 mg/dl (8.5-10.1); Est GFR (African American) 49.7 ml/min; Est GFR (Non-African American) 42.9 ml/min; Magnesium 2.1 mg/dl (1.7-2.4); Phosphorus 3.4 mg/dl (2.5-4.9); Potassium 3.7 mmol/L (3.5-5.1)
[2021-06-15 07:39] LABS: Basophils # (auto) 0.01 K/uL (0-0.2); Basophils % (auto) 0.1 %; Eosinophils # (auto) 0.02 K/uL (0-0.5); Eosinophils % (auto) 0.2 %; Immature Granulocytes # (auto) 0.37 K/uL (0.00-0.02); Immature Granulocytes % (auto) 2.9 %; Lymphocytes # (auto) 0.58 K/uL (1.2-3.4); Lymphocytes % (auto) 4.5 %; Monocytes # (auto) 0.39 K/uL (0.11-0.59); Neutrophils # (auto) 11.56 K/uL (1.4-6.5); Neutrophils % (auto) 89.3 %; Ovalocytes 1+; Polychromasia 1+
--- NOTE | 2021-06-15 08:38 | Hospitalist Progress Note ---
Date of Service June 15, 2021 Assessment & Plan (1) Pneumonia due to COVID-19 virus: Plan: Vaccinated and Boosted (last dose in February) First symptoms: May 24, 2021 Fist positive test: 06/03/2020 O2 requirement on admission: 15LPM O2 non-rebreather, -> now on High flow 60L 100% dexamethasone 6mg IV daily, completed 10 days of treatment on Tacrolimus for renal transplant, cultured Aspergillus on vorconizole, defer on high dose steroids 06/08/21: intubated extubated on 06/12, needing Precedex to stay calm as he was pulling at lines he failed his swallow study, will need core safe for medications, feedings 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, family does not want to make any changes and if declines to transition to comfort measures only if he would decompensate again he is a DNR/DNI and would transition to comfort measures (2) Acute respiratory failure with hypoxia: Plan: progressed from High Flow to needing CPAP 8 and FiO2 100% he elected to be intubated on 06/08/21 extubated 06/12, stable on 50L 85% today, on Precedex to stay calm Aspergillus on sputum culture: continue Voriconazole, will need 6-12 weeks he is DNR/DNI if he would get worse, make comfort (3) Encephalopathy: Plan: multifactorial, he gets really agitated, pulling at tubes and lines he needs Precedex at this time increases his morbidity and mortality (4) Afib: Plan: Anticoagulation with Eliquis (5) Kidney transplant recipient: Plan: Continue his usual tacrolimus dosing Consult nephrology, they are following (6) CHF (congestive heart failure): Plan: euvolemic Plan: VTE Prophylaxis - continue Eliquis Diet - tube feeds Disposition - ICU status but he is extubated, needs Precedex guarded prognosis, progressed to Cpap dependence if he decompensates then he would not want intubated and would be comfort care Admission and Anticipated Discharge Date Admission Date: June 03, 2021 Subjective Pt is significantly ill, family has decided to have decision to no further escalation of care, on CPAP 100% oxygen at this time and without some dramatic improvement will likley not be able to sustain this support as will be unable to eat etc, Family discussions have been handled by Dr Viramontes on critical care team Review of Systems Review of Systems: Unobtainable due to cognitive status and Unobtainable due to reduced consciousness Physical Exam Physical Exam: The patient appeared severe respiratory distress Vital signs as documented. Head exam is normocephalic atraumatic Neck is without JVD, thyromegaly, or carotid bruits. Lungs are coarse bilaterally in all lung gibbs tachypnea accessory muscle use Cardiac exam, Rhythm is regular to tachycardic.. No murmurs, rubs or gallops. Abdominal exam reveals normal bowel sounds, soft non tender, no masses Extremities are nonedematous and both pedal pulses are present Neurologic exam is obtunded at times gcs 6-7 does move arms and facial expression Skin is without bruises or rashes Results & Data Results & Data ([facility]) Vital Signs (Past 12 Hours) Vital Signs Temp Pulse Pulse Resp BP Pulse Ox 06/15/21 08:04 96 H 27 H 86 L 06/15/21 06:00 98.6 F 67 27 H 160/76 H 91 06/15/21 05:00 98.6 F 102 H 28 H 154/82 H 88 L 06/15/21 04:00 98.6 F 100 H 43 H 161/92 H 84 L 06/15/21 03:12 86 28 H 89 L 06/15/21 03:00 98.8 F 86 28 H 125/94 86 L 06/15/21 02:00 98.8 F 98 H 29 H 139/79 91 06/15/21 01:00 98.6 F 95 H 25 H 155/105 H 87 L 06/15/21 00:34 84 06/15/21 00:00 98.8 F 83 28 H 128/100 90 06/14/21 23:01 77 26 H 94 06/14/21 23:00 98.8 F 94 H 36 H 140/101 H 93 06/14/21 22:00 98.8 F 85 28 H 141/83 H 94 06/14/21 21:00 98.6 F 80 27 H 147/97 H 90 PG Care Time/CCT Total # of Minutes Spent Total Time Spent with Patient: Total time spent is greater than 50% in coordination of care (as documented) at patient's floor/unit and/or counseling patient: Coding Level of Care Code 15759 Subseq Hosp Care Lvl 2 Diagnoses Pneumonia due to COVID-19 virus U07.1; J12.82 Acute respiratory failure with hypoxia J96.01 Encephalopathy G93.40 Afib I48.91 Kidney transplant recipient Z94.0 CHF (congestive heart failure) I50.9
[2021-06-15] MEDS: carvediloL 6.25 MG TAB PO SCH (09:06)
[2021-06-15] MEDS: APIXABAN 5 MG TABLET PO SCH (09:06)
[2021-06-15] MEDS: VORICONAZOLE 200 MG TABLET PO SCH (09:07)
[2021-06-15] MEDS: DOCUSATE SODIUM/SENNA 50/8.6MG TAB PO SCH (09:07)
--- NOTE | 2021-06-15 09:47 | Nephrology Progress Note ---
Date of Service June 15, 2021 Assessment & Plan (1) HUSSEIN (acute kidney injury): Plan: * Chronic allograft dysfunction with superimposed ATN. Creatinine gradually improving. Baseline 1.3 * Hypernatremia. 4L free water deficit. IV D5 0.45NS infusing. Considered ent eral free water but patient has pulled out his G-tube (2) Kidney transplant recipient: Plan: * On twice weekly tacrolimus. Trough level remains subtherapeutic despite voriconazole therapy * Continue current immunosuppressive regimen (3) Hypertension: Plan: * BP is labile. Continue Carvedilol therapy (4) Pneumonia due to COVID-19 virus: Plan: * On dexamethasone * Voriconazole added for +aspergillus from respiratory culture * icu staff nurse reports that patient's respiratory status is tenuous. Primary & ICU services plan to speak with family today re: reintubation vs. comfort measures Admission and Anticipated Discharge Date Admission Date: June 03, 2021 Subjective Patient remains on respiratory isolation due to COVID pneumonia. Plan of care discussed w/ ICU staff this morning Physical Exam Physical Exam: PE withheld due to respiratory isolation Results & Data ([facility]) Vital Signs (Past 12 Hours) Vital Signs Temp Pulse Pulse Resp BP Pulse Ox 06/15/21 08:04 96 H 27 H 86 L 06/15/21 06:00 37.0 C 67 27 H 160/76 H 91 06/15/21 05:00 37.0 C 102 H 28 H 154/82 H 88 L 06/15/21 04:00 37.0 C 100 H 43 H 161/92 H 84 L 06/15/21 03:12 86 28 H 89 L 06/15/21 03:00 37.1 C 86 28 H 125/94 86 L 06/15/21 02:00 37.1 C 98 H 29 H 139/79 91 06/15/21 01:00 37.0 C 95 H 25 H 155/105 H 87 L 06/15/21 00:34 84 06/15/21 00:00 37.1 C 83 28 H 128/100 90 06/14/21 23:01 77 26 H 94 06/14/21 23:00 37.1 C 94 H 36 H 140/101 H 93 06/14/21 22:00 37.1 C 85 28 H 141/83 H 94 Laboratory Results Laboratory Tests 06/13/21 06/15/2122 05:42 06:07 06:07 WBC 12.93 H Hgb 10.4 L Hct 31.9 L Plt Count 156 Sodium 150 H Potassium 3.7 Chloride 122 H Carbon Dioxide 22 BUN 76 H Creatinine 1.68 H Glucose 165 H Calcium 9.2 Phosphorus 3.4 Magnesium 2.1 Tacrolimus 2.4 L PG Care Time/CCT Total # of Minutes Spent Total Time Spent with Patient: Total time spent is greater than 50% in coordination of care (as documented) at patient's floor/unit and/or counseling patient: Coding Level of Care Code 14805 Subseq Hosp Care Lvl 3 Diagnoses HUSSEIN (acute kidney injury) N17.9 Kidney transplant recipient Z94.0 Hypertension I10 Pneumonia due to COVID-19 virus U07.1; J12.82
--- NOTE | 2021-06-15 10:14 | Critical Care Progress Note ---
Date of Service June 15, 2021 Assessment & Plan (1) ARDS (adult respiratory distress syndrome): (2) COVID-19: (3) Pneumonia: (4) CHF (congestive heart failure): (5) Cardiomyopathy: (6) Kidney transplant recipient: (7) HUSSEIN (acute kidney injury): Plan: Impression: 61-year-old male kidney transplant recipient immunosuppressed with tacrolimus admitted to the hospital 06/03/2021 with COVID-pneumonia. He is fully vaccinated and boosted. He developed progressive respiratory insufficiency with increased work of breathing and he elected to be intubated 06/08/2021. Discussions were held with the patient and family prior to the procedure. He would not want tracheostomy but is agreeable to 7 days mechanical ventilation if he fails to improve at that point time, would proceed with terminal extubation. Further confirmation with family after extubation would not want reintubated and would proceed with comfort measures if he fails from a respiratory standpoint Recommendations: 1. Neurologic: Compliance improved with Precedex however unable to give some bolus secondary to lack of enteral access Acute encephalopathy: Likely multifactorial -Continue Precedex to facilitate noninvasive mechanical ventilation 2. Cardiovascular: Patient is fully anticoagulated with Eliquis due to prior history of A. fib. Hypotension: Resolved Hypertension: Coreg -Reviewed EKG QTC 433 3. Pulmonary: ARDS secondary to COVID pneumonitis. Completed course of dexamethasone. I am concerned about additional immunosuppression given his current dose of tacrolimus with higher doses. 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 Following with nephrology. -Worsening respiratory status in last 12 hours -Discussed goals of care with 4. GI: Tube feedings unable to be administered lack of enteral access hold patient's home pancreatic enzyme replacement. -Senna daily 5. Renal: History of kidney transplant. Will defer management of the patient's immunosuppression to nephrology. Currently on tacrolimus. Electrolyte replacement per nephrology. 6. ID: COVID-pneumonia. Cultures negative to date. Cont to follow. Aspergillus pneumonia: Voriconazole day 7 7. Endocrine: Glycemic control per ICU protocol. 8. Heme-onc: Mild anemia. Likely secondary to underlying kidney disease. No evidence of acute blood loss. No indication for transfusion currently. DVT prophylaxis: Eliquis. -Understanding that voriconazole will interact with Eliquis however we will continue regular dosing of Eliquis as the patient is in chronic A. fib Discussed with patient's current status/prognosis and possible options moving forward. We discussed the risks and benefits of tracheostomy and PEG tube placement. Given the COVID positivity and oxygen requirement I do not foresee significant improvement and would likely require long-term oxygen therapy. believes he is currently transitioning into a state of suffering. I believe the patient has been marginally sustaining with noninvasive mechanical ventilation however he is not significantly improving and if the lilibeth ent's with the assistance of the patient's sister feel that continued life- sustaining care is inconsistent with his wishes I would be agreeable with transition to comfort measures. Patient is critically ill with multiorgan system dysfunction at this point time. There is significant possibility of clinical deterioration and/or . A total of 60 min CC time spent in evaluation and management of patient. Patient was discussed in multidisciplinary rounds Admission and Anticipated Discharge Date Admission Date: June 03, 2021 Subjective Overnight had episode of desaturation and increased agitation was treated with 2 mg morphine and seemed to be improved Review of Systems Review of Systems: Unobtainable due to reduced consciousness Physical Exam Physical Exam: General: Following simple commands however not very redirectable nontoxic. Skin: Warm, dry, Head: Atraumatic Ears, nose, mouth and throat: Patent Cardiovascular: Normal peripheral perfusion, mild tachycardia Respiratory: Moderate tachypnea, mild accessory muscle use Gastrointestinal: Non distended Musculoskeletal: No deformity Results & Data Results & Data ([facility]) Vital Signs (Past 12 Hours) Vital Signs Temp Pulse Pulse Resp BP Pulse Ox 06/15/21 08:04 96 H 27 H 86 L 06/15/21 06:00 37.0 C 67 27 H 160/76 H 91 06/15/21 05:00 37.0 C 102 H 28 H 154/82 H 88 L 06/15/21 04:00 37.0 C 100 H 43 H 161/92 H 84 L 06/15/21 03:12 86 28 H 89 L 06/15/21 03:00 37.1 C 86 28 H 125/94 86 L 06/15/21 02:00 37.1 C 98 H 29 H 139/79 91 06/15/21 01:00 37.0 C 95 H 25 H 155/105 H 87 L 06/15/21 00:34 84 06/15/21 00:00 37.1 C 83 28 H 128/100 90 06/14/21 23:01 77 26 H 94 06/14/21 23:00 37.1 C 94 H 36 H 140/101 H 93 Critical Care Results & Data Vital Signs (Past 12 Hours) Vital Signs Temp Pulse Pulse Resp BP Pulse Ox 06/15/21 08:04 96 H 27 H 86 L 06/15/21 06:00 37.0 C 67 27 H 160/76 H 91 06/15/21 05:00 37.0 C 102 H 28 H 154/82 H 88 L 06/15/21 04:00 37.0 C 100 H 43 H 161/92 H 84 L 06/15/21 03:12 86 28 H 89 L 06/15/21 03:00 37.1 C 86 28 H 125/94 86 L 06/15/21 02:00 37.1 C 98 H 29 H 139/79 91 06/15/21 01:00 37.0 C 95 H 25 H 155/105 H 87 L 06/15/21 00:34 84 06/15/21 00:00 37.1 C 83 28 H 128/100 90 06/14/21 23:01 77 26 H 94 06/14/21 23:00 37.1 C 94 H 36 H 140/101 H 93 Lab & Micro Results (Past 24 Hours) RBC 3.66 M/uL (4.7-6.1) L 06/15/21 WBC 12.93 K/uL (4.8-10.8) H 06/15/21 Hgb 10.4 g/dL (14.0-18.0) L 06/15/21 Hct 31.9 % (42-52) L 06/15/21 MCV 87.2 fL (80-100) 06/15/21 MCH 28.4 pg (25-34) 06/15/21 MCHC 32.6 g/dL (32-36) 06/15/21 RDW Standard Deviation 47.8 fL (36.4-46.3) H 06/15/21 RDW Coefficient of Variation 15.1 % (11.5-14.5) H 06/15/21 Plt Count 156 K/uL (130-400) 06/15/21 MPV 13.1 fL (7.4-10.4) H 06/15/21 Neutrophils (%) (Auto) 89.3 % 06/15/21 Lymphocytes (%) (Auto) 4.5 % 06/15/21 Monocytes # (Auto) 0.39 K/uL (0.11-0.59) 06/15/21 Eosinophils # (Auto) 0.02 K/uL (0-0.5) 06/15/21 Immature Granulocyte % (Auto) 2.9 % 06/15/21 Neutrophils # (Auto) 11.56 K/uL (1.4-6.5) H 06/15/21 Lymphocytes # (Auto) 0.58 K/uL (1.2-3.4) L 06/15/21 Monocytes # (Auto) 0.39 K/uL (0.11-0.59) 06/15/21 Eosinophils # (Auto) 0.02 K/uL (0-0.5) 06/15/21 Basophils # (Auto) 0.01 K/uL (0-0.2) 06/15/21 Immature Granulocyte # (Auto) 0.37 K/uL (0.00-0.02) H 06/15/21 Polychromasia 1+ 06/15/21 Ovalocytes 1+ 06/15/21 Na 150 mmol/L (136-145) H 06/15/21 K 3.7 mmol/L (3.5-5.1) 06/15/21 Cl 122 mmol/L (98-107) H 06/15/21 CO2 22 mmol/L (21-32) 06/15/21 Anion Gap 6 (3-11) 06/15/21 BUN 76 mg/dl (6-23) H 06/15/21 Creatinine 1.68 mg/dl (0.6-1.4) H 06/15/21 Estimated GFR ( Amer) 49.7 ml/min 06/15/21 Estimated GFR (Non-Af Amer) 42.9 ml/min 06/15/21 BUN/Creatinine Ratio 45.2 (10-20) H 06/15/21 Glu 165 mg/dl (70-99(Fasting)) H 06/15/21 Ca 9.2 mg/dl (8.5-10.1) 06/15/21 Phosphorus Level 3.4 mg/dl (2.5-4.9) 06/15/21 Albumin 2.5 gm/dl (3.4-5.0) L 06/15/21 Mg 2.1 mg/dl (1.7-2.4) 06/15/21 06:07 06/15/21 Calcium Level 9.2 mg/dl (8.5-10.1) 06/15/21 06:07 06/15/21 Diagnostic Findings (Past 24 Hours) KUB X-Ray 06/14/21 11:28 XR KUB/Abdomen 1 view CLINICAL HISTORY: NG tube placement. COMPARISON STUDY: 06/12/2021 TECHNIQUE: Single view of the abdomen. FINDINGS: The bowel gas pattern is within normal limits without evidence for dilatation or obstruction. The tip of the feeding tube is just past the GE junction within the gastric fundus. It should be further advanced. There is no evidence for organomegaly or gross intra-abdominal mass. No abnormal calcifications are seen along the course of the urinary tracts bilaterally. No acute osseous pathology. IMPRESSION: 1.Tip of the feeding tube just past the GE junction and into the gastric fundus. It should be further advanced. ACT 112: Negative or not required by law. Electronically signed by: Bennett Lynn M.D. 06/14/2021 12:24 PM I & O Totals 24 Hours 06/14/21 06/15/21 06/16/21 06:59 06:59 06:59 Intake Total 353.321 / 853.600 3086.271 / 3226.271 1000 / 1000 Output Total 1745 / 1745 1245 / 1245 Balance -1391.679 / -8797.344 6952.271 / 3962.873 6657 / 1000 Cumulative 06/03/21 16:13 thru 06/15/21 09:04 Intake Total 67945.263 Output Total 27769 Balance -981.737 RT Ventilator Mngmt (Last Documented) Ventilator Ordered Settings Ventilator Support Mode CPAP 06/12/21 10:07 Respiratory Rate 27 06/15/21 08:04 Ventilator Tidal Volume 380 06/12/21 08:00 Setting Minute Ventilation 7.3 06/12/21 10:07 Ventilator Positive Pressure 10 06/12/21 10:07 Support Setting Positive End Expiratory 5 06/12/21 10:07 Pressure Fraction of Inspired Oxygen 100 06/15/21 09:39 Machine Comment Pt placed pt on SBT at this time 06/12/21 10:[address] Viramontes. Ventilator - PT Measurements Respiratory Rate 27 Exhaled Tidal Volume 794 Minute Ventilation 7.3 Peak Inspiratory Airway 18 Pressure Plateau Pressure 24.3 Respiratory Cycle Inspiratory: 1:3.2 Expiratory Ratio Inspiratory Phase Time 0.65 End-Tidal CO2 37 Static Lung Compliance 20.52 Dynamic Lung Compliance 61.08 Normal Static Lung Compliance 49.00 Coding Level of Care Code Critical Care 1st 30-74 mins Diagnoses ARDS (adult respiratory distress syndrome) J80 COVID-19 U07.1 Pneumonia J18.9 Laterality: bilateral Lung location: unspecified part of lung Pneumonia type: due to unspecified organism CHF (congestive heart failure) I50.9 Cardiomyopathy I42.9 Kidney transplant recipient Z94.0 HUSSEIN (acute kidney injury) N17.9 (1) Pneumonia Laterality: bilateral Lung location: unspecified part of lung Pneumonia type: due to unspecified organism Qualified Code(s): J18.9 - Pneumonia, unspecified organism
[2021-06-15] MEDS: PANTOprazole 40 MG in SYRINGE 0 ML IV SCH (10:55)
[2021-06-15] MEDS: MoRPHine SULFATE 2 MG/ML CARP IV STA ×2 (13:36→14:42)
--- NOTE | 2021-06-15 15:02 | Communication Note ---
Date of Service: June 15, 2021 Patient experiencing worsening hypoxia with increasing agitation. Transitioning to CPAP requiring 100% FiO2. Had an extensive discussion with the patient's today and reaffirmed no intubation in event of respiratory insufficiency. We have subsequently contacted her and informed her of the patient's decline. I feel as if he is unable to tolerate the CPAP despite being on Precedex and morphine it would be appropriate to transition to comfort measures at that time. Coding Level of Care Code None
[2021-06-15] MEDS ORDERED: GLYCOPYRROLATE 0.2 MG/ML VIAL IV PRN (15:32)
[2021-06-15] MEDS ORDERED: LORazepam 0.5 MG TAB PO PRN (15:32)
[2021-06-15] MEDS ORDERED: LORazepam 0.5 MG/1 ML VIAL IV PRN (15:32)
[2021-06-15] MEDS ORDERED: ONDANSETRON INJ 2 MG/ML 2 ML VIAL IV PRN (15:32)
[2021-06-15] MEDS ORDERED: STAT IV Infusion **Titration per Protocol STA (15:32)
[2021-06-15] MEDS ORDERED: ONDANSETRON 4 MG OD TAB SL PRN (15:32)
[2021-06-15] MEDS ORDERED: MoRPHine SULF/NSS 250 MG/250 ML BTL IV SCH (15:45)
[2021-06-15] MEDS ORDERED: CHLOROTHIAZIDE SODIUM 500 MG in DEXTROSE 5% 50 ML IV ONE (16:00)
--- NOTE | 2021-06-15 16:30 | XRay Report ---
SINGLE VIEW CHEST CLINICAL HISTORY: Hypoxia. FINDINGS: An AP, portable, upright chest radiograph is compared to study dated 06/14/2021 and correlat ed with chest CT dated 05/04/2021. The examination is degraded by portable technique and patient rota tion. A single lead cardiac AICD is unchanged in position and largely obscures the left mid chest. T he heart is enlarged extensive airspace opacities are again seen throughout both lungs. This appears modestly worsened as compared to yesterday. Small pleural effusions are noted. No pneumothorax is marvin ntified. The skeletal structures are osteopenic. There are chronic/healed bilateral rib fractures. Ch olecystectomy clips are noted in the right upper quadrant. IMPRESSION: 1. Diffuse bilateral airspace opacities have worsened as compared to yesterday. 2. Small pleural effusions. 3. Cardiomegaly and AICD. ACT 112: Negative or not required by law. Electronically signed by: Chetan Chavez M.D. 06/15/2021 4:28 PM
--- NOTE | 2021-06-15 18:50 | Discharge Summary ---
Date of Service June 15, 2021 Admission HPI Per Admitting Provider Jairon Ann is a 61 year old male with renal transplant and recent RSV pneumonia asthma exacerbation who presents to the ER with shortness of breath. He reports being unwell with shortness of breath for the last 10 days. Associated cough and mild diarrhea. He denies any fever, chills, loss of taste or smell, reduced appetite, nausea, abdominal or chest pain. In the ER he tested positive for SARS-COV-2 and CXR findings were consistent with such. He was hypoxic requiring non-rebreather 15LPM O2 to maintain sats > 90%, however given work of breathing was transitioned to BiPAP which he reports is helping considerably. He is currently requiring FiO2 60% on CPAP. He was given one dose of cefepime however subsequent procalcitonin was negative. He was referred to medicine for admission and ongoing management of COVID-19 pneumonia. Principal Diagnosis acute hypoxic respiratory failure, secondary to covid pneumonia, fungal pneumonia, influenced by immunosuppression from being a renal transplant recipient Discharge Exam pronounced at 1816 on 06/15/21 Discharge Data Allergies Allergy/AdvReac Type Severity Reaction Status Date / Time Penicillins Allergy Intermediate Hives Verified 06/03/21 19:13 Consultations 06/03/21 18:30 ED Decision to Admit Stat 06/04/21 06:31 Consult Nephrology Routine 06/08/21 13:37 Consult Market Intelligence Consultant Routine Ordered Studies 06/07/21 11:15 US venous doppler LE Routine Hospital Course (1) : pronounced at 1816 on 06/15/21 acute hypoxic respiratory failure, secondary to covid pneumonia, fungal pneumonia, influenced by immunosuppression from being a renal transplant recipeint additional documentation is from earlier in the hospital stay (2) Pneumonia due to COVID-19 virus: Vaccinated and Boosted (last dose in February) First symptoms: May 24, 2021 Fist positive test: 06/03/2020 O2 requirement on admission: 15LPM O2 non-rebreather, -> now on High flow 60L 100% dexamethasone 6mg IV daily, completed 10 days of treatment on Tacrolimus for renal transplant, cultured Aspergillus on vorconizole, defer on high dose steroids 06/08/21: intubated extubated on 06/12, needing Precedex to stay calm as he was pulling at lines he failed his swallow study, will need core safe for medications, feedings 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, family does not want to make any changes and if declines to transition to comfort measures only if he would decompensate again he is a DNR/DNI and would transition to comfort measures (3) Acute respiratory failure with hypoxia: progressed from High Flow to needing CPAP 8 and FiO2 100% he elected to be intubated on 06/08/21 extubated 06/12, stable on 50L 85% today, on Precedex Aspergillus on sputum culture: continue Voriconazole, he is DNR/DNI if he would get worse, make comfort (4) Encephalopathy: multifactorial, he gets really agitated, pulling at tubes and lines increases his morbidity and mortality (5) Afib: Anticoagulation with Eliquis (6) Kidney transplant recipient: Continue his usual tacrolimus dosing Consult nephrology, they are following (7) CHF (congestive heart failure): euvolemic VTE Prophylaxis - continue Eliquis Diet - tube feeds Disposition - ICU status but he is extubated, needs Precedex guarded prognosis, progressed to Cpap dependence if he decompensates then he would not want intubated and would be comfort care Total Time Total Time Spent Total Time Spent (In Minutes): It required greater than 30 minutes to prepare this patient for discharge Discharge Plan Discharge Items Patient Disposition: Discharge Diagnosis: acute hypoxic respiratory failure, secondary to covid pneumonia, fungal pneumonia, influenced by immunosuppression from being a renal transplant recipient Other Date/Time: 06/15/21 18:16 Coding Level of Care Code D/C DAY MANAGEMENT >30 MINS Diagnoses Pneumonia due to COVID-19 virus U07.1; J12.82 Acute respiratory failure with hypoxia J96.01 Encephalopathy G93.40 Afib I48.91 Kidney transplant recipient Z94.0 CHF (congestive heart failure) I50.9 R99
== END 2021-06-15 19:05 | disposition expired | DRG 208 ==
LOC: ED 16:20 → SUATTDRO 18:55 → 2S 18:55 → 2E 06-08 09:43
DX: J80 Acute respiratory distress syndrome; D63.1 Anemia in chronic kidney disease; I50.9 Heart failure, unspecified; E87.0 Hyperosmolality and hypernatremia; J16.8 Pneumonia due to other specified infectious organisms; B37.1 Pulmonary candidiasis; J12.82 Pneumonia due to coronavirus disease 2019; Z88.0 Allergy status to penicillin; N17.0 Acute kidney failure with tubular necrosis; Z79.01 Long term (current) use of anticoagulants; Z66 Do not resuscitate; U07.1 COVID-19; J96.01 Acute respiratory failure with hypoxia; K92.2 Gastrointestinal hemorrhage, unspecified; I48.91 Unspecified atrial fibrillation; E87.5 Hyperkalemia; I42.9 Cardiomyopathy, unspecified; I11.0 Hypertensive heart disease with heart failure; Z79.899 Other long term (current) drug therapy; J45.901 Unspecified asthma with (acute) exacerbation; G93.40 Encephalopathy, unspecified; I95.9 Hypotension, unspecified; Z94.0 Kidney transplant status; Z95.810 Presence of automatic (implantable) cardiac defibrillator